=== PATIENT | female | born 2000 | race African-American/Black ===

== ENCOUNTER 2023-02-28 11:33 | Emergency (ER) | payer OTHER ==
--- NOTE | 2023-02-28 12:54 | EDPHYS ---
Physician Documentation [facility] Name: Vivi Storm Age: 22 yrs Sex: Female : 2000 Arrival Date: 02/28/2023 Time: 11:33 Bed IW6 Private MD: ED Physician Rick Man HPI: 02/28 14:23 This 22 yrs old Black Female presents to ER via Ambulatory with complaints of Blisters snw from razor blade cuts. 14:23 Onset: The symptoms/episode began/occurred 3 day(s) ago, and became persistent. The snw patient has not experienced similar symptoms in the past. [employer]: 12:11 LMP 02/05/2023 bp Historical: - Allergies: 12:11 Phenergan; bp - Home Meds: 12:11 None [Active]; bp - PMHx: 12:11 None; bp - Immunization history:: Adult Immunizations up to date. - Social history:: Smoking status: Patient denies any tobacco usage or history of. ROS: 14:18 Constitutional: Negative for fever, chills, and weight loss, Eyes: Negative for injury, snw pain, redness, and discharge, ENT: Negative for injury, pain, and discharge, Neck: Negative for injury, pain, and swelling, Cardiovascular: Negative for chest pain, palpitations, and edema, Respiratory: Negative for shortness of breath, cough, wheezing, and pleuritic chest pain, Abdomen/GI: Negative for abdominal pain, nausea, vomiting, diarrhea, and constipation, Back: Negative for injury and pain, : Negative for injury, bleeding, discharge, and swelling, MS/Extremity: Negative for injury and deformity, Neuro: Negative for headache, weakness, numbness, tingling, and seizure, Psych: Negative for depression, anxiety, suicide ideation, homicidal ideation, and hallucinations. 14:18 Skin: Positive for rash. Exam: 13:05 Constitutional: This is a well developed, well nourished patient who is awake, alert, snw and in no acute distress. Head/Face: Normocephalic, atraumatic. Eyes: Pupils equal round and reactive to light, extra-ocular motions intact. Lids and lashes normal. Conjunctiva and sclera are non-icteric and not injected. Cornea within normal limits. Periorbital areas with no swelling, redness, or edema. ENT: Nares patent. No nasal discharge, no septal abnormalities noted. Tympanic membranes are normal and external auditory canals are clear. Oropharynx with no redness, swelling, or masses, exudates, or evidence of obstruction, uvula midline. Mucous membranes moist. Neck: Trachea midline, no thyromegaly or masses palpated, and no cervical lymphadenopathy. Supple, full range of motion without nuchal rigidity, or vertebral point tenderness. No Meningismus. Chest/axilla: Normal chest wall appearance and motion. Nontender with no deformity. No lesions are appreciated. Cardiovascular: Regular rate and rhythm with a normal S1 and S2. No gallops, murmurs, or rubs. Normal PMI, no JVD. No pulse deficits. Respiratory: Lungs have equal breath sounds bilaterally, clear to auscultation and percussion. No rales, rhonchi or wheezes noted. No increased work of breathing, no retractions or nasal flaring. Abdomen/GI: Soft, non-tender, with normal bowel sounds. No distension or tympany. No guarding or rebound. No evidence of tenderness throughout. Back: No spinal tenderness. No costovertebral tenderness. Full range of motion. MS/ Extremity: Pulses equal, no cyanosis. Neurovascular intact. Full, normal range of motion. Neuro: Awake and alert, GCS 15, oriented to person, place, time, and situation. Cranial nerves II-XII grossly intact. Motor strength 5/5 in all extremities. Sensory grossly intact. Cerebellar exam normal. Normal gait. Psych: Awake, alert, with orientation to person, place and time. Behavior, mood, and affect are within normal limits. 13:05 Skin: Appearance: normal except for affected area, rash can be described as pustular, herpetic tamia - right 4th and 5th finger. Vital Signs: 12:10 BP 131 / 68; Pulse 72; Resp 16; Temp 97.6; Pulse Ox 99% ; Weight 75.75 kg; Height 5 ft. bp 1 in. ; 12:10 Body Mass Index 31.55 (75.75 kg, 154.94 cm) bp MDM: 12:54 Patient medically screened. snw 13:05 Differential diagnosis: viral Infection, bacterial infection. Data reviewed: vital snw signs, nurses notes. Counseling: I had a detailed discussion with the patient and/or guardian regarding: the historical points, exam findings, and any diagnostic results supporting the discharge/admit diagnosis, the need for outpatient follow up, for definitive care, to return to the emergency department if symptoms worsen or persist or if there are any questions or concerns that arise at home. Special discussion: Based on the history and exam findings, there is no indication for further emergent testing or inpatient evaluation. I discussed with the patient/guardian the need to see the primary care provider for further evaluation of the symptoms. Administered Medications: No medications were administered Disposition: 16:37 Co-signature as Attending Physician, Rick Man MD. rn Disposition Summary: 02/28/23 12:54 Discharge Ordered Location: Home snw Condition: Stable snw Diagnosis - Rash and other nonspecific skin eruption snw Followup: snw - With: Emergency Department - When: As needed - Reason: Worsening of condition Followup: snw - With: Private Physician - When: 2 - 3 days - Reason: Recheck today's complaints, Continuance of care, Re-evaluation by your physician Discharge Instructions: - Discharge Summary Sheet snw - Herpetic Tamia snw Forms: - Work release form snw - Medication Reconciliation Form snw - Thank You Letter snw - Antibiotic Education snw - Prescription Opioid Use snw Signatures: Yasmin Sweeney, HYDROELECTRIC COMPONENT MACHINIST-C HYDROELECTRIC COMPONENT MACHINIST-Csnw Rick Man MD MD rn Peltier, Brian RN RN bp
--- NOTE | 2023-02-28 12:54 | ER ---
Nurse's Notes [facility] Name: Vivi Storm Age: 22 yrs Sex: Female : 2000 Arrival Date: 02/28/2023 Time: 11:33 Bed IW6 Private MD: Diagnosis: Rash and other nonspecific skin eruption Presentation: 02/28 12:10 Chief complaint: Patient states: I GOT THESE BLISTERS FROM A RAZOR ON MY HAND. AND I'M bp HAVING ABDOMINAL PAIN. Coronavirus screen: At this time, the client does not indicate any symptoms associated with coronavirus-19. Ebola Screen: No symptoms or risks identified at this time. Initial Sepsis Screen: Does the patient meet any 2 criteria? No. Patient's initial sepsis screen is negative. Does the patient have a suspected source of infection? No. Patient's initial sepsis screen is negative. Risk Assessment: Do you want to hurt yourself or someone else? Patient reports no desire to harm self or others. Onset of symptoms is unknown. 12:10 Method Of Arrival: Ambulatory bp 12:10 Acuity: LEATHA 3 bp Triage Assessment: 12:10 General: Appears in no apparent distress. Behavior is appropriate for age. Pain: Denies bp pain. EENT: No deficits noted. Neuro: No deficits noted. Cardiovascular: No deficits noted. Respiratory: No deficits noted. GI: No signs and/or symptoms were reported involving the gastrointestinal system. : No signs and/or symptoms were reported regarding the genitourinary system. Derm: Rash noted that is vesicular. Musculoskeletal: No deficits noted. [place]: 12:11 LMP 02/05/2023 bp Historical: - Allergies: 12:11 Phenergan; bp - Home Meds: 12:11 None [Active]; bp - PMHx: 12:11 None; bp - Immunization history:: Adult Immunizations up to date. - Social history:: Smoking status: Patient denies any tobacco usage or history of. Screenin:20 [facility] ED Fall Risk Assessment (Adult) History of falling in the last 3 months, bp including since admission No falls in past 3 months (0 pts). Abuse screen: Denies threats or abuse. Denies injuries from another. Nutritional screening: No deficits noted. Tuberculosis screening: No symptoms or risk factors identified. Assessment: 13:20 General: [facility]. bp Vital Signs: 12:10 BP 131 / 68; Pulse 72; Resp 16; Temp 97.6; Pulse Ox 99% ; Weight 75.75 kg; Height 5 ft. bp 1 in. ; 12:10 Body Mass Index 31.55 (75.75 kg, 154.94 cm) bp ED Course: 11:53 Patient arrived in ED. im 11:59 Yasmin Sweeney FNP-C [facility] snw 11:59 Rick Man MD is Attending Physician. snw 12:11 Triage completed. bp 12:11 Arm band placed on. bp 13:19 Jasbir Suárez, RN is Primary Nurse. bp 13:20 Patient has correct armband on for positive identification. bp 13:20 No provider procedures requiring assistance completed. Patient did not have IV access bp during this emergency room visit. Administered Medications: No medications were administered Medication: 13:20 VIS not applicable for this client. bp Outcome: 12:54 Discharge ordered by . snw 13:20 Discharged to home ambulatory. bp 13:20 Condition: stable 13:20 Discharge instructions given to patient, Instructed on discharge instructions, follow up and referral plans. Demonstrated understanding of instructions, follow-up care. 13:21 Patient left the ED. bp Signatures: Yasmin Sweeney FNP-C [employer]ER-Csnw Jasbir Suárez, RN RN bp Oralia Teran im
[2023-02-28 14:02] VITALS: BP 131/68; TEMP 97.6; O2SAT 99
== END 2023-02-28 13:21 | disposition home or self-care (01) ==
LOC: ER 11:33
DX: R21 Rash and other nonspecific skin eruption (principal); Z88.8 Allergy status to other drugs, medicaments and biological substances
CPT/HCPCS: 99282

== ENCOUNTER 2023-05-19 08:07 | Emergency (ER) | payer OTHER ==
--- OUTSIDE RECORDS SUMMARY | 2023-05-19 08:21 | XMS REPORT | Continuity of Care Document ---
:2000 Author Organization [facility] t Address [address] [place] [address] Care Team Providers Name Role Phone No , Pcp [facility] Primary Care Physician Unavailable Jared Hernandez Attending Clinician Unavailable JR GAGE Attending Clinician Unavailable Jr Gage MD Attending Clinician [phone] MIKEY MCKEON Attending Clinician Unavailable Mike HERNANDEZ, Mikey Rick Attending Clinician Rainer Pineda Attending Clinician Unavailable Adama CADENA, Benita Attending Clinician BENITA GÓMEZ Attending Clinician Unavailable Foreign HERNANDEZ, River Handley Attending Clinician RIVER PITT Attending Clinician Unavailable Zohreh Workman Attending Clinician Unavailable RACHNA WALTERS Attending Clinician Unavailable Rachna Hernandes MD Attending Clinician RACHNA HERNANDES Attending Clinician Unavailable Israel Harris Attending Clinician Unavailable ROX MIRANDA Attending Clinician Unavailable CHAITANYA STORM Attending Clinician Unavailable CHIDI PANDA Attending Clinician Unavailable Merry Morales Attending Clinician Unavailable Jazlyn HERNANDEZ, Velma Hoskins Attending Clinician [phone] Julian Velarde Attending Clinician Unavailable Nakul Eaton MD Attending Clinician Aleksandar Coon DO Attending Clinician Magdalena Jaimes MD Attending Clinician MAGDALENA JAIMES Attending Clinician Unavailable Arelis Lopez MD Attending Clinician Brian Brady MD Attending Clinician Sharmaine Ha Attending Clinician Unavailable Mandy Luis Attending Clinician Unavailable Mandy Luis Attending Clinician Unavailable ALEN CHAUDHARI Attending Clinician Unavailable ATUL MAYA Attending Clinician Unavailable Physician, No Primary or Family Admitting Clinician Unavaila ble KNOW, DOES_NOT Admitting Clinician Unavailable Estefani Faria Admitting Clinician Unavailable Mandy Luis Admitting Clinician Unavailable Payers Payer Name Policy Type Policy Number Effective Date Expiration Date S reinierce MEDICAID TCH STAR [id number] 2021 00:00:00 CDC REVIEW [id number] 2020 00:00:00 Problems Condition Condition Condition Status Onset Resolution Last Treating Co mments Source Name Details Category Date Date Treatment Clinician Date 8 WKKS/ 8 WKKS/ Diagnosis Active 2020-092021-06-29 Memoria BLEEDING BLEEDING 0-08 01:35:00 l Active 00:00: [place] 06/28/2021 [facility] NAUSEA NAUSEA Diagnosis Active 2020-092021-06-26 moriricco VOMITING VOMITING 0-06 21:24:00 l Active 00:00: [place] 06/26/2021 [place] ABD PAIN - ABD PAIN Diagnosis Active 2021-09-02 Memoria 7WKS PREG - 7WKS 06-15 09:39:00 l PREG 14:50: [place] Active 00 06/15/2021 [facility] Darwin VAGINAL VAGINAL Diagnosis Active 2019-05-06 Memoria BLEEDING/ BLEEDING/ 8-16 02:50:00 l PREG LESS PREG LESS 00:00: Herm hannah THAN 20 THAN 20 00 WKS WKS Active 05/06/2019 Fabiana Granados DIZZY/LIGH Diagnosis Active 2019-01-04 Aiyana T HEADED DIZZY/LIGH 4 09:57:00 l T HEADED 21:10: [place] Active 00 12/31/2018 [facility] Darwin NST, NST, Diagnosis Active 2016-092017-07-17 Ezio oriricco ULTRASOUND ULTRASOUND 0 21:52:00 l Active 00:00: [place] 07/09/2017 00 [facility] LABOR PAIN LABOR Diagnosis Active 2016-092017-07-06 Memoria PAIN 0-16 13:24:00 l Active 00:00: [place] 07/06/2017 00 [facility] FEVER FEVER Diagnosis Active 2017-01-14 Me moria Active 01-14 06:37:00 l 01/14/2017 00:00: Darius knight [facility] 00 [place] ABD PAIN ABD PAIN Diagnosis Active 2016-12-22 Memoria Active 12-22 19:17:00 l 12/22/2016 00:00: Darius knight 00 [place] SORE SORE Diagnosis Active 2016-12-18 Mem oria THROAT, THROAT, 12-18 23:31:00 l STOMACH STOMACH 00:00: [place] PAIN PAIN 00 Active 12/18/2016 Fabiana Granados POSSIBLE POSSIBLE Diagnosis Active 2015-03-13 Memoria UTI UTI Active 6-16 12:49:00 l 03/06/2015 00:00: Darius knight [address] Patient Patient Problem Resolve 2021-07-01 M emoria currently currently d 21:04:29 l Darius knight (finding) (finding) Resolved Problem 07/01/2021 [facility], Isabell Alexander History of Past Illness Condition Condition Condition Status Onset Resolution Last Treating Co mments Source Name Details Category Date Date Treatment Clinician Date Bacteriuri Problem 2020-092021-06-28 2021-06-28 Memoria a Bacteriuri 0-06 23:14:13 23:14:13 l a 17:00: [place] 06/26/2021 00 06/28/2021 [facility] Other Other Problem 2020-092021-06-28 2021-06-28 M emoria specified specified 0-06 23:14:13 23:14:13 l disorders disorders 17:00: [place] of 00 amniotic amniotic fluid and fluid and membranes, membranes, first first trimester, trimester, not not applicable applicable or or unspecifie unspecifie d d 06/26/2021 06/28/2021 [facility] Mild Mild Problem 2020-092021-06-28 2021-06-28 M emoria hyperemesi hyperemesi 0-06 23:14:13 23:14:13 l s s 17:00: [place] gravidarum gravidarum 00 06/28/2021 [facility] Unspecifie Unspecifi Problem 2020-092021-06-28 2021-06-28 Memoria d ovarian ed ovarian 0-06 23:14:13 23:14:13 l cyst, left cyst, left 17:00: He rmann side side 00 06/26/2021 06/28/2021 [facility] Encounter Encounter Problem 2020-092021-06-28 2021-06-28 Memoria for for 0-06 23:14:13 23:14:13 l supervisio supervisio 17:00: He rmhannah n of n of 00 normal normal , , unspecifie unspecifie d, d, unspecifie unspecifie d d trimester trimester 06/26/2021 06/28/2021 [facility] Other Other Problem 20212021-06-18 2021-06-18 M emoria specified specified 06-16 21:50:11 21:50:11 l 17:00: [place] young related related 00 conditions conditions , , unspecifie unspecifie d d trimester trimester 06/16/2021 06/18/2021 [facility] Urinary Urinary Problem 2021-06-18 2021-06-18 Memoria tract tract 06-16 21:50:11 21:50:11 l infection, infection, 17:00: He rmann site not site not 00 specified specified 06/16/2021 06/18/2021 [facility] Nausea Nausea Problem 2021-06-18 2021-06-18 Memoria with with 06-16 21:50:11 21:50:11 l vomiting, vomiting, 17:00: [place] unspecifie unspecifie 00 d d 06/16/2021 06/18/2021 [facility] Antepartum Antepartu Problem 2019-05-08 2019-05-08 Memoria hemorrhage m 8-16 21:08:11 21:08:11 l , hemorrhage 17:00: Darius knight unspecifie , 00 d, unspecifie unspecifie d, d unspecifie trimester d trimester 05/06/2019 05/08/2019 [facility] Weakness Weakness Problem 2019-01-03 2019-01-03 Memoria 01/01/201901-01 22:42:49 22:42:49 l 01/03/2019 05:00: Darius knight 00 [place] False False Problem 2016-092017-07-09 2017-07-09 M emoria labor, labor, 016 02:04:19 02:04:19 l unspecifie unspecifie 05:00: He rmann d d 00 07/06/2017 07/09/2017 [facility] Acute Acute Problem 2017-01-17 2017-01-17 M emoria upper upper 01-14 03:48:02 03:48:02 l respirator respirator 05:00: He rmann y y 00 infection, infection, unspecifie unspecifie d d 01/14/2017 01/17/2017 [facility] Unspecifie Unspecifi Problem 2016-12-252016-122016-12-25 Memoria d ed 4- 03:27:44 03:27:44 l infection infection 05:00: Herm hannah of urinary of urinary 00 tract in tract in , , unspecifie unspecifie d d trimester trimester 12/22/2016 7 [facility] Encounter Encounter Problem 2016-2016-12-25 2016-12-25 Memoria for for 12-22 03:27:44 03:27:44 l 05:00: Herm hannah test, test, 00 result result positive positive 12/22/2016 12/25/2016 [facility] Acute Acute Problem 2016-2016-12-22 2016-12-22 M emoria pharyngiti pharyngiti 12-19 03:15:35 03:15:35 l s, s, 05:00: [place] unspecifie unspecifie 00 d d 12/19/2016 12/22/2016 [facility] Discharge Discharge Problem 2015-03-10 2015-03-10 Memjazmin Diagnosis: Diagnosis: 03-07 06:36:09 06:36:09 l Urinary Urinary 05:00: [place] tract tract 00 infection, infection, acute acute 03/07/2015 03/10/2015 [facility] Allergies, Adverse Reactions, Alerts Allergy Allergy Status Severity Reaction(s) Onset Inactive Treating Comm ents Source Name Type Date Date Clinician prometha DA Active SV hallucinatio 2021-09 [facility] 2[facility]11 [facility] [place] prometha DA Active U UNKNOWN 2021-09 [facility] zine 1-24 [facility] 00:00: [facility] 00 are [facility] hydrocod DA Active U "ALLERGIC" [facility] one 2-27 [facility] [place] acetamin DA Active U "ALLERGIC" [facility] ophen -27 [facility] [place] ACETAMIN Allergy Active [facility] HYDROCOD Allergy Active [facility] Acetamin Drug Active Other [facility] Allergy 11-17 [facility]( [facility] 00[facility]: s[facility] Medical 00 "ALLERGIC Center " Hydrocod Drug Active Other [facility] one Allergy 2-27 reaction( [facility] 00:00: s): Medical 00 "ALLERGIC Center " PROMETHA Allergy Active High [facility] Z[facility] 2-16 [facility] 00:[facility]: Medical 00 Center Prometha Drug Active Hallucina [facility] Allergy -16 tions [facility] 00:00: Other Medical 00 reaction( Center s): hallucina tions, UNKNOWN SOMETHIN DA Active MO HALLUCINATIN HC A G THEY G 06-06 [facility] GAVE ME 00:00: Hospita IV ??? 00 [facility] No Known DA Active U [facility] Allergie - [facility] 00:[facility]: [facility] 00 [facility] No Known DA Active U [facility] Allergie - [facility] 00:[facility]: [facility]osp[facility] 00 [facility] No Known DA Active U [facility] 1-04 Allergie 00:00: s 00 Prochlor Drug Active 2020- "feels [facility] perazine Intolera 2-27 Rosaura bell Edisylat nce 00:00: feels Medical e 00 bad" per Center patient as of 0 @ 2227 PROCHLOR Allergy Active 2019- [facility] PERAZINE 2-27 EDISYLAT 00:00: E 00 No Known DA Active U 2019-0 [facility] Allergie 9-22 [facility] 00:[facility]: [facility] 00 [facility] No Known DA Active U 2019-0 [facility] Allergie 9-22 [facility] 00:[facility]: H[facility] 00 [facility] No Known DA Active U 2015-0 [facility] Allergie 5-17 [facility] 00:[facility]: [address] No Known DA Active U 2015-0 [facility] Allergie 5-17 [facility] 00:[facility]: [address] NO KNOWN Allergy Active [facility] ALLERGIE S No Known Drug Active [facility] Family History Family Member Diagnosis Comments Start Date Stop Date Source Natural father No Known Problem [facility] Natural mother No Known Problem [facility] Maternal grandmother Cancer [facility] Paternal grandmother Diabetes [facility] Social History Social Habit Start Date Stop Date Quantity Comments Source ASSERTION [facility] Exposure to Not sure [facility] SARS-CoV-2 (event) Medica l Center History of tobacco Occasional tobacco [facility] use smoker Medical Center History SDIN [facility] Alcohol Std Drinks Medica l Center History SDOH [facility] Alcohol Binge Medical [facility] Alcohol intake 2023-02-28 2023-02-28 Current drinker of [facility] 00:[facility]00 00[facility]00:00 alcohol (finding) Medical Center Tobacco use and 2022-05-15 2022-05-15 Smokeless [address] [facility] exposure 00:00:00 00:00:00 non-user Medical Center Alcohol Comment 2022-05-15 2022-05-[address] [facility] 00:00:00 00:00:00 Medical Center History SDOH 2019-03-23 2019-03-[address] [facility] Alcohol Frequency 00:00:00 00:00:00 Medical Center Sex Assigned At 2000 [address] [facility] [address] Nia kes 00:00:00 00:00:00 Medical Center Smoking Status Start Date Stop Date Source Occasional tobacco smoker 2022-05-15 00:00:[address] [facility] Social History [facility] Medications Ordered Filled Start Stop Current Ordering Indication Dosage Frequency Signature Comments Components Source Medication Medication Date Date Medication? Clinician (SIG) Name Name metroNIDAZO 2022- No 500mg Q.5D Take [address] [facility] (FLAGYL) 02-28 tablet [facility] 500 MG 00:00: 23:59 (500 mg Medical tablet 00 :00 total) by Center mouth in the morning and 1 tablet (500 mg total) before bedtime. Do all this for 7 days. Do not drink alcohol. metroNIDAZO 2022- No 500mg Q.5D Take [address] [facility] (FLAGYL) 02-28 tablet [facility] 500 MG 00:00: 23:59 (500 mg Medical tablet 00 :00 total) by Center mouth in the morning and 1 tablet (500 mg total) before bedtime. Do all this for 7 days. Do not drink alcohol. nitrofurant 2022- No 100mg Q.5D Take [address] [facility], 6-10 06-15 capsule [facility] macrocrysta 00:00: 23:59 (100 mg Me dical l-monohydra 00 :00 total) by [facility] te, mouth in (MACROBID) the 100 MG morning capsule and 1 capsule (100 mg total) before bedtime. Do all this for 5 days. nitrofurant 2023-0 2023- No 100mg Q.5D Take [address] [facility], 6-06 26-15 capsule [facility] macrocrysta 00:00: 23:59 (100 mg Me dical l-monohydra 00 :00 total) by [place] ter te, mouth in (MACROBID) the 100 MG morning capsule and 1 capsule (100 mg total) before bedtime. Do all this for 5 days. metroNIDAZO 2023-0 2023- No 500mg Q.5D Take [address] [facility] (FLAGYL) 6- 06-10 tablet [facility] 500 MG 00:00: 00:00 (500 mg Medical tablet 00 :00 total) by Center mouth in the morning and 1 tablet (500 mg total) before bedtime. Do all this for 7 days. Do not drink alcohol. nitrofurant 2023-0 2023- No 100mg Q.5D Take [address] [facility], 6-10 06-10 capsule [facility] macrocrysta 00:00: 00:00 (100 mg Me dical l-monohydra 00 :00 total) by [place] [facility] te, mouth in (MACROBID) the 100 MG morning capsule and 1 capsule (100 mg total) before bedtime. Do all this for 5 days. metroNIDAZO 2023-0 2023- No 500mg Q.5D Take [address] [facility] (FLAGYL) 6-10 06-10 tablet [facility] 500 MG 00:00: 00:00 (500 mg Medical tablet 00 :00 total) by Center mouth in the morning and 1 tablet (500 mg total) before bedtime. Do all this for 7 days. Do not drink alcohol. nitrofurant 2023-0 2023- No 100mg Q.5D Take [address] [facility], 6-10 06-10 capsule [facility] macrocrysta 00:00: 00:00 (100 mg Me dical l-monohydra 00 :00 total) by [place] [facility] te, mouth in (MACROBID) the 100 MG morning capsule and 1 capsule (100 mg total) before bedtime. Do all this for 5 days. nitrofurant 2022-0 2022- No 100mg Q.5D Take [address] [facility], 12-03- capsule [facility] macrocrysta 00:00: 23:59 (100 mg Me dical l-monohydra 00 :00 total) by [place] [facility] te, mouth 2 (MACROBID) (two) 100 MG times capsule daily for 7 days. nitrofurant 0 2022- No 100mg Q.5D Take [address] [facility], 12-03- capsule [facility] macrocrysta 00:00: 23:59 (100 mg Me dical l-monohydra 00 :00 total) by [place] [facility] te, mouth 2 (MACROBID) (two) 100 MG times capsule daily for 7 days. sulfamethox 2021-2021- No 160mg{t Q.5D Take [address] azole-trime 05-15 rimetho tablet Nia kes thoprim 00:00: 23:59 prim} (160 mg of Me dical (BACTRIM 00 :00 trimethopr Cente r DS) 800-160 im total) mg per by mouth 2 tablet (two) times daily for 7 days smx-tmp DS (BACTRIM) 800-160 mg tabs (1tab q12 D10). metroNIDAZO 2021-2021- No 500mg Q.5D Take [address] [facility] (FLAGYL) 05-15 tablet [facility] 500 MG 00:00: 23:59 (500 mg Medical tablet 00 :00 total) by Center mouth 2 (two) times daily for 7 days. sulfamethox 2021-0 2021- No 160mg{t Q.5D Take [address] azole-trime 05-15 rimetho tablet Nia kes thoprim 00:00: 23:59 prim} (160 mg of Me dical (BACTRIM 00 :00 trimethopr Cente r DS) 800-160 im total) mg per by mouth 2 tablet (two) times daily for 7 days smx-tmp DS (BACTRIM) 800-160 mg tabs (1tab q12 D10). metroNIDAZO 2021- No 500mg Q.5D Take [address] [facility] (FLAGYL) 05-15 tablet [facility] 500 MG 00:00: 23:59 (500 mg Medical tablet 00 :00 total) by Center mouth 2 (two) times daily for 7 days. sulfamethox 2021- No 160mg{t Q.5D Take [address] azole-trime 05-15 rimetho tablet Nia kes thoprim 00:00: 23:59 prim} (160 mg of Me dical (BACTRIM 00 :00 trimethopr Cente r DS) 800-160 im total) mg per by mouth 2 tablet (two) times daily for 7 days smx-tmp DS (BACTRIM) 800-160 mg tabs (1tab q12 D10). metroNIDAZO 2021- No 500mg Q.5D Take [address] [facility] (FLAGYL) 05-15 tablet [facility] 500 MG 00:00: 23:59 (500 mg Medical tablet 00 :00 total) by Center mouth 2 (two) times daily for 7 days. predniSONE 2021- No 50mg QD Take [address] (DELTASONE) 8 08-30 tablet (50 L ukes 50 MG 00:00: 23:59 mg total) Medica l tablet 00 :00 by mouth Center daily for 5 days. predniSONE 2021- No 50mg QD Take [address] (DELTASONE) 8-25 08-30 tablet (50 L ukes 50 MG 00:00: 23:59 mg total) Medica l tablet 00 :00 by mouth Center daily for 5 days. predniSONE 2021- No 50mg QD Take [address] (DELTASONE) 8-25 08-30 tablet (50 L ukes 50 MG 00:00: 23:59 mg total) Medica l tablet 00 :00 by mouth Center daily for 5 days. nitrofurant 2021- No 100mg Q.5D Take [address] [facility], 2-09 05- capsule [facility] macrocrysta 00:00: 00:00 (100 mg Me dical l-monohydra 00 :00 total) by [place] [facility] te, mouth 2 (MACROBID) (two) 100 MG times capsule daily. pyridoxine, 2021- No 25mg Take 1 SISSY vitamin B6, 11-09- tablet (25 L ukes (B-6) 25 MG 00:00: 23:59 mg total) Medical tablet 00 :00 by mouth Center every 8 (eight) hours as needed for up to 15 days. metroNIDAZO 2021- No 250mg Q.[id number] Take [address] [facility] (FLAGYL) 11-09- [id number] tablet [facility] 250 MG 00:00: 23:59 3D (250 mg Medical tablet 00 :00 total) by Center mouth 3 (three) times daily for 7 days. cephalexin 2020-09 Yes 500 mg = 1 M emoria 500 mg oral 0-07 cap, PO, l capsule 04:31: BID, X 5 Darius n 00 day, # 10 cap, 0 Refill(s) NS (Bolus) 2020-09 No 1,000 mL, Me moria IV 0-07 1,000 l 03:32: ml/hr, [place] 00 Infuse Over: 1 hr, Route: IV, 1,000, Drug form: INJ, ONCE, Priority: STAT, Dosing Weight 68.4 kg, Start date: 06/26/21 22:32:00 CDT, Stop date: 06/26/21 22:32:00 CDT, 0 Metoclopram 2020-09 Yes 5 mg = 1 Me moria jaimee 5 MG 0-07 tab, PO, l Oral Tablet 02:20: BID, PRN He rmann [Reglan] 00 Nausea & Vomiting, X 7 day, # 8 tab, 0 Refill(s) Reglan 2020-09 No Notes: Memoria 0-07 (Same as: l 01:09: Reglan) [place] 00 LR IV 1,000 2020-09 No 1,000 mL, M emoria mL 0-07 Rate: 999 l 01:08: ml/hr, [place] 00 Infuse over: 1 hr, Route: IV, Dosing Weight 68.4 kg, Total Volume: 1,000, Start date: 06/26/21 20:08:00 CDT, Duration: 30 day, Stop date: 07/26/21 20:07:00 CDT, BSA: 1.75 m2, 0 nitrofurant 2020-09- No 100mg Q.5D Take [address] [facility], 0-04 10-11 capsule [facility] macrocrysta 00:00: 23:59 (100 mg Me dical l-monohydra 00 :00 total) by [place] [facility] te, mouth 2 (MACROBID) (two) 100 MG times capsule daily for 7 days. promethazin 2020-[address] [facility] 0-04 10-11 suppositor [facility] (PHENERGAN) 00:00: 23:59 y (25 mg M edical 25 MG 00 :00 total) Center suppository rectally every 6 (six) hours as needed for Nausea for up to 7 days. nitrofurant 2020-09- No 100mg Q.5D Take [address] [facility], 0-04 10-11 capsule [facility] macrocrysta 00:00: 23:59 (100 mg Me dical l-monohydra 00 :00 total) by [place] [facility] te, mouth 2 (MACROBID) (two) 100 MG times capsule daily for 7 days. promethazin 2020-09- No 25mg Place [address] [facility] 0-04 10-11 suppositor [facility] (PHENERGAN) 00:00: 23:59 y (25 mg M edical 25 MG 00 :00 total) Center suppository rectally every 6 (six) hours as needed for Nausea for up to 7 days. nitrofurant 2020-09- No 100mg Q.5D Take [address] [facility], 0-04 10-11 capsule [facility] macrocrysta 00:00: 23:59 (100 mg Me dical l-monohydra 00 :00 total) by [place] [facility] te, mouth 2 (MACROBID) (two) 100 MG times capsule daily for 7 days. promethazin 2020-09- No 25mg Place [address] [facility] 0-04 10-11 suppositor [facility] (PHENERGAN) 00:00: 23:59 y (25 mg M edical 25 MG 00 :00 total) Center suppository rectally every 6 (six) hours as needed for Nausea for up to 7 days. AZITHROmyci 2020-09 No 500mg QD Take [address] n 0-04 10-09 tablet [facility] (ZITHROMAX) 00:00: 23:59 (500 mg Me dical 500 MG 00 :00 total) by Center tablet mouth daily for 5 days Take by mouth as directed.. AZITHROmyci 2020-09- No 500mg QD Take [address] n 0-04 10-09 tablet [facility] (ZITHROMAX) 00:00: 23:59 (500 mg Me dical 500 MG 00 :00 total) by Center tablet mouth daily for 5 days Take by mouth as directed.. AZITHROmyci 2020-09- No 500mg QD Take [address] n 0-04 10-09 tablet [facility] (ZITHROMAX) 00:00: 23:59 (500 mg Me dical 500 MG 00 :00 total) by Center tablet mouth daily for 5 days Take by mouth as directed.. cephalexin Yes 500 mg = 1 M emoria 500 mg oral 06-16 cap, PO, l capsule 21:48: BID, X 7 Darius n 00 day, # 14 cap, 0 Refill(s) doxylamine Yes 1 tab, PO, M emoria succinate 06-16 Bedtime, # l 10 MG / 21:48: 14 tab, 0 [place] nn Pyridoxine 00 Refill(s) Hydrochlori de 10 MG Enteric Coated Tablet [Diclegis] Ceftriaxone No 1 gm, Memor ia 06-16 Route: l 20:21: IVPB, Drug form: PDR/INJ, ONCE, Dosing Weight 70.8, kg, Priority: STAT, Start date: 06/16/21 15:21:00 CDT, Stop date: 06/16/21 15:21:00 CDT, ABX Indication : Urinary Tract Infection Saline No Notes: Memoria Flush 0.9% 06-16 Same as: l 19:25: BD [place] 00 Posiflush Sterile Sodium No 1,000 mL, Memori a Chloride 06-16 1000 l 0.9% 19:25: ml/hr, [place] (Bolus) IV 00 Infuse Over: 1 hr, Route: IV, 1,000, Drug form: INJ, ONCE, Priority: STAT, Dosing Weight 70.3 kg, Start date: 06/16/21 14:25:00 CDT, Stop date: 06/16/21 14:25:00 CDT, 0 Ondansetron No Notes: Michael amado 06-16 (Same as: l 19:25: Zofran) MEDICATION WASTE Product Size: 4 mg Product Wasted: ___ mg ondansetron 2020- No 4mg Take [address] [facility] (ZOFRAN-ODT 8-18 08-25 tablet (4 Nia kes ) 4 MG 00:00: 23:59 mg total) Medic al disintegrat 00 :00 by mouth Cent er ing tablet every 8 (eight) hours as needed for Nausea for up to 7 days. ondansetron 2020- No 4mg Take [address] [facility] (ZOFRAN-ODT 8-18 08-25 tablet (4 Nia kes ) 4 MG 00:00: 23:59 mg total) Medic al disintegrat 00 :00 by mouth Cent er ing tablet every 8 (eight) hours as needed for Nausea for up to 7 days. ondansetron 2020-2020- No 4mg Take [address] [facility] (ZOFRAN-ODT 8-18 08-25 tablet (4 Nia kes ) 4 MG 00:00: 23:59 mg total) Medic al disintegrat 00 :00 by mouth Cent er ing tablet every 8 (eight) hours as needed for Nausea for up to 7 days. ondansetron 2020-2020- No 4mg Take [address] [facility] [address] (ZOFRAN-ODT 8-18 08-25 tablet (4 Nia kes ) 4 MG 00:00: 23:59 mg total) Medic al disintegrat 00 :00 by mouth Cent er ing tablet every 8 (eight) hours as needed for Nausea for up to 7 days. ondansetron 2020-2020- No 4mg Take [address] [facility] (ZOFRAN-ODT 5-27 08-18 tablet (4 Nia kes ) 4 MG 00:00: 00:00 mg total) Medic al disintegrat 00 :00 by mouth Cent er ing tablet every 4 (four) hours as needed for Nausea for up to 10 doses. ondansetron 1-0 2021- No 4mg Take [address] [facility] (ZOFRAN-ODT 5-27 08-18 tablet (4 Nia kes ) 4 MG 00:00: 00:00 mg total) Medic al disintegrat 00 :00 by mouth Cent er ing tablet every 4 (four) hours as needed for Nausea for up to 10 doses. ondansetron 2021-0 2021- No 4mg Take [address] [facility] [address] (ZOFRAN-ODT 5-27 08-18 tablet (4 Nia kes ) 4 MG 00:00: 00:00 mg total) Medic al disintegrat 00 :00 by mouth Cent er ing tablet every 4 (four) hours as needed for Nausea for up to 10 doses. ondansetron 2020-0 2020- No 4mg Take [address] [facility] [address] (ZOFRAN-ODT 5-27 08-18 tablet (4 Nia kes ) 4 MG 00:00: 00:00 mg total) Medic al disintegrat 00 :00 by mouth Cent er ing tablet every 4 (four) hours as needed for Nausea for up to 10 doses. cephalexin 2020-0 2020- No 500mg Q.[id number] Take [address] (KEFLEX) 02-06- [id number] capsule L ukes 500 MG 00:00: 00:00 3D (500 mg Medical capsule 00 :00 total) by Center mouth 3 (three) times daily for 7 days. cephalexin 2020-0 2020- No 500mg Q.[id number] Take [address] (KEFLEX) 02-06 [id number] capsule L ukes 500 MG 00:00: 00:00 3D (500 mg Medical capsule 00 :00 total) by Center mouth 3 (three) times daily for 7 days. cephalexin 2020-0 202- No 500mg Q.[id number] Take [address] (KEFLEX) 02-06- [id number] capsule L ukes 500 MG 00:00: 00:00 3D (500 mg Medical capsule 00 :00 total) by Center mouth 3 (three) times daily for 7 days. cephalexin 2020-0 1- No 500mg Q.[id number] Take [address] (KEFLEX) 02-06- [id number] capsule L ukes 500 MG 00:00: 00:00 3D (500 mg Medical capsule 00 :00 total) by Center mouth 3 (three) times daily for 7 days. cephalexin 2020-2020- No 500mg Q.[id number] Take [address] (KEFLEX) 5-19 [id number] capsule L ukes 500 MG 00:00: 00:00 3D (500 mg Medical capsule 00 :00 total) by Center mouth 3 (three) times daily for 7 days. cephalexin 2020-0 2020- No 500mg [id number] Take [address] [facility] (KEFLEX) 5 05-19 [id number] capsule L ukes 500 MG 00:00: 00:00 3D (500 mg Medical capsule 00 :00 total) by Center mouth 3 (three) times daily for 7 days. cephalexin 2020-2020- No 500mg [id number] Take [address] [facility] (KEFLEX) 5-19 [id number] capsule L ukes 500 MG 00:00: 00:00 3D (500 mg Medical capsule 00 :00 total) by Center mouth 3 (three) times daily for 7 days. cephalexin 2020- No 500mg Q.[id number] Take [address] [facility] (KEFLEX) 5-19 [id number] capsule L ukes 500 MG 00:00: 00:00 3D (500 mg Medical capsule 00 :00 total) by Center mouth 3 (three) times daily for 7 days. predniSONE 2020-2020- No 50mg QD Take [address] [facility] (DELTASONE) 12-28-14 tablet (50 L ukes 50 MG 00:00: 23:59 mg total) Medica l tablet 00 :00 by mouth Center daily for 5 days. predniSONE 2020-2020- No 50mg QD Take [address] [facility] (DELTASONE) 12-28-14 tablet (50 L ukes 50 MG 00:00: 23:59 mg total) Medica l tablet 00 :00 by mouth Center daily for 5 days. predniSONE 2020-2020- No 50mg QD Take [address] [facility] (DELTASONE) 12-28-14 tablet (50 L ukes 50 MG 00:00: 23:59 mg total) Medica l tablet 00 :00 by mouth Center daily for 5 days. predniSONE 50mg QD Take [address] [facility] (DELTASONE) 12-28 04-14 tablet (50 L ukes 50 MG 00:00: 23:59 mg total) Medica l tablet 00 :00 by mouth Center daily for 5 days. metroNIDAZO 2019-09 500mg Q.[id number] Take [address] [facility] (FLAGYL) 11-17- [id number] [facility] by [facility] 500 [facility] 20:59: 00:00 3D mouth 3 Medical tablet 59 :00 (three) Center times daily. metroNIDAZO 2019-09 500mg Q.[id number] Take [address] [facility] (FLAGYL) -16 09- [id number] mg by [facility] 500 MG 20:59: 00:00 3D mouth 3 Medical tablet 59 :00 (three) Center times daily. butalbital- 2019-09{tbl} Take [address] acetaminoph 11-17 tablet by Nia dumont en-caffeine 00:00: 23:59 mouth Medi sabine (FIORICET, 00 :00 every 6 Center ESGIC) (six) 50-325-40 hours as mg per needed for tablet Headaches for up to 7 days. butalbital- 2019-09 1{tbl} Take [address] acetaminoph 11-17 tablet by Nia dumont en-caffeine 00:00: 23:59 mouth Medi sabine (FIORICET, 00 :00 every 6 Center ESGIC) (six) 50-325-40 hours as mg per needed for tablet Headaches for up to 7 days. ondansetron 2019-[address] [facility] (ZOFRAN-ODT 11-09 Take 30 Luke s ) 4 MG 00:00: 00:00 minutes Medical disintegrat 00 :00 before Center ing tablet taking your medication s. This may be taken every 6 hours, as needed.. ibuprofen 2019-09 1 po q6h, [facility] (ADVIL,MOTR 11-09 prn pain, Nia kegregorio [place]) 600 MG 00:00: 00:00 fever, or M edical tablet 00 :00 Headache.. Center ondansetron 2019-09 No [address] [facility] (ZOFRAN-ODT 11-09 Take 30 Luke s ) 4 MG 00:00: 00:00 minutes Medical disintegrat 00 :00 before Center ing tablet taking your medication s. This may be taken every 6 hours, as needed.. ibuprofen 2019-09 No 1 po q6h, [facility] (ADVIL,MOTR 11-09 prn pain, Nia kes [place]) 600 MG 00:00: 00:00 fever, or M edical tablet 00 :00 Headache.. [place] ondansetron 2019-09 No [address] [facility] (ZOFRAN-ODT 11-09 Take 30 Luke s ) 4 MG 00:00: 00:00 minutes Medical disintegrat 00 :00 before Center ing tablet taking your medication s. This may be taken every 6 hours, as needed.. ibuprofen 2019-09 No 1 po q6h, [facility] (ADVIL,MOTR 11-09 prn pain, Nia kes [place]) 600 MG 00:00: 00:00 fever, or M edical tablet 00 :00 Headache.. [place] metroNIDAZO 2019-09- No 500mg Q.5D Take [address] [facility] (FLAGYL) 10-29 tablet [facility] 500 MG 00:00: 23:59 (500 mg Medical tablet 00 :00 total) by Center mouth 2 (two) times daily for 10 days. metroNIDAZO 2019-09- No 500mg Q.5D Take [address] [facility] (FLAGYL) 10-29 tablet [facility] 500 MG 00:00: 23:59 (500 mg Medical tablet 00 :00 total) by Center mouth 2 (two) times daily for 10 days. nitrofurant 2019-09- No 100mg Q.5D Take [address] [facility] [address] [facility] oin, 10-29 capsule [facility] macrocrysta 00:00: 23:59 (100 mg Me dical l-monohydra 00 :00 total) by [facility], mouth 2 (MACROBID) (two) 100 MG times capsule daily for 7 days. ondansetron 2019-09- No 4mg Take [address] [facility] (ZOFRAN) 4 10-29-15 tablet (4 [place] es MG tablet 00:00: 23:59 mg total) Me dical 00 :00 by mouth 3 Center (three) times daily as needed for Nausea for up to 7 days ODT please. nitrofurant 2019-09- No 100mg Q.5D Take [address] [facility] [address] [facility] oin, 10-29 capsule [employer] macrocrysta 00:00: 23:59 (100 mg Me dical l-monohydra 00 :00 total) by [facility], mouth 2 (MACROBID) (two) 100 MG times capsule daily for 7 days. ondansetron 2019-09- No 4mg Take [address] [facility] (ZOFRAN) 4 10-2915 tablet (4 [place] MG tablet 00:00: 23:59 mg total) Me dical 00 :00 by mouth 3 Center (three) times daily as needed for Nausea for up to 7 days ODT please. PNV 2019- No 1{tbl} QD Take [address] [facility] 119-iron 05-26 tablet by [facility] fum-folic 00:00: 00:00 mouth Medica l acid 29 mg 00 :00 daily. Center iron- 1 mg Tab 2016-09 No 1 tab, Memoria Multivitami 0-21 Route: PO, l ns oral 14:00: Drug Form: Herm hannah tablet 00 TAB, Dosing Weight 61.818, kg, Daily, Start date: 07/11/17 9:00:00 CDT, Duration: 30 day, Stop date: 08/09/17 9:00:00 [employer] Docusate 2016-09 Yes 100 mg = 1 Mem oria Sodium 100 0-21 cap, PO, l MG Oral 13:28: Daily, PRN Herm hannah Capsule 00 Constipati on, # 20 cap, 0 Refill(s) ibuprofen 2016-09 Yes 600 mg = 1 Me moria 600 mg oral 0-21 tab, PO, l tablet 13:28: Q6H, PRN [place] 00 Pain, take with food, X 7 day, # 28 tab, 1 Refill(s) Celestone 2016-09 Yes Notes: Memori a Soluspan 0-20 (betametha l 23:15: sone [place] 00 acetate-so dium phosphate 6 mg/ml INJ) (Same As: [place] Soluspan) Ibuprofen 2016-09 No Notes: Memori a 0-20 (Same as: l 17:00: Motrin) [place] "Do Not Crush" Take with food. M-M-R II 2016-09 No Notes: Memoria 0-20 (Same as: l 16:00: M-M-R II) [place] 00 (measles-m umps-rubel la virus vaccine 0.5 ml INJ VL) WASTE: F/P - Red; E -Red GIVE PRIOR TO DISCHARGE Acetaminoph 2016-09 No Notes: Michael amado en 325 MG / 0-20 (Same as: l Hydrocodone 15:10: [place] Kaykay nn Bitartrate 00 325/5) Do 5 MG Oral not exceed Tablet 4gm/day of acetaminop hen. Acetaminoph 2016-09 No Notes: Do M emoria en 325 MG / 0-20 not exceed l Hydrocodone 15:10: 4gm/day of [place] Bitartrate 00 acetaminop 10 MG Oral hen. (Same Tablet as: [place] 325/10) Ondansetron 2016-09 No Notes: Michael amado 0-20 (Same as: l 15:10: Zofran) [place] MEDICATION WASTE Product Size: 4 mg Product Wasted: _0_ mg Docusate 2016-09 No Notes: Memoria 0-20 (Same as: l 15:10: Colace) [place] 00 (Do Not Crush) Bisacodyl 2016-09 No Notes: Memori a 0-20 (Same As: l 15:10: Dulcolax, [place] 00 Bisco-Lax) Lactated 2016-09 No 1,000 mL, Michael amado Ringers 0-20 Rate: 100 l 1,000 mL 15:10: ml/hr, [place] 00 Infuse over: 10 hr, Route: IV, Dosing Weight 61.818 kg, Total Volume: 1,000, Start date: 07/10/17 10:10:00 CDT, Duration: 30 day, Stop date: 08/09/17 10:09:00 [employer] Oxytocin 2016-09 No 30 unit, Memor ia 0-20 500 mL, l 15:10: Rate: 42 [place] 00 ml/hr, Infuse over: 11.9 hr, Dosing Weight 61.818, kg, Route: IV, Total Volume: 500 mL, Start date: 07/10/17 10:10:00 CDT, Duration: 2 day, Stop date: 07/12/17 10:09:00 CDT, Replace Every: 11.9 hr lanolin 2016-09 No 1 appl, Memoria topical 0-20 Route: l 15:10: TOP, PRN, [place] 00 Drug form: OINT, PRN Other -See Comment, Start date: 07/10/17 10:10:00 CDT, Duration: 30 day, Stop date: 08/09/17 9:09:00 [employer] Methylergon 2016-09 No Notes: Michael amado ovine 0-20 (Same l 15:10: as:Metherg [place] 00 ine) Benzocaine 2016-09 No Notes: Memor ia 200 MG/ML 0-20 (Same As: l Topical 15:10: Dermoplast Herm hannah [place] 00 ) WASTE: [Dermoplast Aerosol - ] Return to Pharmacy FOR EXTERNAL USE ONLY zolpidem 2016-09 No Notes: Memoria 0-20 (Same As: l 15:10: Ambien) Terbutaline 2016-09 Yes Notes: Michael amado 0-20 DO NOT l 11:08: USE IN [place] [employer] (Same As: [place]) Methylergon 2016-09 No Notes: Michael amado ovine 0-19 (Same l 23:00: as:Metherg [place] 00 ine) Famotidine 2016-09 No Notes: Memor ia 0-19 (Same as: l 23:00: Pepcid) Can be dilute in 5-10cc NS IVP: Slow IV push over at least 2 minutes. Citric Acid 2016-09 No Notes: Michael amado / sodium 0-19 (Same As: l citrate 23:00: BicitraDarius n 00 Cytra-2) Sodium citrate-ci tric acid (500-334 mg/5 mL): 1 mL contains sodium 1 mEq/mL and bicarbonat e 1 mEq/mL Carboprost 2016-09 No Notes: Memor ia 0-19 (Same As: l 23:00: Hemabate) Misoprostol 2016-09 No Notes: Michael amado 0-19 (Same l 23:00: as:Cytotec ) Take with food betamethaso 2016-09 No 12 mg, Michael amado ne 0-19 Route: IM, l 23:00: [id number], Dosing Weight 61.818, kg, Start date: 07/09/17 18:00:00 CDT, Duration: 1 day, Stop date: 07/09/17 18:00:00 CDT Oxytocin 2016-09 No 30 unit, Memor ia 0-19 500 mL, l 22:05: Rate: Titrate, Dosing Weight 61.818, kg, Route: IV, Total Volume: 500 mL, Start date: 07/09/17 17:05:00 CDT, Duration: 2 day, Stop date: 07/11/17 17:04:00 CDT, Replace Every: 24 hr Butorphanol 2016-09 No Notes: Michael amado 0-19 (Same As: l 22:05: Stadol) MEDICATION WASTE Product Size: 2 mg Product Wasted: ___ mg Terbutaline 2016-09 No Notes: Michael amado 0-19 DO NOT l 22:05: USE IN [employer] (Same As: Brethine) Acetaminoph 2016-09 No Notes: Michael amado en 325 MG / 0-19 (Same as: l Hydrocodone 22:05: [place] Kaykay nn Bitartrate 00 325/5) Do 5 MG Oral not exceed Tablet 4gm/day of acetaminop hen. Lidocaine 2016-09 No Notes: Memori a Hydrochlori 0-19 (Same as: l de 10 MG/ML 22:05: Xylocaine) Injectable 00 Solution Ibuprofen 2016-09 No Notes: Memori a 0-19 (Same as: l 22:05: Motrin) "Do Not Crush" Take with food. Ondansetron 2016-09 No Notes: Michael amado 0-19 (Same as: l 22:05: Zofran) MEDICATION WASTE Product Size: 4 mg Product Wasted: ___ mg Calcium 2016-09 No 1,000 mL, Memor ia Chloride 0-19 1,000 l 0.0014 22:05: ml/hr, [place] MEQ/ML / 00 Infuse Potassium Over: 1 Chloride hr, Route: 0.004 IV, 1,000, MEQ/ML / Drug form: Sodium INJ, ONCE, Chloride Dosing 0.103 Weight MEQ/ML / 61.818 kg, Sodium Start Lactate date: 0.028 07/09/17 MEQ/ML 17:05:00 Injectable CDT, Stop Solution date: 07/09/17 17:05:00 CDT, Bolus for regional anesthesia per unit protocol Lactated 2016-09 No 1,000 mL, Michael amado Ringers 0-19 Rate: 125 l 1,000 mL 22:05: ml/hr, [place] 00 Infuse over: 8 hr, Route: IV, Dosing Weight 61.818 kg, Total Volume: 1,000, Start date: 07/09/17 17:05:00 CDT, Duration: 30 day, Stop date: 08/08/17 17:04:00 [employer] cephalexin Yes 500 mg = 1 M emoria 500 mg oral 4-04 tab, PO, l tablet 03:24: TID, X 7 [place] day, # 21 tab, 0 Refill(s) cefdinir Yes 300 mg = 1 Mem oria 300 MG Oral 6-17 cap, PO, l Capsule 05:04: Q12H, X 10 Herm hannah day, # 20 cap, 0 Refill(s) Immunizations Ordered Immunization Filled Immunization Date Status Commen ts Source Name Name diphtheria/pertussis 2017-07-11 Completed Michael rial , acel/tetanus adult 23:22:00 [facility] Vital Signs Vital Name Observation Time Observation Value Comments Source HEIGHT 2023-02-28 16:17:00 154.9 cm WEIGHT 2023-02-28 16:17:00 74.844 kg HEIGHT 2023-02-28 16:17:00 154.9 cm WEIGHT 2023-02-28 16:17:00 74.844 kg HEIGHT 2023-02-28 16:17:00 154.9 cm WEIGHT 2023-02-28 16:17:00 74.844 kg HEIGHT 2022-12-03 17:34:00 154.9 cm WEIGHT 2022-12-03 17:34:00 76.658 kg HEIGHT 2022-12-03 17:34:00 154.9 cm WEIGHT 2022-12-03 17:34:00 76.658 kg HEIGHT 2022-12-03 17:34:00 154.9 cm WEIGHT 2022-12-03 17:34:00 76.658 kg HEIGHT 2022-05-15 22:10:00 154.9 cm WEIGHT 2022-05-15 22:10:00 74.4 kg HEIGHT 2022-05-15 22:10:00 154.9 cm WEIGHT 2022-05-15 22:10:00 74.4 kg HEIGHT 2022-05-12 15:00:00 154.9 cm WEIGHT 2022-05-12 15:00:00 72.576 kg HEIGHT 2022-05-12 15:00:00 154.9 cm WEIGHT 2022-05-12 15:00:00 72.576 kg WEIGHT 2021-06-24 20:49:00 69 kg WEIGHT 2021-06-24 20:49:00 69 kg HEIGHT 2021-05-08 01:00:00 157.5 cm WEIGHT 2021-05-08 01:00:00 73.086 kg HEIGHT 2021-05-08 01:00:00 157.5 cm WEIGHT 2021-05-08 01:00:00 73.086 kg WEIGHT 2021-02-14 12:58:00 74.39 kg WEIGHT 2021-02-14 12:58:00 74.39 kg HEIGHT 2020-12-28 06:28:00 157.5 cm WEIGHT 2020-12-28 06:28:00 73.483 kg HEIGHT 2020-12-28 06:28:00 157.5 cm WEIGHT 2020-12-28 06:28:00 73.483 kg HEIGHT 2020-11-23 20:07:00 157.5 cm WEIGHT 2020-11-23 20:07:00 74.844 kg HEIGHT 2020-11-23 20:07:00 157.5 cm WEIGHT 2020-11-23 20:07:00 74.844 kg WEIGHT 2020-10-24 14:00:00 73.029 kg WEIGHT 2020-10-24 14:00:00 73.029 kg HEIGHT 2020-09-08 20:31:00 157.5 cm WEIGHT 2020-09-08 20:31:00 73.936 kg WEIGHT 2020-09-08 20:24:00 73.936 kg HEIGHT 2020-09-08 20:31:00 157.5 cm WEIGHT 2020-09-08 20:31:00 73.936 kg WEIGHT 2020-09-08 20:24:00 73.936 kg HEIGHT 2020-08-28 14:39:00 157.5 cm WEIGHT 2020-08-28 14:39:00 71.215 kg HEIGHT 2020-08-28 14:39:00 157.5 cm WEIGHT 2020-08-28 14:39:00 71.215 kg HEIGHT 2020-06-09 00:00:00 157.5 cm WEIGHT 2020-06-09 00:00:00 68.947 kg HEIGHT 2020-06-09 00:00:00 157.5 cm WEIGHT 2020-06-09 00:00:00 68.947 kg WEIGHT 2020-05-26 00:00:00 70.761 kg WEIGHT 2020-05-26 00:00:00 70.761 kg WEIGHT 2020-02-04 00:00:00 70.761 kg WEIGHT 2020-02-04 00:00:00 70.761 kg Systolic blood 2023-02-28 16:17:00 100 mm[Hg] [facility] Diastolic blood 2023-02-28 16:17:00 67 mm[Hg] [facility] Heart rate 2023-02-28 16:17:00 86 /min [facility] Body temperature 2023-02-28 16:17:00 36.72 Radha [facility] Respiratory rate 2023-02-28 16:17:00 18 /min [facility] Body height 2023-02-28 16:17:00 154.9 cm [facility] Body weight 2023-02-28 16:17:00 74.844 kg [facility] BMI 2023-02-28 16:17:00 31.18 kg/m2 [facility] Oxygen saturation in 2023-02-28 16:17:00 100 /min [facility] Arterial blood by Medical Ce nter Pulse oximetry Systolic blood 2022-05-15 22:10:00 101 mm[Hg] [facility] Diastolic blood 2022-05-15 22:10:00 67 mm[Hg] [facility] Heart rate 2022-05-15 22:10:00 86 /min [facility] Body temperature 2022-05-15 22:10:00 36.72 Radha [facility] Respiratory rate 2022-05-15 22:10:00 20 /min [facility] Body height 2022-05-15 22:10:00 154.9 cm [facility] Body weight 2022-05-15 22:10:00 74.4 kg [facility] BMI 2022-05-15 22:10:00 30.99 kg/m2 [facility] Oxygen saturation in 2022-05-15 22:10:00 100 /min [facility] Arterial blood by Medical Ce nter Pulse oximetry Systolic (mm Hg) 2021-06-29 04:38:00 Michael rial [place] Diastolic (mm Hg) 2021-06-29 04:38:00 Mem orial [place] Heart Rate 2021-06-29 04:38:00 [facility] [place] Respitory Rate 2021-06-29 04:38:00 Memori al [place] Temperature Oral (F) 2021-06-29 04:38:00 98.2 F [facility] [place] Systolic (mm Hg) 2021-06-27 04:42:00 Michael rial [place] Diastolic (mm Hg) 2021-06-27 04:42:00 Mem orial [place] Respitory Rate 2021-06-27 04:42:00 Memori al [place] Temperature Oral (F) 2021-06-27 04:42:00 98.9 F [facility] [place] Heart Rate 2021-06-27 04:42:00 [facility] [place] Systolic (mm Hg) 2021-06-27 02:26:00 Michael rial [place] Diastolic (mm Hg) 2021-06-27 02:26:00 Mem orial [place] Respitory Rate 2021-06-27 02:26:00 Memori al [place] Heart Rate 2021-06-27 02:26:00 [facility] [place] Heart Rate 2021-06-27 01:00:00 [facility] [place] Respitory Rate 2021-06-27 01:00:00 Memori al [place] Systolic (mm Hg) 2021-06-27 01:00:00 Michaelcarlos fischerl [place] Diastolic (mm Hg) 2021-06-27 01:00:00 Mem orial [place] Height 2021-06-26 23:41:00 157.48 cm [facility] [place] BMI Calculated 2021-06-26 23:41:00 Memori al [place] Weight 2021-06-26 23:41:00 [facility] [place] Temperature Oral (F) 2021-06-26 23:41:00 99.6 F [facility] [place] Systolic blood 2021-06-24 23:31:00 100 mm[Hg] [facility] Diastolic blood 2021-06-24 23:31:00 61 mm[Hg] [facility] Heart rate 2021-06-24 23:31:00 72 /min [facility] Respiratory rate 2021-06-24 23:31:00 18 /min [facility] Oxygen saturation in 2021-06-24 23:31:00 99 /min [facility] Arterial blood by Medical Ce nter Pulse oximetry Body temperature 2021-06-24 20:49:00 36.78 Radha [facility] Body weight 2021-06-24 20:49:00 69 kg [facility] BMI 2021-06-24 20:49:00 27.82 kg/m2 [facility] Temperature Oral (F) 2021-06-16 22:06:00 98.3 F [facility] [place] Heart Rate 2021-06-16 22:06:00 [facility] [place] Respitory Rate 2021-06-16 22:06:00 Memori al [place] Systolic (mm Hg) 2021-06-16 22:06:00 Michaelcarlos fischerl [place] Diastolic (mm Hg) 2021-06-16 22:06:00 Mem orial [place] Height 2021-06-16 19:24:00 157.48 cm [facility] [place] BMI Calculated 2021-06-16 19:24:00 Memori al [place] Weight 2021-06-16 19:24:00 [facility] [place] Systolic (mm Hg) 2021-06-16 19:24:00 Michael alvarado [place] Diastolic (mm Hg) 2021-06-16 19:24:00 Mem orial [place] Heart Rate 2021-06-16 19:24:00 [facility] [place] Respitory Rate 2021-06-16 19:24:00 Ezioori al [place] Temperature Oral (F) 2021-06-16 19:24:00 [facility] 2021-05-08 03:37:00 102 mm[Hg] [facility] Diastolic blood 2021-05-08 03:37:00 60 mm[Hg] [facility] Heart rate 2021-05-08 03:37:00 60 /min [facility] Body temperature 2021-05-08 03:37:00 36.78 Radha [facility] Respiratory rate 2021-05-08 03:37:00 18 /min [facility] Oxygen saturation in 2021-05-08 03:37:00 98 /min [facility] Arterial blood by Medical Ce nter Pulse oximetry Body height 2021-05-08 01:00:00 157.5 cm [facility] Body weight 2021-05-08 01:00:00 73.086 kg [facility] BMI 2021-05-08 01:00:00 29.47 kg/m2 [facility] 02 Sat by Pulse 2020-09-26 12:56:51 98 /min Oximetry Body Mass Index 2020-09-26 12:56:51 24.7 Height 2020-09-26 12:56:51 157.48\\S\\62 Pulse Rate 2020-09-26 12:56:51 81 /min Respiratory Rate 2020-09-26 12:56:51 18 /min Temperature 2020-09-26 12:56:51 37\\S\\98.6 Weight 2020-09-26 12:56:51 86594.97\\S\\2160 02 Sat by Pulse 2020-09-24 23:34:21 98 /min Oximetry Body Mass Index 2020-09-24 23:34:21 24.7 Height 2020-09-24 23:34:21 157.48\\S\\62 Pulse Rate 2020-09-24 23:34:21 81 /min Respiratory Rate 2020-09-24 23:34:21 18 /min Temperature 2020-09-24 23:34:21 37\\S\\98.6 Weight 2020-09-24 23:34:21 13557.97\\S\\2160 02 Sat by Pulse 2020-09-24 23:20:35 98 /min Oximetry Body Mass Index 2020-09-24 23:20:35 24.7 Height 2020-09-24 23:20:35 157.48\\S\\62 Pulse Rate 2020-09-24 23:20:35 81 /min Respiratory Rate 2020-09-24 23:20:35 18 /min Temperature 2020-09-24 23:20:35 37\\S\\98.6 Weight 2020-09-24 23:20:35 00160.97\\S\\2160 02 Sat by Pulse 2020-09-24 21:13:51 98 /min Oximetry Body Mass Index 2020-09-24 21:13:51 24.7 Height 2020-09-24 21:13:51 157.48\\S\\62 Pulse Rate 2020-09-24 21:13:51 81 /min Respiratory Rate 2020-09-24 21:13:51 18 /min Temperature 2020-09-24 21:13:51 37\\S\\98.6 Weight 2020-09-24 21:13:51 55520.97\\S\\2160 WEIGHT 2020-09-24 21:11:00 61.45310 kg HEIGHT 2020-09-24 21:11:00 157.48 cm Systolic (mm Hg) 2019-05-06 07:24:00 Michael rial [place] Diastolic (mm Hg) 2019-05-06 07:24:00 Mem orial [place] Heart Rate 2019-05-06 07:24:00 [facility] [place] Respitory Rate 2019-05-06 07:24:00 Memori al [place] Temperature Oral (F) 2019-05-06 07:24:00 98.2 F [facility] [place] Weight 2019-05-06 07:24:00 [facility] [place] Weight 2019-01-01 02:21:00 [facility] [place] Height 2019-01-01 02:21:00 160.02 cm [facility] [place] BMI Calculated 2019-01-01 02:21:00 Memori al [place] Temperature Oral (F) 2019-01-01 02:21:00 98.5 F [facility] [place] Heart Rate 2019-01-01 02:21:00 [facility] [place] Respitory Rate 2019-01-01 02:21:00 Memori al [place] Systolic (mm Hg) 2019-01-01 02:21:00 Michael rial [place] Diastolic (mm Hg) 2019-01-01 02:21:00 Mem orial [place] Respitory Rate 2017-07-12 13:11:00 Memori al [place] Systolic (mm Hg) 2017-07-12 13:11:00 Michael rial [place] Diastolic (mm Hg) 2017-07-12 13:11:00 Mem orial [place] Temperature Oral (F) 2017-07-12 13:11:00 98.0 F [facility] [place] Heart Rate 2017-07-12 13:11:00 [facility] [place] Respitory Rate 2017-07-12 05:00:00 Memori al [place] Heart Rate 2017-07-12 05:00:00 [facility] [place] Systolic (mm Hg) 2017-07-12 05:00:00 Michael rial [place] Diastolic (mm Hg) 2017-07-12 05:00:00 Mem orial [place] Temperature Oral (F) 2017-07-12 05:00:00 98.6 F [facility] [place] Heart Rate 2017-07-11 21:00:00 [facility] [place] Temperature Oral (F) 2017-07-11 21:00:00 97.9 F [facility] [place] Respitory Rate 2017-07-11 21:00:00 Memori al [place] Systolic (mm Hg) 2017-07-11 21:00:00 Michael rial [place] Diastolic (mm Hg) 2017-07-11 21:00:00 Mem orial [place] Weight 2017-07-09 20:04:00 [facility] [place] BMI Calculated 2017-07-09 20:04:00 Memori al [place] Height 2017-07-09 20:04:00 154.94 cm [facility] [place] Heart Rate 2017-07-06 18:15:00 [facility] [place] Systolic (mm Hg) 2017-07-06 18:15:00 Michael rial [place] Diastolic (mm Hg) 2017-07-06 18:15:00 Mem orial [place] Height 2017-07-06 17:44:00 154.94 cm [facility] [place] BMI Calculated 2017-07-06 17:44:00 Memori al [place] Weight 2017-07-06 17:44:00 [facility] [place] Respitory Rate 2017-07-06 17:44:00 Memori al [place] Heart Rate 2017-07-06 17:44:00 [facility] [place] Temperature Oral (F) 2017-07-06 17:44:00 98.0 F [facility] [place] Systolic (mm Hg) 2017-07-06 17:44:00 Michael rial [place] Diastolic (mm Hg) 2017-07-06 17:44:00 Mem orial [place] Temperature Oral (F) 2017-07-06 17:24:00 97.5 F [facility] [place] Systolic (mm Hg) 2017-07-06 17:24:00 Michael rial [place] Diastolic (mm Hg) 2017-07-06 17:24:00 Mem orial [place] Respitory Rate 2017-07-06 17:24:00 Memori al [place] Heart Rate 2017-07-06 17:24:00 [facility] [place] Respitory Rate 2017-01-14 12:12:00 Memori al [place] Heart Rate 2017-01-14 12:12:00 [facility] [place] Temperature Oral (F) 2017-01-14 12:12:00 98.2 F [facility] [place] Systolic (mm Hg) 2017-01-14 12:12:00 Michael rial [place] Diastolic (mm Hg) 2017-01-14 12:12:00 Mem orial [place] Weight 2017-01-14 11:00:00 [facility] [place] Respitory Rate 2017-01-14 11:00:00 Memori al [place] Heart Rate 2017-01-14 11:00:00 [facility] [place] Systolic (mm Hg) 2017-01-14 11:00:00 Michael rial [place] Diastolic (mm Hg) 2017-01-14 11:00:00 [facility] [place] Height 2017-01-14 11:00:00 154.94 cm [facility] BMI Calculated 2017-01-14 11:00:00 [facility] [place] Temperature Oral (F) 2017-01-14 11:00:00 98.5 F [facility] [place] Systolic (mm Hg) 2016-12-23 03:32:00 [facility] Diastolic (mm Hg) 2016-12-23 03:32:00 [facility] Respitory Rate 2016-12-23 03:32:00 [facility] Temperature Oral (F) 2016-12-23 03:32:00 98.7 F [facility] Heart Rate 2016-12-23 03:32:00 [facility] [place] [facility] BMI Calculated 2016-12-22 23:15:00 [facility] [place] Weight 2016-12-22 23:15:00 [facility] Height 2016-12-22 23:15:00 152.4 cm [facility] Temperature Oral (F) 2016-12-22 23:15:00 99.0 F [facility] Heart Rate 2016-12-22 23:15:00 [facility] Respitory Rate 2016-12-22 23:15:00 [facility] Systolic (mm Hg) 2016-12-22 23:15:00 [facility] [place] Diastolic (mm Hg) 2016-12-22 23:15:00 [facility] Temperature Oral (F) 2016-12-19 05:27:00 98.3 F [facility] Systolic (mm Hg) 2016-12-19 05:27:00 [facility] Diastolic (mm Hg) 2016-12-19 05:27:00 [facility] Respitory Rate 2016-12-19 05:27:00 [facility] Heart Rate 2016-12-19 05:27:00 [facility] BMI Calculated 2016-12-19 04:00:00 [facility] Height 2016-12-19 04:00:00 154[facility]94 [facility] [place] 2016-12-19 04:00:00 [facility] [place] Heart Rate 2016-12-19 04:00:00 [facility] [place] Respitory Rate 2016-12-19 04:00:00 [facility] [place] Temperature Oral (F) 2016-12-19 04:00:00 98.5 F [facility] [place] Systolic (mm Hg) 2016-12-19 04:00:00 Michael rial [place] Diastolic (mm Hg) 2016-12-19 04:00:00 Mem orial [place] Weight 2015-03-07 03:46:00 [facility] [place] Heart Rate 2015-03-07 03:46:00 [facility] [place] Respitory Rate 2015-03-07 03:46:00 Eziosathya padilla [place] Temperature Oral (F) 2015-03-07 03:46:00 100.3 F Fabiana [place] Systolic (mm Hg) 2015-03-07 03:46:00 Michael alvarado [place] Diastolic (mm Hg) 2015-03-07 03:46:00 Mem orirandy Granados Procedures Procedure Date / Time Performing Clinician Source Performed SCREEN, URINE 2023-02-28 16:25:00 ObilJr ramon [facility] URINALYSIS W/ REFLEX URINE 2023-02-28 16:25:00 ObilJr ramon [facility] EKG-SCANNED 2023-02-28 00:00:[address] [facility] SCREEN, URINE 2022-12-03 17:48:00 OtMikey carias [facility] URINALYSIS W/ REFLEX URINE 2022-12-03 17:48:00 OtMikey carias [facility] W/ MICROSCOPIC 2022-07-07 11:35:00 [facility] BASIC METABOLIC PANEL 2022-07-07 11:35:00 Hernandes, [facility] LIPASE 2022-07-07 11:35:00 [facility] HEPATIC FUNCTION PANEL 2022-07-07 11:35:00 [facility] SCREEN, URINE 2022-07-07 11:35:00 Hernandes, [facility] CBC W/PLT COUNT & AUTO 2022-07-07 11:35:00 [facility] CBC W/PLT COUNT & AUTO 2022-07-07 11:35:00 [facility] PERMANENT LAB REPORT - 2022-07-07 00:00:00 ProviderImmanuel [facility] BASIC METABOLIC PANEL 2022-06-30 23:20:00 Adama, [facility] SCREEN, URINE 2022-06-30 23:20:00 Adama, [facility] URINALYSIS W/ MICROSCOPIC 2022-06-30 23:20:00 Adama, Will [facility] CBC W/PLT COUNT & AUTO 2022-06-30 23:20:00 Adama, [facility] CBC W/PLT COUNT & AUTO 2022-06-30 23:20:00 Adama, [facility] PERMANENT LAB REPORT - 2022-06-30 00:00:00 Provider, Immanuel [facility] WET PREP 2022-05-15 23:22:00 Adama, [facility] SCREEN, URINE 2022-05-15 22:24:00 Adama, [facility] URINALYSIS W/ REFLEX URINE 2022-05-15 22:24:00 Adama, Benita Atkins [facility] RAPID STREP A SCREEN 2022-05-12 15:24:00 [place] [facility] SARS-COV2/RT-PCR ([facility] & 2022-05-12 15:24:00 [place] [facility] URINALYSIS W/ REFLEX URINE 2021-11-09 01:16:00 HernandesRachna curtis [facility] SCREEN, URINE 2021-11-09 01:16:00 Hernandes, [facility] WET PREP 2021-11-09 00:29:00 Hernandes, [facility] STD PANEL - CT/GC RNA 2021-11-09 00:29:00 Hernandes, [facility] CBC W/PLT COUNT & AUTO 2021-11-08 23:59:00 Hernandes, [facility] COMPREHENSIVE METABOLIC 2021-11-08 23:59:00 Hernandes, [facility] CBC W/PLT COUNT & AUTO 2021-11-08 23:59:00 Hernandes, [facility] CBC W/PLT COUNT & AUTO 2021-06-24 21:18:00 Adama, [facility] COMPREHENSIVE METABOLIC 2021-06-24 21:18:00 Adama, [facility] LIPASE 2021-06-24 21:18:00 Adama, [facility] CBC W/PLT COUNT & AUTO 2021-06-24 21:18:00 Adama, [facility] URINALYSIS W/ MICROSCOPIC 2021-06-24 21:14:00 Adama, [facility] SCREEN, URINE 2021-06-24 21:14:00 Adama, [facility] SARS-COV2/RT-PCR ([facility] & 2021-05-08 03:30:00 Velma Hobson [facility] REF LABS) [facility] SCREEN, URINE 2021-02-14 13:22:00 Mikey Mckeon [facility] URINALYSIS W/ REFLEX URINE 2021-02-06 20:18:00 Nakul Eaton ra [facility] SARS-COV2/INFLUENZA/RSV 2021-02-06 19:42:00 Nakul Eaton [facility] RT-PCR [facility] ED ECG INTERPRETATION 2021-02-06 19:34:52 Nakul Eaton [facility] HCG, QUANTITATIVE, 2020-10-24 14:26:00 Magdalena Jaimes [facility] URINALYSIS W/ REFLEX URINE 2020-10-24 14:05:00 Magdalena Jaimes [facility] SCREEN, URINE 2020-10-24 14:05:00 Magdalena Jaimes [facility] CBC W/PLT COUNT & AUTO 2020-09-16 22:06:00 Velma Hobson [facility] DIFFERENTIAL [facility] COMPREHENSIVE METABOLIC 2020-09-16 22:06:[address] [facility] CBC W/PLT COUNT & AUTO 2020-09-16 22:06:00 Vel[facility] DIFFERENTIAL [facility] WET PREP 2020-09-16 22:01:[address] [facility] STD PANEL - CT/GC RNA 2020-09-16 22:01:[address] [facility] SCREEN, URINE 2020-09-16 22:01:[address] [facility] URINALYSIS W/ REFLEX URINE 2020-09-16 22:00:00 Velma Hobson [facility] SCREEN, URINE 2020-09-08 21:22:00 Jessica Arelis [facility] URINALYSIS W/ MICROSCOPIC 2020-09-08 21:22:00 [facility] BASIC METABOLIC PANEL (7) 2020-09-08 21:12:00 Jessica [facility] CBC W/PLT COUNT & AUTO 2020-09-08 21:12:00 [facility] W/PLT COUNT & AUTO 2020-09-08 21:12:00 Jessica [facility] URINE CULTURE 2020-08-28 15:20:00 Caitlyn [facility] SCREEN, URINE 2020-08-28 15:20:00 Caitlyn [facility] URINALYSIS W/ REFLEX URINE 2020-08-28 15:20:00 Caitlyn [facility] TRANSFUSION SERVICE REPORT 2020-06-10 18:02:15 Provider, [facility] US FIRST 2020-06-09 12:56:00 [place] [facility] US DOPPLER 2020-06-09 12:56:00 [place] [facility] US ENDOVAGINAL EV 2020-06-09 12:56:00 [place] [facility] CBC W/PLT COUNT & AUTO 2020-06-09 12:10:00 [place] [facility] COMPREHENSIVE METABOLIC 2020-06-09 12:10:00 [place] [facility] SCREEN, URINE 2020-06-09 12:10:[address] [place] [facility] HCG, QUANTITATIVE, 2020-06-09 12:10:00 Foreign [facility] URINALYSIS W/ MICROSCOPIC 2020-06-09 12:10:00 Foreign [facility] [place] TYPE AND SCREEN, AUTOMATED 2020-06-09 12:10:00 Foreign [facility] [place] CBC W/PLT COUNT & AUTO 2020-06-09 12:10:00 Foreign [facility] Plan of Care Planned Activity Planned Date Details Comments Source Future Scheduled 2025-06-11 DTAP/TDAP/TD VACCINES ([address] [facility] 00:00:00 - Td) [code = Medical Center DTAP/TDAP/TD VACCINES (5 - Td)] Future Scheduled 2025-06-11 DTAP/TDAP/TD VACCINES ([address] [facility] 00:00:00 - Td or Tdap) [code = Medica l Center DTAP/TDAP/TD VACCINES (5 - Td or Tdap)] Future Scheduled 2025-06-11 DTAP/TDAP/TD VACCINES ([address] [facility] 00:00:00 - Td or Tdap) [code = Medica l Center DTAP/TDAP/TD VACCINES (5 - Td or Tdap)] Future Scheduled 2025-06-11 DTAP/TDAP/TD VACCINES ([address] [facility] 00:00:00 - Td or Tdap) [code = Medica l Center DTAP/TDAP/TD VACCINES (5 - Td or Tdap)] Future Scheduled 2025-06-11 DTAP/TDAP/TD VACCINES ([address] [facility] 00:00:00 - Td or Tdap) [code = Medica l Center DTAP/TDAP/TD VACCINES (5 - Td or Tdap)] Future Scheduled 2025-06-11 DTAP/TDAP/TD VACCINES ([address] [facility] 00:00:00 - Td or Tdap) [code = Medica l Center DTAP/TDAP/TD VACCINES (7 - Td or Tdap)] Future Scheduled 2025-06-11 DTAP/TDAP/TD VACCINES ([address] [facility] 00:00:00 - Td or Tdap) [code = Medica l Center DTAP/TDAP/TD VACCINES (7 - Td or Tdap)] Future Scheduled 2023-05-22 Influenza Vaccine (#1) [facility]00 [code = Influenza Vaccine Me dical Center (#1)] Future Scheduled 2023-05-22 Influenza Vaccine (#1) [facility] 00:00:00 [code = Influenza Vaccine Me dical Center (#1)] Future Scheduled 2022-11-09 Screening for Chlamydia [facility] 00:00:00 trachomatis (procedure) [facility] [place] [code = [id number]] Future Scheduled 2022-11-09 Screening for Chlamydia [facility] 00:00:00 trachomatis (procedure) [facility] [code = [id number]] Future Scheduled 2022-11-09 Screening for Chlamydia [facility] 00:00:00 trachomatis (procedure) [facility] [code = 770561105] Future Scheduled 2022-09-[address] [facility] 00:00:00 (12+) [code = DEPRESSION Med ical Center SCREENING (12+)] Future Scheduled 2022-09-[address] [facility] 00:00:00 (12+) [code = DEPRESSION Med ical Center SCREENING (12+)] Future Scheduled 2022-05-22 INFLUENZA VACCINE (#1) [facility] 00:00:00 [code = INFLUENZA VACCINE Me dical Center (#1)] Future Scheduled 2022 Screening for malignant [facility] 00:00:00 neoplasm of cervix Medical C enter (procedure) [code = 851641442] Future Scheduled 2022 Screening for malignant [facility] 00:00:00 neoplasm of cervix Medical C enter (procedure) [code = 449320625] Future Scheduled 2022 Screening for malignant [facility] 00:00:00 neoplasm of cervix Medical C enter (procedure) [code = 983763098] Future Scheduled 2021-09-[address] [facility] 00:00:00 (12+) [code = DEPRESSION Med ical Center SCREENING (12+)] Future Scheduled 2021-09-16 Screening for Chlamydia [facility] 00:00:00 trachomatis (procedure) [facility] [place] [code = 284910147] Future Scheduled 2021-09-16 Screening for Chlamydia [facility] 00:00:00 trachomatis (procedure) [facility] [code = 932304840] Future Scheduled 2021-09-16 Screening for Chlamydia [facility] 00:00:00 trachomatis (procedure) [facility] [code = 158298134] Future Scheduled 2021-05-22 INFLUENZA VACCINE (#1) [facility] 00:00:00 [code = INFLUENZA VACCINE Me dical Center (#1)] Future Scheduled 2021-05-22 INFLUENZA VACCINE (#1) [facility] 00:00:00 [code = INFLUENZA VACCINE Me dical Center (#1)] Future Scheduled 2021-05-22 INFLUENZA VACCINE (#1) [facility] 00:00:00 [code = INFLUENZA VACCINE Me dical Center (#1)] Future Scheduled 2021-05-22 INFLUENZA VACCINE (#1) [facility] 00:00:00 [code = INFLUENZA VACCINE Me dical Center (#1)] Future Scheduled 2021 Lipid panel (procedure) [facility] 00:00:00 [code = 81994982] Medical Ce nter Future Scheduled 2021 Lipid panel (procedure) [facility] 00:00:00 [code = 44032466] Medical Ce nter Future Scheduled 2021 Lipid panel (procedure) [facility] 00:00:00 [code = 52646774] Medical Ce nter Future Scheduled 2020-09-[address] [facility] 00:00:00 (12+) [code = DEPRESSION Med ical Center SCREENING (12+)] Future Scheduled 2020-09-[address] [facility] 00:00:00 (12+) [code = DEPRESSION Med ical Center SCREENING (12+)] Future Scheduled 2020-09-[address] [facility] 00:00:00 (12+) [code = DEPRESSION Med ical Center SCREENING (12+)] Future Scheduled 2020-09-[address] [facility] 00:00:00 (12+) [code = DEPRESSION Med ical Center SCREENING (12+)] Future Scheduled 2019 HEPATITIS C [facility]:00[facility]00 [code = HEPATITIS C Medical Center SCREENING] Future Scheduled 2019 HEPATITIS C [facility] 00:00:00 [code = HEPATITIS C Medical Center SCREENING] Future Scheduled 2019 HEPATITIS C [facility]CRE[facility]ING [facility] 00:00:00 [code = HEPATITIS C Medical Center SCREENING] Future Scheduled 2019 HEPATITIS C [facility] 00:00:00 [code = HEPATITIS C Medical Center SCREENING] Future Scheduled 2019 HEPATITIS C [facility] 00:00:00 [code = HEPATITIS C Medical Center SCREENING] Future Scheduled 2019 HEPATITIS C [facility] 00:00:00 [code = HEPATITIS C Medical Center SCREENING] Future Scheduled 2019 HEPATITIS C [facility] 00:00:00 [code = HEPATITIS C Medical Center SCREENING] Future Scheduled [address] [facility] 00:[facility]:00 virus screening Medical Cent er (procedure) [code = 733138989] Future Scheduled [address] [facility] 00:00:00 virus screening Medical Cent er (procedure) [code = 907267049] Future Scheduled 2013 COVID-19 VACCINE (1) [facility] 00:00:00 [code = COVID-19 VACCINE Med ical Center (1)] Future Scheduled 2013 COVID-19 VACCINE (1) [facility] 00:00:00 [code = COVID-19 VACCINE Med ical Center (1)] Future Scheduled 2013 COVID-19 VACCINE (1) [facility] 00:00:00 [code = COVID-19 VACCINE Med ical Center (1)] Future Scheduled 2013 COVID-19 VACCINE (1) [facility] 00:00:00 [code = COVID-19 VACCINE Med ical Center (1)] Future Scheduled [address] [facility] 00:00:00 Counseling and Screening Med ical Center (12+) [code = Tobacco Cessation Counseling and Screening (12+)] Future Scheduled [address] [facility] 00:00:00 Counseling and Screening Med ical Center (12+) [code = Tobacco Cessation Counseling and Screening (12+)] Future Scheduled [address] [facility] 00:00:00 Counseling and Screening Med ical Center (12+) [code = Tobacco Cessation Counseling and Screening (12+)] Future Scheduled 2007 PNEUMOCOCCAL VACCINE 0-[address] [facility] 00:00:00 YRS (1 - PCV) [code = Medica l Center PNEUMOCOCCAL VACCINE 0-64 YRS (1 - PCV)] Future Scheduled 2007 Pneumococcal Vaccine: [facility] 00:[facility]:00 0-64 Years (1 - PCV) Medical Center [code = Pneumococcal Vaccine: 0-64 Years (1 - PCV)] Future Scheduled 2007 Pneumococcal Vaccine: [facility] 00:00:00 0-64 Years (1 - PCV) Medical Center [code = Pneumococcal Vaccine: 0-64 Years (1 - PCV)] Future Scheduled 2001 COVID-19 VACCINE (#1) [facility] 00:00:00 [code = COVID-19 VACCINE Med ical Center (#1)] Future Scheduled 2001 COVID-19 VACCINE (#1) [facility] 00:00:00 [code = COVID-19 VACCINE Med ical Center (#1)] Future Scheduled 2001 COVID-19 VACCINE (#1) [facility] 00:00:00 [code = COVID-19 VACCINE Med ical Center (#1)] Encounters Start End Encounter Admission Attending Care Care Encounter Source Date/Time Date/Time Type Type Clinicians Facility Department ID 2020-09-24 Inpatient [facility] [id number] [facility] 20:36:00 04 2023-05-13 2023-05-13 Emergency EM Mary, [facility] [id number] [facility] 14:30:00 19:49:[address] [facility] 2023-02-28 2023-02-28 Emergency ER OBILOM, [facility] Emergency [id number] [facility] 16:11:00 17:09:00 JR 2023-02-28 2023-02-28 Emergency ER Obilom, [facility] [id number] 16:11:00 17:09:00 [facility] 2023-02-28 2023-02-28 Emergency Obilom, [facility] [id number] 16:11:00 17:09:00 [facility] 2023-02-28 2023-02-28 Travel [facility] [id number] [facility] 00:[facility]00 00:00:00 [facility] 2023-02-28 2023-02-28 Travel [facility] [id number] [facility] 00:[facility]00 00:00:00 [facility] 2022-12-03 2022-12-03 Emergency ER OTHEE, [facility] Emergency [id number] [facility] 17:33:00 19:14:00 [facility] 2022-12-03 2022-12-03 Emergency ER Othee, [facility] [id number] 17:33:00 19:14:00 [facility] 2022-12-03 2022-12-03 Emergency Othee, [facility] [id number] 17:33:00 19:14:00 [facility] 2022-12-03 2022-12-03 Travel [facility] [id number] [facility] 00:00:00 00:00:00 [facility] 2022-12-03 2022-12-03 Travel [facility] [id number] [facility] 00:00:00 00:00:00 [facility] 2022-08-31 2022-08-31 Emergency EM Mary, [facility] [id number] [facility] 15:47:00 18:50:[address] [facility] 2022-08-14 2022-08-14 Emergency EM Peleg, HCANW BERTH[facility] [id number] [facility] 11:33:00 14:10:[address] 2022-07-07 2022-07-07 Emergency ER [facility] [id number] 10:36:00 12:50:00 4 [facility] 2022-07-07 2022-07-07 Emergency ER SLE Emergency [id number] [facility] 10:36:00 12:50:00 4 2022-07-07 2022-07-07 Emergency [facility] [id number] 10:36:00 12:50:00 4 [facility] 2022-06-30 2022-07-01 Emergency ER Adama, [facility] [id number] 23:00:00 00:30:00 Will [facility] 2022-06-30 2022-07-01 Emergency ER ADAMA, [facility] Emergency [id number] [facility] 23:00:00 00:30:00 WILL 2022-06-30 2022-07-01 Emergency Adama, [facility] [id number] 23:00:00 00:30:00 [facility] 2022-05-15 2022-05-15 Emergency ER Adama, [facility] [id number] 22:15:00 23:48:00 Will [facility] 2022-05-15 2022-05-15 Emergency ER ADAMA, [facility] Emergency [id number] SLE 22:15:00 23:48:00 WILL 2022-05-15 2022-05-15 Travel [facility] [id number] [facility] 00:00:00 00:00:00 [facility] 2022-05-12 2022-05-12 Emergency ER Pitt, River [facility] [id number] 15:04:00 16:40:00 [facility] 2022-05-12 2022-05-12 Emergency ER [place] SLE Emergency [id number] [facility] 15:04:00 16:40:00 2022-05-12 2022-05-12 Travel [facility] [id number] [facility] 00:00:00 00:00:00 [facility] 2021-11-17 2021-11-17 Emergency EM Ji, [facility] [id number] [facility] 09:12:00 12:30:00 Zohreh 44 [facility] 2021-11-11 2021-11-12 Emergency E ROMEO, [facility] [id number] [facility] 21:21:00 04:03:00 RACHNA 2021-11-08 2021-11-09 Emergency ER Rachna Hernandes [facility] [id number] 23:27:00 03:03:00 [facility] 2021-11-08 2021-11-09 Emergency ER HERNANDESRACHNA Curtis [facility] Emergency [id number] SLE 23:27:00 03:03:00 2021-11-08 2021-11-08 Travel [facility] [id number] [facility] 00:00:00 00:00:00 [facility] 2021-08-08 2021-08-08 Emergency EM Steven, DAHLIA BERTHA [id number] [facility] 16:44:00 22:10:00 Israel [facility] 2021-06-29 2021-06-29 Emergency [facility] [id number] Memoria 04:14:43 06:14:00 r Darwin [address] [place] [address] 2021-06-29 2021-06-29 Inpatient EM Mary, [facility] BERTHA [id number] [facility] 01:36:00 03:47:00 Jared 11 [facility] 2021-06-28 2021-06-29 Emergency E RUTH, [facility] [id number] [facility] 23:14:00 01:14:00 ROX 2021-06-26 2021-06-27 Emergency [facility] [id number] Memoria 23:25:22 04:45:00 [place] 11 [facility] 2021-06-26 2021-06-26 Emergency E CHAITANYA [facility] 7511 [facility] 18:25:00 23:45:00 2021-06-24 2021-06-24 Emergency ER Adama, [facility] [id number] 20:54:00 23:34:00 [facility] 2021-06-24 2021-06-24 Emergency ER ADAMA, [facility] Emergency [id number] [facility] 20:54:00 23:34:00 WILL 2021-06-16 2021-06-16 Emergency [facility] [id number] Memoria 19:11:57 22:08:00 [place] 10 l [facility] 2021-06-16 2021-06-16 Emergency E FARZAD, [facility] [id number] [facility] 14:11:00 17:08:00 CHIDI 2021-06-06 2021-06-07 Inpatient EM Morales, [facility] BERTHA [id number] [facility] 23:25:00 00:57:00 Merry 05 [facility] 2021-05-08 2021-05-08 Emergency ER Markluna, [facility] [id number] 01:12:00 03:39:00 [facility] 2021-05-08 2021-05-08 Emergency ER SLE Emergency [id number] [facility] 00:01:00 00:01:00 2021-05-08 2021-05-08 Travel [facility] [id number] [facility] 00:00:00 00:00:00 [facility] 2021-03-22 2021-03-22 Emergency EM Lulú-G [facility] BERTHA [id number] [facility] 06:55:00 08:12:00 omemanjula, Milo [facility] 2021-02-14 2021-02-14 Emergency ER Othee, [facility] [id number] 12:52:00 13:47:00 [facility] 2021-02-14 2021-02-14 Emergency ER SLE Emergency [id number] [facility] 12:51:00 12:51:00 2021-02-14 2021-02-14 Travel [facility] [id number] [facility] 00:00:00 00:00:00 [facility] 2021-02-06 2021-02-06 Emergency ER Eaton, [facility] [id number] 19:19:00 21:22:00 Nakul Araujo [facility] 2021-02-06 2021-02-06 Emergency ER [facility] Emergency [id number] [facility] 19:15:00 19:15:00 2021-02-06 2021-02-06 Travel [facility] [id number] [facility] 00:00:00 00:00:00 [facility] 2021-01-03 2021-01-03 Inpatient [facility] [id number] [facility] 18:21:49 18:21:49 55 [facility] 2020-12-28 2020-12-28 Emergency [facility] [id number] 06:26:00 06:51:00 [facility] 2020-12-28 2020-12-28 Emergency ER SLE Emergency [id number] [facility] 06:20:00 06:20:00 2020-12-28 2020-12-28 Travel [facility] [id number] [facility] 00:00:00 00:00:00 [facility] 2020-11-23 2020-11-23 Emergency [facility] [id number] 20:06:00 20:26:00 [facility] 2020-11-23 2020-11-23 Emergency ER SLE Emergency [id number] [facility] 19:51:00 19:51:00 2020-11-23 2020-11-23 Travel [facility] [id number] [facility] 00:00:00 00:00:00 [facility] 2020-10-24 2020-10-24 Emergency ER Theodore, Arif [facility] [id number] 13:54:00 14:32:00 [facility] 2020-10-24 2020-10-24 Emergency ER THEODORE, ARIF SLE Emergency [id number] [facility] 13:54:00 13:54:00 2020-10-24 2020-10-24 Travel [facility] [id number] [facility] 00:00:00 00:00:00 [facility] 2020-09-24 2020-09-24 Emergency [facility] [id number] [facility] 20:36:00 20:36:00 04 2020-09-16 2020-09-16 Emergency ER Jazlyn, [facility] [id number] 21:22:00 23:06:00 Velma [facility] 2020-09-16 2020-09-16 Emergency ER [facility] Emergency [id number] [facility] 20:46:00 20:46:00 2020-09-16 2020-09-16 Travel [facility] [id number] [facility] 00:00:00 00:00:00 [facility] 2020-09-08 2020-09-08 Emergency ER Jessica, [facility] [id number] 20:26:00 22:40:00 Arelis [facility] 2020-09-08 2020-09-08 Emergency ER SLE Emergency [id number] [facility] 20:21:00 20:21:00 2020-09-08 2020-09-08 Travel [facility] [id number] [facility] 00:00:00 00:00:00 [facility] 2020-08-28 2020-08-28 Emergency ER Caitlyn Brian [facility] [id number] [facility] 14:35:00 15:52:00 [facility] 2020-08-28 2020-08-28 Emergency ER SLE Emergency [id number] [facility] 14:35:00 14:35:00 2020-08-28 2020-08-28 Travel [facility] [id number] [facility] 00:[facility] 00:00:00 [facility] 2020-06-14 2020-06-16 Inpatient [facility] [id number] [facility] 17:19[facility] 08:26:23 42 [facility] 2020-06-12 2020-06-14 Inpatient [facility]A [id number] [facility] 14:35:[facility] 06:21:09 28 [facility] 2020-06-12 2020-06-12 Emergency EM H[place], [facility] BERHTA [id number] [facility] 14:35:[facility] 17:53:00 [facility] [place] 2020-06-09 2020-06-09 Emergency ER [place] [facility] [id number] [id number] [address] 11:18:44 14:23:00 [facility] 2020-06-09 2020-06-09 Emergency ER [place] [facility] 20 [id number] [facility] 11:18:00 11:18:00 2020-06-09 2020-06-09 Travel [facility] [id number] [facility] 00[facility]00 [facility] 2020-06-07 2020-06-07 Emergency 1 Mandy Luis [facility] [id number] 16:23:00 21:20:00 Mandy Luis [facility] 2020-05-26 2020-05-26 Emergency ER [place], [facility] Emergency [id number] SLE 22:49:00 22:49:00 [place] 2020-02-04 2020-02-04 Emergency ER SLE Emergency [id number] [facility]H 19:33:00 19:33:00 2019-12-06 2019-12-06 Emergency SLEH [facility] [id number] SLE 23:31:00 23:31:00 [id number] 2019-05-06 2019-05-06 [facility] [id number] [facility] 06:55:48 12:07:[address] 2019-05-06 2019-05-06 Emergency E MHBL MHBL 7509 MHBL 01:55:00 01:55:00 2019-01-01 2019-01-01 [facility] [id number] [facility] 02:10:00 05:43:[address] 2017-07-09 2017-07-12 [facility]patient [facility] [id number] [facility] 20:00:00 21:35:[address] 2017-07-06 2017-07-06 [facility] [id number] Memoria 17:21:00 19:24:[address] 2017-01-14 2017-01-14 [facility] [id number] Memoria 10:49:00 12:14:[address] 2016-12-22 2016-12-23 [facility] [id number] [facility] 23:11:00 03:33:00 r [place] 04 l [facility] 2016-12-19 2016-12-19 Emergency [facility] [id number] Memoria 03:52:00 05:28:00 r [place] 03 l [facility] 2015-03-07 2015-03-07 EC [facility] [id number] Memoria 03:44:00 05:29:00 Emergency r [place] 02 l [facility] Results Test Description Test Time Test Comments Results Result Comments Source HCG SERUM 2023-05-13 17:48:00 Test Item Value Reference Range Interpretation Comme nts HCG SERUM (test code = 4781 INTER PRETATION:VALUES BETWEEN 15-20 HCG) milliInternatio nal units/mL NEED TO BERETESTED WITHIN 48 HOURS . All units for these ranges are in milliInternatio nalunits/mL0-1 WK AFTER CONCEPTION 0-50 1-[address] CONCEPTION 40-3002-3 WKS AFTER CONCEPTION 100- 1,0003-4 WKS AFTER CONCEPTION 500-6,0001-2 MO NTHS AFTER CONCEPTION 5,000-200,0002- 3 MONTHS AFTER CONCEPTION 10,000-100,0002 ND TRIMESTER 3,000-50,0003RD TRIMESTER 1,000 -50,000 SPECIMENS WITH AN HCG LEVEL FROM 0-6 milliI nternationalunits/mL SHOULD BE CONSIDERED NEGA TIVE COMPREHENSIVE METABOLIC [id number] 16:10:00 Test Item Value Reference Range Interpretation Comments SODIUM (test code = 137 mEq/L 135-145 N NA) POTASSIUM (test code 3.1 mEq/L 3.5-5.0 L = K) CHLORIDE (test code 103 mEq/L 100-115 N = CL) CARBON DIOXIDE (test 24 mEq/L 22-31 N code = CO2) ANION GAP (test code 12.80 10-20 N = GAP) GLUCOSE (test code = 91 mg/dL 65-110 N GLU) BLOOD UREA NITROGEN 7 mg/dL 7-18 N (test code = BUN) CREATININE (test 0.7 mg/dL 0.5-1.0 N code = CREAT) TOTAL PROTEIN (test 6.7 gm/dL 6.3-8.2 N code = PROT) ALBUMIN (test code = 3.2 gm/dL 3.4-4.8 L ALB) CALCIUM (test code = 8.7 mg/dL 8.4-10.2 N CA) BILIRUBIN TOTAL 0.2 mg/dL 0.2-1.0 N (test code = BILT) SGOT/AST (test code 13 units/L 15-37 L = AST) SGPT/ALT (test code 22 units/L 12-78 N = ALT) ALKALINE PHOSPHATASE 61 units/L 46-116 N TOTAL (test code = ALKP) GLOMERULAR 125 ml/min >60 N The Glomerular FILTRATION RATE Filtration R ate is a (test code = GFR) calculated parameterbased on serum Creatinine, pat ient age and sex. GFR va luesless than 60 mL/min/ 1.73 square meters a re indicative ofCh ronic Kidney Disease. Values less than 15 mL/min/1.73squa re meters indicate Kidney failure. The calculation for GFR is based on the CK D-EPI (2020) calculat ion. This formulais race indifferent and is the recommended for vishnu for GFRby the Nat nal Kidney Foundati on for Adults.The GFR will not calculate if th e sex is unknown or if thepatient's ag e is <18 years. CBC W/AUTO [id number] 15:46:00 Test Item Value Reference Range Interpretation Comments WHITE BLOOD CELL (test code = WBC) 4.6 K/mm3 6.5-12.3 L RED BLOOD CELL (test code = RBC) 4.49 M/mm3 3.51-4.69 N HEMOGLOBIN (test code = HGB) 11.5 g/dL 10.1-13.8 N HEMATOCRIT (test code = HCT) 34.4 % 32.5-41.8 N MEAN CELL VOLUME (test code = MCV) 76.6 fL 84.6-96.6 L MEAN CELL HGB (test code = MCH) 25.6 pg 27.3-33.9 L MEAN CELL HGB CONCETRATION (test 33.4 gm/dL 32.0-34.2 N code = MCHC) RED CELL DISTRIBUTION WIDTH (test 14.2 % 12.2-16.3 N code = RDW) PLATELET COUNT (test code = PLT) 243 K/mm3 134-363 N MEAN PLATELET VOLUME (test code = 11.3 fL 9.2-12.7 N MPV) NEUTROPHIL % (test code = NT%) 54.8 % 57.9-77.3 L LYMPHOCYTE % (test code = LY%) 33.8 % 14.5-29.7 H MONOCYTE % (test code = MO%) 9.7 % 3.6-10.2 N EOSINOPHIL % (test code = EO%) 0.9 % 0.0-3.0 N BASOPHIL % (test code = BA%) 0.6 % 0.1-0.9 N NEUTROPHIL # (test code = NT#) 2.5 K/mm3 LYMPHOCYTE # (test code = LY#) 1.6 K/mm3 MONOCYTE # (test code = MO#) 0.5 K/mm3 EOSINOPHIL # (test code = EO#) 0.04 K/mm3 BASOPHIL # (test code = BA#) 0.0 K/mm3 RBC MORPHOLOGY REQUIRED (test code NORMAL NORMAL = RBCM) PLATELET MORPHOLOGY REQUIRED (test NORMAL NORMAL code = PLTMR) DRUGS OF ABUSE [id number] 15:44:00 Test Item Value Reference Range Interpretation Comments UR COCAINE (test code = NEGATIVE NEGATIVE DETE CTION CUT OFF: COCAU) 150 ng/mL UR CANNABINOIDS (test POSITIVE NEGATIVE A RESULT S CALLED TO code = CANU) ALTAF MILLARD AD BACK & CONFIRME D? YESBY [id number] 05/13/23 1544 R ESULTS SENT FOR CONFIR MATION OF SCREEN RESUL TSSEE OTHER SPECIMEN FOR CONFIRMATION RE SULTS These results a re to be used only fo r medical (ie,treatment) purposes. Uncon firmed screening resul ts must notbe used for non-medical pur poses (eg, employment testing)DETECTI ON CUT OFF: 50 ng/mL UR AMPHETAMINE (test NEGATIVE NEGATIVE DETECTI ON CUT OFF: code = AMPHU) 500 ng/mL UR BARBITURATE QUAL NEGATIVE NEGATIVE DETECTIO N CUT OFF: (test code = BARBQLU) 200 ng /mL UR BENZODIAZEPINE (test NEGATIVE NEGATIVE DETE CTION CUT OFF: code = BENZU) 150 ng/mL UR OPIATES QUAL (test NEGATIVE NEGATIVE DETECT ION CUT OFF: code = OPIAQLU) 100 ng/mL UR PHENCYCLIDINE (PCP) NEGATIVE NEGATIVE DETEC TION CUT OFF: 25 (test code = PHENCU) ng/mL UR HCG [id number] 15:37:00 Test Item Value Reference Range Interpretation Comments UR HCG QUAL (test code = HCGQLU) POSITIVE Indication for culture: Suprapubic PainSpecimen Description: CLEAN CATCHUA RFLX MICR CULT IF [id number] 15:37:00 Test Item Value Reference Range Interpretation Comments UA COLOR (test code = COLU) YELLOW YELLOW UA APPEARANCE (test code = CLOUDY CLEAR A APPU) UA GLUCOSE DIPSTICK (test code NEGATIVE NEG = DGLUU) UA BILIRUBIN DIPSTICK (test NEGATIVE NEG code = BILU) UA KETONE DIPSTICK (test code TRACE NEG A = KETU) UA SPECIFIC GRAVITY (test code 1.027 1.001-1.035 N = SGU) UA BLOOD DIPSTICK (test code = NEG NEG RIDGE) UA PH DIPSTICK (test code = 7.0 5-9 CODI) UA PROTEIN DIPSTICK (test code NEGATIVE NEG = PROU) UA UROBILINIOGEN DIPSTICK NEGATIVE mg/dL NEG (test code = URO) UA NITRITE DIPSTICK (test code NEG NEG = YUSUF) UA LEUKOCYTE ESTERASE DIPSTICK 3+ NEG A (test code = LEUU) UA WBC (test code = WBCU) 11-15 #/hpf NONE SEEN A UA RBC (test code = RBCU) 0-2 #/hpf NONE SEEN UA EPITHELIAL CELLS (test code MODERATE #/HPF RARE-FEW A = EPIU) UA MUCUS (test code = MUCU) 2+ NONE SEEN Indication for culture: Suprapubic PainSpecimen Description: CLEAN CATCH- DUP AB/PEL/SC/[id number] 00:00:00 [facility] [place] [facility]IT[facility] ZORAN Lemus : 2000 Sex: F Patient Name: MARTIN STORMCASSIE Lemus Unit No: [id number] Report Has Been Amended EXAMS: CPT CODE: [id number] DUP AB/PEL/SC/LTD 68433 Addendum - 05/13/2023 SIGNED 05/13/2023 ADDENDUM: [id number] US/DUPAPSLTD No heart rate is identified. No pole or yolk sac is identified. at 1918 Reported and signed by: Brandan Storm MD Trans cribed: 05/13/2023 (1917) GCD.CPS Report PROCEDURE INFORMATION: Exam: US First Trimester (Transabdominal), (Transvaginal), and US Duplex Artery or Vein (Ovaries) Limited Exam date and time: 05/13/2023 5:54 PM Age: 23 years old Clinical indication: complicated by abdominal or pelvic pain; Lower; Third trimester (=28 weeks 0 days); Gestational age or lmp: 04/10/23; ; Additional info: pelvic pain positive test LABS AND CLINICAL REPORTS: Last menstrualperiod start date: 04/10/2023 Estimated due date (Established): 01/15/2024 TECHNIQUE: Imaging protocol: Real-time transabdominal and transvaginal obstetrical ultrasound of the maternal pelvis and a firsttrimester , less than 14 weeks 0 days, with image documentation. Transvaginal imaging was used for better evaluation of the endometrium, adnexa, and/or cervix. Real-time duplex ultrasound scanof the arterial or venous flow of the ovaries with B-mode, color Doppler flow and spectral waveform analysis. Complete obstetrical exam, limited duplex. Duplex exam was performed to evaluate for torsion and other vascular conditions. COMPARISON: US PREG 1ST TRIMTR 06/29/2021 1:50 AM FINDINGS: Gestation: Intrauterine gestation. Yolk sac is unremarkable. Embryonic/ heart rate: FHR Extra-embryonic membranes/Placenta: Unremarkable. No subchorionic bleed. Amniotic fluid: Amniotic fluid and extra-amniotic fluid s normal for gestational age. BIOMETRY: Gestational age (AUA): 5 w 2 d [facility] NAME: ZORAN STORM Radiology Department PHYS: Jared Wise DO [address] : 2000 AGE: 23 SEX: F [place], [place] [address] LOC: [facility] PHONE #: [phone] EXAM DATE: 05/13/2023 STATUS: REG ER FAX #: [phone] RAD NO: Page 1 Signed Report (CONTINUED)Patient Name: ZORAN STORM Unit No: [id number] Report Has Been Amended EXAMS: CPT CODE: [id number] DUP AB/PEL/SC/LTD 34572 (Continued) Estimated due date (AUA): 01/11/2024 Mean sac diameter: 0.57 cm. EGA (MSD) is 5 w 2 d MATERNAL: Uterus: Uterus measures 8.51 cm x 5.08 cm x 4.51 cm. Cervix: Unremarkable. Right ovary/adnexa: Right ovary measures 4.11 cm x 3.82 cm x 2.59 cm. Right ovarian volume is 21.3 CM3. Left ovary/adnexa: Left ovary measures 3.87 cm x 2.18 cm x 2.37 cm. Left ovarian volume is 10.5 CM3. Intraperitoneal space: No intraperitoneal free fluid. IMPRESSION: Early intrauterine gestational sac is seen corresponding to 5 weeks 2 days gestation. pole is not yet identified. Recommend attention on follow-up imaging. at 1917 Reported and signed by: Brandan Storm MD CC: [facility]; Jared Hernandez DO Technologist: Marine Schwartz RDMS Probe: Trnscrbd D/ (1916) GCD.CPS Orig Print D/T: S: (1916) [facility] NAME: ZORAN STORM Radiology Department PHYS: Jared Wise DO [address] : 2000 AGE: 23 SEX: F [place], [place] [address] LOC: [facility] PHONE #: [phone] EXAM DATE: 05/13/2023 STATUS: REG ER FAX #: [phone] RAD NO: Page 2 Signed Report Patient Name: ZORAN STORM Unit No: [id number] Report Has Been Amended EXAMS: CPT CODE: [id number] DUP AB/PEL/SC/LTD 77698 (Continued) [facility] NAME: ZORAN STORM Radiology Department PHYS: Jared Wise DO [address] : 2000 AGE: 23 SEX: F [place], [place] [address] LOC: F.ERS PHONE #: [phone] EXAM DATE: 05/13/2023 STATUS: REG ER FAX #: [phone] RAD NO: Page 3 Signed Report- US PREG UT [id number] 00:00:00 [facility] [place] [facility] : 2000 Sex: F Patient Name: ZORAN STORM Unit No: [id number] Report Has Been Amended EXAMS: CPT CODE: [id number] US PREG UT TRANSVAGINAL 55863 Addendum - 05/13/2023 SIGNED 05/13/2023 ADDENDUM: [id number] US/USPRUTTRVG No heart rate is identified. No pole or yolk sac is identified. at 1918 Reported and signed by: Brandan Storm MD Transcribed: 05/13/2023 (1917) D.CPS Report PROCEDURE INFORMATION: Exam: US First Trimester (Transabdominal), (Transvaginal), and US Duplex Artery or Vein (Ovaries) Limited Exam date and time: 05/13/2023 5:54 PM Age: 23 years old Clinical indication: complicated by abdominal or pelvic pain; Lower; Third trimester (=28 weeks 0 days); Gestational age or lmp: 04/10/23;; Additional info: pelvic pain positive test LABS AND CLINICAL REPORTS: Last menstrual period start date: 04/10/2023 Estimated due date (Established): 01/15/2024 TECHNIQUE: Imagingprotocol: Real-time transabdominal and transvaginal obstetrical ultrasound of the maternal pelvis and a first trimester , less than 14 weeks 0 days, with image documentation. Transvaginal imaging was used for better evaluation of the endometrium, adnexa, and/or cervix. Real-time duplex ultrasound scan of the arterial or venous flow of the ovaries with B-mode, color Doppler flow and spectral waveform analysis. Complete obstetrical exam, limited duplex. Duplex exam was performed to evaluate for torsion and other vascular conditions. COMPARISON: US PREG 1ST TRIMTR 06/29/2021 1:50 AM FINDINGS: Gestation: Intrauterine gestation. Yolk sac is unremarkable. Embryonic/ heart rate: FHR Extra-embryonic membranes/Placenta: Unremarkable. No subchorionic bleed. Amniotic fluid: Amniotic fluid and extra-amniotic fluid s normal for gestational age. BIOMETRY: Gestational age (AUA): 5 w 2 d [facility] NAME: ZORAN STORM Radiology Department PHYS: aJred Wise DO [address] : 2000 AGE: 23 SEX: F [place], [place] [address] LOC: DONY PHONE #: [phone] EXAM DATE: 05/13/2023 STATUS: REG ER FAX #: [phone] RAD NO: Page 1 Signed Report (CONTINUED) Patient Name: ZORAN STORM Unit No: [id number] Report Has Been Amended EXAMS: CPT CODE: [id number] US PREG UT TRANSVAGINAL 27684 (Continued) Estimated due date (AUA): 01/11/2024 Mean sac diameter: 0.57 cm. EGA (MSD) is 5 w 2 d MATERNAL: Uterus: Uterus measures 8.51 cm x 5.08 cm x 4.51cm. Cervix: Unremarkable. Right ovary/adnexa: Right ovary measures 4.11 cm x 3.82 cm x 2.59 cm. Right ovarian volume is 21.3 CM3. Left ovary/adnexa: Left ovary measures 3.87 cm x 2.18 cm x 2.37 cm. Left ovarian volume is 10.5 CM3. Intraperitoneal space: No intraperitoneal free fluid. IMPRESSION: Early intrauterine gestational sac is seen corresponding to 5 weeks 2 days gestation. pole is not yet identified. Recommend attention on follow-up imaging. at 1917 Reported and signed by: Brandan Storm MD CC: [facility]; Jared Hernandez DO Technologist: Marine Schwartz RDMS Probe: [id number] Trnscrbd D/ (1916) GCD.CPS Orig Print D/T: S: 05/13/2023 (1916) [facility] NAME: ZORAN STORM Radiology Department PHYS: Jared Wise DO [address] : 2000 AGE: 23 SEX: F [place] [address] LOC: [facility] PHONE #: [phone] EXAM DATE: 05/13/2023 STATUS: REG ERFAX #: [phone] RAD NO: Page 2 Signed Report Patient Name: ZORAN STORM Unit No: [id number] Report Has Been Amended EXAMS: CPT CODE: [id number] US PREG UT TRANSVAGINAL 59813 (Continued) [facility] NAME: ZORAN STORM Radiology Department PHYS: Jared Wise DO [address] : 2000 AGE: 23 SEX: F [place] [address] LOC: [facility] PHONE #: [phone] EXAM DATE: 05/13/2023 STATUS: REG ER FAX #: [phone] RAD NO: Page 3 Signed Report- US PREG EVAL 1ST [id number] 00:00:00 [facility] : 2000 Sex: F Patient Name: ZORAN STORM Unit No: [id number] Report Has Been Amended EXAMS: CPT CODE: [id number] US PREG EVAL 1ST TRIMTR 72750 Addendum - 05/13/2023 SIGNED 05/13/2023 ADDENDUM: [id number] US/NOCJFM5KSP No heart rate is identified. No pole or yolk sac is identified. at 1918 Reported and signed by: Brandan Storm MD Transcribed: 05/13/2023 (1917) D.CPS Report PROCEDURE INFORMATION: Exam: US First Trimester (Transabdominal), (Transvaginal), and US Duplex Artery or Vein (Ovaries) Limited Examdate and time: 05/13/2023 5:54 PM Age: 23 years old Clinical indication: complicated by abdominal or pelvic pain; Lower; Third trimester (=28 weeks 0 days); Gestational age or lmp: 04/10/23; ; Additional info: pelvic pain positive test LABS AND CLINICAL REPORTS: Last menstrual period start date: 04/10/2023 Estimated due date (Established): 01/15/2024 TECHNIQUE: Imaging protocol: Real-time transabdominal and transvaginal obstetrical ultrasound of the maternal pelvis and a first trimester , less than 14 weeks 0 days, with image documentation. Transvaginal imaging was used for better evaluation of the endometrium, adnexa, and/or cervix. Real-time duplex ultrasound scan of the arterial or venous flow of the ovaries with B-mode, color Doppler flow and spectral waveform analysis. Complete obstetrical exam, limited duplex. Duplex exam was performed to evaluate fortorsion and other vascular conditions. COMPARISON: US PREG 1ST TRIMTR 06/29/2021 1:50 AM FINDINGS: Gestation: Intrauterine gestation. Yolk sac is unremarkable. Embryonic/ heart rate: FHR Extra-embryonic membranes/Placenta: Unremarkable. No subchorionic bleed. Amniotic fluid: Amniotic fluid and extra-amniotic fluid s normal for gestational age. BIOMETRY: Gestational age (AUA): 5 w 2 d [facility] NAME: ZORAN STORM Radiology Department PHYS: Julian Banks MD [address] : 2000 AGE: 23 SEX: F [place], [place] [address] LOC: [facility] PHONE #: [phone] EXAM DATE: 05/13/2023 STATUS: REG ER FAX #: [phone] RAD NO: Page 1 Signed Report (CONTINUED) Patient Name: ZORAN STORM Unit No: [id number] Report Has Been Amended EXAMS:CPT CODE: [id number] US PREG EVAL 1ST TRIMTR 73512 (Continued) Estimated due date (AUA): 01/11/2024 Mean sac diameter: 0.57 cm. EGA (MSD) is 5 w 2 d MATERNAL: Uterus: Uterus measures 8.51 cm x 5.08 cm x 4.51 cm. Cervix: Unremarkable. Right ovary/adnexa: Right ovary measures 4.11 cm x 3.82 cm x 2.59 cm. Right ovarian volume is 21.3 CM3. Left ovary/adnexa: Left ovary measures 3.87 cm x 2.18 cm x 2.37 cm.Left ovarian volume is 10.5 CM3. Intraperitoneal space: No intraperitoneal free fluid. IMPRESSION: Early intrauterine gestational sac is seen corresponding to 5 weeks 2 days gestation. pole is not yet identified. Recommend attention on follow-up imaging. at 1917 Reported and signed by: Brandan Storm MD CC: [facility];Julian Chino MD Technologist: Marine Schwartz RDMS Probe: Trnscrbd D/ (1916) GCD.CPS Orig Print D/T: S: 05/13/2023 (1916) [facility] NAME: ZORAN STORM Radiology Department PHYS: Julian Banks MD [address] : 2000 AGE: 23 SEX: F [place] [address] LOC: [place] PHONE #: [phone] EXAM DATE: 05/13/2023 STATUS: REG ER FAX #: [phone] RAD NO: Page 2 Signed Report Patient Name: ZORAN STORM Unit No: [id number] Report Has Been Amended EXAMS: CPT CODE: [id number] US PREG EVAL 1ST TRIMTR 64254 (Continued)[facility] NAME: ZORAN STORM Radiology Department PHYS: Julian Banks MD [address] : 2000 AGE: 23 SEX: F [place] [address] LOC: [facility] PHONE #: [phone] EXAM DATE: 05/13/2023 STATUS: REG ER FAX #: [phone] RAD NO: Page 3 Signed ReportUrinalysis w/Microscopic + Reflex to [id number] 16:36:19 Test Item Value Reference Range Interpretation Comments Color, UA (test code = Yellow 5778-6) Clarity, UA (test code = Clear 5767-9) Specific Hustle, UA 1.020 1.001-1.035 (test code = 5811-5) pH, UA (test code = 7.0 5.0-8.0 5803-2) Protein, UA (test code = Negative Negative 51297-6) Glucose, UA (test code = Negative Negative 365) Ketones, UA (test code = Negative Negative 2514-8) Bilirubin, UA (test code Negative Negative = 90141-3) Blood, UA (test code = Trace Negative A 89015-0) Nitrite, UA (test code = Negative Negative 5802-4) Leukocytes, UA (test Trace Negative A code = 5799-2) Urobilinogen, UA (test 0.2 code = 89527-1) Bacteria, UA (test code Moderate = 64317-0) Mucus (test code = Few 8247-9) RBC, UA (test code = <5 See_Comment [Autom ated message] 799-7) The system uiu generated this result transmitted ref erence range: /HPF. Th e reference range was not used to int erpret this result as normal/abnormal . WBC, UA (test code = 5-10 See_Comment [Autom ated message] 13846-5) The system uiu generated this result transmitted ref erence range: /HPF. Th e reference range was not used to int erpret this result as normal/abnormal . SQUAMOUS EPITHELIAL 5-10 See_Comment Clue radha ls=few (test code = 14575-3) [Autom ated message] The system uiu generated this result transmitted ref erence range: /HPF. Th e reference range was not used to int erpret this result as normal/abnormal . Specimen Source (test code = 2795) Lab Interpretation (test Abnormal code = 06903-7) [facility] + Reflex to Culture 2023-02-28 16:36:19 Test Item Value Reference Range Interpretation Comments Color, UA (test code = Yellow 5778-6) Clarity, UA (test code = Clear 5767-9) Specific Hustle, UA 1.020 1.001-1.035 (test code = 5811-5) pH, UA (test code = 7.0 5.0-8.0 5803-2) Protein, UA (test code = Negative Negative 77297-0) Glucose, UA (test code = Negative Negative 365) Ketones, UA (test code = Negative Negative 2514-8) Bilirubin, UA (test code Negative Negative = 26315-5) Blood, UA (test code = Trace Negative A 10667-0) Nitrite, UA (test code = Negative Negative 5802-4) Leukocytes, UA (test Trace Negative A code = 5799-2) Urobilinogen, UA (test 0.2 code = 67988-1) Bacteria, UA (test code Moderate = 50320-4) Mucus (test code = Few 8247-9) RBC, UA (test code = <5 See_Comment [Autom ated message] 799-7) The system uiu generated this result transmitted ref erence range: /HPF. Th e reference range was not used to int erpret this result as normal/abnormal . WBC, UA (test code = 5-10 See_Comment [Autom ated message] 23529-5) The system uiu generated this result transmitted ref erence range: /HPF. Th e reference range was not used to int erpret this result as normal/abnormal . SQUAMOUS EPITHELIAL 5-10 See_Comment Clue radha ls=few (test code = 97729-5) [Autom ated message] The system uiu generated this result transmitted ref erence range: /HPF. Th e reference range was not used to int erpret this result as normal/abnormal . Specimen Source (test code = 2795) Lab Interpretation (test Abnormal code = 15303-2) [facility]/ REFLEX URINE [id number] 16:36:19 Test Item Value Reference Range Interpretation Comments COLOR (BEAKER) (test code = Yellow 470) CLARITY (BEAKER) (test code = Clear 469) SPECIFIC GRAVITY UA (BEAKER) 1.020 1.001-1.035 (test code = 468) PH UA (BEAKER) (test code = 7.0 5.0-8.0 467) PROTEIN UA (BEAKER) (test Negative Negative code = 464) GLUCOSE UA (BEAKER) (test Negative Negative code = 365) KETONES UA (BEAKER) (test Negative Negative code = 371) BILIRUBIN UA (BEAKER) (test Negative Negative code = 462) BLOOD UA (BEAKER) (test code Trace Negative A = 461) NITRITE UA (BEAKER) (test Negative Negative code = 465) LEUKOCYTE ESTERASE UA Trace Negative A (BEAKER) (test code = 466) UROBILINOGEN UA (BEAKER) 0.2 (test code = 463) BACTERIA (BEAKER) (test code Moderate = 517) MUCUS (BEAKER) (test code = Few 1574) RBC UA-MANUAL (BEAKER) (test <5 /HPF code = 1659) WBC UA-MANUAL (BEAKER) (test 5-10 /HPF code = 1661) SQUAMOUS EPITHELIAL MANUAL 5-10 /HPF C lue cells=few (BEAKER) (test code = 1663) SOURCE(BEAKER) (test code = 4725) Screen, [id number] 16:34:02 Test Item Value Reference Range Interpretation Comments Preg Test, Ur (test code = 2112-1) Negative Negative Lab Interpretation (test code = Normal 54461-8) [facility] CenterPregnancy Screen, [id number] 16:34:02 Test Item Value Reference Range Interpretation Comments Preg Test, Ur (test code = 2112-1) Negative Negative Lab Interpretation (test code = Normal 99118-3) [facility] CenterPREANCY SCREEN, [id number] 16:34:02 Test Item Value Reference Range Interpretation Comments TEST URINE (BEAKER) (test Negative Negative code = 583) URINALYSIS W/ REFLEX URINE [id number] 18:04:28 Test Item Value Reference Range Interpretation Comments COLOR (BEAKER) (test code = Yellow 470) CLARITY (BEAKER) (test code = Clear 469) SPECIFIC GRAVITY UA (BEAKER) 1.025 1.001-1.035 (test code = 468) PH UA (BEAKER) (test code = 6.5 5.0-8.0 467) PROTEIN UA (BEAKER) (test code Negative Negative = 464) GLUCOSE UA (BEAKER) (test code Negative Negative = 365) KETONES UA (BEAKER) (test code Negative Negative = 371) BILIRUBIN UA (BEAKER) (test Negative Negative code = 462) BLOOD UA (BEAKER) (test code = Negative Negative 461) NITRITE UA (BEAKER) (test code Negative Negative = 465) LEUKOCYTE ESTERASE UA (BEAKER) Small Negative A (test code = 466) UROBILINOGEN UA (BEAKER) (test 0.2 code = 463) BACTERIA (BEAKER) (test code = Occasional 517) RBC UA-MANUAL (BEAKER) (test None Seen /HPF code = 1659) WBC UA-MANUAL (BEAKER) (test 5-10 /HPF code = 1661) SQUAMOUS EPITHELIAL MANUAL 5-10 /HPF (BEAKER) (test code = 1663) SOURCE(BEAKER) (test code = 2795) SCREEN, [id number] 17:56:09 Test Item Value Reference Range Interpretation Comments TEST URINE (AUREA) (test Negative Negative code = 583) COVID 19 Asymptomatic IH [id number] 18:40:00 Test Item Value Reference Range Interpretation Comments COVID 19 NEGATIVE NEGATIVE This test has b een Asymptomatic IH AG authorize d only for the (test code = detection ofpro teins from COVNONPUIAG) SARS-CoV-2, not for any other viruses orpathogens. Ne gative results should be treated as presumptive andconfirmed wi th a molecular assay , if necessary for patientmanageme nt. Negative result s do not rule out COVID- 19 andshould not b e used as the sole basis for treatment orpat ient management deci sions, including infec tion controldecision s. Negative result s should be considered i n thecontext of a patient's recent exposure s, history and thepresence of clinical signs and symptoms consis tent withCOVID-19. T his test has not been FD A cleared or approved; th e test hasbeen authori aleta by FDA under an Emerge ncy Use Authorization(E UA) for use by raulito cook certified under the CLIA thatmeet the re quirements to perform mode rate, high or waivedcomple xity tests. This ward t is authorized for use at thePoint of Car e (POC), i.e., in patien t care settingsoperati ng under a CLIA Certificat e of Waiver, Certifi leonardo ofCompliance, o r Certificate of Accreditation. This test is only authori zeanna for the duration of thedeclaration that circumstances e xist justifying theauthorizatio n of emergency use o f in vitro diagnostic test sfor detection and/o r diagnosis of CO VID-19 under Sbinudo87 4(b)(1) of the Act, 21 U.S .C. 360bbb-3(b)(1), unless theauthorizatio n is terminated or r evoked sooner. BASIC METABOLIC [id number] 17:46:00 Test Item Value Reference Range Interpretation Comments SODIUM (test code = 139 mEq/L 135-145 N NA) POTASSIUM (test code 3.5 mEq/L 3.5-5.0 N = K) CHLORIDE (test code 107 mEq/L 100-115 N = CL) CARBON DIOXIDE (test 24 mEq/L 22-31 N code = CO2) ANION GAP (test code 12.00 10-20 N = GAP) GLUCOSE (test code = 84 mg/dL 65-110 N GLU) BLOOD UREA NITROGEN 6 mg/dL 7-18 L (test code = BUN) GLOMERULAR 131 ml/min >60 N The Glomerular FILTRATION RATE Filtration R ate is a (test code = GFR) calculated parameterbased on serum Creatinine, pat ient age and sex. GFR va luesless than 60 mL/min/ 1.73 square meters a re indicative ofCh ronic Kidney Disease. Values less than 15 mL/min/1.73squa re meters indicate Kidney failure. The calculation for GFR is based on the CK D-EPI (2020) calculat ion. This formulais race indifferent and is the recommended for vishnu for GFRby the Natio nal Kidney Foundati on for Adults.The GFR will not calculate if th e sex is unknown or if thepatient's ag e is <18 years. CREATININE (test 0.6 mg/dL 0.5-1.0 N code = CREAT) CALCIUM (test code = 7.8 mg/dL 8.4-10.2 L CA) LIVER [id number] 17:46:00 Test Item Value Reference Range Interpretation Comments TOTAL PROTEIN (test code = PROT) 5.9 gm/dL 6.3-8.2 L ALBUMIN (test code = ALB) 3.0 gm/dL 3.4-4.8 L BILIRUBIN TOTAL (test code = BILT) 0.2 mg/dL 0.2-1.0 N BILIRUBIN DIRECT (test code = 0.1 mg/dL <0.2 N BILD) SGOT/AST (test code = AST) 27 units/L 15-37 N SGPT/ALT (test code = ALT) 58 units/L 12-78 N ALKALINE PHOSPHATASE TOTAL (test 68 units/L 46-116 N code = ALKP) [id number] 17:46:00 Test Item Value Reference Range Interpretation Comments LIPASE (test code = LIP) 100 units/L 73-393 N UA RFLX MICR CULT IF [id number] 16:49:00 Test Item Value Reference Range Interpretation Comments UA COLOR (test code = COLU) YELLOW YELLOW UA APPEARANCE (test code = CLEAR CLEAR APPU) UA GLUCOSE DIPSTICK (test code NEGATIVE NEG = DGLUU) UA BILIRUBIN DIPSTICK (test NEGATIVE NEG code = BILU) UA KETONE DIPSTICK (test code NEGATIVE NEG = KETU) UA SPECIFIC GRAVITY (test code 1.013 1.001-1.035 N = SGU) UA BLOOD DIPSTICK (test code = NEG NEG RIDGE) UA PH DIPSTICK (test code = 6.0 5-9 CODI) UA PROTEIN DIPSTICK (test code NEGATIVE NEG = PROU) UA UROBILINIOGEN DIPSTICK NEGATIVE mg/dL NEG (test code = URO) UA NITRITE DIPSTICK (test code NEG NEG = YUSUF) UA LEUKOCYTE ESTERASE DIPSTICK TRACE NEG A (test code = LEUU) UA WBC (test code = WBCU) 3-5 #/hpf NONE SEEN A UA RBC (test code = RBCU) 0-2 #/hpf NONE SEEN UA EPITHELIAL CELLS (test code RARE #/HPF RARE-FEW = EPIU) UA BACTERIA (test code = BACU) RARE /HPF RARE-FEW Indication for culture: Dysuria/FrequencySpecimen Description: CLEAN CATCHUR HCG [id number] 16:49:00 Test Item Value Reference Range Interpretation Comments UR HCG QUAL (test NEGATIVE 1. Very di lute urine code = HCGQLU) specimens, as indicated by a lowspecific g ravity, may not contain rep resentative levels ofhCG. 2 . False negative result s may occur when the levels of hCGare below the sensi tivity level of the test. If is still suspec alvarez, a first morningurine sp ecimen should be colle cted 48 hours later and tested. Indication for culture: Dysuria/FrequencySpecimen Description: CLEAN CATCHCBC W/AUTO [id number] 16:46:00 Test Item Value Reference Range Interpretation Comments WHITE BLOOD CELL (test code = WBC) 5.2 K/mm3 6.5-12.3 L RED BLOOD CELL (test code = RBC) 4.80 M/mm3 3.51-4.69 H HEMOGLOBIN (test code = HGB) 12.2 g/dL 10.1-13.8 N HEMATOCRIT (test code = HCT) 36.8 % 32.5-41.8 N MEAN CELL VOLUME (test code = MCV) 76.7 fL 84.6-96.6 L MEAN CELL HGB (test code = MCH) 25.4 pg 27.3-33.9 L MEAN CELL HGB CONCETRATION (test 33.2 gm/dL 32.0-34.2 N code = MCHC) RED CELL DISTRIBUTION WIDTH (test 13.5 % 12.2-16.3 N code = RDW) PLATELET COUNT (test code = PLT) 245 K/mm3 134-363 N MEAN PLATELET VOLUME (test code = 10.8 fL 9.2-12.7 N MPV) NEUTROPHIL % (test code = NT%) 58.6 % 57.9-77.3 N LYMPHOCYTE % (test code = LY%) 31.7 % 14.5-29.7 H MONOCYTE % (test code = MO%) 7.4 % 3.6-10.2 N EOSINOPHIL % (test code = EO%) 1.3 % 0.0-3.0 N BASOPHIL % (test code = BA%) 0.8 % 0.1-0.9 N NEUTROPHIL # (test code = NT#) 3.1 K/mm3 LYMPHOCYTE # (test code = LY#) 1.7 K/mm3 MONOCYTE # (test code = MO#) 0.4 K/mm3 EOSINOPHIL # (test code = EO#) 0.07 K/mm3 BASOPHIL # (test code = BA#) 0.0 K/mm3 RBC MORPHOLOGY REQUIRED (test code NORMAL NORMAL = RBCM) PLATELET MORPHOLOGY REQUIRED (test NORMAL NORMAL code = PLTMR) URINALYSIS W/ [id number] 11:59:07 Test Item Value Reference Range Interpretation Comments COLOR (BEAKER) (test code = 470) Yellow CLARITY (BEAKER) (test code = 469) Clear SPECIFIC GRAVITY UA (BEAKER) (test 1.020 1.001-1.035 code = 468) PH UA (BEAKER) (test code = 467) 8.5 5.0-8.0 H PROTEIN UA (BEAKER) (test code = Negative Negative 464) GLUCOSE UA (BEAKER) (test code = Negative Negative 365) KETONES UA (BEAKER) (test code = Negative Negative 371) BILIRUBIN UA (BEAKER) (test code = Negative Negative 462) BLOOD UA (BEAKER) (test code = Negative Negative 461) NITRITE UA (BEAKER) (test code = Negative Negative 465) LEUKOCYTE ESTERASE UA (BEAKER) Trace Negative A (test code = 466) UROBILINOGEN UA (BEAKER) (test 0.2 code = 463) BACTERIA (BEAKER) (test code = Few 517) MUCUS (BEAKER) (test code = 1574) Moderate RBC UA-MANUAL (BEAKER) (test code <5 /HPF = 1659) WBC UA-MANUAL (BEAKER) (test code <5 /HPF = 1661) SQUAMOUS EPITHELIAL MANUAL 10-20 /HPF (BEAKER) (test code = 1663) SOURCE(BEAKER) (test code = 2795) SCREEN, [id number] 11:57:56 Test Item Value Reference Range Interpretation Comments TEST URINE (BEAKER) (test Negative Negative code = 583) CBC W/PLT COUNT & AUTO [id number] 11:57:29 Test Item Value Reference Range Interpretation Comments WHITE BLOOD CELL COUNT (BEAKER) 4.9 K/ L 4.0-10.0 (test code = 775) RED BLOOD CELL COUNT (BEAKER) 4.81 M/ L 4.00-5.00 (test code = 761) HEMOGLOBIN (BEAKER) (test code = 11.9 GM/DL 12.0-15.0 L 410) HEMATOCRIT (BEAKER) (test code = 36.8 % 36.0-45.0 411) MEAN CORPUSCULAR VOLUME (BEAKER) 76 fL 82-99 L (test code = 753) MEAN CORPUSCULAR HEMOGLOBIN 24.7 pg 27.0-33.0 L (BEAKER) (test code = 751) MEAN CORPUSCULAR HEMOGLOBIN CONC 32.3 GM/DL 32.0-36.0 (BEAKER) (test code = 752) RED CELL DISTRIBUTION WIDTH 15.3 % 10.3-14.2 H (BEAKER) (test code = 412) PLATELET COUNT (BEAKER) (test 215 K/CU MM 150-430 code = 756) MEAN PLATELET VOLUME (BEAKER) 8.8 fL 6.5-10.5 (test code = 754) NEUTROPHILS RELATIVE PERCENT 38 % (BEAKER) (test code = 429) LYMPHOCYTES RELATIVE PERCENT 53 % (BEAKER) (test code = 430) MONOCYTES RELATIVE PERCENT 7 % (BEAKER) (test code = 431) EOSINOPHILS RELATIVE PERCENT 1 % (BEAKER) (test code = 432) BASOPHILS RELATIVE PERCENT 1 % (BEAKER) (test code = 437) NEUTROPHILS ABSOLUTE COUNT 1.88 K/ L 1.80-8.00 (BEAKER) (test code = 670) LYMPHOCYTES ABSOLUTE COUNT 2.61 K/ L 1.48-4.50 (BEAKER) (test code = 414) MONOCYTES ABSOLUTE COUNT (BEAKER) 0.35 K/ L 0.00-1.30 (test code = 415) EOSINOPHILS ABSOLUTE COUNT 0.07 K/ L 0.00-0.50 (BEAKER) (test code = 416) BASOPHILS ABSOLUTE COUNT (BEAKER) 0.05 K/ L 0.00-0.20 (test code = 417) BASIC METABOLIC [id number] 11:56:40 Test Item Value Reference Range Interpretation Comments SODIUM (BEAKER) 139 meq/L 135-148 (test code = 381) POTASSIUM 3.9 meq/L 3.6-5.5 (BEAKER) (test code = 379) CHLORIDE (BEAKER) 106 meq/L 98-106 (test code = 382) CO2 (BEAKER) 26 meq/L 24-32 (test code = 355) BLOOD UREA 12 mg/dL 10-26 NITROGEN (BEAKER) (test code = 354) CREATININE 0.74 mg/dL 0.50-1.20 (BEAKER) (test code = 358) GLUCOSE RANDOM 78 mg/dL 70-110 (BEAKER) (test code = 652) CALCIUM (BEAKER) 9.0 mg/dL 8.5-10.5 (test code = 697) EGFR (BEAKER) 118 Interpretatio n of eGFR (test code = mL/min/1.73 values Stage De scription 1092) sq m Result G1 Majo l or high >=90 G2 Mildly decreased 60-89 G3a Mildl y to moderately 45-5 9 G3b Moderately to s everely 30-44 G4 Severl y decreased 15-29 G5 Kidney failure <15Reported eGF R is based on the CKD-EPI 2021 equation that d oes not use a race coefficientEsti mated GFR is not as accur ate as Creatinine Neto darling in predicting glom erular filtration rate . Estimated GFR is not appl icable for dialysis patien ts - CT ABD PELVIS [id number] 13:44:00 [facility] 2000 Sex: FPatient Name: ZORAN STORM Unit No: [id number] EXAMS: CPT: [id number] CT ABD PELVIS W/CONT 01463 History: Lower abd tenderness CT SCAN OF THE ABDOMEN AND PELVIS WITH CONTRAST FINDINGS: CT scan of the abdomen and pelvis was performed with intravenous contrast. One or more of the following dose reduction techniques were used: Automated exposure control, adjustment of the mA and/or KV according to patient size, and/or utilization of iterative reconstruction technique. The liver is unremarkable. The portal vein is patent. No abnormality of the spleen, pancreas or adrenal glands is identified. No solid renal mass, hydronephrosis or renal stone is present. The gallbladder is unremarkable. No adenopathy, ascites or mass is seen. The abdominal aorta is normal in size in caliber. There is no evidence of intestinal obstruction or acute appendicitis. No free intraperitoneal air is identified. The urinary bladder is unremarkable. The uterus is unremarkable. No acute fracture is identified. Images through thelung bases are unremarkable. IMPRESSION: 1. No acute abnormality is identified. at 1344 Reported and signed by: Madi Yung MD Name: ZORAN STORM [facility] Phys: HOLFE - Felix,Matheus [employer] DIRECTOR [address] : 2000 Age: 22 Sex: [place] [address] Loc: N.ERS Exam Date: 08/14/2022 Status: REG ER PH: FAX: PAGE 1 Signed Report (CONTINUED) Patient Name: ZORAN STORM Unit No: [id number] EXAMS: CPT: [id number] CT ABD PELVIS W/CONT 15783 (Continued) CC: Matheus Felix Technologist: Mary Mallory CTDI: 5.2 DLP: 241.47 Trscr Dt/Tm: 08/14/2022 (1344) by:[email or web address] Orig Pr int D/T: S: 08/14/2022 (1347) BATCH NO: N/A Name: ZORAN STORM [facility] Phys: YARON - Isidro,Matheus HEMPHILL [address] : 2000 Age: 22 Sex: [place] [address] Loc: N.ERS Exam Date: 08/14/2022 Status: REG ER PH: FAX: PAGE 2 Signed ReportCBC W/AUTO [id number] 12:43:00 Test Item Value Reference Range Interpretation Comments WHITE BLOOD CELL (test 2.0 x10 3/uL 3.2-11.5 LL Criti sabine Value code = WBC) reported toFfernandez t Name:MARC lemus Name:MADI NEAL READ BACK AND VERIFIEDby [id number], on 08/14/22, @ 121 3. RED BLOOD CELL (test 4.91 x10(6)/m 3.70-5.10 N code = RBC) HEMOGLOBIN (test code 12.4 g/dL 12.0-15.0 N = HGB) HEMATOCRIT (test code 38.1 % 35.7-44.8 N = HCT) MEAN CELL VOLUME (test 78 fL 80-100 L code = MCV) MEAN CELL HGB (test 25.3 pg 26.2-33.8 L code = MCH) MEAN CELL HGB 32.5 g/dL 30.0-34.0 N CONCENTRATION (test code = MCHC) RED CELL DISTRIBUTION 13.8 % 11.3-14.5 N WIDTH (test code = RDW) PLATELET COUNT (test 227 x10 3/uL 130-408 N code = PLT) MEAN PLATELET VOLUME 10.0 fL 8.6-12.6 N (test code = MPV) NEUTROPHIL % (test 29.1 % 40.0-70.0 L code = NT%) IMMATURE GRANULOCYTE % 0.0 % 0.0-2.0 N (test code = IG%) LYMPHOCYTE % (test 51.8 % 20-40 H code = LY%) MONOCYTE % (test code 18.1 % 1-10 H = MO%) EOSINOPHIL % (test 1.0 % 0.0-5.0 N code = EO%) BASOPHIL % (test code 0.0 % 0.0-1.0 N = BA%) NUCLEATED RBC % (test 0.0 % 0.0-0.9 N code = NRBC%) NEUTROPHIL # (test 0.6 x10 3/uL 1.6-7.2 L code = NT#) LYMPHOCYTE # (test 1.03 x10 3/uL 1.1-2.7 L code = LY#) MONOCYTE # (test code 0.4 x10 3/uL 0.3-0.8 N = MO#) EOSINOPHIL # (test 0.0 x10 3/uL 0.0-0.5 N code = EO#) BASOPHIL # (test code 0.0 x10 3/uL 0.0-0.1 N = BA#) PLATELET ESTIMATE ADEQUATE ADEQUATE (test code = PLTEST) WBC [id number] 12:43:00 Test Item Value Reference Range Interpretation Comments TOTAL CELLS COUNTED (test code = 100 #CELLS TCC) RBC MORPHOLOGY COMMENT (test Normal NORMAL code = MOC) PLATELET MORPHOLOGY (test code = Normal NORMAL PLTMORPH) SEGMENTED NEUTROPHILS (test code 24 % 43-65 L = SEG) BAND NEUTROPHIL (test code = 1 % 0-1 N BAND) LYMPHOCYTE (test code = LYMPH) 57 % 20.5-45.5 H ATYPICAL LYMPH (test code = 1 % 0-1 N ALYMPH) MONOCYTE (test code = MON) 15 % 5.5-11.7 H EOSINOPHIL (test code = EOS) 1 % 0.9-2.9 N BASOPHIL (test code = BASO) 1 % 0.2-1.0 N BAND ABSOLUTE (test code = 0.02 10 3/uL 0.00-0.70 N BAND#) NEUTROPHIL ABSOLUTE (test code = 0.48 10 3/uL 1.6-7.2 L SEG#) LYMPH ABSOLUTE (test code = 1.1 10 3/uL 1.1-4.8 N LYMPH#) ATYPICAL LYMPH ABSOLUTE (test 0.02 10 3/uL 0.00-0.00 H code = ALYMPH#) MONOCYTE ABSOLUTE (test code = 0.30 10 3/uL 0.3-0.8 N MON#) BASOPHIL ABSOLUTE (test code = 0.02 10 3/uL 0.00-0.1 N BASO#) EOSINOPHIL ABSOLUTE (test code = 0.02 10 3/uL 0.00-0.50 N EOS#) METAMYELOCYTE ABSOLUTE (test 0.00 10 3/uL 0.00-0.00 N code = META#) MYELOCYTE ABSOLUTE (test code = 0.00 10 3/uL 0.00-0.00 N MYELO#) PROMYELOCYTE ABSOLUTE (test code 0.00 10 3/uL 0.00-0.00 N = PROM#) BLASTS ABSOLUTE (test code = 0.00 10 3/uL 0.00-0.00 N BLAST#) OTHER CELLS ABSOLUTE (test code 0.00 10 3/uL 0.00-0.00 N = OCT#) BASIC METABOLIC [id number] 12:29:00 Test Item Value Reference Range Interpretation Comments SODIUM (test code 137 mmol/L 135-145 N = NA) POTASSIUM (test 3.7 mmol/L 3.6-5.0 N code = K) CHLORIDE (test 103 mmol/L 101-111 N code = CL) CARBON DIOXIDE 25 mmol/L 21-31 N (test code = CO2) GLUCOSE (test code 82 mg/dl 70-100 N = GLU) BLOOD UREA 8 mg/dl 6-20 N NITROGEN (test code = BUN) GLOMERULAR >=60 max >60 The Glomerular FILTRATION RATE estimate Filtration R ate is a (test code = GFR) calculated parameterbased on serum Creatinin e, patient age and sex. GFR valuesless than 60 mL/min/1.73 square meters are ciro cative ofChronic Kidne y Disease. Values less than 15 mL/min/1.73squa re meters indicate Kidney failure. The calculation for GFR is based on the CK D-EPI (2020) calculat ion. This formulais race indifferent and is the recommended formula for GFR by the National Kid[employer] for Adults.The GFR will not calculate i f the sex is unknown or if thepatient's ag e is <18 years. CREATININE (test 0.75 mg/dL 0.44-1.03 N code = CREAT) CALCIUM (test code 9.0 mg/dL 8.5-10.5 N = CA) LIVER FUNCTION [id number] 12:29:00 Test Item Value Reference Range Interpretation Comments TOTAL PROTEIN (test code = PROT) 6.7 g/dL 6.7-8.2 N ALBUMIN (test code = ALB) 3.5 g/dL 3.2-5.5 N BILIRUBIN TOTAL (test code = BILT) 0.60 mg/dL 0.2-1.3 N BILIRUBIN DIRECT (test code = 0.1 mg/dL 0.00-0.20 N BILD) SGOT/AST (test code = AST) 22 U/L 10-42 N SGPT/ALT (test code = ALT) 24 U/L 10-60 N ALKALINE PHOSPHATASE (test code = 61 U/L 42-121 N ALKP) [id number] 12:29:00 Test Item Value Reference Range Interpretation Comments LIPASE (test code = LIP) 27 IU/L 22-51 N UA RFLX MICR CULT IF [id number] 12:22:00 Test Item Value Reference Range Interpretation Comments UA COLOR (test code YELLOW YELLOW = COLU) UA APPEARANCE (test Cloudy CLEAR code = APPU) UA GLUCOSE DIPSTICK NEGATIVE NEGATIVE (test code = DGLUU) UA BILIRUBIN NEGATIVE NEGATIVE DIPSTICK (test code = BILU) UA KETONE DIPSTICK Trace NEGATIVE A (test code = KETU) UA SPECIFIC GRAVITY 1.028 1.001-1.030 (test code = SGU) UA BLOOD DIPSTICK NEGATIVE NEGATIVE (test code = RIGDE) UA PH DIPSTICK (test 5.0 5.0-9.0 code = CODI) UA PROTEIN DIPSTICK 1+ NEGATIVE A (test code = PROU) UA UROBILINOGEN 4.0 See_Comment A [Automated message] DIPSTICK (test code The syst em which = URO) generated this result transmitted ref erence range: <=1.0. T he reference range was not used to interpr et this result as normal/abnormal . UA NITRITE DIPSTICK NEGATIVE NEGATIVE (test code = YUSUF) UA ASCORBIC ACID POSITIVE A High levels of ascorbic DIPSTICK (test code acid may cause false = AAU) negativeresults for blood, glucose & nitrite. UA LEUKOCYTE 2+ NEGATIVE A ESTERASE DIPSTICK (test code = LEUU) UA WBC (test code = 11-20 /HPF 0-5 A WBCUR) UA RBC (test code = 0-5 /HPF 0-5 RBCU) UA EPITHELIAL CELLS MANY /LPF NONE-FEW (test code = EPIU) UA BACTERIA (test 1+ /HPF NONE SEEN A code = BACU) UA MUCUS (test code 4+ /LPF NONE SEEN = MUCU) Indication for culture: Suprapubic PainSpecimen Description: CLEAN CATCHHCG SERUM [id number] 12:18:00 Test Item Value Reference Range Interpretation Comments HCG SERUM QUAL NEGATIVE NEGATIVE This is a dee litative (test code = HCGQL) screenin g test.The quantitative Bh cg may be helpful.Weakly positive results should be repeated in 48 hours. Screen, [id number] 17:34:56 Test Item Value Reference Range Interpretation Comments Preg Test, Ur (test code = 2112-1) Negative Negative Lab Interpretation (test code = Normal 63492-1) [facility], [id number] 17:34:56 Test Item Value Reference Range Interpretation Comments TEST URINE (BEAKER) (test Negative Negative code = 583) Urinalysis w/[id number] 17:34:34 Test Item Value Reference Range Interpretation Comments Color, UA (test code Yellow = 5778-6) Clarity, UA (test Slightly Cloudy code = 5767-9) Specific Hustle, UA 1.025 1.001-1.035 (test code = 5811-5) pH, UA (test code = 7.0 5.0-8.0 5803-2) Protein, UA (test Negative Negative code = 44107-7) Glucose, UA (test Negative Negative code = 365) Ketones, UA (test Trace Negative A code = 2514-8) Bilirubin, UA (test Negative Negative code = 94618-0) Blood, UA (test code Negative Negative = 37706-7) Nitrite, UA (test Negative Negative code = 5802-4) Leukocytes, UA (test Trace Negative A code = 5799-2) Urobilinogen, UA 1.0 (test code = 58067-5) Bacteria, UA (test Few code = 78683-6) Mucus (test code = Few 8247-9) RBC, UA (test code = None Seen See_Comment [Autom ated 799-7) message] The system which generated this result transmit alvarez reference range : /HPF. The reference range was not used to interpret this result as normal/abnormal . WBC, UA (test code = 5-10 See_Comment [Autom ated 62606-5) message] The system which generated this result transmit alvarez reference range : /HPF. The reference range was not used to interpret this result as normal/abnormal . SQUAMOUS EPITHELIAL 5-10 See_Comment [Automa alvarez (test code = 38172-7) messag e] The system which generated this result transmit alvarez reference range : /HPF. The reference range was not used to interpret this result as normal/abnormal . Specimen Source (test code = 2795) Lab Interpretation Abnormal (test code = 16503-0) [facility]inal[facility] w/[id number] 17:34:34 Test Item Value Reference Range Interpretation Comments Color, UA (test code Yellow = 5778-6) Clarity, UA (test Slightly Cloudy code = 5767-9) Specific Hustle, UA 1.025 1.001-1.035 (test code = 5811-5) pH, UA (test code = 7.0 5.0-8.0 5803-2) Protein, UA (test Negative Negative code = 89677-3) Glucose, UA (test Negative Negative code = 365) Ketones, UA (test Trace Negative A code = 2514-8) Bilirubin, UA (test Negative Negative code = 70544-8) Blood, UA (test code Negative Negative = 45188-1) Nitrite, UA (test Negative Negative code = 5802-4) Leukocytes, UA (test Trace Negative A code = 5799-2) Urobilinogen, UA 1.0 (test code = 25589-8) Bacteria, UA (test Few code = 44262-6) Mucus (test code = Few 8247-9) RBC, UA (test code = None Seen See_Comment [Autom ated 799-7) message] The system which generated this result transmit alvarez reference range : /HPF. The reference range was not used to interpret this result as normal/abnormal . WBC, UA (test code = 5-10 See_Comment [Autom ated 29283-8) message] The system which generated this result transmit alvarez reference range : /HPF. The reference range was not used to interpret this result as normal/abnormal . SQUAMOUS EPITHELIAL 5-10 See_Comment [Automa alvarez (test code = 02737-2) messag e] The system which generated this result transmit alvarez reference range : /HPF. The reference range was not used to interpret this result as normal/abnormal . Specimen Source (test code = 2795) Lab Interpretation Abnormal (test code = 06114-3) [facility][id number] 17:34:34 Test Item Value Reference Range Interpretation Comments Color, UA (test code Yellow = 5778-6) Clarity, UA (test Slightly Cloudy code = 5767-9) Specific Hustle, UA 1.025 1.001-1.035 (test code = 5811-5) pH, UA (test code = 7.0 5.0-8.0 5803-2) Protein, UA (test Negative Negative code = 30252-1) Glucose, UA (test Negative Negative code = 365) Ketones, UA (test Trace Negative A code = 2514-8) Bilirubin, UA (test Negative Negative code = 36469-7) Blood, UA (test code Negative Negative = 93470-8) Nitrite, UA (test Negative Negative code = 5802-4) Leukocytes, UA (test Trace Negative A code = 5799-2) Urobilinogen, UA 1.0 (test code = 52394-2) Bacteria, UA (test Few code = 20108-1) Mucus (test code = Few 8247-9) RBC, UA (test code = None Seen See_Comment [Autom ated 799-7) message] The system which generated this result transmit alvarez reference range : /HPF. The reference range was not used to interpret this result as normal/abnormal . WBC, UA (test code = 5-10 See_Comment [Autom ated 22261-0) message] The system which generated this result transmit alvarez reference range : /HPF. The reference range was not used to interpret this result as normal/abnormal . SQUAMOUS EPITHELIAL 5-10 See_Comment [Automa alvarez (test code = 56894-9) messag e] The system which generated this result transmit alvarez reference range : /HPF. The reference range was not used to interpret this result as normal/abnormal . Specimen Source (test code = 2795) Lab Interpretation Abnormal (test code = 15435-8) [place] [facility]IN[facility] W/ [id number] 17:34:34 Test Item Value Reference Range Interpretation Comments COLOR (BEAKER) (test code = Yellow 470) CLARITY (BEAKER) (test code = Slightly Cloudy 469) SPECIFIC GRAVITY UA (BEAKER) 1.025 1.001-1.035 (test code = 468) PH UA (BEAKER) (test code = 7.0 5.0-8.0 467) PROTEIN UA (BEAKER) (test Negative Negative code = 464) GLUCOSE UA (BEAKER) (test Negative Negative code = 365) KETONES UA (BEAKER) (test Trace Negative A code = 371) BILIRUBIN UA (BEAKER) (test Negative Negative code = 462) BLOOD UA (BEAKER) (test code Negative Negative = 461) NITRITE UA (BEAKER) (test Negative Negative code = 465) LEUKOCYTE ESTERASE UA Trace Negative A (BEAKER) (test code = 466) UROBILINOGEN UA (BEAKER) 1.0 (test code = 463) BACTERIA (BEAKER) (test code Few = 517) MUCUS (BEAKER) (test code = Few 1574) RBC UA-MANUAL (BEAKER) (test None Seen /HPF code = 1659) WBC UA-MANUAL (BEAKER) (test 5-10 /HPF code = 1661) SQUAMOUS EPITHELIAL MANUAL 5-10 /HPF (BEAKER) (test code = 1663) SOURCE(BEAKER) (test code = 2795) CBC W/PLT COUNT & AUTO [id number] 17:33:46 Test Item Value Reference Range Interpretation Comments WHITE BLOOD CELL COUNT (BEAKER) 4.4 K/ L 4.0-10.0 (test code = 775) RED BLOOD CELL COUNT (BEAKER) 4.72 M/ L 4.00-5.00 (test code = 761) HEMOGLOBIN (BEAKER) (test code = 12.0 GM/DL 12.0-15.0 410) HEMATOCRIT (BEAKER) (test code = 36.0 % 36.0-45.0 411) MEAN CORPUSCULAR VOLUME (BEAKER) 76 fL 82-99 L (test code = 753) MEAN CORPUSCULAR HEMOGLOBIN 25.3 pg 27.0-33.0 L (BEAKER) (test code = 751) MEAN CORPUSCULAR HEMOGLOBIN CONC 33.2 GM/DL 32.0-36.0 (BEAKER) (test code = 752) RED CELL DISTRIBUTION WIDTH 14.6 % 10.3-14.2 H (BEAKER) (test code = 412) PLATELET COUNT (BEAKER) (test 216 K/CU MM 150-430 code = 756) MEAN PLATELET VOLUME (BEAKER) 8.6 fL 6.5-10.5 (test code = 754) NEUTROPHILS RELATIVE PERCENT 54 % (BEAKER) (test code = 429) LYMPHOCYTES RELATIVE PERCENT 37 % (BEAKER) (test code = 430) MONOCYTES RELATIVE PERCENT 6 % (BEAKER) (test code = 431) EOSINOPHILS RELATIVE PERCENT 2 % (BEAKER) (test code = 432) BASOPHILS RELATIVE PERCENT 1 % (BEAKER) (test code = 437) NEUTROPHILS ABSOLUTE COUNT 2.37 K/ L 1.80-8.00 (BEAKER) (test code = 670) LYMPHOCYTES ABSOLUTE COUNT 1.64 K/ L 1.48-4.50 (BEAKER) (test code = 414) MONOCYTES ABSOLUTE COUNT (BEAKER) 0.27 K/ L 0.00-1.30 (test code = 415) EOSINOPHILS ABSOLUTE COUNT 0.07 K/ L 0.00-0.50 (BEAKER) (test code = 416) BASOPHILS ABSOLUTE COUNT (BEAKER) 0.04 K/ L 0.00-0.20 (test code = 417) [id number] 17:32:17 Test Item Value Reference Range Interpretation Comments LIPASE (BEAKER) (test code = 749) 60 U/L 40-240 HEPATIC FUNCTION [id number] 17:32:06 Test Item Value Reference Range Interpretation Comments TOTAL PROTEIN (BEAKER) (test code = 7.3 gm/dL 6.0-8.5 770) ALBUMIN (BEAKER) (test code = 1145) 4.1 g/dL 3.5-5.0 BILIRUBIN TOTAL (BEAKER) (test code 0.4 mg/dL 0.1-1.2 = 377) BILIRUBIN DIRECT (BEAKER) (test 0.0 mg/dL 0.0-0.4 code = 706) ALKALINE PHOSPHATASE (BEAKER) (test 51 U/L 30-115 code = 346) AST (SGOT) (BEAKER) (test code = 21 U/L 5-40 353) ALT (SGPT) (BEAKER) (test code = 15 U/L 5-50 347) BASIC METABOLIC [id number] 17:31:49 Test Item Value Reference Range Interpretation Comments SODIUM (BEAKER) 138 meq/L 135-148 (test code = 381) POTASSIUM 3.7 meq/L 3.6-5.5 (BEAKER) (test code = 379) CHLORIDE (BEAKER) 105 meq/L 98-106 (test code = 382) CO2 (BEAKER) 27 meq/L 24-32 (test code = 355) BLOOD UREA 10 mg/dL 10-26 NITROGEN (BEAKER) (test code = 354) CREATININE 0.71 mg/dL 0.50-1.20 (BEAKER) (test code = 358) GLUCOSE RANDOM 83 mg/dL 70-110 (BEAKER) (test code = 652) CALCIUM (BEAKER) 9.0 mg/dL 8.5-10.5 (test code = 697) EGFR (BEAKER) 124 Interpretatio n of eGFR (test code = mL/min/1.73 values Stage De scription 1092) sq m Result G1 Majo l or high >=90 G2 Mildly decreased 60-89 G3a Mildl y to moderately 45-5 9 G3b Moderately to s everely 30-44 G4 Sever ly decreased 15-29 G5 Kidney failure <15Repo rted eGFR is based on the CKD-EPI 2020 equation t hat does not use a race coefficientEsti mated GFR is not as accur ate as Creatinine Neto darling in predicting glom erular filtration rate . Estimated GFR is not appl icable for dialysis patien ts WET [id number] 23:34:24 Test Item Value Reference Range Interpretation Comments WBC WET PREP Few white blood cells (BEAKER) (test code seen = 528) CLUE CELLS (BEAKER) Few clue cells seen (test code = 526) YEAST WET PREP No budding yeast seen (BEAKER) (test code = 530) TRICH WET PREP No Trichomonas seen (BEAKER) (test code = 531) BACT WET PREP Moderate bacteria seen (BEAKER) (test code = 532) Urinalysis w/Microscopic + Reflex to [id number] 22:38:31 Test Item Value Reference Range Interpretation Comments Color, UA (test code = Dark Yellow 5778-6) Clarity, UA (test code Slightly Hazy = 5767-9) Specific Hustle, UA 1.020 1.001-1.035 (test code = 5811-5) pH, UA (test code = 6.5 5.0-8.0 5803-2) Protein, UA (test code Trace Negative A = 12940-6) Glucose, UA (test code Negative Negative = 365) Ketones, UA (test code Trace Negative A = 2514-8) Bilirubin, UA (test Positive Negative A code = 72457-8) Blood, UA (test code = Negative Negative 77348-0) Nitrite, UA (test code Negative Negative = 5802-4) Leukocytes, UA (test Small Negative A code = 5799-2) Urobilinogen, UA (test 1.0 mg/dL 0.2-1.0 code = 66242-3) Bacteria, UA (test Moderate code = 11007-8) RBC, UA (test code = <5 See_Comment [Autom ated 799-7) message] The system which generated this result transmit alvarez reference range : /HPF. The reference range was not used to interpret this result as normal/abnormal . WBC, UA (test code = 5-10 See_Comment [Autom ated 97864-0) message] The system which generated this result transmit alvarez reference range : /HPF. The reference range was not used to interpret this result as normal/abnormal . SQUAMOUS EPITHELIAL 5-10 See_Comment Clue radha ls seen. (test code = 49428-6) [Autom ated message] The system which generated this result transmit alvarez reference range : /HPF. The reference range was not used to interpret this result as normal/abnormal . Specimen Source (test code = 2795) Lab Interpretation Abnormal (test code = 29942-6) [facility] URINE [id number] 22:38:31 Test Item Value Reference Range Interpretation Comments COLOR (BEAKER) (test Dark Yellow code = 470) CLARITY (BEAKER) (test Slightly Hazy code = 469) SPECIFIC GRAVITY UA 1.020 1.001-1.035 (BEAKER) (test code = 468) PH UA (BEAKER) (test 6.5 5.0-8.0 code = 467) PROTEIN UA (BEAKER) Trace Negative A (test code = 464) GLUCOSE UA (BEAKER) Negative Negative (test code = 365) KETONES UA (BEAKER) Trace Negative A (test code = 371) BILIRUBIN UA (BEAKER) Positive Negative A (test code = 462) BLOOD UA (BEAKER) (test Negative Negative code = 461) NITRITE UA (BEAKER) Negative Negative (test code = 465) LEUKOCYTE ESTERASE UA Small Negative A (BEAKER) (test code = 466) UROBILINOGEN UA 1.0 mg/dL 0.2-1.0 (BEAKER) (test code = 463) BACTERIA (BEAKER) (test Moderate code = 517) RBC UA-MANUAL (BEAKER) <5 /HPF (test code = 1659) WBC UA-MANUAL (BEAKER) 5-10 /HPF (test code = 1661) SQUAMOUS EPITHELIAL 5-10 /HPF Clue radha ls seen. MANUAL (BEAKER) (test code = 1663) SOURCE(BEAKER) (test code = 2795) SCREEN, [id number] 22:35:47 Test Item Value Reference Range Interpretation Comments TEST URINE (BEAKER) (test Negative Negative code = 583) SARS-CoV2/RT-PCR (Symptomatic ONLY)2022-05-12 18:01:09 Test Item Value Reference Interpretation Comments Range SARS-COV2/RT-PCR Negative Negative The SARS-Co V-2 (test code = target nucleic 68024-5) acids are not detected in thi s specimen. Negat giorgio results do not preclude SARS-C oV-2 infection and should not be u sed as the sole bas is for patient management decisions. Nega tive results must be combined with clinical observations, patient history , and epidemiolog ical information. A false negative result may occu r if a specimen is improperly collected, transported or handled. This S ARS CoV-2 test is a rapid, real-jj e RT-PCR test intended for th e qualitative detection of nucleic acid fr om SARS-CoV-2 in a nasopharyngeal swab specimen [facility] alvarez from individual s suspected of COVID-19 by the ir healthcare provider. KIMBERLEE (test code = This test has been KIMBERLEE) authorized by FDA under an EUA for use by authorized laboratories. This test is only authorized for the duration of the declaration that circumstances exist justifying the authorization of emergency use of in vitro diagnostic tests for detection and/or diagnosis of COVID-19 under Section 564(b)(1) of the Federal Food, Drug and Cosmetic Act, 21 U.S.C. 360bbb-3(b)(1), unless the authorization is terminated or revoked sooner. Fact Sheet for Healthcare Providers: https://www.Ev[employer].net/Documents/Xp ert%20Xpress%20SAR S%20CoV-2/Fact%20S heets/302-3802%20S ARS-COV-2%20HEALTH CARE%20PROVIDERS%2 0FACT%20SHEET.pdf Fact Sheet for Healthcare Patients: https://www.Ev[employer].net/Documents/Xp ert%20Xpress%20SAR S%20CoV-2/Fact%20S heets/302-3801%20S ARS-COV-2%20PATIEN T%20FACT%20SHEET.p df Lab Interpretation Normal (test code = 86597-1) [facility])2022-05-12 18:01:09 Test Item Value Reference Range Interpretation Comments SARS-COV2/RT-PCR Negative Negative The SARS-Co V-2 target (test code = nucleic acids a re not 1641039) detected in thi s specimen. Negative result s do not preclude SARS-C oV-2 infection and s hould not be used as the damion e basis for patient managem ent decisions. Nega tive results must be combine d with clinical observ ations, patient history , and epidemiological information. A false negativ e result may occur if a spec imen is improperly sp ected, transported or handled. This SARS CoV-2 test is a rapid, real-time RT-PC R test intended for th e qualitative detection of nu cleic acid from SARS-CoV-2 in a nasopharyngeal swab specimen collected from individuals suspected of CO VID-19 by their healthcar e provider. This test has been authorized by FDA under an EUA for use by authorized laboratories. This test is only authorized for the duration of the declaration that circumstances exist justifying the authorization of emergency use of in vitro diagnostic tests for detection and/or diagnosis of COVID-19 under Section 564(b)(1) of the Federal Food, Drug and Cosmetic Act, 21 U.S.C. 360bbb-3(b)(1), unless the authorization is terminated or revoked sooner. Fact Sheet for Healthcare Providers: https://www.[employer] m/Documents/Xpert%20Xpress%20SARS%20CoV-2/Fact%20Sheets/302-3802%63JSJL-CUW-5%20 HEALTHCARE%20PROVIDERS%20FACT%20SHEET.pdf Fact Sheet for Healthcare Patients: https://www.Reframed.tv/Documents/Xpert%20Xp ress%20SARS%20CoV-2/Fact%20Sheets/3023801%54MNWU-XKC-2%20PATIENT%20FACT%20SHEET .pdfRapid Strep A [id number] 15:42:58 Test Item Value Reference Range Interpretation Comments Strep A Ag (test code = Negative Negative \\SOF IA QUIDEL 77204-0) HOL-3\\ Lab Interpretation (test Normal code = 76064-1) [facility] CenterRAPID STREP A [id number] 15:42:58 Test Item Value Reference Range Interpretation Comments STREP A ANTIGEN (BEAKER) Negative Negative \\SO RADHA QUIDEL HOL-3\\ (test code = 556) HCG [id number] 11:06:00 Test Item Value Reference Range Interpretation Comments HCG SERUM (test 379415 INTERPRETATI ON:VALUES BETWEEN code = HCG) 15-20 milliInte rnational units/mL NEED T O BERETESTED WITHIN 48 HOURS . All units for these ranges ar e in milliInternatio nalunits/mL0-1 WK AFTER CONCEP TION 0-50 1-2 WKS AFTER HORTENCIA PTION 40-3002-3 WKS AFTER HORTENCIA PTION 100-1,0003-4 WK S AFTER CONCEPTION 500- 6,0001-2 MONTHS AFTER CONCEPTIO N 5,000-200,0002- 3 MONTHS AFTER CONCEPTION 10,0 00-100,0002ND TRIMESTER 3,000 -50,0003RD TRIMESTER 1,000 -50,000 SPECIMENS WITH AN HCG LEVEL FROM 0-6 milliInternatio nalunits/mL SHOULD BE CONSI DERED NEGATIVE UA RFLX MICR CULT IF [id number] 10:47:00 Test Item Value Reference Range Interpretation Comments UA COLOR (test code = YELLOW YELLOW COLU) UA APPEARANCE (test code Slightly-Cloudy CLEAR = APPU) UA GLUCOSE DIPSTICK (test NEGATIVE NEG code = DGLUU) UA BILIRUBIN DIPSTICK NEGATIVE NEG (test code = BILU) UA KETONE DIPSTICK (test 2+ NEG A code = KETU) UA SPECIFIC GRAVITY (test 1.025 1.001-1.035 N code = SGU) UA BLOOD DIPSTICK (test 3+ NEG A code = RIDGE) UA PH DIPSTICK (test code 6.0 5-9 = CODI) UA PROTEIN DIPSTICK (test 2+ NEG A code = PROU) UA UROBILINIOGEN DIPSTICK 2.0 mg/dL NEG (test code = URO) UA NITRITE DIPSTICK (test NEG NEG code = YUSUF) UA LEUKOCYTE ESTERASE 2+ NEG A DIPSTICK (test code = LEUU) UA WBC (test code = WBCU) 31-40 #/hpf NONE SEEN A UA RBC (test code = RBCU) TOO NUMEROUS TO CNT NONE SEEN A #/hpf UA EPITHELIAL CELLS (test MODERATE #/HPF RARE-FEW A code = EPIU) UA MUCUS (test code = 4+ NONE SEEN MUCU) Indication for culture: Suprapubic PainSpecimen Description: CLEAN CATCHCBC W/AUTO [id number] 10:45:00 Test Item Value Reference Range Interpretation Comments WHITE BLOOD CELL (test code = WBC) 4.2 K/mm3 6.5-12.3 L RED BLOOD CELL (test code = RBC) 5.56 M/mm3 3.51-4.69 H HEMOGLOBIN (test code = HGB) 13.9 g/dL 10.1-13.8 H HEMATOCRIT (test code = HCT) 41.3 % 32.5-41.8 N MEAN CELL VOLUME (test code = MCV) 74.3 fL 84.6-96.6 L MEAN CELL HGB (test code = MCH) 25.0 pg 27.3-33.9 L MEAN CELL HGB CONCETRATION (test 33.7 gm/dL 32.0-34.2 N code = MCHC) RED CELL DISTRIBUTION WIDTH (test 13.2 % 12.2-16.3 N code = RDW) PLATELET COUNT (test code = PLT) 302 K/mm3 134-363 N MEAN PLATELET VOLUME (test code = 11.6 fL 9.2-12.7 N MPV) NEUTROPHIL % (test code = NT%) 50.2 % 57.9-77.3 L LYMPHOCYTE % (test code = LY%) 35.0 % 14.5-29.7 H MONOCYTE % (test code = MO%) 12.5 % 3.6-10.2 H EOSINOPHIL % (test code = EO%) 0.9 % 0.0-3.0 N BASOPHIL % (test code = BA%) 0.9 % 0.1-0.9 N NEUTROPHIL # (test code = NT#) 2.1 K/mm3 LYMPHOCYTE # (test code = LY#) 1.5 K/mm3 MONOCYTE # (test code = MO#) 0.5 K/mm3 EOSINOPHIL # (test code = EO#) 0.04 K/mm3 BASOPHIL # (test code = BA#) 0.0 K/mm3 RBC MORPHOLOGY REQUIRED (test code NORMAL NORMAL = RBCM) PLATELET MORPHOLOGY REQUIRED (test NORMAL NORMAL code = PLTMR) BASIC METABOLIC [id number] 10:39:00 Test Item Value Reference Range Interpretation Comments SODIUM (test code = NA) 132 mEq/L 135-145 L POTASSIUM (test code = 2.6 mEq/L 3.5-5.0 LL RESUL TS CALLED TO K) HERIBERTO PEDROZA BACK & CONFIRMED? YB Y F.LAB.KG 1038. CHLORIDE (test code = 96 mEq/L 100-115 L CL) CARBON DIOXIDE (test 23 mEq/L 22-31 N code = CO2) ANION GAP (test code = 16.20 10-20 N GAP) GLUCOSE (test code = 87 mg/dL 65-110 N GLU) BLOOD UREA NITROGEN 9 mg/dL 7-18 N (test code = BUN) GLOMERULAR FILTRATION 119 ml/min >60 N RATE (test code = GFR) CREATININE (test code = 0.7 mg/dL 0.5-1.0 N CREAT) CALCIUM (test code = 9.4 mg/dL 8.4-10.2 N CA) - US TRANSVAGINAL [id number] 00:00:00 [facility] 2000 Sex: F Patient Name: ZORAN STORM Unit No: [id number] EXAMS: CPT CODE: [id number] US TRANSVAGINAL W/PELVIS 75229 PROCEDURE INFORMATION: Exam: US Pelvis Complete (Transabdominal), Pelvis (Transvaginal), and US Duplex Artery or Vein (Ovaries) Limited Exam date and time: 11/17/2021 9:19 AM Age: 21 years old Clinical indication: Screening exam; 1st trim biateral pelvic pain; 1st trimester bilateral pelvic pain; Patient HX: H/o heavy vaginal bleeding with clots; Additional info: 1st trim pelvic pain TECHNIQUE:Imaging protocol: Real-time transabdominal and transvaginal pelvic ultrasound (complete) with image documentation. Transvaginal imaging was used for better evaluation of the endometrium, adnexa, and/orcervix. Real-time duplex ultrasound scan of the arterial or venous flow of the ovaries with B-mode, color Doppler flow and spectral waveform analysis. Complete Pelvis, Limited Duplex. COMPARISON: US TRANSVAGINAL W/PELVIS 08/08/2021 7:39 PM FINDINGS: Uterus: The uterus is retroverted, measuring 9.9 x 4.5 x 6.3 cm. The endometrium is uniform, measuring up to 7 mm in thickness. The fundal endometrium iscomplex and heterogenous, measuring up to 30 mm in thickness. Gestation: No intrauterine is seen. Right ovary/adnexa: Normal duplex of the ovary. Normal Doppler waveforms and color flow. There is a possible 1.3 cm hyperechoic focus adjacent to the right ovary. Left ovary/adnexa: Normal duplex of the ovary. Normal Doppler waveforms and color flow. Intraperitoneal space: No intraperitoneal fluid. Urinary bladder: Visualized bladder is unremarkable. IMPRESSION: 1. Focal heterogeneity and complexity in the fundal endometrium, favored to represent spontaneous in progress. 2. Indeterminate 1.3 cm hyperechoic focus adjacent to the right ovary, may represent a mildly complicated cyst versus adjacent bowel. Ectopic considered less likely. Recommend follow-up with beta HCG levels and possible repeat pelvic sonogram in 7-10 days. at 1128 Reported and signed by: Brandan Storm MD CC: Zohreh Workman MD Technologist: Jose Miguel Dos Santos RDMS Probe: [id number] Trnscrbd D/ (1128) GCD.CPS Orig Print D/T: S: 11/17/2021 (1120) [facility] NAME: ZORAN STORM Junaid Radiology Department PHYS: CA. - Zohreh Workman [address] : 2000 AGE: 21 SEX: F [place], [place] [address] LOC: DONY PHONE #: [phone] EXAM DATE: 11/17/2021 STATUS: REG ER FAX #: [phone] RAD NO: Page 1 Signed Report Patient Name: ZORAN STORM Unit No: [id number] EXAMS: CPT CODE: [id number] US TRANSVAGINAL W/PELVIS 36914 <Continued> [facility] NAME: RITESHZORAN Radiology Department PHYS: PETCA. - Zohreh Workman [address] : 2000 AGE: 21 SEX: F [place], [place] [address] LOC: DONY PHONE #: [phone] EXAM DATE: 11/17/2021 STATUS: ARELI ER FAX #: [phone] RAD NO: Page 2 Signed Report- DUP AB/PEL/SC/[id number] 00:00:00[facility] : 2000 Sex: F Patient Name: ZORAN STORM Unit No: [id number] EXAMS: CPT CODE: [id number] DUP AB/PEL/SC/LTD [id number] INFORMATION: Exam: US Pelvis Complete (Transabdominal), Pelvis (Transvaginal), and US Duplex Artery or Vein (Ovaries) Limited Exam date and time: 11/17/2021 9:19 AM Age: 21 years old Clinical i ndication: Screening exam; 1st trim biateral pelvic pain; 1st trimester bilateral pelvic pain; Patient HX: H/o heavy vaginal bleeding with clots; Additional info: 1st trim pelvic pain TECHNIQUE: Imaging protocol: Real-time transabdominal and transvaginal pelvic ultrasound (complete) with image documen tation. Transvaginal imaging was used for better evaluation of the endometrium, adnexa, and/or cervix. Real-time duplex ultrasound scan of the arterial or venous flow of the ovaries with B-mode, color Doppler flow and spectral waveform analysis. Complete Pelvis, Limited Duplex. COMPARISON: US TRANSVAGINAL W/PELVIS 08/08/2021 7:39 PM FINDINGS: Uterus: The uterus is retroverted, measuring 9.9 x 4.5 x 6.3 cm. The endometrium is uniform, measuring up to 7 mm in thickness. The fundal endometrium is complex and heterogenous, measuring up to 30 mm in thickness. Gestation: No intrauterine is seen. Right ovary/adnexa: Normal duplex of the ovary. Normal Doppler waveforms and color flow. There is a possible 1.3 cm hyperechoic focus adjacent to the right ovary. Left ovary/adnexa: Normal duplex of the ovary. Normal Doppler waveforms and color flow. Intraperitoneal space: No intraperitoneal fluid. Urinary bladder: Visualized bladder is unremarkable. IMPRESSION: 1. Focal heterogeneity and complexityin the fundal endometrium, favored to represent spontaneous in progress. 2. Indeterminate 1.3 cm hyperechoic focus adjacent to the right ovary, may represent a mildly complicated cyst versus adjacent bowel. Ectopic considered less likely. Recommend follow-up with beta HCG levels and possible repeat pelvic sonogram in 7-10 days. at 1128 Reported and signed by: Brandan Storm MD CC: Zohreh Workman MD Technologist: Jose Miguel Dos Santos RDMS Probe: Trnscrbd D/ (1128) GCD.CPS Orig Print D/T: S: 11/17/2021 (1128) [facility] NAME: ZORAN STORM Junaid Radiology Department PHYS: PETCA.- Zohreh Workman [address] : 2000 AGE: 21 SEX: F [place] [address] LOC: DONY PHONE #: [phone] EXAM DATE: 11/17/2021 STATUS: REG ER FAX #: [phone] RADNO: Page 1 Signed Report Patient Name: ZORAN STORM Unit No: [id number] EXAMS: CPT CODE: [id number] DUP AB/PEL/SC/LTD 14877 <Continued> [facility] NAME: ELISA STORMHENNY Lemus Radiology Department PHYS: PETCA. - Zohreh Workman [address] : 2000 AGE: 21 SEX: F [place] [address] LOC: DONY PHONE #: [phone] EXAM DATE: 11/17/2021 STATUS: ARELI ER FAX #: [phone] RAD NO: Page 2 Signed Report- US PELVIS [id number] 00:00:00 [facility] : 2000 Sex: F Patient Name: ZORAN STORM Unit No: [id number] EXAMS: CPT CODE: [id number] US PELVIS COMPLETE 33042 PROCEDURE INFORMATION: Exam: US Pelvis Complete (Transabdominal), Pelvis (Transvaginal), and US Duplex Artery or Vein (Ovaries) Limited Exam date and time: 11/17/2021 9:19 AM Age: 21 years old Clinical indication: Screening exam; 1st trim biateral pelvic pain; 1st trimester bilateral pelvic pain; Patient HX: H/o heavy vaginal bleeding with clots; Additional info: 1st trim pelvic pain TECHNIQUE: Imaging protocol: Real-time transabdominal and transvaginal pelvic ultrasound (complete) with image documen tation. Transvaginal imaging was used for better evaluation of the endometrium, adnexa, and/or cervix. Real-time duplex ultrasound scan of the arterial or venous flow of the ovaries with B-mode, color Doppler flow and spectral waveform analysis. Complete Pelvis, Limited Duplex. COMPARISON: US TRANSVAGINAL W/PELVIS 08/08/2021 7:39 PM FINDINGS: Uterus: The uterus is retroverted, measuring 9.9 x 4.5 x 6.3 cm. The endometrium is uniform, measuring up to 7 mm in thickness. The fundal endometrium is complex and heterogenous, measuring up to 30 mm in thickness. Gestation: No intrauterine is seen. Right ovary/adnexa: Normal duplex of the ovary. Normal Doppler waveforms and color flow. There is a possible 1.3 cm hyperechoic focus adjacent to the right ovary. Left ovary/adnexa: Normal duplex of the ovary. Normal Doppler waveforms and color flow. Intraperitoneal space: No intraperitoneal fluid. Urinary bladder: Visualized bladder is unremarkable. IMPRESSION: 1. Focal heterogeneity and complexity in the fundal endometrium, favored to represent spontaneous in progress. 2. Indeterminate 1.3 cm hyperechoic focus adjacent to the right ovary, may represent a mildly complicated cyst versus adjacent bowel. Ectopic considered less likely. Recommend follow-up with beta HCG levels and possible repeat pelvic sonogram in 7-10 days. at 1128 Reported and signed by: Brandan Storm MD CC: Zohreh Workman MD Technologist: Jose Miguel Dos Santos RDMS Probe: Trnscrbd D/ (1128) GCD.CPS Orig Print D/T: S: 11/17/2021 (1125) [facility] NAME: ZORAN STORM Junaid Radiology Department PHYS: PETCA.- Zohreh Workman [address] : 2000 AGE: 21 SEX: F [place] [address] LOC: MarcyERS PHONE #: [phone] EXAM DATE: 11/17/2021 STATUS: REG ER FAX #: [phone] RADNO: Page 1 Signed Report Patient Name: ZORAN STORM Unit No: [id number] EXAMS: CPT CODE: [id number] US PELVIS COMPLETE 62380 <Continued> [facility] NAME: RITESHMARTINCASSIE Lemus Radiology Department PHYS: PETCA. - Zohreh Workman [address] : 2000 AGE: 21 SEX: F [place] [address] LOC: MarcyERS PHONE #: [phone] EXAM DATE: 11/17/2021 STATUS: REG ER FAX #: [phone] RAD NO: Page 2 Signed ReportURINALYSIS W/ REFLEX URINE CULTURE 2021-11-09 01:27:13 Test Item Value Reference Range Interpretation Comments COLOR (BEAKER) (test code = Yellow 470) CLARITY (BEAKER) (test code = Slightly Hazy 469) SPECIFIC GRAVITY UA (BEAKER) 1.032 1.001-1.035 (test code = 468) PH UA (BEAKER) (test code = 6.0 5.0-8.0 467) PROTEIN UA (BEAKER) (test code 30 mg/dL Negative A = 464) GLUCOSE UA (BEAKER) (test code Negative Negative = 365) KETONES UA (BEAKER) (test code >=160 mg/dL Negative A = 371) BILIRUBIN UA (BEAKER) (test Negative Negative code = 462) BLOOD UA (BEAKER) (test code = Negative Negative 461) NITRITE UA (BEAKER) (test code Negative Negative = 465) LEUKOCYTE ESTERASE UA (BEAKER) Trace Negative A (test code = 466) UROBILINOGEN UA (BEAKER) (test 0.2 mg/dL 0.2-1.0 code = 463) BACTERIA (BEAKER) (test code = Moderate 517) MUCUS (BEAKER) (test code = Few 1574) RBC UA-MANUAL (BEAKER) (test 5-10 /HPF code = 1659) WBC UA-MANUAL (BEAKER) (test 5-10 /HPF code = 1661) SQUAMOUS EPITHELIAL MANUAL 5-10 /HPF (BEAKER) (test code = 1663) SOURCE(BEAKER) (test code = 2795) SCREEN, [id number] 01:24:28 Test Item Value Reference Range Interpretation Comments TEST URINE (BEAKER) (test Positive code = 583) WET [id number] 00:35:50 Test Item Value Reference Range Interpretation Comments WBC WET PREP Many white blood cells (BEAKER) (test code seen = 528) CLUE CELLS (BEAKER) Moderate clue cells seen (test code = 526) YEAST WET PREP No budding yeast seen (BEAKER) (test code = 530) TRICH WET PREP No Trichomonas seen (BEAKER) (test code = 531) BACT WET PREP Many bacteria seen (BEAKER) (test code = 532) COMPREHENSIVE METABOLIC [id number] 00:23:33 Test Item Value Reference Range Interpretation Comments TOTAL PROTEIN 7.9 gm/dL 6.0-8.5 (BEAKER) (test code = 770) ALBUMIN (BEAKER) 4.2 g/dL 3.5-5.0 (test code = 1145) ALKALINE PHOSPHATASE 76 U/L 30-115 (BEAKER) (test code = 346) BILIRUBIN TOTAL 0.3 mg/dL 0.1-1.2 (BEAKER) (test code = 377) SODIUM (BEAKER) (test 136 meq/L 135-148 code = 381) POTASSIUM (BEAKER) 3.5 meq/L 3.6-5.5 L (test code = 379) CHLORIDE (BEAKER) 102 meq/L 98-106 (test code = 382) CO2 (BEAKER) (test 18 meq/L 24-32 L code = 355) BLOOD UREA NITROGEN 6 mg/dL 10-26 L (BEAKER) (test code = 354) CREATININE (BEAKER) 0.64 mg/dL 0.50-1.20 (test code = 358) GLUCOSE RANDOM 75 mg/dL 70-110 (BEAKER) (test code = 652) CALCIUM (BEAKER) 9.8 mg/dL 8.5-10.5 (test code = 697) AST (SGOT) (BEAKER) 22 U/L 5-40 (test code = 353) ALT (SGPT) (BEAKER) 19 U/L 5-50 (test code = 347) EGFR (BEAKER) (test 143 ESTIMATE D GFR IS code = 1092) mL/min/1.73 sq NOT ACCURA TE m CREATININE CLEARANCE IN PREDICTING GLOMERULAR FILTRATION RATE . ESTIMATED GFR I S NOT APPLICABLE FOR DIALYSIS PATIEN TS. CBC W/PLT COUNT & AUTO [id number] 00:14:23 Test Item Value Reference Range Interpretation Comments WHITE BLOOD CELL COUNT (BEAKER) 6.6 K/ L 4.0-10.0 (test code = 775) RED BLOOD CELL COUNT (BEAKER) 5.42 M/ L 4.00-5.00 H (test code = 761) HEMOGLOBIN (BEAKER) (test code = 13.6 GM/DL 12.0-15.0 410) HEMATOCRIT (BEAKER) (test code = 40.6 % 36.0-45.0 411) MEAN CORPUSCULAR VOLUME (BEAKER) 74.8 fL 82.0-99.0 L (test code = 753) MEAN CORPUSCULAR HEMOGLOBIN 25.0 pg 27.0-33.0 L (BEAKER) (test code = 751) MEAN CORPUSCULAR HEMOGLOBIN CONC 33.4 GM/DL 32.0-36.0 (BEAKER) (test code = 752) RED CELL DISTRIBUTION WIDTH 14.1 % 10.3-14.2 (BEAKER) (test code = 412) PLATELET COUNT (BEAKER) (test 290 K/CU MM 150-430 code = 756) MEAN PLATELET VOLUME (BEAKER) 8.4 fL 6.5-10.5 (test code = 754) NEUTROPHILS RELATIVE PERCENT 76 % (BEAKER) (test code = 429) LYMPHOCYTES RELATIVE PERCENT 19 % (BEAKER) (test code = 430) MONOCYTES RELATIVE PERCENT 5 % (BEAKER) (test code = 431) EOSINOPHILS RELATIVE PERCENT 1 % (BEAKER) (test code = 432) BASOPHILS RELATIVE PERCENT 0 % (BEAKER) (test code = 437) NEUTROPHILS ABSOLUTE COUNT 4.96 K/ L 1.80-8.00 (BEAKER) (test code = 670) LYMPHOCYTES ABSOLUTE COUNT 1.21 K/ L 1.48-4.50 L (BEAKER) (test code = 414) MONOCYTES ABSOLUTE COUNT (BEAKER) 0.30 K/ L 0.00-1.30 (test code = 415) EOSINOPHILS ABSOLUTE COUNT 0.06 K/ L 0.00-0.50 (BEAKER) (test code = 416) BASOPHILS ABSOLUTE COUNT (BEAKER) 0.03 K/ L 0.00-0.20 (test code = 417) COMPREHENSIVE METABOLIC [id number] 20:24:00 Test Item Value Reference Range Interpretation Comments SODIUM (test code = NA) 141 mEq/L 135-145 N POTASSIUM (test code = K) 3.6 mEq/L 3.5-5.0 N CHLORIDE (test code = CL) 105 mEq/L 100-115 N CARBON DIOXIDE (test code = CO2) 28 mEq/L 22-31 N ANION GAP (test code = GAP) 11.20 10-20 N GLUCOSE (test code = GLU) 79 mg/dL 65-110 N BLOOD UREA NITROGEN (test code = 8 mg/dL 7-18 N BUN) GLOMERULAR FILTRATION RATE (test 102 ml/min >60 N code = GFR) CREATININE (test code = CREAT) 0.8 mg/dL 0.5-1.0 N TOTAL PROTEIN (test code = PROT) 7.4 gm/dL 6.3-8.2 N ALBUMIN (test code = ALB) 3.6 gm/dL 3.4-4.8 N CALCIUM (test code = CA) 9.3 mg/dL 8.4-10.2 N BILIRUBIN TOTAL (test code = BILT) 0.2 mg/dL 0.2-1.0 N SGOT/AST (test code = AST) 22 units/L 15-37 N SGPT/ALT (test code = ALT) 38 units/L 12-78 N ALKALINE PHOSPHATASE TOTAL (test 80 units/L 46-116 N code = ALKP) [id number] 20:24:00 Test Item Value Reference Range Interpretation Comments LIPASE (test code = LIP) 129 units/L 73-393 N CBC W/AUTO [id number] 19:53:00 Test Item Value Reference Range Interpretation Comments WHITE BLOOD CELL (test code = WBC) 4.9 K/mm3 6.5-12.3 L RED BLOOD CELL (test code = RBC) 4.86 M/mm3 3.51-4.69 H HEMOGLOBIN (test code = HGB) 12.5 g/dL 10.1-13.8 N HEMATOCRIT (test code = HCT) 39.0 % 32.5-41.8 N MEAN CELL VOLUME (test code = MCV) 80.2 fL 84.6-96.6 L MEAN CELL HGB (test code = MCH) 25.7 pg 27.3-33.9 L MEAN CELL HGB CONCETRATION (test 32.1 gm/dL 32.0-34.2 N code = MCHC) RED CELL DISTRIBUTION WIDTH (test 14.0 % 12.2-16.3 N code = RDW) PLATELET COUNT (test code = PLT) 275 K/mm3 134-363 N MEAN PLATELET VOLUME (test code = 11.1 fL 9.2-12.7 N MPV) NEUTROPHIL % (test code = NT%) 44.4 % 57.9-77.3 L LYMPHOCYTE % (test code = LY%) 43.0 % 14.5-29.7 H MONOCYTE % (test code = MO%) 9.6 % 3.6-10.2 N EOSINOPHIL % (test code = EO%) 2.0 % 0.0-3.0 N BASOPHIL % (test code = BA%) 0.8 % 0.1-0.9 N NEUTROPHIL # (test code = NT#) 2.2 K/mm3 LYMPHOCYTE # (test code = LY#) 2.1 K/mm3 MONOCYTE # (test code = MO#) 0.5 K/mm3 EOSINOPHIL # (test code = EO#) 0.10 K/mm3 BASOPHIL # (test code = BA#) 0.0 K/mm3 RBC MORPHOLOGY REQUIRED (test code NORMAL NORMAL = RBCM) PLATELET MORPHOLOGY REQUIRED (test NORMAL NORMAL code = PLTMR) UA RFLX MICR CULT IF [id number] 19:47:00 Test Item Value Reference Range Interpretation Comments UA COLOR (test code = RED YELLOW A COLU) UA APPEARANCE (test code Slightly-Cloudy CLEAR = APPU) UA GLUCOSE DIPSTICK (test NEGATIVE NEG code = DGLUU) UA BILIRUBIN DIPSTICK NEGATIVE NEG (test code = BILU) UA KETONE DIPSTICK (test NEGATIVE NEG code = KETU) UA SPECIFIC GRAVITY (test 1.019 1.001-1.035 N code = SGU) UA BLOOD DIPSTICK (test 3+ NEG A code = RIDGE) UA PH DIPSTICK (test code 7.0 5-9 = CODI) UA PROTEIN DIPSTICK (test 2+ NEG A code = PROU) UA UROBILINIOGEN DIPSTICK NEGATIVE mg/dL NEG (test code = URO) UA NITRITE DIPSTICK (test NEG NEG code = YUSUF) UA LEUKOCYTE ESTERASE 1+ NEG A DIPSTICK (test code = LEUU) UA WBC (test code = WBCU) 11-15 #/hpf NONE SEEN A UA EPITHELIAL CELLS (test MODERATE #/HPF RARE-FEW A code = EPIU) UA RBC (test code = RBCU) TOO NUMEROUS TO CNT NONE SEEN A #/hpf UA BACTERIA (test code = RARE /HPF RARE-FEW BACU) UA MUCUS (test code = RARE NONE SEEN MUCU) Indication for culture: Suprapubic PainSpecimen Description: CLEAN CATCHUR HCG [id number] 19:47:00 Test Item Value Reference Range Interpretation Comments UR HCG QUAL (test NEGATIVE 1. Very di lute urine code = HCGQLU) specimens, as indicated by a lowspecific g ravity, may not contain rep resentative levels ofhCG. 2 . False negative result s may occur when the levels of hCGare below the sensi tivity level of the test. If is still suspec alvarez, a first morningurine sp ecimen should be colle cted 48 hours later and tested. Indication for culture: Suprapubic PainSpecimen Description: CLEAN CATCH- US TRANSVAGINAL [id number] 00:00:00 [facility] : 2000 Sex: F Patient Name: ZORAN STORM Unit No: [id number] EXAMS: CPT CODE: [id number] US TRANSVAGINAL W/PELVIS 33667 PROCEDURE INFORMATION: Exam: US Pelvis Complete (Transabdominal), Pelvis (Transvaginal), and US Duplex Artery or Vein (Ovaries) Limited Exam date and time: 08/08/2021 7:39 PM Age: 21 years old Clinical indication: Abdominal or pelvic symptoms: Vaginal bleeding; Menstruation abnormalities; Excessive menstruation; With irregular cycle TECHNIQUE: Imaging protocol: Real-time transabdominal and transvaginal pelvic ultrasound (complete) with image documentation. Transvaginal imaging was used for better evaluation of the endometrium, adnexa, and/or cervix. Real-time duplex ultrasound scan of the art erial or venous flow of the ovaries with B-mode, color Doppler flow and spectral waveform analysis. Complete Pelvis, Limited Duplex. COMPARISON: US DUP AB/PEL/SC LTD 06/29/2021 1:50 AM FINDINGS: Uterus:Uterus measuring 8.5 x 4.7 x 4.5 cm. Endometrium measures 1.1 cm in thickness and is dynamic. Right ovary/adnexa: Right ovary measures 3.1 x 1.3 x 1.8 cm. Normal blood flow seen in the right ovary. Left ovary/adnexa: Left ovary measures 6.7 x 4.3 x 5.9 cm. Normal blood flow seen in the left ovary. A simple cyst is seen in the left ovary measuring 6.0 x 3.9 x 5.1 cm. Intraperitoneal space: There is mild fluid in the pelvis. Urinary bladder: Visualized bladder is unremarkable. IMPRESSION: 1. Echogenic endometrial thickening measuring 1.1 cm, likely representing retained clots or retained placental products. 2. Simple ovarian cyst measuring 6.0 cm in size. at 214 Reported and signed by: Brandan Storm MD CC: Technologist: SAGE Alexander RVT Probe: [id number] Trnscrbd D/ (2141) GCD.CPS Orig Print D/T: S: 08/08/2021 (2141) [facility] NAME: RITESHZORAN Radiology Department PHYS: Israel Jameson [address] : 2000 AGE: 21 SEX: F [place] [address] LOC: FL[place]ERS PHONE #: [phone] EXAM DATE: 08/08/2021 STATUS: REG ER FAX #: [phone] RADNO: Page 1 Signed Report Patient Name: ZOARN STORM Junaid Unit No: [id number] EXAMS: CPT CODE: [id number] US TRANSVAGINAL W/PELVIS 20729 <Continued> [facility] NAME: MARTIN STORMCASSIE Lemus Radiology Department PHYS: Israel Jameson [address] : 2000 AGE: 21 SEX: F [place] [address] LOC: DONY PHONE #: [phone] EXAM DATE: 08/08/2021TATUS: ARELI WALLACE FAX #: [phone] RAD NO: Page 2 Signed Report- DUP AB/PEL/SC/[id number] 00:00:00 [facility] : 2000 Sex: F Patient Name: ZORAN STORM Unit No: [id number] EXAMS: CPT CODE: [id number] DUP AB/PEL/SC/LTD [id number] INFORMATION: Exam: US Pelvis Complete (Transabdominal), Pelvis (Transvaginal), and US Duplex Artery or Vein (Ovaries) Limited Exam date and time: 08/08/2021 7:39 PM Age: 21 years old Clinical indication: Abdominal or pelvic symptoms: Vaginal bleeding; Menstruation abnormalities; Excessive menstruation; With irregular cycle TECHNIQUE: Imaging protocol: Real-time transabdominal and transvaginal pelvic ultrasound (complete) with image documentation. Transvaginal imaging was used for better evaluation of the endometrium, adnexa, and/or cervix. Real-time duplex ultrasound scan of the arterial or venous flow of the ovaries with B-mode, color Doppler flow and spectral waveform analysis. Complete Pelvis, Limited Duplex. COMPARISON: US DUP AB/PEL/SC LTD 06/29/2021 1:50 AM FINDINGS: Uterus: Uterusmeasuring 8.5 x 4.7 x 4.5 cm. Endometrium measures 1.1 cm in thickness and is dynamic. Right ovary/ad nexa: Right ovary measures 3.1 x 1.3 x 1.8 cm. Normal blood flow seen in the right ovary. Left ovary/adnexa: Left ovary measures 6.7 x 4.3 x 5.9 cm. Normal blood flow seen in the left ovary. A simple cyst is seen in the left ovary measuring 6.0 x 3.9 x 5.1 cm. Intraperitoneal space: There is mild fluid in the pelvis. Urinary bladder: Visualized bladder is unremarkable. IMPRESSION: 1. Echogenic endometrial thickening measuring 1.1 cm, likely representing retained clots or retained placental products.2. Simple ovarian cyst measuring 6.0 cm in size. at 2141 Reported and signed by: Brandan Storm MD CC: Technologist: Tanna Rodriguez RDMS, RVT Probe: Trnscrbd D/ (2141) GCD.CPS Orig Print D/T: S: 08/08/2021 (2141) [facility] NAME: ZORAN STORM Radiology Department PHYS: Jayshree Israel Moore [address] : 2000 AGE: 21 SEX: F [place] [address] LOC: MarcyERS PHONE #: [phone] EXAM DATE: 08/08/2021 STATUS: REG ER FAX #: [phone] RAD NO: Page 1 Signed Report Patient Name: ZORNA STORM Unit No: [id number] EXAMS: CPT CODE: [id number] DUP AB/PEL/SC/LTD 36494 <Continued> [facility] NAME: ZORAN STORM Radiology Department PHYS: MATTCheco Israel Moore [address] : 2000 AGE: 21 SEX: F [place] [address] LOC: MarcyERS PHONE #: [phone] EXAM DATE: 08/08/2021 STATUS: REG ER FAX #: [phone] RAD NO: Page 2 Signed Report- US PELVIS [id number] 00:00:00 [facility] : 2000 Sex: F Patient Name: ZORAN STORM Unit No: [id number] EXAMS: CPT CODE: [id number] US PELVIS COMPLETE 50940 PROCEDURE INFORMATION: Exam: US Pelvis Complete (Transabdominal), Pelvis (Transvaginal), and US Duplex Artery or Vein (Ovaries) Limited Exam date and time: 08/08/2021 7:39 PM Age: 21 years old Clinical indication: Abdominal or pelvic symptoms: Vaginal bleeding; Menstruation abnormalities; Excessive menstruation; With irregular cycle TECHNIQUE: Imaging protocol: Real-time transabdominal and transvaginal pelvic ultrasound (complete) with image documentation. Transvaginal imaging was used for better evaluation of the endometrium, adnexa, and/or cervix. Real-time duplex ultrasound scan of the arterialor venous flow of the ovaries with B-mode, color Doppler flow and spectral waveform analysis. Complete Pelvis, Limited Duplex. COMPARISON: US DUP AB/PEL/SC LTD 06/29/2021 1:50 AM FINDINGS: Uterus: Uterus measuring 8.5 x 4.7 x 4.5 cm. Endometrium measures 1.1 cm in thickness and is dynamic. Right ovary/a dnexa: Right ovary measures 3.1 x 1.3 x 1.8 cm. Normal blood flow seen in the right ovary. Left ovary/adnexa: Left ovary measures 6.7 x 4.3 x 5.9 cm. Normal blood flow seen in the left ovary. A simple cyst is seen in the left ovary measuring 6.0 x 3.9 x 5.1 cm. Intraperitoneal space: There is mild fluid in the pelvis. Urinary bladder: Visualized bladder is unremarkable. IMPRESSION: 1. Echogenic endometrial thickening measuring 1.1 cm, likely representing retained clots or retained placental products. 2. Simple ovarian cyst measuring 6.0 cm in size. Electronically Signed by Brandan Storm MD on08/08/2021 at 2141 Reported and signed by: Brandan Storm MD CC: Julian Velarde MD Tech nologist: Tanna Rodriguez RDMS, RVT Probe: Trnscrbd D/ (2141) GCD.CPS Orig Print D/T: S: 08/08/2021 (2141) [facility] NAME: ZORAN STORM Radiology Department PHYS: Julian Boyd [address] : 2000 AGE: 21 SEX: F [place] [address] LOC: MarcyERS PHONE #: [phone] EXAM DATE: 08/08/2021 STATUS: REG ER FAX #: [phone] RAD NO: Page 1 Signed Report Patient Name: ZORAN STORM Unit No: [id number] EXAMS: CPT CODE:[id number] US PELVIS COMPLETE 33532 <Continued> [facility] NAME: ZORAN STORM Radiology Department PHYS: Julian Boyd [address] : 2000 AGE: 21 SEX: F [place] [address] LOC: MarcyERS PHONE #: [phone] EXAM DATE: 08/08/2021 STATUS: REG ER FAX #: [phone] RAD NO: Page 2 Signed ReportHCG [id number] 02:40:00 Test Item Value Reference Range Interpretation Comments HCG SERUM (test 68574 INTERPRETATI ON:VALUES BETWEEN code = HCG) 15-20 milliInte rnational units/mL NEED T O BERETESTED WITHIN 48 HOURS . All units for these ranges ar e in milliInternatio nalunits/mL0-1 WK AFTER CONCEP TION 0-50 1-2 WKS AFTER HORTENCIA PTION 40-3002-3 WKS AFTER HORTENCIA PTION 100-1,0003-4 WK S AFTER CONCEPTION 500 -6,0001-2 MONTHS AFTER CO NCEPTION 5,000-200,0002- 3 MONTHS AFTER CONCEPTION 10,0 00-100,0002ND TRIMESTER 3,000 -50,0003RD TRIMESTER 1,000 -50,000 SPECIMENS WITH AN HCG LEVEL FROM 0-6 milliInternatio nalunits/mL SHOULD BE CONSI DERED NEGATIVE BASIC METABOLIC [id number] 02:18:00 Test Item Value Reference Range Interpretation Comments SODIUM (test code = NA) 141 mEq/L 135-145 N POTASSIUM (test code = K) 4.9 mEq/L 3.5-5.0 N CHLORIDE (test code = CL) 106 mEq/L 100-115 N CARBON DIOXIDE (test code = CO2) 21 mEq/L 22-31 L ANION GAP (test code = GAP) 18.90 10-20 N GLUCOSE (test code = GLU) 89 mg/dL 65-110 N BLOOD UREA NITROGEN (test code = 10 mg/dL 7-18 N BUN) GLOMERULAR FILTRATION RATE (test 102 ml/min >60 N code = GFR) CREATININE (test code = CREAT) 0.8 mg/dL 0.5-1.0 N CALCIUM (test code = CA) 10.0 mg/dL 8.4-10.2 N CBC W/AUTO [id number] 02:08:00 Test Item Value Reference Range Interpretation Comments WHITE BLOOD CELL (test code = WBC) 7.9 K/mm3 6.5-12.3 N RED BLOOD CELL (test code = RBC) 5.44 M/mm3 3.51-4.69 H HEMOGLOBIN (test code = HGB) 14.2 g/dL 10.1-13.8 H HEMATOCRIT (test code = HCT) 42.0 % 32.5-41.8 H MEAN CELL VOLUME (test code = MCV) 77.2 fL 84.6-96.6 L MEAN CELL HGB (test code = MCH) 26.1 pg 27.3-33.9 L MEAN CELL HGB CONCETRATION (test 33.8 gm/dL 32.0-34.2 N code = MCHC) RED CELL DISTRIBUTION WIDTH (test 14.2 % 12.2-16.3 N code = RDW) PLATELET COUNT (test code = PLT) 295 K/mm3 134-363 N MEAN PLATELET VOLUME (test code = 10.4 fL 9.2-12.7 N MPV) NEUTROPHIL % (test code = NT%) 63.7 % 57.9-77.3 N LYMPHOCYTE % (test code = LY%) 24.0 % 14.5-29.7 N MONOCYTE % (test code = MO%) 10.1 % 3.6-10.2 N EOSINOPHIL % (test code = EO%) 1.3 % 0.0-3.0 N BASOPHIL % (test code = BA%) 0.6 % 0.1-0.9 N NEUTROPHIL # (test code = NT#) 5.0 K/mm3 LYMPHOCYTE # (test code = LY#) 1.9 K/mm3 MONOCYTE # (test code = MO#) 0.8 K/mm3 EOSINOPHIL # (test code = EO#) 0.10 K/mm3 BASOPHIL # (test code = BA#) 0.1 K/mm3 RBC MORPHOLOGY REQUIRED (test code NORMAL NORMAL = RBCM) PLATELET MORPHOLOGY REQUIRED (test NORMAL NORMAL code = PLTMR) UA RFLX MICR CULT IF [id number] 02:08:00 Test Item Value Reference Range Interpretation Comments UA COLOR (test code = YELLOW YELLOW COLU) UA APPEARANCE (test code Slightly-Cloudy CLEAR = APPU) UA GLUCOSE DIPSTICK (test NEGATIVE NEG code = DGLUU) UA BILIRUBIN DIPSTICK NEGATIVE NEG (test code = BILU) UA KETONE DIPSTICK (test 2+ NEG A code = KETU) UA SPECIFIC GRAVITY (test 1.013 1.001-1.035 N code = SGU) UA BLOOD DIPSTICK (test 3+ NEG A code = RIDGE) UA PH DIPSTICK (test code 6.0 5-9 = CODI) UA PROTEIN DIPSTICK (test 1+ NEG A code = PROU) UA UROBILINIOGEN DIPSTICK NEGATIVE mg/dL NEG (test code = URO) UA NITRITE DIPSTICK (test NEG NEG code = YUSUF) UA LEUKOCYTE ESTERASE 2+ NEG A DIPSTICK (test code = LEUU) UA WBC (test code = WBCU) 21-30 #/hpf NONE SEEN A UA RBC (test code = RBCU) TOO NUMEROUS TO CNT NONE SEEN A #/hpf UA EPITHELIAL CELLS (test FEW #/HPF RARE-FEW code = EPIU) UA MUCUS (test code = 4+ NONE SEEN MUCU) Indication for culture: Flank PainSpecimen Description: CLEAN CATCH- US PREG UT [id number] 00:00:00 [facility] : 2000 Sex: F Patient Name: ZORAN STORM Unit No: [id number] EXAMS: CPT CODE: [id number] US PREG UT [id number] PROCEDURE INFORMATION: Exam: US First Trimester, Transabdominal and US , Transvaginal Exam date and time: 06/29/2021 1:50 AM Age: 21 years old Clinical indication: Abdominal or pelvic symptoms: Bleeding; Lmp or gestational age (in weeks): 04/26/2021; Antepartum complications; Additional info: Bleeding, cramping TECHNIQUE: Imaging protocol: Real-time transabdominal obstetrical ultrasound of the maternal pelvis and a first trimester , less than 14 weeks 0 days, with image documentation. Transvaginal imaging was used for better evaluation of the fetus, adnexa, and/or cervix. COMPARISON: OT US PREG 1ST TRIMTR 06/06/2021 11:42 PM FINDINGS: Transabdominal images of the pelvis show the retroverted uterus measures 8.1 cm in size. Uterus not well assessed necessitating transvaginal exam. The transvaginal exam shows no intrauterine gestational sac currently. Endometrium is estimated at 2 cm in thickness. The right ovary measures 2.8 x 1.6 x 2.2 cm. The left ovary measures 3.5 x 2.0 x 1.9 cm. Complex 18 mm hemorrhagic left ovarian cyst. There is normal bilateral ovarian blood flow on doppler evaluation. There is no adnexal mass. There is no free fluid in the cul-de-sac. IMPRESSION: 1. Retroverted uterus. No intrauterine gestational sac currently demonstrated. Differential considerations include very early intrauterine gestation and completed miscarriage. Ectopic is not excluded on a single ultrasound exam, correlate with serial quantitative beta HCG. 2. Likely hemorrhagic 18 mm left corpus luteum cyst. No free pelvic fluid. at 0433 Reported and signed by: Benito Grant MD CC: Jared Hernandez DO Technologist: Aura Watters [facility] Probe: [id number] Trnscrbd D/ (043) GCD.CPS Orig Print D/T: S: 06/29/2021 (0433) [facility] NAME: ZORAN STORM Radiology Department PHYS: Jared Wise DO [address] : 2000 AGE: 21 SEX: F [place] [address] LOC: .ERS PHONE #: [phone] EXAM DATE: 06/29/2021 STATUS: [facility] ER FAX #: [phone] RAD NO: Page 1 Signed Report Patient Name: ZORAN STORM Unit No: [id number] EXAMS: CPT CODE: [id number] PREG UT TRANSVAGINAL 59993 <Continued> [facility] NAME: ZORAN STORM Radiology Department PHYS: Jared Wise DO [address] : 2000 AGE: 21 SEX: F [place], [place] [address] LOC: F.ERS PHONE #: [phone] EXAM DATE: 06/29/2021 STATUS: [facility] ER FAX #: [phone] RAD NO: Page 2 Signed Report- DUP AB/PEL/SC/[id number] 00:00:00 [facility] : 2000 Sex: F Patient Name: ZORAN STORM Unit No: [id number] EXAMS: CPT CODE: [id number] DUP AB/PEL/SC/LTD [id number] PROCEDURE INFORMATION: Exam: US First Trimester, Transabdominal and US , Transvaginal Exam date and time: 06/29/2021 1:50 AM Age: 21 years old Clinical indication: Abdominal or pelvic symptoms: Bleeding; Lmp or gestational age (in weeks): 04/26/2021; Antepartum complications; Additional info: Bleeding, cramping TECHNIQUE: Imaging protocol: Real-time transabdominal obstetrical ultrasound of the maternal pelvis and a first trimester , less than 14 weeks 0 days, with image documentation. Transvaginal imaging was used for better evaluation of the fetus, adnexa, and/or cervix. COMPARISON: OT US PREG 1ST TRIMTR 06/06/2021 11:42 PM FINDINGS: Transabdominal images of the pelvis show the retroverted uterus measures 8.1 cm in size. Uterus not well assessed necessitating transvaginal exam. The transvaginal exam shows no intrauterine gestational sac currently. Endometrium is estimated at 2 cm in thickness. The right ovary measures 2.8 x 1.6 x 2.2 cm. The left ovary measures 3.5 x 2.0 x 1.9 cm. Complex 18 mm hemorrhagic left ovarian cyst. There is normal bilateral ovarian blood flow on doppler evaluation. There is no adnexal mass. There is no free fluid in the cul-de-sac. IMPRESSION: 1. Retroverted uterus. No intrauterine gestational sac currently demonstrated. Differential considerations include very early intrauterine gestation and completed miscarriage. Ectopic is not excluded on a single ultrasound exam, correlate with serial quantitative beta HCG. 2. Likely hemorrhagic 18 mm left corpus luteum cyst. No free pelvic fluid. at 0433 Reported and signed by: Benito Grant MD CC: Jared Hernandez DOTechnologist: Aura Watters RDMS Probe: Trnscrbd D/ (0433) GCD.CPS Orig Print D/T: S: 06/29/2021 (0433) [facility] NAME: ZORAN STORM Radiology Department PHYS: Jared Wise DO [address] : 2000 AGE: 21 SEX: F [place], [place] [address] LOC: F.ERS PHONE #: [phone] EXAM DATE: 06/29/2021 STATUS: DEP ER FAX #: [phone] RAD NO: Page 1 Signed Report Patient Name: ZORAN STORM Unit No: [id number] EXAMS: CPT CODE: [id number] DUP AB/PEL/SC/LTD 13679 <Continued> [facility] NAME: ZORAN STORM Radiology Department PHYS: KIMBERLEELAY Richardson MaryWiltonJared [address] : 2000 AGE: 21 SEX: F [place] [address] LOC: Aixa.ERS PHONE #: [phone] EXAM DATE: 06/29/2021 STATUS: DEP ER FAX #: [phone] RAD NO: Page 2 Signed Report- US PREG EVAL 1ST [id number] 00:00:00 [facility] [place] [facility] : 2000 Sex: F Patient Name: ZORAN STORM Unit No: [id number] EXAMS: CPT CODE: [id number] US PREG EVAL 1ST [id number] PROCEDURE INFORMATION: Exam: US First Trimester, Transabdominal and US , Transvaginal Exam date and time: 06/29/2021 1:50 AM Age: 21 years old Clinical indication: Abdominal orpelvic symptoms: Bleeding; Lmp or gestational age (in weeks): 04/26/2021; Antepartum complications; Additional info: Bleeding, cramping TECHNIQUE: Imaging protocol: Real-time transabdominal obstetricalultrasound of the maternal pelvis and a first trimester , less than 14 weeks 0 days, with image documentation. Transvaginal imaging was used for better evaluation of the fetus, adnexa, and/or cervix. COMPARISON: OT US PREG 1ST TRIMTR 06/06/2021 11:42 PM FINDINGS: Transabdominal images of the pelvis show the retroverted uterus measures 8.1 cm in size. Uterus not well assessed necessitating transvaginal exam. The transvaginal exam shows no intrauterine gestational sac currently. Endometrium isestimated at 2 cm in thickness. The right ovary measures 2.8 x 1.6 x 2.2 cm. The left ovary measures3.5 x 2.0 x 1.9 cm. Complex 18 mm hemorrhagic left ovarian cyst. There is normal bilateral ovarian blood flow on doppler evaluation. There is no adnexal mass. There is no free fluid in the cul-de-sac. IMPRESSION: 1. Retroverted uterus. No intrauterine gestational sac currently demonstrated. Differential considerations include very early intrauterine gestation and completed miscarriage. Ectopic is not excluded on a single ultrasound exam, correlate with serial quantitative beta HCG. 2. Likely hemorrhagic 18 mm left corpus luteum cyst. No free pelvic fluid. at 0433 Reported and signed by: Benito Grant MD CC: Jared Hernandez DO Technologist: Aura Watters RDMS Probe: Trnscrbd D/ (0433) GCD.CPS Orig PrintD/T: S: 06/29/2021 (0433) [facility] NAME: ZORAN STORM Radiology Department PHYS: Jared Wise DO [address] : 2000 AGE: 21 SEX: F [place], [place] [address] LOC: MarcyERS PHONE #: [phone] EXAM DATE: 06/29/2021 STATUS: DEP ER FAX #: [phone] RAD NO: Page 1 Signed Report Patient Name: ZORAN STORM Unit No: [id number] EXAMS: CPT CODE:[id number] US PREG EVAL 1ST TRIMTR 43757 <Continued> [facility] NAME: ZORAN STORM Radiology Department PHYS: Jared Wise DO [address] : 2000 AGE: 21 SEX: F [place], [place] [address] LOC: MarcyERS PHONE #: [phone] EXAM DATE: 06/29/2021 STATUS: DEP ER FAX #: [phone] RAD NO: Page 2 Signed ReportURINE AND STOOL 2021-06-27 04:01:00 Test Item Value Reference Range Interpretation Comments UA Color (test code = Light Yellow UA Color) *NA*(06/26/21 11:01 PM) [facility] [id number] 04:01:00 Test Item Value Reference Range Interpretation Comments UA Turbidity (test code Slight *ABN*(06/26/21 = UA Turbidity) 11:01 PM) [facility] [id number] 04:01:00 Test Item Value Reference Range Interpretation Comments UA Spec Grav (test code = UA Spec 1.028 1 Grav) [facility] [id number] 04:01:00 Test Item Value Reference Range Interpretation Comments UA pH (test code = UA pH) 5.0 1 5.0-8.0 [facility] [id number] 04:01:00 Test Item Value Reference Range Interpretation Comments UA Protein (test code = UA Protein) 100 mg/dL [facility] [id number] 04:01:00 Test Item Value Reference Range Interpretation Comments UA Glucose (test code = UA Negative mg/dL Glucose) [facility] AND [id number] 04:01:00 Test Item Value Reference Range Interpretation Comments UA Ketones (test code = UA Ketones) 80 mg/dL [facility] AND [id number] 04:01:00 Test Item Value Reference Range Interpretation Comments UA Bili (test code = Negative *NA*(06/26/21 UA Bili) 11:01 PM) [facility] AND [id number] 04:01:00 Test Item Value Reference Range Interpretation Comments UA Blood (test code = Negative (06/26/21 11:01 UA Blood) PM) [facility] AND [id number] 04:01:00 Test Item Value Reference Range Interpretation Comments UA Nitrite (test code Negative (06/26/21 11:01 = UA Nitrite) PM) [facility] AND [id number] 04:01:00 Test Item Value Reference Range Interpretation Comments UA Leuk Est (test code Trace *ABN*(06/26/21 = UA Leuk Est) 11:01 PM) [facility] AND [id number] 04:01:00 Test Item Value Reference Range Interpretation Comments UA Sq Epi (test code = UA Sq Epi) Many /LPF [facility] AND [id number] 04:01:00 Test Item Value Reference Range Interpretation Comments UA WBC (test code = 8 See_Comment [Automa alvarez message] The UA WBC) system which ge nerated this result transmit alvarez reference range : <=5. The reference range was not used to interpr et this result as majo l/abnormal. [facility] AND [id number] 04:01:00 Test Item Value Reference Range Interpretation Comments UA RBC (test code = no gt See_Comment [Automa alvarez message] The UA RBC) system which ge nerated this result transmit alvarez reference range : <=2. The reference range was not used to interpr et this result as majo l/abnormal. [facility] AND [id number] 04:01:00 Test Item Value Reference Range Interpretation Comments UA Bacteria (test code = UA Occasional /HPF Bacteria) [facility] AND [id number] 04:01:00 Test Item Value Reference Range Interpretation Comments UA Mucus (test code = UA Mucus) Few /LPF [facility] [id number] 04:01:00 Test Item Value Reference Range Interpretation Comments UA Urobilinogen (test code = UA <=1.0 mg/dL 0.1-1.0 Urobilinogen) [facility] [place] [facility] [id number] 00:59:00 Test Item Value Reference Range Interpretation Comments ABO/Rh (test code = ABO/Rh) B [facility] [id number] 00:59:00 Test Item Value Reference Range Interpretation Comments Antibody Scrn (test Negative (06/26/21 7:59 code = Antibody Scrn) PM) [facility]2021-10-07 00:59:00 Test Item Value Reference Range Interpretation Comments Glucose Lvl (test code = Glucose Lvl) 69 70-99 [facility] [employer] [id number] 00:59:00 Test Item Value Reference Range Interpretation Comments BUN (test code = BUN) 5 7-22 [facility] [employer] [id number] 00:59:00 Test Item Value Reference Range Interpretation Comments Creatinine Lvl (test code = Creatinine 0.60 0.50-1.40 Lvl) [facility] [id number] 00:59:00 Test Item Value Reference Range Interpretation Comments Sodium Lvl (test code = Sodium Lvl) 135 135-145 [facility] [id number] 00:59:00 Test Item Value Reference Range Interpretation Comments Potassium Lvl (test code = Potassium 3.8 3.5-5.1 Lvl) [facility] [id number] 00:59:00 Test Item Value Reference Range Interpretation Comments Chloride Lvl (test code = Chloride Lvl) 107 95-109 [facility] [id number] 00:59:00 Test Item Value Reference Range Interpretation Comments CO2 (test code = CO2) 17 24-32 [facility] [employer] [id number] 00:59:00 Test Item Value Reference Range Interpretation Comments Calcium Lvl (test code = Calcium Lvl) 9.2 8.5-10.5 [facility] [employer] [id number] 00:59:00 Test Item Value Reference Range Interpretation Comments AGAP (test code = AGAP) 14.8 10.0-20.0 [facility]ville[facility] [id number] 00:59:00 Test Item Value Reference Range Interpretation Comments eGFR (test code = eGFR) 132 [facility] GreenvilleMawwenoZEIAHIWLBVQWE7093-50-45 00:59:00 Test Item Value Reference Range Interpretation Comments hCG Tot (test code = hCG Tot) [address] [facility]CsrxxetOHBQYXNUKU8792-64-15 00:59:00 Test Item Value Reference Range Interpretation Comments WBC (test code = WBC) 6.3 3.7-10.4 [facility] HospitalDhlgislSIVSWQQMNJ4725-68-07 00:59:00 Test Item Value Reference Range Interpretation Comments RBC (test code = RBC) 5.13 4.20-5.40 [facility] SouthWnygbsnARQQKDZRFU7618-86-24 00:59:00 Test Item Value Reference Range Interpretation Comments Hgb (test code = Hgb) 13.2 12.0-16.0 [facility] SouthKdjwhrpKLPRCUIGQL8518-63-95 00:59:00 Test Item Value Reference Range Interpretation Comments Hct (test code = Hct) 40.1 36.0-48.0 [facility] HospitalUrzygvcQXIASTMLQB9291-89-03 00:59:00 Test Item Value Reference Range Interpretation Comments MCV (test code = MCV) 78.2 80.0-98.0 [facility] HospitalQwgpztmBFSADTWIKU7673-65-88 00:59:00 Test Item Value Reference Range Interpretation Comments MCH (test code = MCH) 25.8 pg 27.0-31.0 [facility] HospitalEmljopxIFBNZXKZJD6700-54-17 00:59:00 Test Item Value Reference Range Interpretation Comments MCHC (test code = MCHC) 33.0 32.0-36.0 [facility] [id number] 00:59:00 Test Item Value Reference Range Interpretation Comments RDW (test code = RDW) 14.8 11.5-14.5 [facility] HospitalXdvehjyWEWDRYRWWN6901-47-70 00:59:00 Test Item Value Reference Range Interpretation Comments Platelet (test code = Platelet) 280 133-450 [facility] HospitalFpeezlxTBNZDNIEZJ2476-24-37 00:59:00 Test Item Value Reference Range Interpretation Comments MPV (test code = MPV) 8.5 7.4-10.4 [facility] SouthTujasvtYAJKJIZCCD6701-14-62 00:59:00 Test Item Value Reference Range Interpretation Comments Segs (test code = Segs) 74.2 45.0-75.0 [facility] SouthFyyqfeqUMEDFBIMET9493-45-22 00:59:00 Test Item Value Reference Range Interpretation Comments Lymphocytes (test code = Lymphocytes) 18.0 20.0-40.0 [facility] SouthIoylzykHXNIPVRETQ6992-02-85 00:59:00 Test Item Value Reference Range Interpretation Comments Monocytes (test code = Monocytes) 7.3 2.0-12.0 [facility] SouthZdccizsZQFYAKFXQU2538-33-51 00:59:00 Test Item Value Reference Range Interpretation Comments Eosinophils (test code = 0.3 See_Comment [A utomated message] The Eosinophils) system which ge nerated this result tra nsmitted reference range : <=4.0. The reference r jorge was not used to int erpret this result as normal/abnormal . [facility] SouthVbwauwmFMRIOASRMP6534-25-49 00:59:00 Test Item Value Reference Range Interpretation Comments Basophils (test code = 0.2 See_Comment [Aut omated message] The Basophils) system which ge nerated this result tra nsmitted reference range : <=1.0. The reference r jorge was not used to int erpret this result as normal/abnormal . [facility] SouthBkeiuzeSKNZBUGFHK4520-07-46 00:59:00 Test Item Value Reference Range Interpretation Comments Neutrophils # (test code = Neutrophils 4.7 1.5-8.1 #) [facility] SouthYsvyldeMAQNKHHOHF7951-95-13 00:59:00 Test Item Value Reference Range Interpretation Comments Lymphocytes # (test code = Lymphocytes 1.1 1.0-5.5 #) [place] [id number] 00:59:00 Test Item Value Reference Range Interpretation Comments Monocytes # (test code 0.5 See_Comment [Aut omated message] The = Monocytes #) system which generated this result tra nsmitted reference range : <=0.8. The reference r jorge was not used to int erpret this result as normal/abnormal . [place] [id number] 00:59:00 Test Item Value Reference Range Interpretation Comments Eosinophils # (test code 0.0 See_Comment [A utomated message] The = Eosinophils #) system whic h generated this result tra nsmitted reference range : <=0.5. The reference r jorge was not used to int erpret this result as normal/abnormal . [facility] [id number] 00:59:00 Test Item Value Reference Range Interpretation Comments Basophils # (test code 0.0 See_Comment [Aut omated message] The = Basophils #) system which generated this result tra nsmitted reference range : <=0.2. The reference r jorge was not used to int erpret this result as normal/abnormal . [facility] SouthQzkvzhiAMOXXFDCNQ3906-15-02 00:59:00 Test Item Value Reference Range Interpretation Comments Microcyte (test code = 1+ *ABN*(06/26/21 Microcyte) 7:59 PM) [facility] with platelet count + automated [id number] 23:01:24 Test Item Value Reference Range Interpretation Comments WBC (test code = 6690-2) 6.2 See_Comment [A utomated message] The system viblast generated this result transmitted ref erence range: 3.5 - 10 .5 K/L. The refe rence range was not u sed to interpret this result as normal/abnor mal. RBC (test code = 789-8) 5.08 See_Comment [Au tomated message] The system viblast generated this result transmitted ref erence range: 3.93 - 5 .22 M/L. The refe rence range was not u sed to interpret this result as normal/abnor mal. MCHC (test code = 786-4) 32.7 See_Comment [A utomated message] The system viblast generated this result transmitted ref erence range: 32.2 - 3 5.5 GM/DL. The refe rence range was not u sed to interpret this result as normal/abnor mal. Hematocrit (test code = 39.8 % 34.1-44.9 4544-3) MCV (test code = 787-2) 78.3 fL 79.4-94.8 L MCH (test code = 785-6) 25.6 pg 25.6-32.2 RDW (test code = 788-0) 13.9 % 11.7-14.4 Platelets (test code = 279 See_Comment [Aut omated message] 777-3) The system uiu generated this result transmitted ref erence range: 150 - 45 0 K/CU MM. The referen ce range was not u sed to interpret this result as normal/abnor mal. MPV (test code = 10.5 fL 9.4-12.3 57952-6) % Neutros (test code = 67 % 429) % Lymphs (test code = 24 % 430) % Monos (test code = 8 % 431) % Eos (test code = 432) 1 % % Baso (test code = 437) 1 % # Neutros (test code = 4.19 See_Comment [Aut omated message] 670) The system uiu generated this result transmitted ref erence range: 1.56 - 6 .13 K/L. The refe rence range was not u sed to interpret this result as normal/abnor mal. # Lymphs (test code = 1.50 See_Comment [Auto mated message] 414) The system uiu generated this result transmitted ref erence range: 1.18 - 3 .74 K/L. The refe rence range was not u sed to interpret this result as normal/abnor mal. # Monos (test code = 0.47 See_Comment H [Autom ated message] 415) The system uiu generated this result transmitted ref erence range: 0.24 - 0 .36 K/L. The refe rence range was not u sed to interpret this result as normal/abnor mal. # Eos (test code = 416) 0.03 See_Comment L [Au tomated message] The system uiu generated this result transmitted ref erence range: 0.04 - 0 .36 K/L. The refe rence range was not u sed to interpret this result as normal/abnor mal. # Baso (test code = 417) 0.03 See_Comment [A utomated message] The system uiu generated this result transmitted ref erence range: 0.01 - 0 .08 K/L. The refe rence range was not u sed to interpret this result as normal/abnor mal. Immature 0 % 0-1 Granulocytes-Relative (test code = 2801) Lab Interpretation (test Abnormal code = 61379-8) [facility] with platelet count + automated [id number] 23:01:24 Test Item Value Reference Range Interpretation Comments WBC (test code = 6690-2) 6.2 See_Comment [A utomated message] The system uiu generated this result transmitted ref erence range: 3.5 - 10 .5 K/L. The refe rence range was not u sed to interpret this result as normal/abnor mal. RBC (test code = 789-8) 5.08 See_Comment [Au tomated message] The system uiu generated this result transmitted ref erence range: 3.93 - 5 .22 M/L. The refe rence range was not u sed to interpret this result as normal/abnor mal. MCHC (test code = 786-4) 32.7 See_Comment [A utomated message] The system uiu generated this result transmitted ref erence range: 32.2 - 3 5.5 GM/DL. The refe rence range was not u sed to interpret this result as normal/abnor mal. Hematocrit (test code = 39.8 % 34.1-44.9 4544-3) MCV (test code = 787-2) 78.3 fL 79.4-94.8 L MCH (test code = 785-6) 25.6 pg 25.6-32.2 RDW (test code = 788-0) 13.9 % 11.7-14.4 Platelets (test code = 279 See_Comment [Aut omated message] 777-3) The system uiu generated this result transmitted ref erence range: 150 - 45 0 K/CU MM. The referen ce range was not u sed to interpret this result as normal/abnor mal. MPV (test code = 10.5 fL 9.4-12.3 47184-1) % Neutros (test code = 67 % 429) % Lymphs (test code = 24 % 430) % Monos (test code = 8 % 431) % Eos (test code = 432) 1 % % Baso (test code = 437) 1 % # Neutros (test code = 4.19 See_Comment [Aut omated message] 670) The system uiu generated this result transmitted ref erence range: 1.56 - 6 .13 K/L. The refe rence range was not u sed to interpret this result as normal/abnor mal. # Lymphs (test code = 1.50 See_Comment [Auto mated message] 414) The system uiu generated this result transmitted ref erence range: 1.18 - 3 .74 K/L. The refe rence range was not u sed to interpret this result as normal/abnor mal. # Monos (test code = 0.47 See_Comment H [Autom ated message] 415) The system uiu generated this result transmitted ref erence range: 0.24 - 0 .36 K/L. The refe rence range was not u sed to interpret this result as normal/abnor mal. # Eos (test code = 416) 0.03 See_Comment L [Au tomated message] The system uiu generated this result transmitted ref erence range: 0.04 - 0 .36 K/L. The refe rence range was not u sed to interpret this result as normal/abnor mal. # Baso (test code = 417) 0.03 See_Comment [A utomated message] The system uiu generated this result transmitted ref erence range: 0.01 - 0 .08 K/L. The refe rence range was not u sed to interpret this result as normal/abnor mal. Immature 0 % 0-1 Granulocytes-Relative (test code = 2801) Lab Interpretation (test Abnormal code = 52981-5) [facility] + automated [id number] 23:01:24 Test Item Value Reference Range Interpretation Comments WBC (test code = 6690-2) 6.2 See_Comment [A utomated message] The system uiu generated this result transmitted ref erence range: 3.5 - 10 .5 K/L. The refe rence range was not u sed to interpret this result as normal/abnor mal. RBC (test code = 789-8) 5.08 See_Comment [Au tomated message] The system uiu generated this result transmitted ref erence range: 3.93 - 5 .22 M/L. The refe rence range was not u sed to interpret this result as normal/abnor mal. MCHC (test code = 786-4) 32.7 See_Comment [A utomated message] The system uiu generated this result transmitted ref erence range: 32.2 - 3 5.5 GM/DL. The refe rence range was not u sed to interpret this result as normal/abnor mal. Hematocrit (test code = 39.8 % 34.1-44.9 4544-3) MCV (test code = 787-2) 78.3 fL 79.4-94.8 L MCH (test code = 785-6) 25.6 pg 25.6-32.2 RDW (test code = 788-0) 13.9 % 11.7-14.4 Platelets (test code = 279 See_Comment [Aut omated message] 777-3) The system uiu generated this result transmitted ref erence range: 150 - 45 0 K/CU MM. The referen ce range was not u sed to interpret this result as normal/abnor mal. MPV (test code = 10.5 fL 9.4-12.3 43910-7) % Neutros (test code = 67 % 429) % Lymphs (test code = 24 % 430) % Monos (test code = 8 % 431) % Eos (test code = 432) 1 % % Baso (test code = 437) 1 % # Neutros (test code = 4.19 See_Comment [Aut omated message] 670) The system uiu generated this result transmitted ref erence range: 1.56 - 6 .13 K/L. The refe rence range was not u sed to interpret this result as normal/abnor mal. # Lymphs (test code = 1.50 See_Comment [Auto mated message] 414) The system uiu generated this result transmitted ref erence range: 1.18 - 3 .74 K/L. The refe rence range was not u sed to interpret this result as normal/abnor mal. # Monos (test code = 0.47 See_Comment H [Autom ated message] 415) The system uiu generated this result transmitted ref erence range: 0.24 - 0 .36 K/L. The refe rence range was not u sed to interpret this result as normal/abnor mal. # Eos (test code = 416) 0.03 See_Comment L [Au tomated message] The system uiu generated this result transmitted ref erence range: 0.04 - 0 .36 K/L. The refe rence range was not u sed to interpret this result as normal/abnor mal. # Baso (test code = 417) 0.03 See_Comment [A utomated message] The system uiu generated this result transmitted ref erence range: 0.01 - 0 .08 K/L. The refe rence range was not u sed to interpret this result as normal/abnor mal. Immature 0 % 0-1 Granulocytes-Relative (test code = 2801) Lab Interpretation (test Abnormal code = 29646-2) [facility] W/PLT COUNT & AUTO [id number] 23:01:24 Test Item Value Reference Range Interpretation Comments WHITE BLOOD CELL COUNT (BEAKER) 6.2 K/ L 3.5-10.5 (test code = 775) RED BLOOD CELL COUNT (BEAKER) 5.08 M/ L 3.93-5.22 (test code = 761) HEMOGLOBIN (BEAKER) (test code = 13.0 GM/DL 11.2-15.7 410) HEMATOCRIT (BEAKER) (test code = 39.8 % 34.1-44.9 411) MEAN CORPUSCULAR VOLUME (BEAKER) 78.3 fL 79.4-94.8 L (test code = 753) MEAN CORPUSCULAR HEMOGLOBIN 25.6 pg 25.6-32.2 (BEAKER) (test code = 751) MEAN CORPUSCULAR HEMOGLOBIN CONC 32.7 GM/DL 32.2-35.5 (BEAKER) (test code = 752) RED CELL DISTRIBUTION WIDTH 13.9 % 11.7-14.4 (BEAKER) (test code = 412) PLATELET COUNT (BEAKER) (test 279 K/CU MM 150-450 code = 756) MEAN PLATELET VOLUME (BEAKER) 10.5 fL 9.4-12.3 (test code = 754) NEUTROPHILS RELATIVE PERCENT 67 % (BEAKER) (test code = 429) LYMPHOCYTES RELATIVE PERCENT 24 % (BEAKER) (test code = 430) MONOCYTES RELATIVE PERCENT 8 % (BEAKER) (test code = 431) EOSINOPHILS RELATIVE PERCENT 1 % (BEAKER) (test code = 432) BASOPHILS RELATIVE PERCENT 1 % (BEAKER) (test code = 437) NEUTROPHILS ABSOLUTE COUNT 4.19 K/ L 1.56-6.13 (BEAKER) (test code = 670) LYMPHOCYTES ABSOLUTE COUNT 1.50 K/ L 1.18-3.74 (BEAKER) (test code = 414) MONOCYTES ABSOLUTE COUNT (BEAKER) 0.47 K/ L 0.24-0.36 H (test code = 415) EOSINOPHILS ABSOLUTE COUNT 0.03 K/ L 0.04-0.36 L (BEAKER) (test code = 416) BASOPHILS ABSOLUTE COUNT (BEAKER) 0.03 K/ L 0.01-0.08 (test code = 417) IMMATURE GRANULOCYTES-RELATIVE 0 % 0-1 PERCENT (BEAKER) (test code = 2801) Comprehensive metabolic [id number] 21:47:55 Test Item Value Reference Range Interpretation Comments Protein, Total (test 7.8 See_Comment [Autom ated code = 2885-2) message] The system which generated this result transmitted reference range : 6.0 - 8.5 gm/dL . The reference r jorge was not used to interpret this result as normal/abnormal . Albumin (test code = 4.3 g/dL 3.5-5.0 66160-7) Alkaline Phosphatase 69 U/L 30-115 (test code = 6768-6) Total Bilirubin (test 0.4 mg/dL 0.1-1.2 code = 1975-2) Sodium (test code = 135 meq/L 667-962 2489-2) Potassium (test code = 3.7 meq/L 3.6-5.5 2823-3) Chloride (test code = 102 meq/L 98-106 2075-0) CO2 (test code = 20 meq/L 24-32 L 8-9) BUN (test code = 6 mg/dL 10-26 L 3094-0) Creatinine (test code = 0.54 mg/dL 0.50-1.20 2160-0) Glucose (test code = 85 mg/dL 70-110 2345-7) Calcium (test code = 9.7 mg/dL 8.5-10.5 96215-6) AST (test code = 19 U/L 5-40 1920-8) ALT (test code = 15 U/L 1741-6) EGFR (test code = 174 mL/min/1.73 sq m ESTIMA ALVAREZ GFR IS 56132-2) NOT ACCURATE CREATININE CLEARANCE IN PREDICTING GLOMERULAR FILTRATION RATE . ESTIMATED GFR I S NOT APPLICABLE FOR DIALYSIS PATIEN TS. Lab Interpretation Abnormal (test code = 75319-2) [facility] 21:47:55 Test Item Value Reference Range Interpretation Comments Lipase (test code = 3040-3) 36 U/L 40-240 L Lab Interpretation (test code = Abnormal 60666-1) [facility] CenterComprehensive metabolic [id number] 21:47:55 Test Item Value Reference Range Interpretation Comments Protein, Total (test 7.8 See_Comment [Autom ated code = 2885-2) message] The system which generated this result transmitted reference range : 6.0 - 8.5 gm/dL . The reference r jorge was not used to interpret this result as normal/abnormal . Albumin (test code = 4.3 g/dL 3.5-5.0 54764-6) Alkaline Phosphatase 69 U/L 30-115 (test code = 6768-6) Total Bilirubin (test 0.4 mg/dL 0.1-1.2 code = 1974-2) Sodium (test code = 135 meq/L 462-674 9826-2) Potassium (test code = 3.7 meq/L 3.6-5.5 2823-3) Chloride (test code = 102 meq/L 98-106 5-0) CO2 (test code = 20 meq/L 24-32 L 2027-9) BUN (test code = 6 mg/dL 10-26 L 3094-0) Creatinine (test code = 0.54 mg/dL 0.50-1.20 2160-0) Glucose (test code = 85 mg/dL 70-110 2345-7) Calcium (test code = 9.7 mg/dL 8.5-10.5 50463-1) AST (test code = 19 U/L 1919-8) ALT (test code = 15 U/L 1741-6) EGFR (test code = 174 mL/min/1.73 [place] [address]-3) NOT ACCURATE CREATININE CLEARANCE IN PREDICTING GLOMERULAR FILTRATION RATE . ESTIMATED GFR I S NOT APPLICABLE FOR DIALYSIS PATIEN TS. Lab Interpretation Abnormal (test code = 27599-0) [facility] 21:47:55 Test Item Value Reference Range Interpretation Comments Lipase (test code = 3040-3) 36 U/L 40-240 L Lab Interpretation (test code = Abnormal 00922-9) [facility] CenterCom[facility] metabolic [id number] 21:47:55 Test Item Value Reference Range Interpretation Comments Protein, Total (test 7.8 See_Comment [Autom ated code = 2885-2) message] The system which generated this result transmitted reference range : 6.0 - 8.5 gm/dL . The reference r jorge was not used to interpret this result as normal/abnormal . Albumin (test code = 4.3 g/dL 3.5-5.0 76455-4) Alkaline Phosphatase 69 U/L 30-115 (test code = 6768-6) Total Bilirubin (test 0.4 mg/dL 0.1-1.2 code = 1975-2) Sodium (test code = 135 meq/L 022-360 6543-2) Potassium (test code = 3.7 meq/L 3.6-5.5 2823-3) Chloride (test code = 102 meq/L 98-106 2075-0) CO2 (test code = 20 meq/L 24-32 L 2028-9) BUN (test code = 6 mg/dL 10-26 L 3094-0) Creatinine (test code = 0.54 mg/dL 0.50-1.20 2160-0) Glucose (test code = 85 mg/dL 70-110 2345-7) Calcium (test code = 9.7 mg/dL 8.5-10.5 43557-1) AST (test code = 19 U/L 5-40 1920-8) ALT (test code = 15 U/L 5-50 1742-6) EGFR (test code = 174 mL/min/1.73 [place] [address]-5) NOT ACCURATE CREATININE CLEARANCE IN PREDICTING GLOMERULAR FILTRATION RATE . ESTIMATED GFR I S NOT APPLICABLE FOR DIALYSIS PATIEN TS. Lab Interpretation Abnormal (test code = 64859-5) [facility] 21:47:55 Test Item Value Reference Range Interpretation Comments Lipase (test code = 3040-3) 36 U/L 40-240 L Lab Interpretation (test code = Abnormal 60442-0) [facility] CenterCOMPREHENSIVE METABOLIC [id number] 21:47:55 Test Item Value Reference Range Interpretation Comments TOTAL PROTEIN 7.8 gm/dL 6.0-8.5 (BEAKER) (test code = 770) ALBUMIN (BEAKER) 4.3 g/dL 3.5-5.0 (test code = 1145) ALKALINE PHOSPHATASE 69 U/L 30-115 (BEAKER) (test code = 346) BILIRUBIN TOTAL 0.4 mg/dL 0.1-1.2 (BEAKER) (test code = 377) SODIUM (BEAKER) (test 135 meq/L 135-148 code = 381) POTASSIUM (BEAKER) 3.7 meq/L 3.6-5.5 (test code = 379) CHLORIDE (BEAKER) 102 meq/L 98-106 (test code = 382) CO2 (BEAKER) (test 20 meq/L 24-32 L code = 355) BLOOD UREA NITROGEN 6 mg/dL 10-26 L (BEAKER) (test code = 354) CREATININE (BEAKER) 0.54 mg/dL 0.50-1.20 (test code = 358) GLUCOSE RANDOM 85 mg/dL 70-110 (BEAKER) (test code = 652) CALCIUM (BEAKER) 9.7 mg/dL 8.5-10.5 (test code = 697) AST (SGOT) (BEAKER) 19 U/L 5-40 (test code = 353) ALT (SGPT) (BEAKER) 15 U/L 5-50 (test code = 347) EGFR (BEAKER) (test 174 ESTIMATE D GFR IS code = 1092) mL/min/1.73 sq NOT ACCURA TE m CREATININE CLEARANCE IN PREDICTING GLOMERULAR FILTRATION RATE . ESTIMATED GFR I S NOT APPLICABLE FOR DIALYSIS PATIEN TS. [id number] 21:47:55 Test Item Value Reference Range Interpretation Comments LIPASE (BEAKER) (test code = 749) 36 U/L 40-240 L Urinalysis w/Ibliphfoevm4328-83-91 21:24:47 Test Item Value Reference Range Interpretation Comments Color, UA (test code = Yellow 5778-6) Clarity, UA (test code Slightly Hazy = 5767-9) Specific Hustle, UA 1.034 1.001-1.035 (test code = 5811-5) pH, UA (test code = 6.0 5.0-8.0 5803-2) Protein, UA (test code 30 mg/dL Negative A = 04088-3) Glucose, UA (test code Negative Negative = 365) Ketones, UA (test code >=160 mg/dL Negative A = 2514-8) Bilirubin, UA (test Negative Negative code = 62009-9) Blood, UA (test code = Negative Negative 19489-0) Nitrite, UA (test code Negative Negative = 5802-4) Leukocytes, UA (test Trace Negative A code = 5799-2) Urobilinogen, UA (test 0.2 mg/dL 0.2-1.0 code = 99545-4) Bacteria, UA (test Many code = 84411-3) Mucus (test code = Moderate 8247-9) RBC, UA (test code = <5 See_Comment [Autom ated 799-7) message] The system which generated this result transmit alvarez reference range : /HPF. The reference range was not used to interpret this result as normal/abnormal . WBC, UA (test code = 5-10 See_Comment [Autom ated 41509-7) message] The system which generated this result transmit alvarez reference range : /HPF. The reference range was not used to interpret this result as normal/abnormal . SQUAMOUS EPITHELIAL 10-20 See_Comment Clue radha ls seen. (test code = 36840-0) [Autom ated message] The system which generated this result transmit alvarez reference range : /HPF. The reference range was not used to interpret this result as normal/abnormal . Specimen Source (test code = 2795) Lab Interpretation Abnormal (test code = 60809-4) [facility] CenterUrinalysis w/Zpegzrcxfeb0297-74-63 21:24:47 Test Item Value Reference Range Interpretation Comments Color, UA (test code = Yellow 5778-6) Clarity, UA (test code Slightly Hazy = 5767-9) Specific Hustle, UA 1.034 1.001-1.035 (test code = 5811-5) pH, UA (test code = 6.0 5.0-8.0 5803-2) Protein, UA (test code 30 mg/dL Negative A = 72036-4) Glucose, UA (test code Negative Negative = 365) Ketones, UA (test code >=160 mg/dL Negative A = 2514-8) Bilirubin, UA (test Negative Negative code = 78550-7) Blood, UA (test code = Negative Negative 38392-7) Nitrite, UA (test code Negative Negative = 5802-4) Leukocytes, UA (test Trace Negative A code = 5799-2) Urobilinogen, UA (test 0.2 mg/dL 0.2-1.0 code = 64358-2) Bacteria, UA (test Many code = 19811-5) Mucus (test code = Moderate 8247-9) RBC, UA (test code = <5 See_Comment [Autom ated 799-7) message] The system which generated this result transmit alvarez reference range : /HPF. The reference range was not used to interpret this result as normal/abnormal . WBC, UA (test code = 5-10 See_Comment [Autom ated 58711-8) message] The system which generated this result transmit alvarez reference range : /HPF. The reference range was not used to interpret this result as normal/abnormal . SQUAMOUS EPITHELIAL 10-20 See_Comment Clue radha ls seen. (test code = 11021-5) [Autom ated message] The system which generated this result transmit alvarez reference range : /HPF. The reference range was not used to interpret this result as normal/abnormal . Specimen Source (test code = 2795) Lab Interpretation Abnormal (test code = 30859-9) [facility] CenterUrinalysis w/Cyutcrqripp7809-49-95 21:24:47 Test Item Value Reference Range Interpretation Comments Color, UA (test code = Yellow 5778-6) Clarity, UA (test code Slightly Hazy = 5767-9) Specific Hustle, UA 1.034 1.001-1.035 (test code = 5811-5) pH, UA (test code = 6.0 5.0-8.0 5803-2) Protein, UA (test code 30 mg/dL Negative A = 40115-9) Glucose, UA (test code Negative Negative = 365) Ketones, UA (test code >=160 mg/dL Negative A = 2514-8) Bilirubin, UA (test Negative Negative code = 06280-2) Blood, UA (test code = Negative Negative 22277-7) Nitrite, UA (test code Negative Negative = 5802-4) Leukocytes, UA (test Trace Negative A code = 5799-2) Urobilinogen, UA (test 0.2 mg/dL 0.2-1.0 code = 49285-5) Bacteria, UA (test Many code = 14517-0) Mucus (test code = Moderate 8247-9) RBC, UA (test code = <5 See_Comment [Autom ated 799-7) message] The system which generated this result transmit alvarez reference range : /HPF. The reference range was not used to interpret this result as normal/abnormal . WBC, UA (test code = 5-10 See_Comment [Autom ated 83751-5) message] The system which generated this result transmit alvarez reference range : /HPF. The reference range was not used to interpret this result as normal/abnormal . SQUAMOUS EPITHELIAL 10-20 See_Comment Clue radha ls seen. (test code = 14298-0) [Autom ated message] The system which generated this result transmit alvarez reference range : /HPF. The reference range was not used to interpret this result as normal/abnormal . Specimen Source (test code = 2795) Lab Interpretation Abnormal (test code = 25913-1) [facility] CenterURINALYSIS W/ [id number] 21:24:47 Test Item Value Reference Range Interpretation Comments COLOR (BEAKER) (test Yellow code = 470) CLARITY (BEAKER) (test Slightly Hazy code = 469) SPECIFIC GRAVITY UA 1.034 1.001-1.035 (BEAKER) (test code = 468) PH UA (BEAKER) (test 6.0 5.0-8.0 code = 467) PROTEIN UA (BEAKER) 30 mg/dL Negative A (test code = 464) GLUCOSE UA (BEAKER) Negative Negative (test code = 365) KETONES UA (BEAKER) >=160 mg/dL Negative A (test code = 371) BILIRUBIN UA (BEAKER) Negative Negative (test code = 462) BLOOD UA (BEAKER) (test Negative Negative code = 461) NITRITE UA (BEAKER) Negative Negative (test code = 465) LEUKOCYTE ESTERASE UA Trace Negative A (BEAKER) (test code = 466) UROBILINOGEN UA 0.2 mg/dL 0.2-1.0 (BEAKER) (test code = 463) BACTERIA (BEAKER) (test Many code = 517) MUCUS (BEAKER) (test Moderate code = 1574) RBC UA-MANUAL (BEAKER) <5 /HPF (test code = 1659) WBC UA-MANUAL (BEAKER) 5-10 /HPF (test code = 1661) SQUAMOUS EPITHELIAL 10-20 /HPF Clue radha ls seen. MANUAL (BEAKER) (test code = 1663) SOURCE(BEAKER) (test code = 2795) screen, [id number] 21:21:19 Test Item Value Reference Range Interpretation Comments Preg Test, Ur (test code = 2111-1) Positive [facility] CenterPregnancy screen, [id number] 21:21:19 Test Item Value Reference Range Interpretation Comments Preg Test, Ur (test code = 2111-1) Positive [facility] CenterPregnancy screen, [id number] 21:21:19 Test Item Value Reference Range Interpretation Comments Preg Test, Ur (test code = 2111-1) Positive [facility] CenterPREGNANCY SCREEN, [id number] 21:21:19 Test Item Value Reference Range Interpretation Comments TEST URINE (BEAKER) (test Positive code = 583) BLOOD BANK [id number] 20:19:00 Test Item Value Reference Range Interpretation Comments ABO/Rh (test code = ABO/Rh) B POS [facility] [employer] [id number] 20:19:00 Test Item Value Reference Range Interpretation Comments Glucose Lvl (test code = Glucose Lvl) 72 70-99 [facility] [employer] [id number] 20:19:00 Test Item Value Reference Range Interpretation Comments BUN (test code = BUN) 7 7-22 [facility] [employer] [id number] 20:19:00 Test Item Value Reference Range Interpretation Comments Creatinine Lvl (test code = Creatinine 0.73 0.50-1.40 Lvl) [place] [id number] 20:19:00 Test Item Value Reference Range Interpretation Comments Sodium Lvl (test code = Sodium Lvl) 135 135-145 [place] 709171-09-26 20:19:00 Test Item Value Reference Range Interpretation Comments Potassium Lvl (test code = Potassium 3.6 3.5-5.1 Lvl) [place] 709171-09-26 20:19:00 Test Item Value Reference Range Interpretation Comments Chloride Lvl (test code = Chloride Lvl) 105 95-109 [place] 709171-09-26 20:19:00 Test Item Value Reference Range Interpretation Comments CO2 (test code = CO2) 25 24-32 [place] 709171-09-26 20:19:00 Test Item Value Reference Range Interpretation Comments Calcium Lvl (test code = Calcium Lvl) 9.0 8.5-10.5 [place] 709171-09-26 20:19:00 Test Item Value Reference Range Interpretation Comments AGAP (test code = AGAP) 8.6 10.0-20.0 [place] 709171-09-26 20:19:00 Test Item Value Reference Range Interpretation Comments eGFR (test code = eGFR) 118 [facility] CenterNeduyubPHFSYRGFTMYCL2079-43-71 20:19:00 Test Item Value Reference Range Interpretation Comments hCG Tot (test code = hCG Tot) [address] [id number] 20:19:00 Test Item Value Reference Range Interpretation Comments WBC (test code = WBC) 4.8 3.7-10.4 [place] [id number] 20:19:00 Test Item Value Reference Range Interpretation Comments RBC (test code = RBC) 4.83 4.20-5.40 [place] 892641-09-26 20:19:00 Test Item Value Reference Range Interpretation Comments Hgb (test code = Hgb) 12.4 12.0-16.0 [place] 40295-09-26 20:19:00 Test Item Value Reference Range Interpretation Comments Hct (test code = Hct) 37.5 36.0-48.0 [place] 892641-09-26 20:19:00 Test Item Value Reference Range Interpretation Comments MCV (test code = MCV) 77.6 80.0-98.0 [facility] [id number] 20:19:00 Test Item Value Reference Range Interpretation Comments MCH (test code = MCH) 25.7 pg 27.0-31.0 [facility] [id number] 20:19:00 Test Item Value Reference Range Interpretation Comments MCHC (test code = MCHC) 33.1 32.0-36.0 [facility] South[id number] 20:19:00 Test Item Value Reference Range Interpretation Comments RDW (test code = RDW) 15.4 11.5-14.5 [place] 892641-09-26 20:19:00 Test Item Value Reference Range Interpretation Comments Platelet (test code = Platelet) 245 133-450 [facility] [id number] 20:19:00 Test Item Value Reference Range Interpretation Comments MPV (test code = MPV) 8.6 7.4-10.4 [facility] SouthCbytfvhBBVSFIKPKQ0835-31-97 20:19:00 Test Item Value Reference Range Interpretation Comments Segs (test code = Segs) 64.1 45.0-75.0 [facility] Sou[id number] 20:19:00 Test Item Value Reference Range Interpretation Comments Lymphocytes (test code = Lymphocytes) 26.7 20.0-40.0 [facility] Sou[id number] 20:19:00 Test Item Value Reference Range Interpretation Comments Monocytes (test code = Monocytes) 8.2 2.0-12.0 [facility] [id number] 20:19:00 Test Item Value Reference Range Interpretation Comments Eosinophils (test code = 0.5 See_Comment [A utomated message] The Eosinophils) system which ge nerated this result tra nsmitted reference range : <=4.0. The reference r jorge was not used to int erpret this result as normal/abnormal . [facility] [id number] 20:19:00 Test Item Value Reference Range Interpretation Comments Basophils (test code = 0.5 See_Comment [Aut omated message] The Basophils) system which ge nerated this result tra nsmitted reference range : <=1.0. The reference r jorge was not used to int erpret this result as normal/abnormal . [facility] [id number] 20:19:00 Test Item Value Reference Range Interpretation Comments Neutrophils # (test code = Neutrophils 3.1 1.5-8.1 #) [facility] [id number] 20:19:00 Test Item Value Reference Range Interpretation Comments Lymphocytes # (test code = Lymphocytes 1.3 1.0-5.5 #) [facility] [id number] 20:19:00 Test Item Value Reference Range Interpretation Comments Monocytes # (test code 0.4 See_Comment [Aut omated message] The = Monocytes #) system which generated this result tra nsmitted reference range : <=0.8. The reference r jorge was not used to int erpret this result as normal/abnormal . [facility] [id number] 20:19:00 Test Item Value Reference Range Interpretation Comments Microcyte (test code = 1+ *ABN*(06/16/21 Microcyte) 3:19 PM) [facility] AND [id number] 20:09:00 Test Item Value Reference Range Interpretation Comments UA Color (test code = Nat *ABN*(06/16/21 UA Color) 3:09 PM) [facility] AND [id number] 20:09:00 Test Item Value Reference Range Interpretation Comments UA Turbidity (test code Marked *ABN*(06/16/21 = UA Turbidity) 3:09 PM) [facility] AND [id number] 20:09:00 Test Item Value Reference Range Interpretation Comments UA Spec Grav (test code = UA Spec 1.025 1 Grav) [facility] AND [id number] 20:09:00 Test Item Value Reference Range Interpretation Comments UA pH (test code = UA pH) 6.0 1 5.0-8.0 [facility] AND [id number] 20:09:00 Test Item Value Reference Range Interpretation Comments UA Protein (test code = UA Protein) 30 mg/dL [facility] AND [id number] 20:09:00 Test Item Value Reference Range Interpretation Comments UA Glucose (test code = UA Negative mg/dL Glucose) [facility] AND [id number] 20:09:00 Test Item Value Reference Range Interpretation Comments UA Ketones (test code = UA Ketones) 20 mg/dL [facility] AND [id number] 20:09:00 Test Item Value Reference Range Interpretation Comments UA Bili (test code = Negative *NA*(06/16/21 UA Bili) 3:09 PM) [facility] AND [id number] 20:09:00 Test Item Value Reference Range Interpretation Comments UA Blood (test code = Negative (06/16/21 3:09 UA Blood) PM) [facility] AND [id number] 20:09:00 Test Item Value Reference Range Interpretation Comments UA Urobilinogen (test code = UA 2.0 0.1-1.0 Urobilinogen) [facility] AND [id number] 20:09:00 Test Item Value Reference Range Interpretation Comments UA Nitrite (test code Negative (06/16/21 3:09 = UA Nitrite) PM) [facility] AND [id number] 20:09:00 Test Item Value Reference Range Interpretation Comments UA Leuk Est (test code Large *ABN*(06/16/21 = UA Leuk Est) 3:09 PM) [facility] AND [id number] 20:09:00 Test Item Value Reference Range Interpretation Comments UA Sq Epi (test code = UA Sq Epi) Many /LPF [facility] AND [id number] 20:09:00 Test Item Value Reference Range Interpretation Comments UA WBC (test code = 33 See_Comment [Automa alvarez message] The UA WBC) system which ge nerated this result transmit alvarez reference range : <=5. The reference range was not used to interpr et this result as majo l/abnormal. [facility] AND [id number] 20:09:00 Test Item Value Reference Range Interpretation Comments UA RBC (test code = 3 See_Comment [Automa alvarez message] The UA RBC) system which ge nerated this result transmit alvarez reference range : <=2. The reference range was not used to interpr et this result as majo l/abnormal. [facility] [id number] 20:09:00 Test Item Value Reference Range Interpretation Comments UA Bacteria (test code = UA Few /HPF Bacteria) [facility] AND [id number] 20:09:00 Test Item Value Reference Range Interpretation Comments UA Mucus (test code = UA Mucus) Many /LPF [facility]villeCulture: [id number] 20:00:00 Test Item Value Reference Range Interpretation Comments Culture: Urine (test 10,000 - 50,000 CFU/mL code = Culture: Urine) Skin [facility] RFLX MICR CULT IF [id number] 00:25:00 Test Item Value Reference Range Interpretation Comments UA COLOR (test code = COLU) NAT YELLOW A UA APPEARANCE (test code = CLOUDY CLEAR A APPU) UA GLUCOSE DIPSTICK (test code NEGATIVE NEG = DGLUU) UA BILIRUBIN DIPSTICK (test NEGATIVE NEG code = BILU) UA KETONE DIPSTICK (test code 2+ NEG A = KETU) UA SPECIFIC GRAVITY (test code 1.024 1.001-1.035 N = SGU) UA BLOOD DIPSTICK (test code = NEG NEG RIDGE) UA PH DIPSTICK (test code = 6.0 5-9 CODI) UA PROTEIN DIPSTICK (test code NEGATIVE NEG = PROU) UA UROBILINIOGEN DIPSTICK NEGATIVE mg/dL NEG (test code = URO) UA NITRITE DIPSTICK (test code NEG NEG = YUSUF) UA LEUKOCYTE ESTERASE DIPSTICK 3+ NEG A (test code = LEUU) UA WBC (test code = WBCU) 21-30 #/hpf NONE SEEN A UA RBC (test code = RBCU) 3-5 #/hpf NONE SEEN A UA EPITHELIAL CELLS (test code MODERATE #/HPF RARE-FEW A = EPIU) UA MUCUS (test code = MUCU) 4+ NONE SEEN Indication for culture: Suprapubic PainSpecimen Description: CLEAN CATCH- DUP AB/PEL/SC/[id number] 00:00:00 [facility] Junaid : 2000 Sex: F Patient Name: ZORAN STORM Unit No: [id number] EXAMS: CPT CODE: [id number] DUP AB/PEL/SC/LTD [id number] INFORMATION: Exam: US Duplex Artery or Vein of the Abdominal and/or Reproductive Organs, Limited Ovaries Exam date and time: 06/06/2021 11:42 PM Age: 21 years old Clinical indication: complicated by abdominal or pelvic pain; Lower; First trimester (<14 weeks 0 days); Gestational age or lmp: 5.6; ; Additional info: Pelvic pain, early TECHNIQUE: Imaging protocol:Real-time duplex ultrasound scan of the arterial or venous flow with bauer scale, color Doppler flow and spectral waveform analysis with image documentation. Limited duplex exam focused on the ovaries. Duplex images required to evaluate for torsion and other vascular conditions. COMPARISON: [facility] AB/PEL/SC [facility] 06/14/2020 6:22 PM FINDINGS: Right ovary Doppler: Normal duplex of the ovary. Normal Dopplerwaveforms and color flow. Left ovary Doppler: Normal duplex of the ovary. Normal Doppler waveforms and color flow. IMPRESSION: Normal duplex of the ovaries. No evidence of ovarian torsion. PROCEDURE INFORMATION: Exam: US First Trimester, Transabdominal and US , Transvaginal Exam date and time: 06/06/2021 11:42 PM Age: 21 years old Clinical indication: complicated by abdominal or pelvic pain; Lower; First trimester (<14 weeks 0 days); Gestational age or lmp: 5.6; ; Additional info: Pelvic pain, early TECHNIQUE: Imaging protocol: Real-time transabdominal obstetrical ultrasound of the maternal pelvis and a first trimester , less than 14 weeks 0 days, with image documentation. Transvaginal imaging was used for betterevaluation of the fetus, adnexa, and/or cervix. COMPARISON: [facility] AB/PEL/SC [facility] 06/14/2020 6:22 PM FINDINGS: Gestation: Small no gestational sac within the fundal endometrial cavity measuring 3.6 mm or5 weeks 1 day. Tiny yolk sac measuring 1 mm. No definite pole. MATERNAL: [facility] NAME: ZORAN STORM Radiology Department PHYS: Merry Payne MD [address] : 2000 AGE: 21 SEX: F [place], [place] [address] LOC: DONY PHONE #: [phone] EXAM DATE: 06/07/2021 STATUS: REG ER FAX #: [phone] RAD NO: Page 1 Signed Report (CONTINUED)Patient Name: ZORAN STORM Unit No: [id number] EXAMS: CPT CODE: [id number] DUP AB/PEL/SC/LTD 37351 <Continued> Uterus: Normal size uterus measuring 7.1 x 4.6 x 5.3 cm. Mildly heterogeneous myometrium without lesion. Thickened heterogeneous endometrium measuring up to 1.7 cm. Small crescentic endometrial fluid collection consistent with hemorrhage. Cervix: Unremarkable. Right adnexa: Normalsize right ovary measuring 2.3 x 1.2 x 1.6 cm containing subcentimeter follicles suspicious focal lesion. Normal low resistance arterial and venous blood flow is demonstrated. Left adnexa: Normal size left ovary measuring 3.6 x 2.2 x 2.6 cm containing a mildly thick-walled cyst measuring 2.4 x 1.6 x 1.7 cm suspicious for a corpus luteum cyst. Blood flow is demonstrated. Intraperitoneal space: Small free pelvic fluid. IMPRESSION: 1. Mildly thickened heterogeneous endometrial stripe with a small gestational sac in the fundal endometrial cavity corresponding to 5 weeks 1 day containing only a yolk sac. No pole is identified. Clinical correlation is required along with serial beta hCG levels andshort interval follow-up pelvic ultrasound in order to confirm intrauterine and exclude blighted ovum. 2. Small endometrial fluid collection consistent with hemorrhage. 3. Small free pelvic fluid. 4. Mildly thick-walled left ovarian cyst measuring 2.4 cm consistent with a corpus luteum cyst. at 0044 Reported and signed by: Jonel Rodriguez MD CC: Merry Morales MD Technologist: Pratibha Hameed RDMS Probe: Trnscrbd D/ (0044) GCD.CPS Orig Print D/T: S: 06/07/2021 (0044) [facility] NAME: ZORAN STORM Radiology Department PHYS: Merry Payne MD [address] : 2000 AGE:21 SEX: F [place], [place] [address] LOC: F.ERS PHONE #: [phone] EXAM DATE: 06/07/2021 STATUS: REG ER FAX #: [phone] RAD NO: Page 2 Signed Report Patient Name: ZORAN STORM Unit No: [id number] EXAMS: CPT CODE: [id number] DUP AB/PEL/SC/LTD 64783 <Continued> [facility] NAME: ZORAN STORM Radiology Department PHYS: Merry Payne MD [address] : 2000 AGE: 21 SEX: F [place], [place] [address] LOC: F.ERS PHONE #: [phone] EXAM DATE: 06/07/2021 STATUS: REG ER FAX #: [phone] RAD NO: Page 3 Signed Report- US PREG UT [id number] 00:00:00 [facility] [place] [facility] : 2000 Sex: F Patient Name: ZORAN STORM Unit No: [id number] EXAMS: CPT CODE: [id number] US PREG UT TRANSVAGINAL 45420 PROCEDURE INFORMATION: Exam: US Duplex Artery or Vein of the Abdominal and/or Reproductive Organs, Limited Ovaries Exam date and time: 06/06/2021 11:42 PM Age: 21 years old Clinical indication: complicated by abdominal or pelvic pain; Lower; First trimester (<14 weeks 0 days); Gestational age or lmp: 5.6; ; Additional info: Pelvic pain, early TECHNIQUE: Imaging protocol: Real-time duplex ultrasound scan of the arterial or venous flow with bauer scale, color Doppler flow and spectral waveform analysis with image documentation. Limited duplex exam focused on the ovaries. Duplex images required to evaluate for torsion and other vascular conditions. COMPARISON: US DUPAB/PEL/SC LTD 06/14/2020 6:22 PM FINDINGS: Right ovary Doppler: Normal duplex of the ovary. Normal Doppler waveforms and color flow. Left ovary Doppler: Normal duplex of the ovary. Normal Doppler waveforms and color flow. IMPRESSION: Normal duplex of the ovaries. No evidence of ovarian torsion. PROCEDURE INFORMATION: Exam: US First Trimester, Transabdominal and US , Transvaginal Exam date and time: 06/06/2021 11:42 PM Age: 21 years old Clinical indication: complicated by abdominal or pelvic pain; Lower; First trimester (<14 weeks 0 days); Gestational age or lmp: 5.6; ; Additional info: Pelvic pain, early TECHNIQUE: Imaging protocol: Real-time transabdominal obstetrical ultrasound of the maternal pelvis and a first trimester , less than 14 weeks 0 days, with image documentation. Transvaginal imaging was used for better evaluation of the fetus, adnexa, and/or cervix. COMPARISON: US DUP AB/PEL/SC LTD 06/14/2020 6:22PM FINDINGS: Gestation: Small no gestational sac within the fundal endometrial cavity measuring 3.6 mm or 5 weeks 1 day. Tiny yolk sac measuring 1 mm. No definite pole. MATERNAL: [facility] NAME: ZORAN STORM Radiology Department PHYS: Merry Payne MD [address] : 2000 AGE: 21 SEX: F [place], [place] [address] LOC: DONY PHONE #: [phone] EXAM DATE: 06/07/2021 STATUS: REG ER FAX #: [phone] RAD NO: Page 1 Signed Report (CONTINUED) Patient Name: ZORAN STORM Unit No: [id number] EXAMS: CPT CODE: [id number] US PREG UT TRANSVAGINAL 03233 <Continued> Uterus: Normal size uterus measuring 7.1 x 4.6 x 5.3 cm. Mildly heterogeneous myometrium without lesion. Thickened heterogeneous endometrium measuring up to 1.7 cm. Small crescentic endometrial fluid collection consistent with hemorrhage. Cervix: Unremarkable. Right adnexa: Normal size right ovary measuring 2.3 x 1.2 x 1.6 cm containing subcentimeter follicles suspicious focal lesion. Normal low resistance arterial and venous blood flow is demonstrated. Left adnexa: Normal size left ovary measuring 3.6 x 2.2 x 2.6 cm containing a mildly thick-walled cyst measuring 2.4 x 1.6 x 1.7 cm suspicious for a corpus luteum cyst. Blood flow is demonstrated. Intraperitoneal space: Small free pelvic fluid. IMPRESSION: 1. Mildly thickened heterogeneous endometrial stripe with asmall gestational sac in the fundal endometrial cavity corresponding to 5 weeks 1 day containing only a yolk sac. No pole is identified. Clinical correlation is required along with serial beta hCG levels and short interval follow-up pelvic ultrasound in order to confirm intrauterine and exclude blighted ovum. 2. Small endometrial fluid collection consistent with hemorrhage. 3. Small free pelvic fluid. 4. Mildly thick-walled left ovarian cyst measuring 2.4 cm consistent with a corpus luteum cyst. at 0044 Reported and signed by: Jonel Rodriguez MD CC: Merry Morales MD Technologist: Pratibha Hameed RDMS Probe: [id number] Trnscrbd D/ (43) GCD.CPS Orig Print D/T: S: 06/07/2021 (43) [facility] NAME: ZORAN STORM Radiology Department PHYS: Merry Payne MD [address] : 2000 AGE: 21 SEX: F [place], [place] [address] LOC: MarcyERS PHONE #: [phone] EXAM DATE: 06/07/2021 STATUS: REG ER FAX #: [phone] RAD NO: Page 2 Signed Report PatientName: ZORAN STORM Unit No: [id number] EXAMS: CPT CODE: [id number] US PREG UT TRANSVAGINAL 71455<Continued> [facility] NAME: ZORAN STORM Radiology Department PHYS: Merry Payne MD [address] : 2000 AGE: 21 SEX: F [place], [place] [address] ACCT NO: [id number] LOC: DONY PHONE #: [phone] EXAM DATE: 06/07/2021 STATUS: REG ER FAX #: [phone] NO: Page 3 Signed Report- US PREG EVAL 1ST TRIMTR 2021-06-07 00:00:00 [facility] [place] [facility] : 2000 Sex: F Patient Name: ZORAN STORM Unit No: [id number] EXAMS: CPT CODE: [id number] US PREG EVAL 1ST TRIMTR 50536 PROCEDURE INFORMATION: Exam: US Duplex Artery or Vein of the Abdominal and/or Reproductive Organs, Limited Ovaries Exam date and time: 06/06/2021 11:42 PM Age: 21 years old Clinical indication: complicated by abdominal or pelvic pain; Lower; First trimester (<14 weeks 0 days); Gestational age or lmp: 5.6; ; Additional info: Pelvic pain, early TECHNIQUE: Imaging protocol: Real-time duplex ultrasound scan of the arterial or venous flow with bauer scale, color Doppler flow and spectral waveform analysis with image documentation. Limited duplex exam focused on the ovaries. Duplex images required to evaluate for torsion and other vascular conditions. COMPARISON: US DUPAB/PEL/SC LTD 06/14/2020 6:22 PM FINDINGS: Right ovary Doppler: Normal duplex of the ovary. Normal Doppler waveforms and color flow. Left ovary Doppler: Normal duplex of the ovary. Normal Doppler waveforms and color flow. IMPRESSION: Normal duplex of the ovaries. No evidence of ovarian torsion. PROCEDURE INFORMATION: Exam: US First Trimester, Transabdominal and US , Transvaginal Exam date and time: 06/06/2021 11:42 PM Age: 21 years old Clinical indication: complicated by abdominal or pelvic pain; Lower; First trimester (<14 weeks 0 days); Gestational age or lmp: 5.6; ; Additional info: Pelvic pain, early TECHNIQUE: Imaging protocol: Real-time transabdominal obstetrical ultrasound of the maternal pelvis and a first trimesterpregnancy, less than 14 weeks 0 days, with image documentation. Transvaginal imaging was used for better evaluation of the fetus, adnexa, and/or cervix. COMPARISON: DUP AB/PEL/SC LTD 06/14/2020 6:22 PM FINDINGS: Gestation: Small no gestational sac within the fundal endometrial cavity measuring 3.6 mm or 5 weeks 1 day. Tiny yolk sac measuring 1 mm. No definite pole. MATERNAL: [facility] NAME: ZORAN STORM Radiology Department PHYS: Merry Payne MD [address] : 2000 AGE: 21 SEX: F [place], [place] [address] LOC: DONY PHONE #: [phone] EXAM DATE: 06/07/2021 STATUS: ARELI ER FAX #: [phone] RAD NO: Page 1 Signed Report (CONTINUED) Patient Name: RITESHZORAN Unit No: [id number] EXAMS: CPT CODE: [id number] US PREG EVAL 1STTRIMTR 01327 <Continued> Uterus: Normal size uterus measuring 7.1 x 4.6 x 5.3 cm. Mildly heterogeneous myometrium without lesion. Thickened heterogeneous endometrium measuring up to 1.7 cm. Small crescentic endometrial fluid collection consistent with hemorrhage. Cervix: Unremarkable. Right adnexa: Normal size right ovary measuring 2.3 x 1.2 x 1.6 cm containing subcentimeter follicles suspicious focal lesion. Normal low resistance arterial and venous blood flow is demonstrated. Left adnexa: Normal size left ovary measuring 3.6 x 2.2 x 2.6 cm containing a mildly thick-walled cyst measuring 2.4x 1.6 x 1.7 cm suspicious for a corpus luteum cyst. Blood flow is demonstrated. Intraperitoneal space: Small free pelvic fluid. IMPRESSION: 1. Mildly thickened heterogeneous endometrial stripe with a small gestational sac in the fundal endometrial cavity corresponding to 5 weeks 1 day containing only a yolk sac. No pole is identified. Clinical correlation is required along with serial beta hCG levels and short interval follow-up pelvic ultrasound in order to confirm intrauterine and exclude blighted ovum. 2. Small endometrial fluid collection consistent with hemorrhage. 3. Small free pelvic fluid. 4. Mildly thick-walled left ovarian cyst measuring 2.4 cm consistent with a corpus luteum cyst. at 0044 Reported and signed by: Jonel Rodriguez MD CC: Merry Morales MD Technologist: Pratibha Hameed RDMS Probe: Trnscrbd D/ (0044) GCD.CPS Orig Print D/T: S: 06/07/2021 (0044) [facility] NAME: ZORAN STORM Radiology Department PHYS: Merry Payne MD [address] : 2000 AGE: 21 SEX: F [place], [place] [address] LOC: DONY PHONE #: [phone] EXAM DATE: 06/07/2021 STATUS: REG ER FAX #: [phone] RAD NO: Page 2 Signed Report Patient Name: ELISA STORMHENNY Junaid Unit No: [id number] EXAMS: CPT CODE: [id number] US PREG EVAL 1ST TRIMTR 39963 <Continued> [facility] NAME: ZORAN STORM Radiology Department PHYS: Merry Payne MD [address] : 2000 AGE: 21 SEX: F [place], [place] [address] LOC: F.ERS PHONE #: [phone] EXAM DATE: 06/07/2021 STATUS: REG ER FAX #: [phone] RAD NO: Page 3 Signed ReportSARS-COV2/RT-PCR ([facility])2021-05-08 05:18:00 Test Item Value Reference Range Interpretation Comments SARS-COV2/RT-PCR Positive Negative AA The SARS-Co V-2 target (test code = nucleic acids a re detected [id number]) in this specime n. The presence SARS-C oV-2 nucleic acids cannot ru le out co-infections o r disease caused by other viral or bacterial patho gens. As with any molecular t est, mutations withi n the target regions of the Xpert Xpress SARS-CoV-2 test could affect primer and/or p robe binding resulting in fa ilure to detect the pres ence of virus or the virus be ing detected less predictabl y. False negative result s may occur if virus is pre sent at levels below th e analytical limit of detect ion. This SARS CoV-2 test is a rapid, real-time RT-PC R test intended for th e qualitative detection of nu cleic acid from SARS-CoV-2 in a nasopharyngeal swab specimen collected from individuals suspected of CO VID-19 by their healthcar e provider. Results from th e Xpert Xpress SARS-CoV -2 test should be corre lated with the clinical hi story, epidemiological data, and other data avai lable to the clinician evalu ating the patient. Viral nucleic acid may persist in vivo, independent of virus viability. Dete ction of analyte target( s) does not imply that the corresponding virus(es) are i nfectious or are the causati ve agents for clinical sympto ms. This test has been authorized by FDA under an EUA for use by authorized laboratories. This test is only authorized for the duration of the declaration that circumstances exist justifying the authorization of emergency use of in vitro diagnostic tests for detection and/or diagnosis of COVID-19 under Section 564(b)(1) of the Federal Food, Drug and Cosmetic Act, 21 U.S.C. 360bbb-3(b)(1), unless the authorization is terminated or revoked sooner. Fact Sheet for Healthcare Providers: https://www.[employer] m/Documents/Xpert%20Xpress%20SARS%20CoV-2/Fact%20Sheets/3023802%67XDKV-LJK-5%20 HEALTHCARE%20PROVIDERS%20FACT%20SHEET.pdf Fact Sheet for Healthcare Patients: https://www.[employer].tv/Documents/Xpert%20Xp ress%20SARS%20CoV-2/Fact%20Sheets/3023801%18DXWV-OCZ-5%20PATIENT%20FACT%20SHEET .pdfUA RFLX MICR CULT IF [id number] 07:37:00 Test Item Value Reference Range Interpretation Comments UA COLOR (test code = COLU) YELLOW YELLOW UA APPEARANCE (test code = Slightly-Cloudy CLEAR APPU) UA GLUCOSE DIPSTICK (test NEGATIVE NEG code = DGLUU) UA BILIRUBIN DIPSTICK (test NEGATIVE NEG code = BILU) UA KETONE DIPSTICK (test code NEGATIVE NEG = KETU) UA SPECIFIC GRAVITY (test 1.026 1.001-1.035 N code = SGU) UA BLOOD DIPSTICK (test code NEG NEG = RIDGE) UA PH DIPSTICK (test code = 5.0 5-9 CODI) UA PROTEIN DIPSTICK (test NEGATIVE NEG code = PROU) UA UROBILINIOGEN DIPSTICK 2.0 mg/dL NEG (test code = URO) UA NITRITE DIPSTICK (test NEG NEG code = YUSUF) UA LEUKOCYTE ESTERASE 1+ NEG A DIPSTICK (test code = LEUU) UA WBC (test code = WBCU) 3-5 #/hpf NONE SEEN A UA RBC (test code = RBCU) 0-2 #/hpf NONE SEEN UA EPITHELIAL CELLS (test FEW #/HPF RARE-FEW code = EPIU) UA BACTERIA (test code = RARE /HPF RARE-FEW BACU) UA MUCUS (test code = MUCU) RARE NONE SEEN Indication for culture: Suprapubic PainSpecimen Description: CLEAN CATCHUR HCG [id number] 07:37:00 Test Item Value Reference Range Interpretation Comments UR HCG QUAL (test NEGATIVE 1. Very di lute urine code = HCGQLU) specimens, as indicated by a lowspecific g ravity, may not contain rep resentative levels ofhCG. 2 . False negative result s may occur when the levels of hCGare below the sensi tivity level of the test. If is still suspec alvarez, a first morningurine sp ecimen should be colle cted 48 hours later and tested. Indication for culture: Suprapubic PainSpecimen Description: CLEAN CATCHUA RFLX MICR CULT IF [id number] 07:36:00 Test Item Value Reference Range Interpretation Comments UA COLOR (test code = COLU) YELLOW YELLOW UA APPEARANCE (test code = Slightly-Cloudy CLEAR APPU) UA GLUCOSE DIPSTICK (test NEGATIVE NEG code = DGLUU) UA BILIRUBIN DIPSTICK (test NEGATIVE NEG code = BILU) UA KETONE DIPSTICK (test code NEGATIVE NEG = KETU) UA SPECIFIC GRAVITY (test 1.026 1.001-1.035 N code = SGU) UA BLOOD DIPSTICK (test code NEG NEG = RIDGE) UA PH DIPSTICK (test code = 5.0 5-9 CODI) UA PROTEIN DIPSTICK (test NEGATIVE NEG code = PROU) UA UROBILINIOGEN DIPSTICK 2.0 mg/dL NEG (test code = URO) UA NITRITE DIPSTICK (test NEG NEG code = YUSUF) UA LEUKOCYTE ESTERASE 1+ NEG A DIPSTICK (test code = LEUU) UA WBC (test code = WBCU) 3-5 #/hpf NONE SEEN A UA RBC (test code = RBCU) 0-2 #/hpf NONE SEEN UA EPITHELIAL CELLS (test FEW #/HPF RARE-FEW code = EPIU) UA BACTERIA (test code = RARE /HPF RARE-FEW BACU) UA MUCUS (test code = MUCU) RARE NONE SEEN Indication for culture: Suprapubic PainSpecimen Description: CLEAN CATCHUR HCG [id number] 07:36:00 Test Item Value Reference Range Interpretation Comments UR HCG QUAL (test code = HCGQLU) Indication for culture: Suprapubic PainSpecimen Description: CLEAN CATCH screen, [id number] 13:31:00 Test Item Value Reference Range Interpretation Comments Preg Test, Ur (test code = 2112-1) [facility] [id number] 13:31:00 Test Item Value Reference Range Interpretation Comments TEST URINE (BEAKER) (test Negative code = 583) SARS-CoV2/Influenza/RSV RT-PCR (Symptomatic ONLY)2021-02-06 21:16:00 Test Item Value Reference Range Interpretation Comments SARS-COV2/RT-PCR (test Negative Negative code = 28395-1) Influenza A RT-PCR Negative Negative (test code = 73886-5) Influenza B RT-PCR Negative Negative (test code = 38760-9) RSV by RT-PCR (test Negative Negative Performa nce of the code = 22783-5) Xpert Xpress SARS-CoV-2/Flu/ RSV test has only been established in nasopharyngeal swab specimens. Use of the Xpert Xpress SARS-CoV-2/Flu/ RSV test with other spec imen types has not b een assessed and performance characteristics are unknown. As wit h any molecular test, mutations withi n the targeted geneti c regions identif ied by the Xpert Xpres s SARS-CoV-2/Flu/ RSV test could affect pr nina and/or probe bi nding resulting in fa ilure to detect the pres ence of virus or the vi joan being detected less predictably.Neg ative results do not preclude SARS-CoV-2, Inf luenza A/B, or RSV inf ection and should not be used as the sole bas is for treatment or ot her patient managem ent decisions. Resu lts from the Xpert Xpres s SARS-CoV-2/Flu/ RSV test should be corre lated with the clinic al history, epidemiological data, and other data available to e clinician evalu ating the patient. In valid test results ma y occur from improper s pecimen collection; ana lure to follow the davis mmended sample collecti on, handling, and s torage procedures; angelika hnical error. False ne gative results may occ ur if virus is presen t at levels below th e analytical limi t of detection (LOD: 131 copies/mL). Vir al nucleic acid ma y persist in vivo , independent of virus viability. Dete ction of analyte target( s) does not imply that the corresponding v irus(es) are infectious or are the causative a gents for clinical sy mptoms. Recent patient exposure to FluMist or other live attenuated influenza vacci richar may cause inaccurat e positive result s.This test has been authorized by [employer] under an EUA for use by authorized laboratories. T his test is only authori zed for the duration of the declaration usman t circumstances e xist justifying the authorization o f emergency use o f in vitro diagnosti c tests for detection a nd/or diagnosis of CO VID-19 under Section 5 64(b)(1) of the Federal Food, Drug and Cosmet ic Act, 21 U.S.C. 360bbb-3(b)(1), unless the authorizati on is terminated or r evoked sooner. Fact Sh eet for Healthcare Prov iders: https://www.[employer] /Documents/Xper t%20Xpre ss%26XHXF-JgK-5 -Flu-RSV /3024508%20Rev .%20B%20 HCP%20Fact%20Sh eet.pdf Fact Sheet for Healthcare Margo ents: https://www.[employer] /Documents/Xper t%20Xpre ss%58CHRX-EgD-9 -Flu-RSV /3024503%20Rev .%20B%20 Patient%20Fact% 20Sheet. pdf Lab Interpretation Normal (test code = 21701-4) [facility]Symptomatic ONLY[facility] 2021-02-06 21:16:00 Test Item Value Reference Range Interpretation Comments SARS-COV2/RT-PCR (test Negative Negative code = 66899-8) Influenza A RT-PCR Negative Negative (test code = 15080-1) Influenza B RT-PCR Negative Negative (test code = 38004-0) RSV by RT-PCR (test Negative Negative Performa nce of the code = 02154-1) Xpert Xpress SARS-CoV-2/Flu/ RSV test has only been established in nasopharyngeal swab specimens. Use of the Xpert Xpress SARS-CoV-2/Flu/ RSV test with other spec imen types has not b een assessed and performance characteristics are unknown. As wit h any molecular test, mutations withi n the targeted geneti c regions identif ied by the Xpert Xpres s SARS-CoV-2/Flu/ RSV test could affect pr nina and/or probe bi nding resulting in fa ilure to detect the pres ence of virus or the vi joan being detected less predictably.Neg ative results do not preclude SARS-CoV-2, Inf luenza A/B, or RSV inf ection and should not be used as the sole bas is for treatment or ot her patient managem ent decisions. Resu lts from the Xpert Xpres s SARS-CoV-2/Flu/ RSV test should be corre lated with the clinic al history, epidemiological data, and other data available to th e clinician evalu ating the patient. In valid test results ma y occur from improper s pecimen collection; ana lure to follow the davis mmended sample collecti on, handling, and s torage procedures; angelika hnical error. False ne gative results may occ ur if virus is presen t at levels below th e analytical limi t of detection (LOD: 131 copies/mL). Vir al nucleic acid ma y persist in vivo , independent of virus viability. Dete ction of analyte target( s) does not imply that the corresponding v irus(es) are infectious or are the causative a gents for clinical sy mptoms. Recent patient exposure to FluMist or other live attenuated influenza vacci richar may cause inaccurat e positive result s.This test has been authorized by [employer] under an EUA for use by authorized laboratories. T his test is only authori zed for the duration of the declaration usman t circumstances e xist justifying the authorization o f emergency use o f in vitro diagnosti c tests for detection a nd/or diagnosis of CO VID-19 under Section 5 64(b)(1) of the Federal Food, Drug and Cosmet ic Act, 21 U.S.C. 360bbb-3(b)(1), unless the authorizati on is terminated or r evoked sooner. Fact Sh eet for Healthcare Prov iders: https://www.[employer] heid.com /Documents/Xper t%20Xpre ss%31VWDR-MvI-5 -Flu-RSV /302-4508%20Rev .%20B%20 HCP%20Fact%20Sh eet.pdf Fact Sheet for Healthcare Margo ents: https://www.[employer].Stat /Documents/Xper t%20Xpre ss%59PQIY-OmI-1 -Flu-RSV /302-4507%20Rev .%20B%20 Patient%20Fact% 20Sheet. pdf Lab Interpretation Normal (test code = 58943-2) [facility] (Symptomatic ONLY) 2021-02-06 21:16:00 Test Item Value Reference Range Interpretation Comments SARS-COV2/RT-PCR (test Negative Negative code = 76341-2) Influenza A RT-PCR Negative Negative (test code = 01356-5) Influenza B RT-PCR Negative Negative (test code = 85866-7) RSV by RT-PCR (test Negative Negative Performa nce of the code = 02027-5) Xpert Xpress SARS-CoV-2/Flu/ RSV test has only been established in nasopharyngeal swab specimens. Use of the Xpert Xpress SARS-CoV-2/Flu/ RSV test with other spec imen types has not b een assessed and performance characteristics are unknown. As wit h any molecular test, mutations withi n the targeted geneti c regions identif ied by the Xpert Xpres s SARS-CoV-2/Flu/ RSV test could affect pr nina and/or probe bi nding resulting in fa ilure to detect the pres ence of virus or the vi joan being detected less predictably.Neg ative results do not preclude SARS-CoV-2, Inf luenza A/B, or RSV inf ection and should not be used as the sole bas is for treatment or ot her patient managem ent decisions. Resu lts from the Xpert Xpres s SARS-CoV-2/Flu/ RSV test should be corre lated with the clinic al history, epidemiological data, and other data available to e clinician evalu ating the patient. In valid test results ma y occur from improper s pecimen collection; ana lure to follow the davis mmended sample collecti on, handling, and s torage procedures; angelika hnical error. False ne gative results may occ ur if virus is presen t at levels below th e analytical limi t of detection (LOD: 131 copies/mL). Vir al nucleic acid ma y persist in vivo , independent of virus viability. Dete ction of analyte target( s) does not imply that the corresponding v irus(es) are infectious or are the causative a gents for clinical sy mptoms. Recent patient exposure to FluMist or other live attenuated influenza vacci richar may cause inaccurat e positive result s.This test has been authorized by [employer] under an EUA for use by authorized laboratories. T his test is only authori zed for the duration of the declaration usman t circumstances e xist justifying the authorization o f emergency use o f in vitro diagnosti c tests for detection a nd/or diagnosis of CO VID-19 under Section 5 64(b)(1) of the Federal Food, Drug and Cosmet ic Act, 21 U.S.C. 360bbb-3(b)(1), unless the authorizati on is terminated or r evoked sooner. Fact Sh eet for Healthcare Prov iders: https://www.[employer] /Documents/Xper t%20Xpre ss%76PCVO-PjL-7 -Flu-RSV /3024508%20Rev .%20B%20 HCP%20Fact%20Sh eet.pdf Fact Sheet for Healthcare Margo ents: https://www.[employer] /Documents/Xper t%20Xpre ss%23YAJP-IwZ-4 -Flu-RSV /3024507%20Rev .%20B%20 Patient%20Fact% 20Sheet. pdf Lab Interpretation Normal (test code = 36319-6) [facility]Symptomatic ONLY) 2021-02-06 21:16:00 Test Item Value Reference Range Interpretation Comments SARS-COV2/RT-PCR (test Negative Negative code = 59511-6) Influenza A RT-PCR Negative Negative (test code = 87329-0) Influenza B RT-PCR Negative Negative (test code = 61142-1) RSV by RT-PCR (test Negative Negative Performa nce of the code = 39368-6) Xpert Xpress SARS-CoV-2/Flu/ RSV test has only been established in nasopharyngeal swab specimens. Use of the Xpert Xpress SARS-CoV-2/Flu/ RSV test with other spec imen types has not b een assessed and performance characteristics are unknown. As wit h any molecular test, mutations withi n the targeted geneti c regions identif ied by the Xpert Xpres s SARS-CoV-2/Flu/ RSV test could affect pr nina and/or probe bi nding resulting in fa ilure to detect the pres ence of virus or the vi joan being detected less predictably.Neg ative results do not preclude SARS-CoV-2, Inf luenza A/B, or RSV inf ection and should not be used as the sole bas is for treatment or ot her patient managem ent decisions. Resu lts from the Xpert Xpres s SARS-CoV-2/Flu/ RSV test should be corre lated with the clinic al history, epidemiological data, and other data available to th e clinician evalu ating the patient. In valid test results ma y occur from improper s pecimen collection; ana lure to follow the davis mmended sample collecti on, handling, and s torage procedures; angelika hnical error. False ne gative results may occ ur if virus is presen t at levels below th e analytical limi t of detection (LOD: 131 copies/mL). Vir al nucleic acid ma y persist in vivo , independent of virus viability. Dete ction of analyte target( s) does not imply that the corresponding v irus(es) are infectious or are the causative a gents for clinical sy mptoms. Recent patient exposure to FluMist or other live attenuated influenza vacci richar may cause inaccurat e positive result s.This test has been authorized by [employer] under an EUA for use by authorized laboratories. T his test is only authori zed for the duration of the declaration usman t circumstances e xist justifying the authorization o f emergency use o f in vitro diagnosti c tests for detection a nd/or diagnosis of CO VID-19 under Section 5 64(b)(1) of the Federal Food, Drug and Cosmet ic Act, 21 U.S.C. 360bbb-3(b)(1), unless the authorizati on is terminated or r evoked sooner. Fact Sh eet for Healthcare Prov iders: https://www.[employer].com /Documents/Xper t%20Xpre ss%66HRLT-SpA-1 -Flu-RSV /3024508%20Rev .%20B%20 HCP%20Fact%20Sh eet.pdf Fact Sheet for Healthcare Margo ents: https://www.[employer]Stat /Documents/Xper t%20Xpre ss%01TZGE-MkL-9 -Flu-RSV /302-4507%20Rev .%20B%20 Patient%20Fact% 20Sheet. pdf Lab Interpretation Normal (test code = 70420-7) [facility] [id number] 21:16:00 Test Item Value Reference Range Interpretation Comments SARS-COV2/RT-PCR Negative Negative (test code = 4605206) INFLUENZA A RT-PCR Negative Negative (test code = 5924398) INFLUENZA B RT-PCR Negative Negative (test code = 4642894) RSV RT-PCR (test Negative Negative Performance of the Xpert code = 0297800) Xpress SARS- CoV-2/Flu/RSV test has only b een established in nasopharyngeal swab specimens. Use of the Xpert Xpress SARS-CoV-2/Flu/ RSV test with other spec imen types has not been as sessed and performance characteristics are unknown. As wit h any molecular test, mutations within the targ eted genetic regions identified by Xpert Xpress SARS-CoV -2/Flu/RSV test could affe ct primer and/or probe bi nding resulting in fa ilure to detect the pres ence of virus or the vi joan being detected less predictably.Neg ative results do not preclude SARS-CoV-2, Inf luenza A/B, or RSV inf ection and should not be u sed as the sole basis for treatment or other patien t management deci sions. Results from Xpert Xpress SARS-CoV -2/Flu/RSV test should be correlated with the clinic al history, epidem iological data, and other data available to clinician evalu ating the patient. Invali d test results may occ ur from improper specim en collection; ana lure to follow the davis mmended sample collecti on, handling, and s torage procedures; angelika hnical error. False ne gative results may occ ur if virus is presen t at levels below th e analytical limi t of detection (LOD: 131 copies/mL). Vir al nucleic acid may persis t in vivo, independent of virus viability. Dete ction of analyte target( s) does not imply that the corresponding v irus(es) are infectious or are the causative agent s for clinical sympto ms. Recent patient exposur e to FluMist or othe r live attenuated infl uenza vaccines may ca use inaccurate posi tive results.This te st has been authorized by FDA under an EUA fo r use by authorized labo ratories. This test is on ly authorized for the duration of the declaration usman t circumstances e xist justifying the authorization o f emergency use o f in vitro diagnostic test s for detection and/o r diagnosis of CO VID-19 under Section 5 64(b)(1) of the Federal Food, Drug and Cosmetic Ac t, 21 U.S.C. 360bbb-3 (b)(1), unless the auth orization is terminated o r revoked sooner.Fact She et for Healthcare Prov iders: https://www.[employer].Stat/D ocuments/Xpert% 20Xpress%2 4BNSN-ArQ-0-Flu -RSV/302-4 508%20Rev.%20B% 20HCP%20Fa ct%20Sheet.pdfF act Sheet for Healthcare Patients: https://www.[employer].Stat/D ocuments/Xpert% 20Xpress%2 5WYXP-MkN-1-Flu -RSV/302-4 507%20Rev.%20B% 20Patient% 20Fact%20Sheet. pdf Urinalysis w/Microscopic + Reflex to [id number] 20:28:00 Test Item Value Reference Range Interpretation Comments Color, UA (test code = Light Yellow 5778-6) Clarity, UA (test code Slightly Hazy = 5767-9) Specific Hustle, UA 1.020 1.001-1.035 (test code = 5811-5) pH, UA (test code = 7.0 5.0-8.0 5803-2) Protein, UA (test code Negative Negative = 77971-9) Glucose, UA (test code Negative Negative = 365) Ketones, UA (test code Negative Negative = 2514-8) Bilirubin, UA (test Negative Negative code = 46980-7) Blood, UA (test code = Negative Negative 40735-7) Nitrite, UA (test code Negative Negative = 5802-4) Leukocytes, UA (test Large Negative A code = 5799-2) Urobilinogen, UA (test 0.2 mg/dL 0.2-1.0 code = 30994-4) Bacteria, UA (test Few code = 25377-4) RBC, UA (test code = None Seen See_Comment [Autom ated 799-7) message] The system which generated this result transmit alvarez reference range : /HPF. The reference range was not used to interpret this result as normal/abnormal . WBC, UA (test code = <5 See_Comment [Autom ated 71315-4) message] The system which generated this result transmit alvarez reference range : /HPF. The reference range was not used to interpret this result as normal/abnormal . SQUAMOUS EPITHELIAL 5-10 See_Comment Clue radha ls seen. (test code = 95686-9) [Autom ated message] The system which generated this result transmit alvarez reference range : /HPF. The reference range was not used to interpret this result as normal/abnormal . Specimen Source (test code = 2795) Lab Interpretation Abnormal (test code = 35363-8) [facility] Reflex to Culture 2021-02-06 20:28:00 Test Item Value Reference Range Interpretation Comments Color, UA (test code = Light Yellow 5778-6) Clarity, UA (test code Slightly Hazy = 5767-9) Specific Hustle, UA 1.020 1.001-1.035 (test code = 5811-5) pH, UA (test code = 7.0 5.0-8.0 5803-2) Protein, UA (test code Negative Negative = 34265-6) Glucose, UA (test code Negative Negative = 365) Ketones, UA (test code Negative Negative = 2514-8) Bilirubin, UA (test Negative Negative code = 97866-5) Blood, UA (test code = Negative Negative 80003-6) Nitrite, UA (test code Negative Negative = 5802-4) Leukocytes, UA (test Large Negative A code = 5799-2) Urobilinogen, UA (test 0.2 mg/dL 0.2-1.0 code = 74906-0) Bacteria, UA (test Few code = 29134-9) RBC, UA (test code = None Seen See_Comment [Autom ated 799-7) message] The system which generated this result transmit alvarez reference range : /HPF. The reference range was not used to interpret this result as normal/abnormal . WBC, UA (test code = <5 See_Comment [Autom ated 72214-9) message] The system which generated this result transmit alvarez reference range : /HPF. The reference range was not used to interpret this result as normal/abnormal . SQUAMOUS EPITHELIAL 5-10 See_Comment Clue radha ls seen. (test code = 10466-3) [Autom ated message] The system which generated this result transmit alvarez reference range : /HPF. The reference range was not used to interpret this result as normal/abnormal . Specimen Source (test code = 2795) Lab Interpretation Abnormal (test code = 38121-4) [facility] Reflex to Culture 2021-02-06 20:28:00 Test Item Value Reference Range Interpretation Comments Color, UA (test code = Light Yellow 5778-6) Clarity, UA (test code Slightly Hazy = 5767-9) Specific Hustle, UA 1.020 1.001-1.035 (test code = 5811-5) pH, UA (test code = 7.0 5.0-8.0 5803-2) Protein, UA (test code Negative Negative = 15598-8) Glucose, UA (test code Negative Negative = 365) Ketones, UA (test code Negative Negative = 2514-8) Bilirubin, UA (test Negative Negative code = 47680-1) Blood, UA (test code = Negative Negative 73691-1) Nitrite, UA (test code Negative Negative = 5802-4) Leukocytes, UA (test Large Negative A code = 5799-2) Urobilinogen, UA (test 0.2 mg/dL 0.2-1.0 code = 61247-4) Bacteria, UA (test Few code = 56875-7) RBC, UA (test code = None Seen See_Comment [Autom ated 799-7) message] The system which generated this result transmit alvarez reference range : /HPF. The reference range was not used to interpret this result as normal/abnormal . WBC, UA (test code = <5 See_Comment [Autom ated 33816-3) message] The system which generated this result transmit alvarez reference range : /HPF. The reference range was not used to interpret this result as normal/abnormal . SQUAMOUS EPITHELIAL 5-10 See_Comment Clue radha ls seen. (test code = 87436-9) [Autom ated message] The system which generated this result transmit alvarez reference range : /HPF. The reference range was not used to interpret this result as normal/abnormal . Specimen Source (test code = 2795) Lab Interpretation Abnormal (test code = 42371-7) [facility]opic + Reflex to Culture 2021-02-06 20:28:00 Test Item Value Reference Range Interpretation Comments Color, UA (test code = Light Yellow 5778-6) Clarity, UA (test code Slightly Hazy = 5767-9) Specific Hustle, UA 1.020 1.001-1.035 (test code = 5811-5) pH, UA (test code = 7.0 5.0-8.0 5803-2) Protein, UA (test code Negative Negative = 83060-2) Glucose, UA (test code Negative Negative = 365) Ketones, UA (test code Negative Negative = 2514-8) Bilirubin, UA (test Negative Negative code = 65457-9) Blood, UA (test code = Negative Negative 37701-3) Nitrite, UA (test code Negative Negative = 5802-4) Leukocytes, UA (test Large Negative A code = 5799-2) Urobilinogen, UA (test 0.2 mg/dL 0.2-1.0 code = 80263-7) Bacteria, UA (test Few code = 99690-8) RBC, UA (test code = None Seen See_Comment [Autom ated 799-7) message] The system which generated this result transmit alvarez reference range : /HPF. The reference range was not used to interpret this result as normal/abnormal . WBC, UA (test code = <5 See_Comment [Autom ated 72592-3) message] The system which generated this result transmit alvarez reference range : /HPF. The reference range was not used to interpret this result as normal/abnormal . SQUAMOUS EPITHELIAL 5-10 See_Comment Clue radha ls seen. (test code = 13341-4) [Autom ated message] The system which generated this result transmit alvarez reference range : /HPF. The reference range was not used to interpret this result as normal/abnormal . Specimen Source (test code = 2795) Lab Interpretation Abnormal (test code = 73182-0) [facility]FLEX URINE [id number] 20:28:00 Test Item Value Reference Range Interpretation Comments COLOR (BEAKER) (test Light Yellow code = 470) CLARITY (BEAKER) (test Slightly Hazy code = 469) SPECIFIC GRAVITY UA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 HEMOGLOBIN 25.1 pg 27.0-33.0 L (BEAKER) (test code = 751) MEAN CORPUSCULAR HEMOGLOBIN CONC 32.8 GM/DL 32.0-36.0 (BEAKER) (test code = 752) RED CELL DISTRIBUTION WIDTH 13.1 % 10.3-14.2 (BEAKER) (test code = 412) PLATELET COUNT (BEAKER) (test 247 K/CU MM 150-430 code = 756) MEAN PLATELET VOLUME (BEAKER) 9.1 fL 6.5-10.5 (test code = 754) NEUTROPHILS RELATIVE PERCENT 50 % (BEAKER) (test code = 429) LYMPHOCYTES RELATIVE PERCENT 38 % (BEAKER) (test code = 430) MONOCYTES RELATIVE PERCENT 10 % (BEAKER) (test code = 431) EOSINOPHILS RELATIVE PERCENT 2 % (BEAKER) (test code = 432) BASOPHILS RELATIVE PERCENT 1 % (BEAKER) (test code = 437) NEUTROPHILS ABSOLUTE COUNT 3.05 K/ L 1.80-8.00 (BEAKER) (test code = 670) LYMPHOCYTES ABSOLUTE COUNT 2.32 K/ L 1.48-4.50 (BEAKER) (test code = 414) MONOCYTES ABSOLUTE COUNT (BEAKER) 0.61 K/ L 0.00-1.30 (test code = 415) EOSINOPHILS ABSOLUTE COUNT 0.11 K/ L 0.00-0.50 (BEAKER) (test code = 416) BASOPHILS ABSOLUTE COUNT (BEAKER) 0.04 K/ L 0.00-0.20 (test code = 417) Basic Metabolic [id number] 21:33:00 Test Item Value Reference Range Interpretation Comments Sodium (test code = 138 meq/L 670-027 1531-2) Potassium (test code 4.0 meq/L 3.6-5.5 = 2823-3) Chloride (test code = 105 meq/L 98-106 2075-0) CO2 (test code = 28 meq/L -2028-05) BUN (test code = 10 mg/dL 07-16 3094-0) Creatinine (test code 0.78 mg/dL 0.50-1.20 = 2160-0) Glucose (test code = 96 mg/dL 70-110 2345-7) Calcium (test code = 9.2 mg/dL 8.5-10.5 37529-8) EGFR (test code = 115 mL/min/1.73 [place] [address]-6) ACCURATE CREATININE NETO DARLING IN PREDICTING GLOMERULAR FILT RATION RATE. ESTIMATED GFR IS NOT APPLICAB LE FOR DIALYSIS PATIEN TS. [facility] [id number] 21:33:00 Test Item Value Reference Range Interpretation Comments Sodium (test code = 138 meq/L 739-276 6377-2) Potassium (test code 4.0 meq/L 3.6-5.5 = 2823-3) Chloride (test code = 105 meq/L 98-106 5-0) CO2 (test code = 28 meq/L 2028-05) BUN (test code = 10 mg/dL 07-16 3094-0) Creatinine (test code 0.78 mg/dL 0.50-1.20 = 2160-0) Glucose (test code = 96 mg/dL 70-110 2345-7) Calcium (test code = 9.2 mg/dL 8.5-10.5 55126-4) EGFR (test code = 115 mL/min/1.73 sq [place] [address]4741-0) ACCURATE CREATININE NETO DARLING IN PREDICTING GLOMERULAR FILT RATION RATE. ESTIMATED GFR IS NOT APPLICAB LE FOR DIALYSIS PATIEN TS. [facility] CenterBAS[facility] METABOLIC [id number] 21:33:00 Test Item Value Reference Range Interpretation Comments SODIUM (BEAKER) 138 meq/L 135-148 (test code = 381) POTASSIUM (BEAKER) 4.0 meq/L 3.6-5.5 (test code = 379) CHLORIDE (BEAKER) 105 meq/L 98-106 (test code = 382) CO2 (BEAKER) (test 28 meq/L 24-32 code = 355) BLOOD UREA NITROGEN 10 mg/dL 10-26 (BEAKER) (test code = 354) CREATININE (BEAKER) 0.78 mg/dL 0.50-1.20 (test code = 358) GLUCOSE RANDOM 96 mg/dL 70-110 (BEAKER) (test code = 652) CALCIUM (BEAKER) 9.2 mg/dL 8.5-10.5 (test code = 697) EGFR (BEAKER) (test 115 mL/min/1.73 ESTIM ATED GFR IS code = 1092) sq m NOT ACCURATE CREATININE CLEARANCE IN PREDICTING GLOMERULAR FILTRATION RATE . ESTIMATED GFR I S NOT APPLICABLE FOR DIALYSIS PATIEN TS. Urine [id number] 10:49:00 Test Item Value Reference Range Interpretation Comments Result (test code = 90-99,000 col/mL A If t his patient 6463-4) Beta-hemolytic is , streptococcus group please r efer to B, by serological ACOG guide lines grouping for appropriate screening and management of colonized women. KIMBERLEE (test code = >100,000 col/mL KIMBERLEE) skin jaylan Lab Interpretation Abnormal (test code = 74837-2) [facility] CenterUrine [id number] 10:49:00 Test Item Value Reference Range Interpretation Comments Result (test code = 90-99,000 col/mL A If t his patient 6463-4) Beta-hemolytic is , streptococcus group please r efer to B, by serological ACOG guide lines grouping for appropriate screening and management of colonized women. KIMBERLEE (test code = >100,000 col/mL KIMBERLEE) skin jaylan Lab Interpretation Abnormal (test code = 43105-7) [facility] Center[facility] W/ REFLEX URINE [id number] 15:33:00 Test Item Value Reference Range Interpretation Comments COLOR (BEAKER) (test Dark Yellow code = 470) CLARITY (BEAKER) (test Slightly Hazy code = 469) SPECIFIC GRAVITY UA 1.025 1.001-1.035 (BEAKER) (test code = 468) PH UA (BEAKER) (test 7.0 5.0-8.0 code = 467) PROTEIN UA (BEAKER) Negative Negative (test code = 464) GLUCOSE UA (BEAKER) Negative Negative (test code = 365) KETONES UA (BEAKER) Negative Negative (test code = 371) BILIRUBIN UA (BEAKER) Negative Negative (test code = 462) BLOOD UA (BEAKER) (test Negative Negative code = 461) NITRITE UA (BEAKER) Negative Negative (test code = 465) LEUKOCYTE ESTERASE UA Trace Negative A (BEAKER) (test code = 466) UROBILINOGEN UA 0.2 mg/dL 0.2-1.0 (BEAKER) (test code = 463) BACTERIA (BEAKER) (test Many code = 517) MUCUS (BEAKER) (test Moderate code = 1574) RBC UA-MANUAL (BEAKER) <5 /HPF (test code = 1659) WBC UA-MANUAL (BEAKER) 10-20 /HPF (test code = 1661) SQUAMOUS EPITHELIAL 10-20 /HPF Clue radha ls seen. MANUAL (BEAKER) (test code = 1663) SOURCE(BEAKER) (test code = 2795) SCREEN, [id number] 15:30:00 Test Item Value Reference Range Interpretation Comments TEST URINE (BEAKER) (test Negative code = 583) UA RFLX MICR CULT IF [id number] 19:29:00 Test Item Value Reference Range Interpretation Comments UA COLOR (test code = YELLOW YELLOW COLU) UA APPEARANCE (test code Slightly-Cloudy CLEAR = APPU) UA GLUCOSE DIPSTICK (test NEGATIVE NEG code = DGLUU) UA BILIRUBIN DIPSTICK NEGATIVE NEG (test code = BILU) UA KETONE DIPSTICK (test NEGATIVE NEG code = KETU) UA SPECIFIC GRAVITY (test 1.015 1.001-1.035 N code = SGU) UA BLOOD DIPSTICK (test 3+ NEG A code = RIDGE) UA PH DIPSTICK (test code 6.0 5-9 = CODI) UA PROTEIN DIPSTICK (test 1+ NEG A code = PROU) UA UROBILINIOGEN DIPSTICK NEGATIVE mg/dL NEG (test code = URO) UA NITRITE DIPSTICK (test NEG NEG code = YUSUF) UA LEUKOCYTE ESTERASE 3+ NEG A DIPSTICK (test code = LEUU) UA WBC (test code = WBCU) 16-20 #/hpf NONE SEEN A UA RBC (test code = RBCU) TOO NUMEROUS TO CNT NONE SEEN A #/hpf UA EPITHELIAL CELLS (test RARE #/HPF RARE-FEW code = EPIU) UA BACTERIA (test code = FEW /HPF RARE-FEW BACU) UA MUCUS (test code = 1+ NONE SEEN MUCU) Indication for culture: Dysuria/Frequency- US TRANSVAGINAL [id number] 19:14:00 Patient Name: ZORAN STORM Unit No: [id number] EXAMS: CPT CODE: [id number] US TRANSVAGINAL W/PELVIS 12488 TRANSABDOMINAL AND TRANSVAGINAL OBSTETRICAL PELVIC ULTRASOUND, BILATERAL DUPLEX OVARIAN DOPPLER INDICATION: 7 weeks pelvic pain status post miscarriage. Rule out ovarian torsion. TECHNIQUE: Transabdominal and transvaginal obstetrical pelvic ultrasound was performed with bauer scale and Doppler images. Bilateral duplex ovarian Doppler. COMPARISONS: None. FINDINGS: TRANSABDOMINAL: Theuterus measures 7.7 x 3.8 x 5.5 cm. Endometrial stripe is 0.6 cm thick. The right ovary measures 3 x2.5 x 1.6 cm. There is normal color Doppler blood flow to the right ovary. There is normal low resistance arterial and venous spectral Doppler waveform with peak velocity of 20 cm/s. The left ovary is not visualized due to intervening bowel. Transvaginal pelvic ultrasound was performed in order to better visualize the pelvic structures. TRANSVAGINAL PELVIC ULTRASOUND: There is a small volume of simple free fluid in the pelvic cul-de-sac. The uterus measures 8.3 x 5.2 x 6.3 cm. The endometrial stripeis 1.2 cm thick. There is complex endometrial canal fluid. There is no intrauterine or extrauterine gestational sac identified. The right ovary demonstrates normal follicular changes and measures 3.1 x1.6 x 1.6 cm. There is normal color Doppler blood flow to the right ovary. There is a normal low resistance arterial and venous spectral Doppler waveform with peak velocity of 14 cm/s. The left ovary measures 1.8 x 2.4 x 1.2 cm with normal follicular changes. There is normal color Doppler blood flow to the left ovary. There is a normal low resistance arterial and venous spectral Doppler waveform withpeak systolic velocity of 7 cm/s. BILATERAL DUPLEX OVARIAN DOPPLER: There is normal color Doppler blood flow to the left ovary. There is a normal low resistance arterial and venous spectral Doppler waveform with peak systolic velocity of 7 cm/s. [facility] NAME: ZORAN STORM [facility] ology Department PHYS: Julian Boyd [address] : 2000 AGE: 20 SEX: F [place], [place] [address] LOC: DONY PHONE #: [phone] EXAM DATE: 06/14/2020 STATUS: REG ER FAX #: [phone] RAD NO: Page 1 Signed Report (CONTINUED) Patient Name: ZORAN STORM Unit No: [id number] EXAMS: CPT CODE: [id number] US TRANSVAGINAL W/PELVIS [id number] <Continued> Thereis normal color Doppler blood flow to the right ovary. There is a normal low resistance arterial andvenous spectral Doppler waveform with peak velocity of 14 cm/s. IMPRESSION: 1. There is no intrauterine or extrauterine gestational sac identified. The findings could be secondary to spontaneous expulsion of products, hidden ectopic or very early . Close clinical correlation is recommended. Consider short-term follow-up ultrasound and beta hCG. 2. The endometrial stripe is 1.2 cm thick and there is complex fluid in the endometrial canal. Retained products of conception cannot be excluded. 3. There is normal bilateral ovarian blood flow and no evidence of ovarian torsion. 4.There is a small volume of simple free fluid in the pelvic cul-de-sac. at 1914 Reported and signed by: Jose Alexander DO CC: Julian Velarde MD; Estefani HERNANDEZ [employer] Technologist: Amara Herrmann RDMS, T Probe: [id number] Trnscrbd D/ (1913) [id number] Orig Print D/T: S: 06/14/2020 (1917) [facility] NAME: ZORAN STORM Radiology Department PHYS: [facility] LulúJulian Douglass [address] : 2000AGE: 20 SEX: F [place], [place] [address] LOC: Aixa.ERS PHONE #: [phone] EXAM DATE: 06/14/2020 STATUS: REG ER FAX #: [phone] RAD NO: Page 2 Signed Report Patient Name: ZORAN STORM Unit No: [id number] EXAMS: CPT CODE: [id number] TRANSVAGINAL W/PELVIS 52600 <Continued> [facility] NAME: ZORAN STORM Radiology Department PHYS: SHANTANU Julian Velarde [address] : 2000 AGE: 20 SEX: F [place], [place] [address] LOC: Aixa.ERS PHONE #: [phone] EXAM DATE: 06/14/2020 STATUS: REG ER FAX #: [phone] RAD NO: Page 3 Signed Report- DUP AB/PEL/SC/[id number] 19:14:00 Patient Name: ZORAN STORM Unit No: [id number] EXAMS: CPT CODE: [id number] DUP AB/PEL/SC/LTD 19460 TRANSABDOMINAL AND TRANSVAGINAL OBSTETRICAL PELVIC ULTRASOUND, BILATERAL DUPLEX OVARIAN DOPPLER INDICATION: 7 weeks pelvic pain status post miscarriage. Rule out ovarian torsion. TECHNIQUE:Transabdominal and transvaginal obstetrical pelvic ultrasound was performed with bauer scale and Doppler images. Bilateral duplex ovarian Doppler. COMPARISONS: None. FINDINGS: TRANSABDOMINAL: The uterusmeasures 7.7 x 3.8 x 5.5 cm. Endometrial stripe is 0.6 cm thick. The right ovary measures 3 x 2.5 x 1.6 cm. There is normal color Doppler blood flow to the right ovary. There is normal low resistance arterial and venous spectral Doppler waveform with peak velocity of 20 cm/s. The left ovary is not visualized due to intervening bowel. Transvaginal pelvic ultrasound was performed in order to better visualize the pelvic structures. TRANSVAGINAL PELVIC ULTRASOUND: There is a small volume of simple free fluid in the pelvic cul-de-sac. The uterus measures 8.3 x 5.2 x 6.3 cm. The endometrial stripe is 1.2cm thick. There is complex endometrial canal fluid. There is no intrauterine or extrauterine gestational sac identified. The right ovary demonstrates normal follicular changes and measures 3.1 x 1.6 x 1.6 cm. There is normal color Doppler blood flow to the right ovary. There is a normal low resistancearterial and venous spectral Doppler waveform with peak velocity of 14 cm/s. The left ovary measures 1.8 x 2.4 x 1.2 cm with normal follicular changes. There is normal color Doppler blood flow to the left ovary. There is a normal low resistance arterial and venous spectral Doppler waveform with peak systolic velocity of 7 cm/s. BILATERAL DUPLEX OVARIAN DOPPLER: There is normal color Doppler blood flow to the left ovary. There is a normal low resistance arterial and venous spectral Doppler waveform with peak systolic velocity of 7 cm/s. [facility] NAME: ZORAN STORM Radiology Department PHYS: SHANTANU Julian Corado [address] : 2000 AGE: 20 SEX: F [place], [place] [address] LOC: DONY PHONE #: [phone] EXAM DATE: 06/14/2020 STATUS: REG ER FAX #: [phone] RAD NO: Page 1 Signed Report (CONTINUED) Patient Name: ZORAN STORM Unit No: [id number] EXAMS: CPT CODE: [id number] DUP AB/PEL/SC/LTD 64838 <Continued> There is normal color Doppler blood flow to the right ovary. There is a normal low resistance arterial and venous spectral Doppler waveform with peak velocity of 14 cm/s. IMPRESSION: 1. There is no intrauterine or extrauterine gestational sac identified. The findings could be secondary to spontaneous expulsion of fetalproducts, hidden ectopic or very early . Close clinical correlation is recommended. Consider short-term follow-up ultrasound and beta hCG. 2. The endometrial stripe is 1.2 cm thick and there is complex fluid in the endometrial canal. Retained products of conception cannot be excluded. 3. There is normal bilateral ovarian blood flow and no evidence of ovarian torsion. 4. There is a small volume of simple free fluid in the pelvic cul-de-sac. at 1914 Reported and signed by: Jose Alexander DO CC: Julian Velarde MD;Estefani Faria Technologist: Amara Herrmann RDMS, RVT Probe: Trnscrbd D/ (1913) [email or web address] Orig Print D/T: S: 06/14/2020 (1917) [facility] NAME: ZORAN STORM Radio logy Department PHYS: Julian Boyd [address] : 2000 AGE: 20 SEX: F [place] [address] LOC: .ERS PHONE #: [phone] EXAM DATE: 06/14/2020 STATUS:REG ER FAX #: [phone] RAD NO: Page 2 Signed Report Patient Name: ZORAN STORM Unit No: [id number] EXAMS: CPT CODE: [id number] DUP AB/PEL/SC/LTD 52975 <Continued> [facility] NAME: ZORAN STORM Radiology Department PHYS: Julian Boyd [address] : 2000 AGE: 20 SEX: F [place] [address] LOC: .ERS PHONE #: [phone] EXAM DATE: 06/14/2020 STATUS: REG ER FAX #: [phone] RAD NO: Page 3 Signed Report- US PELVIS [id number] 19:14:00 Patient Name: ZORAN STORM Unit No: [id number] EXAMS: CPT CODE: [id number] US PELVIS COMPLETE 70742 TRANSABDOMINAL AND TRANSVAGINAL OBSTETRICAL PELVIC ULTRASOUND, BILATERAL DUPLEX OVARIAN DOPPLER INDICATION: 7 weeks pelvic pain status post miscarriage. Rule out ovarian torsion. TECHNIQUE: Transabdominal and transvaginal obstetrical pelvic ultrasound was performed with bauer scale and Doppler images. Bilateral duplex ovarian Doppler. COMPARISONS: None. FINDINGS: TRANSABDOMINAL: The uterus measures 7.7 x 3.8 x 5.5 cm. Endometrial stripe is 0.6 cm thick. The right ovary measures 3 x 2.5 x1.6 cm. There is normal color Doppler blood flow to the right ovary. There is normal low resistance arterial and venous spectral Doppler waveform with peak velocity of 20 cm/s. The left ovary is not visualized due to intervening bowel. Transvaginal pelvic ultrasound was performed in order to better visualize the pelvic structures. TRANSVAGINAL PELVIC ULTRASOUND: There is a small volume of simple freefluid in the pelvic cul-de-sac. The uterus measures 8.3 x 5.2 x 6.3 cm. The endometrial stripe is 1.2 cm thick. There is complex endometrial canal fluid. There is no intrauterine or extrauterine gestational sac identified. The right ovary demonstrates normal follicular changes and measures 3.1 x 1.6 x1.6 cm. There is normal color Doppler blood flow to the right ovary. There is a normal low resistance arterial and venous spectral Doppler waveform with peak velocity of 14 cm/s. The left ovary measures 1.8 x 2.4 x 1.2 cm with normal follicular changes. There is normal color Doppler blood flow to the left ovary. There is a normal low resistance arterial and venous spectral Doppler waveform with peak systolic velocity of 7 cm/s. BILATERAL DUPLEX OVARIAN DOPPLER: There is normal color Doppler blood flow to the left ovary. There is a normal low resistance arterial and venous spectral Doppler waveform with peak systolic velocity of 7 cm/s. [facility] NAME: MARTIN STORMCASSIE Lemus RadiologyDepartment PHYS: Julian Boyd [address] : 2000 AGE: 20 SEX: F [place], [place] [address] LOC: DONY PHONE #: [phone] EXAM DATE: 06/14/2020 STATUS: REG ER FAX #: [phone] RAD NO: Page 1 Signed Report (CONTINUED) Patient Name: ZORAN STORM Unit No: [id number] EXAMS: CPT CODE: [id number] US PELVIS COMPLETE 47172 <Continued> There is normal color Doppler blood flow to the right ovary. There is a normal low resistance arterial and venous spectral Doppler waveform with peak velocity of 14 cm/s. IMPRESSION: 1. There is no intrauterine or extrauterine gestational sac identified. The findings could be secondary to spontaneous expulsion of fetalproducts, hidden ectopic or very early . Close clinical correlation is recommended. Consider short- term follow-up ultrasound and beta hCG. 2. The endometrial stripe is 1.2 cm thick and there is complex fluid in the endometrial canal. Retained products of conception cannot be excluded. 3. There is normal bilateral ovarian blood flow and no evidence of ovarian torsion. 4. There is a small volume of simple free fluid in the pelvic cul-de-sac. at 1914 Reported and signed by: Jose Alexander DO CC: Julian Velarde MD;Estefani HERNANDEZ [employer] Technologist: Amara Herrmann RDMS, T Probe: Trnscrbd D/ (1913) [email or web address] Orig Print D/T: S: 06/14/2020 (1917) [facility] NAME: ZORAN STORM Radiology Department PHYS: Julian Boyd [address] : 2000 AGE: 20 SEX: F [place] [address] LOC: DONY PHONE #: [phone] EXAM DATE: 06/14/2020 STATUS: REG ER FAX #: [phone] RAD NO: Page 2 Signed Report Patient Name: ZORAN STORM Unit No: [id number] EXAMS: CPT CODE: [id number] US PELVIS COMPLETE 67322 <Continued> [facility] NAME: ZORAN STORM Radiology Department PHYS: Julian Boyd [address] : 2000 AGE: 20 SEX: F [place] [address] LOC: DONY PHONE #: [phone] EXAM DATE: 06/14/2020 STATUS: ARELI WALLACE FAX #: [phone] RAD NO: Page 3 Signed ReportHCG [id number] 18:29:00 Test Item Value Reference Range Interpretation Comments HCG SERUM (test 1283 INTERPRETATI ON:VALUES BETWEEN code = HCG) 15-20 milliInte rnational units/mL NEED T O BERETESTED WITHIN 48 HOURS . All units for these ranges ar e in milliInternatio nalunits/mL0-1 WK AFTER CONCEP TION 0-50 1-2 WKS AFTER HORTENCIA PTION 40-3002-3 WKS AFTER HORTENCIA PTION 100-1,0003-4 WK S AFTER CONCEPTION 500 -6,0001-2 MONTHS AFTER CO NCEPTION 5,000-200,0002- 3 MONTHS AFTER CONCEPTION 10,0 00-100,0002ND TRIMESTER 3,000 -50,0003RD TRIMESTER 1,000 -50,000 SPECIMENS WITH AN HCG LEVEL FROM 0-6 milliInternatio nalunits/mL SHOULD BE CONSI DERED NEGATIVE COMPREHENSIVE METABOLIC [id number] 18:05:00 Test Item Value Reference Range Interpretation Comments SODIUM (test code = NA) 137 mEq/L 135-145 N POTASSIUM (test code = K) 3.7 mEq/L 3.5-5.0 N CHLORIDE (test code = CL) 105 mEq/L 100-115 N CARBON DIOXIDE (test code = CO2) 25 mEq/L 22-31 N ANION GAP (test code = GAP) 10.80 10-20 N GLUCOSE (test code = GLU) 114 mg/dL 65-110 H BLOOD UREA NITROGEN (test code = 7 mg/dL 7-18 N BUN) GLOMERULAR FILTRATION RATE (test 121 ml/min >60 N code = GFR) CREATININE (test code = CREAT) 0.7 mg/dL 0.5-1.0 N TOTAL PROTEIN (test code = PROT) 6.7 gm/dL 6.3-8.2 N ALBUMIN (test code = ALB) 3.0 gm/dL 3.4-4.8 L CALCIUM (test code = CA) 8.6 mg/dL 8.4-10.2 N BILIRUBIN TOTAL (test code = BILT) 0.2 mg/dL 0.2-1.0 N SGOT/AST (test code = AST) 10 units/L 15-37 L SGPT/ALT (test code = ALT) 16 units/L 12-78 N ALKALINE PHOSPHATASE TOTAL (test 67 units/L 46-116 N code = ALKP) CBC W/AUTO [id number] 17:50:00 Test Item Value Reference Range Interpretation Comments WHITE BLOOD CELL (test code = WBC) 7.4 K/mm3 6.6-12.1 N RED BLOOD CELL (test code = RBC) 4.64 M/mm3 3.45-5.01 N HEMOGLOBIN (test code = HGB) 11.9 g/dL 10.7-13.9 N HEMATOCRIT (test code = HCT) 36.5 % 32.1-42.1 N MEAN CELL VOLUME (test code = MCV) 79 fL 84.1-94.8 L MEAN CELL HGB (test code = MCH) 25.6 pg 27-35 L MEAN CELL HGB CONCETRATION (test 32.6 gm/dL 32.2-34.1 N code = MCHC) RED CELL DISTRIBUTION WIDTH (test 14.6 % 12.4-16.5 N code = RDW) PLATELET COUNT (test code = PLT) 279 K/mm3 133-385 N MEAN PLATELET VOLUME (test code = 10.6 fl 9.1-12.7 N MPV) NEUTROPHIL % (test code = NT%) 66.9 % 56.5-79.4 N LYMPHOCYTE % (test code = LY%) 23.5 % 14.3-34.3 N MONOCYTE % (test code = MO%) 7.2 % 5.1-10.4 N EOSINOPHIL % (test code = EO%) 1.9 % 0.1-3.0 N BASOPHIL % (test code = BA%) 0.4 % 0.1-1.0 N NEUTROPHIL # (test code = NT#) 4.9 K/mm3 LYMPHOCYTE # (test code = LY#) 1.7 K/mm3 MONOCYTE # (test code = MO#) 0.5 K/mm3 EOSINOPHIL # (test code = EO#) 0.14 K/mm3 BASOPHIL # (test code = BA#) 0.0 K/mm3 RBC MORPHOLOGY REQUIRED (test code NORMAL NORMAL = RBCM) PLATELET MORPHOLOGY REQUIRED (test NORMAL NORMAL code = PLTMR) - US TRANSVAGINAL [id number] 17:02:00 [facility] 2000 Sex: F Patient Name: ZORAN STORM Unit No: [id number] EXAMS: CPT CODE: [id number] US TRANSVAGINAL W/PELVIS 38552 TRANSVAGINAL PELVIC ULTRASOUND 06/12/2020 AT 1610 HOURS. CLINICAL HISTORY: Pelvic pain and bleeding for 3 days. Reported serum beta ACG level of 30-32. REPORTED LMP: 04/25/2020. COMPARISON STUDIES:Reported outside ultrasound [address] [facility] showing a pole with no visible cardiac activity. Comparison images are not available for review at the time of dictation. FINDINGS: Sonographic evaluation of the uterus and adnexa was performed using a transabdominal and transvaginal approach. Images were obtained using grayscale as well as limited color and pulsed Doppler. TRANSABDOMINAL SCAN: The uterus isneutral to mildly retroverted with limited detail assessment on transabdominal scanning. This required transvaginal examination. The bladder is unremarkable. Detailed measurements as described in the transvaginal scan. TRANSVAGINAL SCAN: The uterus measures approximately 8.8 x 4.7 x 5.7 cm with an endometrial stripe thickness of approximately 17 mm. Heterogeneous echogenicity endometrial stripe is identified without visible intra or extra uterine gestational sac. No endometrial fluid. No gross focalmyometrial lesions. The right ovary measures approximately 2.3 x 1.6 x 2.1 cm and the left ovary 3.2x 1.9 x 2.9 cm. An approximately 1.8 cm left ovarian corpus luteum is noted. Normal low resistance blood flow is seen to both ovaries. No adnexal masses. Low-volume anechoic free pelvic fluid. IMPRESSION: 1. Thickened, mildly heterogeneous endometrial stripe without visible intra or extra uterine gestation at this moment. Recommend continued follow-up of the beta hCG levels. 2. No adnexal masses. 3. Normal size ovaries with normal low resistance blood flow and left ovarian corpus luteum. 4. Low-volume free pelvic fluid, reactive or physiologic. SL: ER-H at 1702 Reported and signed by: Nasir Virk MD CC: Sharmaine Ha MD; Estefani HERNANDEZ [employer] Technologist: Sobia Arambula RDMS Probe: [id number] Trnscrbd D/ (1702) [email or web address] Orig Print D/T: S: 06/12/2020 (1705) [facility] NAME: RITESHZORAN Junaid Radiology Department PHYS: Sharmaine Wallace MD [address] : 2000 AGE: 20 SEX: F [place] [address] LOC: Aixa.ERS PHONE #: [phone] EXAM DATE: 06/12/2020STATUS: DEP ER FAX #: [phone] RAD NO: Page 1 Signed Report Patient Name: ZORAN STORM UnitNo: [id number] EXAMS: CPT CODE: [id number] US TRANSVAGINAL W/PELVIS 05327 <Continued> [facility] NAME: ZORAN STORM Radiology Department PHYS: Sharmaine Wallace MD [address] : 2000 AGE: 20 SEX: F [place] [address] LOC: MarcyERS PHONE #: [phone] EXAM DATE: 06/12/2020 STATUS: DEP ER FAX #: [phone] RAD NO: Page 2 Signed Report- US TRANSVAGINAL W/PELVIS 2020-06-12 17:02:00 Patient Name: KARINA STORM Unit No: [id number] EXAMS: CPT CODE: [id number] US TRANSVAGINAL W/PELVIS 10529 TRANSVAGINAL PELVIC ULTRASOUND 06/12/2020 AT 1610 HOURS. CLINICAL HISTORY: Pelvic pain and bleeding for 3 days. Reported serum beta ACG level of 30-32. REPORTED LMP: 04/25/2020. COMPARISON STUDIES: Reported outside ultrasound [address] [facility] showing a pole with no visible cardiac activity. Comparison images are not available for review at the time of dictation. FINDINGS: Sonographic evaluation ofthe uterus and adnexa was performed using a transabdominal and transvaginal approach. Images were obtained using grayscale as well as limited color and pulsed Doppler. TRANSABDOMINAL SCAN: The uterus is neutral to mildly retroverted with limited detail assessment on transabdominal scanning. This required transvaginal examination. The bladder is unremarkable. Detailed measurements as described in the transvaginal scan. TRANSVAGINAL SCAN: The uterus measures approximately 8.8 x 4.7 x 5.7 cm with an endometrial stripe thickness of approximately 17 mm. Heterogeneous echogenicity endometrial stripe is identified without visible intra or extra uterine gestational sac. No endometrial fluid. No gross focal myometrial lesions. The right ovary measures approximately 2.3 x 1.6 x 2.1 cm and the left ovary 3.2 x 1.9 x 2.9 cm. An approximately 1.8 cm left ovarian corpus luteum is noted. Normal low resistance blood flow is seen to both ovaries. No adnexal masses. Low-volume anechoic free pelvic fluid. IMPRESSION: 1. Thickened, mildly heterogeneous endometrial stripe without visible intra or extra uterine ges tation at this moment. Recommend continued follow-up of the beta hCG levels. 2. No adnexal masses. 3. Normal size ovaries with normal low resistance blood flow and left ovarian corpus luteum. 4. Low-volume free pelvic fluid, reactive or physiologic. SL: ER-H at 1702 Reported and signed by: Nasir Virk MD CC: Sharmaine Ha MD; Estefani HERNANDEZ [employer] Technologist: Sobia Arambula RDMS Probe: [id number] Trnscrbd D/ (1702) [email or web address] Orig Print D/T: S: 06/12/2020 (1705) [facility] NAME: KARINA STORM Radiology Department PHYS: Sharmaine Wallace MD [address] : 2000 AGE: 20 SEX: F [place], [place] [address] LOC: F.ERS PHONE #: [phone] EXAM DATE: 06/12/2020 STATUS: REG ER FAX #: [phone] RAD NO: Page 1 Signed Report Patient Name: KARINA STORM Unit No: [id number] EXAMS: CPT CODE: [id number] US TRANSVAGINAL W/PELVIS 10555 (Continued) [facility] NAME: MARTIN STORMIECE Radiology Department PHYS: Sharmaine Wallace MD [address]: 2000 AGE: 20 SEX: F [place] [address] LOC: F.ERS PHONE #: [phone] EXAM DATE: 06/12/2020 STATUS: REG ER FAX #: [phone] RAD NO: Page 2 Signed Report- DUP AB/PEL/SC/[id number] 17:02:00[facility] [place] [facility] : 2000 Sex: F Patient Name: ZORAN STORM Unit No: [id number] EXAMS: CPT CODE: [id number] DUP AB/PEL/SC/LTD [id number] PELVIC ULTRASOUND 06/12/2020 AT 1610 HOURS. CLINICAL HISTORY: Pelvic pain and bleeding for 3 days. Reported serum beta ACG level of 30-32. REPORTED LMP: 04/25/2020. COMPARISON STUDIES: Reported outside ultrasound [facility] showing a pole with no visible cardiac activity. Comparison images are not available for review at the time of dictation. FINDINGS: Sonographic evaluation of the uterus and adnexa was performed using a transabdominal and transvaginal approach. Images were obtained using grayscale as well as limited color and pulsed Doppler. TRANSABDOMINAL SCAN: The uterus is neutral to mildly retroverted with limited detail assessment on transabdominal scanning. This required transvaginal examination. The bladder is unremarkable. Detailed measurements as described in the transvaginal scan. TRANSVAGINAL SCAN: The uterus measures approximately 8.8 x 4.7 x 5.7 cm with an endometrial stripe thickness of approximately 17 mm. Heterogeneous echogenicity endometrial stripe is identified without visible intra or extra uterine gestational sac. No endometrial fluid. No gross focal myometrial lesions. The right ovary measures approximately 2.3 x 1.6 x 2.1 cm and the left ovary 3.2 x 1.9 x 2.9 cm. An approximately 1.8 cm left ovarian corpus luteum is noted. Normal low resistance blood flow is seen to both ovaries. No adnexal masses. Low-volume anechoic free pelvic fluid. IMPRESSION: 1. Thickened, mildly heterogeneous endometrial stripe without visible intra or extra uterine gestation at this moment. Recommend continued follow-up of the beta hCG levels. 2. No adnexal masses. 3. Normalsize ovaries with normal low resistance blood flow and left ovarian corpus luteum. 4. Low-volume free pelvic fluid, reactive or physiologic. SL: ER-H at 1702 Reported and signed by: Nasir Virk MD CC: Sharmaine Ha MD;Estefani Faria Technologist: Sobia Arambula RDMS Probe: Trnscrbd D/ (1702) [email or web address] Orig Print D/T: S: 06/12/2020 (1705) [facility] NAME: ZORAN STORM RadiologyDepartment PHYS: Sharmaine Wallace MD [address] : 2000 AGE: 20 SEX: F [place] [address] LOC: MarcyERS PHONE #: [phone] EXAM DATE: 06/12/2020 STATUS: DEP ERFAX #: [phone] RAD NO: Page 1 Signed Report Patient Name: ZORAN STORM Unit No: [id number]: CPT CODE: [id number] DUP AB/PEL/SC/LTD 50661 <Continued> [facility] NAME: ZORAN STORM Radiology Department PHYS: Sharmaine Wallace MD [address] : [birth year] AGE: 20 SEX: F [place], [place] [address] LOC: MarcyERS PHONE #: [phone] EXAM DATE: 06/12/2020 STATUS: DEP ER FAX #: [phone] RAD NO: Page 2 Signed Report- DUP AB/PEL/SC/[id number] 17:02:00 Patient Name: KARINA STORM Unit No: [id number] EXAMS: CPT CODE: [id number] DUP AB/PEL/SC/LTD [id number] PELVIC ULTRASOUND 06/12/2020 AT 1610 HOURS. CLINICAL HISTORY: Pelvic pain and bleeding for 3 days. Reported serum beta ACG level of 30-32. REPORTED LMP: 04/25/2020. COMPARISON STUDIES: Reported outside ultrasound [facility] showing a pole with no visible cardiac activity. Comparison images are not available for review at the time of dictation. FINDINGS: Sonographic evaluation of the uterus and adnexa was performed using a transabdominal and transvaginal approach. Images were obtained using grayscale as well as limited color and pulsed Doppler. TRANSABDOMINAL SCAN: The uterus is neutral to mildly retroverted with limited detail assessment on transabdominal scanning. This required schwartz svaginal examination. The bladder is unremarkable. Detailed measurements as described in the transvaginal scan. TRANSVAGINAL SCAN: The uterus measures approximately 8.8 x 4.7 x 5.7 cm with an endometrial stripe thickness of approximately 17 mm. Heterogeneous echogenicity endometrial stripe is identified without visible intra or extra uterine gestational sac. No endometrial fluid. No gross focal myometrial lesions. The right ovary measures approximately 2.3 x 1.6 x 2.1 cm and the left ovary 3.2 x 1.9x 2.9 cm. An approximately 1.8 cm left ovarian corpus luteum is noted. Normal low resistance blood flow is seen to both ovaries. No adnexal masses. Low-volume anechoic free pelvic fluid. IMPRESSION: 1.Thickened, mildly heterogeneous endometrial stripe without visible intra or extra uterine gestation at this moment. Recommend continued follow-up of the beta hCG levels. 2. No adnexal masses. 3. Normalsize ovaries with normal low resistance blood flow and left ovarian corpus luteum. 4. Low-volume free pelvic fluid, reactive or physiologic. SL: ER-H at 1702 Reported and signed by: Nasir Virk MD CC: Sharmaine Ha MD;Estefani Faria Technologist: Sobia Arambula RDMS Probe: Trnscrbd D/ (1702) [email or web address] Orig Print D/T: S: 06/12/2020 (1705) [facility] NAME: KARINA STORM Radiology Department PHYS: Sharmaine Wallace MD [address] : 2000 AGE: 20 SEX: F [place], [place] [address] LOC: DONY PHONE #: [phone] EXAM DATE: 06/12/2020 STATUS: REG ER FAX #: [phone] RAD NO: Page 1 Signed Report Patient Name: KARINA STORM Unit No: [id number] EXAMS: CPT CODE: [id number] DUP AB/PEL/SC/LTD 42323 (Continued) [facility] NAME: KARINA STORM Radiology Department PHYS: Sharmaine Wallace MD [address] : 2000 AGE: 20 SEX: F [place], [place] [address] LOC: DONY PHONE #: [phone] EXAM DATE: 06/12/20 20 STATUS: REG ER FAX #: [phone] RAD NO: Page 2 Signed Report- US PELVIS [id number] 17:02:00 [facility] 2000 Sex: F Patient Name: ZORAN STORM Unit No: [id number] EXAMS: CPT CODE: [id number] US PELVIS COMPLETE [id number] PELVIC ULTRASOUND 06/12/2020 AT 1610 HOURS. CLINICAL HISTORY: Pelvic pain and bleeding for 3 days. Reported serum beta ACG level of 30-32. REPORTED LMP: 04/25/2020. COMPARISON STUDIES: Reported outside ultrasound [facility] showing a pole with no visible cardiac activity. Comparison images are not available for review at the time of dictation. FINDINGS: Sonographic evaluation of the uterus and adnexa was performed using a transabdominal and transvaginal approach. Images were obtained using grayscale as well as limited color and pulsed Doppler. TRANSABDOMINAL SCAN: The uterus is neutral to mildly retroverted with limited detail assessment on transabdominal scanning. This required transvaginal examination. The bladder is unremarkable. Detailed measurements as described in the transvaginal scan. TRANSVAGINAL SCAN: The uterus measures approximately 8.8 x 4.7 x 5.7 cm with an endometrial stripe thickness of approximately 17 mm. Heterogeneous echogenicity endometrial stripe is identified without visible intra or extra uterine gestational sac. No endometrial fluid. No gross focal myometrial lesions. The right ovary measures approximately 2.3 x 1.6 x 2.1 cm and the left ovary 3.2 x 1.9 x 2.9 cm. An approximately 1.8 cm left ovarian corpus luteum is noted. Normal low resistance blood flow is seen to both ovaries. No adnexal masses. Low-volume anechoic free pelvic fluid. IMPRESSION: 1. Thickened, mildly heterogeneous endometrial stripe without visible intra or extra uterine gestation at this moment. Recommend continued follow-up of the beta hCG levels. 2. No adnexal masses. 3. Normal size ovaries with normal low resistance blood flow and left ovarian corpus luteum. 4. Low-volume freepelvic fluid, reactive or physiologic. SL: ER-H Electronically Signed by Nasir Virk MDon 06/12/2020 at 1702 Reported and signed by: Nasir Virk MD CC: Sharmaine Ha MD; Estefani Faria; Ryan Ortiz MD Technologist: Sobia rAambula RDMS Probe: Trnscrbd D/ (170) t.SDR.ERR2 Orig Print D/T: S: 06/12/2020 (1705) [facility] NAME: ZORAN STORM Radiology Department PHYS: Ryan Perez MD [address] : 2000 AGE: 20 SEX: F [place] [address] LOC: [facility]a.ERS PHONE #: [phone] EXAM DATE: 06/12/2020 STATUS: [facility] ER FAX #: [phone] RAD NO: Page 1 Signed Report Patient Name: ZORAN STORM No: [id number] EXAMS: CPT CODE: [id number] US PELVIS COMPLETE 81763 <Continued> [facility] NAME: ZORAN STORM Radiology Department PHYS: Ryan Perez MD [address] : 2000 AGE: 20 SEX: F [place] [address] LOC: .ERS PHONE #: [phone] EXAM DATE: 06/12/2020 STATUS: [facility] ER FAX #: [phone] RAD NO: Page 2 Signed Report- US PELVIS [id number] 17:02:00 Patient Name: KARINA STORM Unit No: [id number] EXAMS: CPT CODE: [id number] US PELVIS COMPLETE 71793 TRANSVAGINAL PELVIC ULTRASOUND 06/12/2020 AT 1610 HOURS. CLINICAL HISTORY: Pelvic pain and bleedingfor 3 days. Reported serum beta ACG level of 30-32. REPORTED LMP: 04/25/2020. COMPARISON STUDIES: Reported outside ultrasound [facility] showing a pole with no visible cardiac activity. Comparison images are not available for review at the time of dictation. FINDINGS: Sonographic evaluation of the uterus and adnexa was performed using a transabdominal and transvaginal approach. Images were obtainedusing grayscale as well as limited color and pulsed Doppler. TRANSABDOMINAL SCAN: The uterus is neutral to mildly retroverted with limited detail assessment on transabdominal scanning. This required transvaginal examination. The bladder is unremarkable. Detailed measurements as described in the transvaginal scan. TRANSVAGINAL SCAN: The uterus measures approximately 8.8 x 4.7 x 5.7 cm with an endometrial stripe thickness of approximately 17 mm. Heterogeneous echogenicity endometrial stripe is identified without visible intra or extra uterine gestational sac. No endometrial fluid. No gross focal myometrial lesions. The right ovary measures approximately 2.3 x 1.6 x 2.1 cm and the left ovary 3.2 x 1.9 x 2.9 cm. An approximately 1.8 cm left ovarian corpus luteum is noted. Normal low resistance blood flow is seen to both ovaries. No adnexal masses. Low-volume anechoic free pelvic fluid. IMPRESSION: 1. Thickened, mildly heterogeneous endometrial stripe without visible intra or extra uterine gestationat this moment. Recommend continued follow-up of the beta hCG levels. 2. No adnexal masses. 3. Normal size ovaries with normal low resistance blood flow and left ovarian corpus luteum. 4. Low-volume free pelvic fluid, reactive or physiologic. SL: ER-H at 1702 Reported and signed by: Nasir Virk MD CC: Sharmaine Ha MD; Estefani Faria; Ryan Ortiz MD Technologist: Sobia Arambula RDMS Probe: Trnscrbd D/ (1702) [email or web address].[email or web address] Orig Print D/T: S: 06/12/2020 (1705) [facility] NAME: KARINA STORM Radiology Department PHYS: Ryan Perez MD [address] : 2000 AGE: 20 SEX: F [place] [address] LOC: MarcyERS PHONE #: [phone] EXAM DATE: 06/12/2020 STATUS: REG ER FAX #: [phone] RAD NO: Page 1 Signed Report Patient Name: KARINA STORM UnitNo: [id number] EXAMS: CPT CODE: [id number] US PELVIS COMPLETE 95236 (Continued) [facility] NAME: KARINA STORM Radiology Department PHYS: Ryan Perez MD [address] : 2000 AGE: 20 SEX: F [place] [address] LOC: MarcyERS PHONE #: [phone] EXAM DATE: 06/12/2020 STATUS: REG ER FAX #: [phone] RAD NO: Page 2 Signed ReportHCG [id number] 16:04:00 Test Item Value Reference Range Interpretation Comments HCG SERUM (test 3232 INTERPRETATI ON:VALUES BETWEEN code = HCG) 15-20 milliInte rnational units/mL NEED T O BERETESTED WITHIN 48 HOURS . All units for these ranges ar e in milliInternatio nalunits/mL0-1 WK AFTER CONCEP TION 0-50 1-2 WKS AFTER HORTENCIA PTION 40-3002-3 WKS AFTER HORTENCIA PTION 100-1,0003-4 WK S AFTER CONCEPTION 500- 6,0001-2 MONTHS AFTER CONCEPTIO N 5,000-200,0002- 3 MONTHS AFTER CONCEPTION 10,0 00-100,0002ND TRIMESTER 3,000 -50,0003RD TRIMESTER 1,000 -50,000 SPECIMENS WITH AN HCG LEVEL FROM 0-6 milliInternatio nalunits/mL SHOULD BE CONSI DERED NEGATIVE CHEMISTRY 7 [id number] 15:40:00 Test Item Value Reference Range Interpretation Comments SODIUM (test code = NA) 139 mEq/L 135-145 N POTASSIUM (test code = K) 3.5 mEq/L 3.5-5.0 N CHLORIDE (test code = CL) 105 mEq/L 100-115 N CARBON DIOXIDE (test code = CO2) 24 mEq/L 22-31 N ANION GAP (test code = GAP) 13.20 10-20 N GLUCOSE (test code = GLU) 118 mg/dL 65-110 H BLOOD UREA NITROGEN (test code = 8 mg/dL 7-18 N BUN) GLOMERULAR FILTRATION RATE (test 121 ml/min >60 N code = GFR) CREATININE (test code = CREAT) 0.7 mg/dL 0.5-1.0 N CALCIUM (test code = CA) 8.6 mg/dL 8.4-10.2 N CBC W/AUTO [id number] 15:19:00 Test Item Value Reference Range Interpretation Comments WHITE BLOOD CELL (test code = WBC) 5.2 K/mm3 6.6-12.1 L RED BLOOD CELL (test code = RBC) 4.49 M/mm3 3.45-5.01 N HEMOGLOBIN (test code = HGB) 11.7 g/dL 10.7-13.9 N HEMATOCRIT (test code = HCT) 35.8 % 32.1-42.1 N MEAN CELL VOLUME (test code = MCV) 80 fL 84.1-94.8 L MEAN CELL HGB (test code = MCH) 26.1 pg 27-35 L MEAN CELL HGB CONCETRATION (test 32.7 gm/dL 32.2-34.1 N code = MCHC) RED CELL DISTRIBUTION WIDTH (test 14.6 % 12.4-16.5 N code = RDW) PLATELET COUNT (test code = PLT) 245 K/mm3 133-385 N MEAN PLATELET VOLUME (test code = 10.7 fl 9.1-12.7 N MPV) NEUTROPHIL % (test code = NT%) 57.1 % 56.5-79.4 N LYMPHOCYTE % (test code = LY%) 30.8 % 14.3-34.3 N MONOCYTE % (test code = MO%) 9.0 % 5.1-10.4 N EOSINOPHIL % (test code = EO%) 2.3 % 0.1-3.0 N BASOPHIL % (test code = BA%) 0.6 % 0.1-1.0 N NEUTROPHIL # (test code = NT#) 3.0 K/mm3 LYMPHOCYTE # (test code = LY#) 1.6 K/mm3 MONOCYTE # (test code = MO#) 0.5 K/mm3 EOSINOPHIL # (test code = EO#) 0.12 K/mm3 BASOPHIL # (test code = BA#) 0.0 K/mm3 RBC MORPHOLOGY REQUIRED (test code NORMAL NORMAL = RBCM) PLATELET MORPHOLOGY REQUIRED (test NORMAL NORMAL code = PLTMR) UA RFLX MICR CULT IF [id number] 15:13:00 Test Item Value Reference Range Interpretation Comments UA COLOR (test code = YELLOW YELLOW COLU) UA APPEARANCE (test code Slightly-Cloudy CLEAR = APPU) UA GLUCOSE DIPSTICK (test NEGATIVE NEG code = DGLUU) UA BILIRUBIN DIPSTICK NEGATIVE NEG (test code = BILU) UA KETONE DIPSTICK (test NEGATIVE NEG code = KETU) UA SPECIFIC GRAVITY (test 1.015 1.001-1.035 N code = SGU) UA BLOOD DIPSTICK (test 3+ NEG A code = RIDGE) UA PH DIPSTICK (test code 6.0 5-9 = CODI) UA PROTEIN DIPSTICK (test 1+ NEG A code = PROU) UA UROBILINIOGEN DIPSTICK NEGATIVE mg/dL NEG (test code = URO) UA NITRITE DIPSTICK (test NEG NEG code = YUSUF) UA LEUKOCYTE ESTERASE 1+ NEG A DIPSTICK (test code = LEUU) UA WBC (test code = WBCU) 11-15 #/hpf NONE SEEN A UA RBC (test code = RBCU) TOO NUMEROUS TO CNT NONE SEEN A #/hpf UA EPITHELIAL CELLS (test MODERATE #/HPF RARE-FEW A code = EPIU) UA BACTERIA (test code = FEW /HPF RARE-FEW BACU) UA MUCUS (test code = 2+ NONE SEEN MUCU) Indication for culture: Suprapubic PainUR HCG [id number] 15:13:00 Test Item Value Reference Range Interpretation Comments UR HCG QUAL (test code = HCGQLU) POSITIVE Indication for culture: Suprapubic PainUA RFLX MICR CULT IF [id number] 15:05:00 Test Item Value Reference Range Interpretation Comments UA COLOR (test code = COLU) YELLOW UA APPEARANCE (test code = APPU) CLEAR UA GLUCOSE DIPSTICK (test code = NEGATIVE DGLUU) UA BILIRUBIN DIPSTICK (test code = NEGATIVE BILU) UA KETONE DIPSTICK (test code = KETU) NEGATIVE UA SPECIFIC GRAVITY (test code = SGU) 1.001-1.035 UA BLOOD DIPSTICK (test code = RIDGE) NEGATIVE UA PH DIPSTICK (test code = CODI) 5-9 UA PROTEIN DIPSTICK (test code = PROU) NEGATIVE UA UROBILINIOGEN DIPSTICK (test code = mg/dL NEG URO) UA NITRITE DIPSTICK (test code = YUSFU) NEGATIVE UA LEUKOCYTE ESTERASE DIPSTICK (test NEG code = LEUU) UA WBC (test code = WBCU) #/hpf NONE SEEN UA EPITHELIAL CELLS (test code = EPIU) #/HPF RARE-FEW Indication for culture: Suprapubic PainUR HCG [id number] 15:05:00 Test Item Value Reference Range Interpretation Comments UR HCG QUAL (test code = HCGQLU) POSITIVE Indication for culture: Suprapubic PainU/S, , FIRST [id number] 13:56:00Reason for exam:->VAGINAL BLEEDINGonset last night Reason for exam:- > PROBLEMAddendum BeginsREPORT STATUS:A Addendum: A intrauterine sac is is present. Signed: Faheem Mercer MDReport Verified Date/Time: 06/09/2020 13:56:39 Reading Location: [facility] B1 C013Y CT Body Reading RoomAddendum EndsFINAL REPORT OB ultrasound dated 06/09/2020 Comparison: None LMP January 31, 2020. EGA by LMP is 6 weeks 3 days Comment: Real time transpelvic and endovaginalultrasound were performed. The uterus measures 7.3 x 5 x 5.3 cm. The right ovary measures 2.4 x 1.6 x 1.6 cm.The left ovary measures 3.4 x 2.3 x 2.2 cm. A 2.3 x 1.8 x 2 cm corpus luteal cyst is seen inthe left ovary.Doppler demonstrates normal arterial and venous flow in both ovaries. A living intrauterine is present. The mean sac diameter is: 10 mm correlate to 5 wks 5 days.No pole is identified. Impression: Presence of a gestational sac without pole suggestive of incomplete AB. Signed: Faheem Mercer Verified Date/Time: 06/09/2020 13:08:28 Reading Location: [address] Body Reading Room U/S, DUPLEX, DOPPLER 2020-06-09 13:56:00Reason for exam:->VAGINAL BLEEDINGonset last night Reason for exam:-> PROBLEMAddendum BeginsREPORT STATUS:A Addendum: A intrauterine sac is is present. Signed: Faheem Mercer Verified Date/Time: 06/09/2020 13:56:39 Reading Location: [facility] C0[facility] Body Reading RoomAddendum EndsFINAL REPORT OB ultrasound dated 06/09/2020 Comparison: None LMP January 31, 2020. EGA by LMP is 6 weeks 3 days Comment: Real time transpelvic and endovaginalultrasound were performed. The uterus measures 7.3 x 5 x 5.3 cm. The right ovary measures 2.4 x 1.6 x 1.6 cm.The left ovary measures 3.4 x 2.3 x 2.2 cm. A 2.3 x 1.8 x 2 cm corpus luteal cyst is seen inthe left ovary.Doppler demonstrates normal arterial and venous flow in both ovaries. A living intrauterine is present. The mean sac diameter is: 10 mm correlate to 5 wks 5 days.No pole is identified. Impression: Presence of a gestational sac without pole suggestive of incomplete AB. Signed: Faheem Mercer Verified Date/Time: 06/09/2020 13:08:28 Reading Location: [facility] C013Y CT Body Reading Room U/S, ENDOVAGINAL (EV) 2020-06-09 13:56:00Reason for exam:->VAGINAL BLEEDINGonset last night Reason for exam:-> PROBLEMAddendum BeginsREPORT STATUS:A Addendum: A intrauterine sac is is present. Signed: Faheem Mercer MDReport Verified Date/Time: 06/09/2020 13:56:39 Reading Location: [address] Body Reading RoomAddendum EndsFINAL REPORT OB ultrasound dated 06/09/2020 Comparison: None LMP January 31, 2020. EGA by LMP is 6 weeks 3 days Comment: Real time transpelvic and endovaginalultrasound were performed. The uterus measures 7.3 x 5 x 5.3 cm. The right ovary measures 2.4 x 1.6 x 1.6 cm.The left ovary measures 3.4 x 2.3 x 2.2 cm. A 2.3 x 1.8 x 2 cm corpus luteal cyst is seen inthe left ovary.Doppler demonstrates normal arterial and venous flow in both ovaries. A living intrauterine is present. The mean sac diameter is: 10 mm correlate to 5 wks 5 days.No pole is identified. Impression: Presence of a gestational sac without pole suggestive of incomplete AB. Signed: Faheem Mercer MDReport Verified Date/Time: 06/09/2020 13:08:28 Reading Location: [address] Body Reading Room Type and screen, automated (BSC and CECs only)2020-06-09 13:50:00 Test Item Value Reference Range Interpretation Comments ABO/RH AUTOMATED (BEAKER) (test B POSITIVE code = 2260) Ab Scrn (test code = 890-4) NEGATIVE [facility], [id number] 13:33:00 Test Item Value Reference Range Interpretation Comments GONADOTROPIN, CHORIONIC (HCG) 14370 mIU/mL 0-10 H QUANT (BEAKER) (test code = 649) Non- Females: <10 mIU/mL Females: Gestation Age Reference Range(mIU/mL) 0.2-1 Week 5-50 1-2 Weeks 50-500 2-3 Weeks 100-5,000 3-4 Weeks 500-10,000 4-5 Weeks 1,000-50,000 5-6 Weeks 10,000-100,000 6-8 Weeks 15,000- 200,000 2-3 Months 10,000-100,000 [employer] FAROOQ TEE LCBC W/PLT COUNT & AUTO [id number] 13:11:00 Test Item Value Reference Range Interpretation Comments WHITE BLOOD CELL COUNT (BEAKER) 4.7 K/ L 4.0-10.0 (test code = 775) RED BLOOD CELL COUNT (BEAKER) 4.84 M/ L 4.00-5.00 (test code = 761) HEMOGLOBIN (BEAKER) (test code = 12.5 GM/DL 12.0-15.0 410) HEMATOCRIT (BEAKER) (test code = 37.8 % 36.0-45.0 411) MEAN CORPUSCULAR VOLUME (BEAKER) 78.1 fL 82.0-99.0 L (test code = 753) MEAN CORPUSCULAR HEMOGLOBIN 25.7 pg 27.0-33.0 L (BEAKER) (test code = 751) MEAN CORPUSCULAR HEMOGLOBIN CONC 32.9 GM/DL 32.0-36.0 (BEAKER) (test code = 752) RED CELL DISTRIBUTION WIDTH 13.7 % 10.3-14.2 (BEAKER) (test code = 412) PLATELET COUNT (BEAKER) (test 229 K/CU MM 150-430 code = 756) MEAN PLATELET VOLUME (BEAKER) 8.8 fL 6.5-10.5 (test code = 754) NEUTROPHILS RELATIVE PERCENT 63 % (BEAKER) (test code = 429) LYMPHOCYTES RELATIVE PERCENT 30 % (BEAKER) (test code = 430) MONOCYTES RELATIVE PERCENT 5 % (BEAKER) (test code = 431) EOSINOPHILS RELATIVE PERCENT 2 % (BEAKER) (test code = 432) BASOPHILS RELATIVE PERCENT 0 % (BEAKER) (test code = 437) NEUTROPHILS ABSOLUTE COUNT 2.96 K/ L 1.80-8.00 (BEAKER) (test code = 670) LYMPHOCYTES ABSOLUTE COUNT 1.42 K/ L 1.48-4.50 L (BEAKER) (test code = 414) MONOCYTES ABSOLUTE COUNT (BEAKER) 0.23 K/ L 0.00-1.30 (test code = 415) EOSINOPHILS ABSOLUTE COUNT 0.10 K/ L 0.00-0.50 (BEAKER) (test code = 416) BASOPHILS ABSOLUTE COUNT (BEAKER) 0.01 K/ L 0.00-0.20 (test code = 417) COMPREHENSIVE METABOLIC [id number] 12:50:00 Test Item Value Reference Range Interpretation Comments TOTAL PROTEIN 6.8 gm/dL 6.0-8.5 (BEAKER) (test code = 770) ALBUMIN (BEAKER) 3.6 g/dL 3.5-5.0 (test code = 1145) ALKALINE PHOSPHATASE 62 U/L 30-115 (BEAKER) (test code = 346) BILIRUBIN TOTAL 0.3 mg/dL 0.1-1.2 (BEAKER) (test code = 377) SODIUM (BEAKER) (test 134 meq/L 135-148 L code = 381) POTASSIUM (BEAKER) 3.4 meq/L 3.6-5.5 L (test code = 379) CHLORIDE (BEAKER) 103 meq/L 98-106 (test code = 382) CO2 (BEAKER) (test 22 meq/L 24-32 L code = 355) BLOOD UREA NITROGEN 7 mg/dL 10-26 L (BEAKER) (test code = 354) CREATININE (BEAKER) 0.59 mg/dL 0.50-1.20 (test code = 358) GLUCOSE RANDOM 134 mg/dL 70-110 H (BEAKER) (test code = 652) CALCIUM (BEAKER) 9.4 mg/dL 8.5-10.5 (test code = 697) AST (SGOT) (BEAKER) 19 U/L 5-40 (test code = 353) ALT (SGPT) (BEAKER) 10 U/L 5-50 (test code = 347) EGFR (BEAKER) (test 159 ESTIMATE D GFR IS code = 1092) mL/min/1.73 sq NOT ACCURA TE m CREATININE CLEARANCE IN PREDICTING GLOMERULAR FILTRATION RATE . ESTIMATED GFR I S NOT APPLICABLE FOR DIALYSIS PATIEN TS. URINALYSIS W/ [id number] 12:35:00 Test Item Value Reference Range Interpretation Comments COLOR (BEAKER) (test code = 470) Red CLARITY (BEAKER) (test code = 469) Cloudy SPECIFIC GRAVITY UA (BEAKER) (test 1.032 1.001-1.035 code = 468) PH UA (BEAKER) (test code = 467) 5.5 5.0-8.0 PROTEIN UA (BEAKER) (test code = 100 mg/dL Negative A 464) GLUCOSE UA (BEAKER) (test code = Negative Negative 365) KETONES UA (BEAKER) (test code = 15 mg/dL Negative A 371) BILIRUBIN UA (BEAKER) (test code = Positive Negative A 462) BLOOD UA (BEAKER) (test code = Large Negative A 461) NITRITE UA (BEAKER) (test code = Negative Negative 465) LEUKOCYTE ESTERASE UA (BEAKER) Trace Negative A (test code = 466) UROBILINOGEN UA (BEAKER) (test 1.0 mg/dL 0.2-1.0 code = 463) MUCUS (BEAKER) (test code = 1574) Moderate RBC UA-MANUAL (BEAKER) (test code >100 /HPF = 1659) WBC UA-MANUAL (BEAKER) (test code <5 /HPF = 1661) SQUAMOUS EPITHELIAL MANUAL 20-50 /HPF (BEAKER) (test code = 1663) SOURCE(BEAKER) (test code = 2795) SCREEN, [id number] 12:31:00 Test Item Value Reference Range Interpretation Comments TEST URINE (BEAKER) (test Positive code = 583) US OB Less Thn 14 wks w/TVS if [id number] 20:54:32Patient: ZORAN STORM Date/Time06/07/2020 20:28 CDTReason for ExamAbdominal painReportULTRASOUND OB LESS THAN 14 WEEKSLocation: [id number] HISTORY: pelvic pain beta-hCG 34,179TECHNIQUE: Ultrasound of the pelvis was obtained using transabdominal and transvaginal technique.Realtime grayscale, color and spectral Doppler was obtained.FINDINGS:The uterus measures 9.5 x 6.3 x 5.2 cm retroflexed in position. There is a clemons live IUP with crown-rump length of 0. 6 cm equal to gestational age of 6 weeks 3 days. Average gestational sac size of 1.56 cm is equal to gestational age 6 weeks 3 days. heart rate of 122 BPM was documented. There is a very small 1.5 x 0.5 x 0 .5 cm subchorionic hemorrhage present. Right ovary measures 2 x 1.4 x 1.3 cm. Left ovary measures 2.2 x 1.1 x 1.2 cm. Both ovaries are normal in size for the patient's age without solid masses or cysts. Normal arterial inflow and venous outflow of the ovaries was shown with color and spectral Doppler.No evidence of ovarian torsion.No evidence of free fluid in the cul-de-sac. No separate pelvic mass is demonstrated.IMPRESSION:Clemons live IUP of 6 weeks 3 days. Small subchorionic hemorrhage. Final Dictated by: MD Mckeon Maria VDictated DT/TM: 06/07/2020 8:51 pmSigned by: MD Mckeon Maria VSigned (Electronic Signature): 06/07/2020 8:54 pmUS Abdomen [id number] 20:51:14 Patient: ZORAN STORM Date/Time06/07/2020 20:29 CDTReason for ExamAbdominal pain, right upper quadrantReportABDOMINAL ULTRASOUNDLocation: [id number] HISTORY: abdominal pain right upper quadrantTechnique: Realtime grayscale, color and spectral Doppler imaging was obtained. Venous inflow patterns were documented in the portal vein.COMMENT: The liver overall is normal in size and echogenicity without evidence of masses or intrahepatic biliary dilatation. Normal hepatopetal flow was documented in the main portal vein. The gallbladder is normal without gallstones, sludge, or wall thickening. The common bile duct is normal at 0.24 cm.The right kidney measures 9.6 x 4 x 3.8cm in length. The left kidney measures 9.6 x 3.8 x 4.2 cm. Both kidneys are normal in size and echogenicity without masses, calculi, or hydronephrosis.The spleen is normal in size and appearance at 7.4x 7.8 x 2.7 cm in length. Pancreas is normal in appearance. The visualized portions of the aorta andIVC are normal. There is no evidence of adenopathy or free fluid.IMPRESSION:Normal exam. Final Dictated by: MD Mckeon Maria VDictated DT/TM: 06/07/2020 8:50 pmSigned by: MD Mckeon Maria VSigned (Electronic Signature): 06/07/2020 8:51 pmBeta HCG [id number] 18:37:18 Test Item Value Reference Range Interpretation Comments HCG, Beta Quantitative 12800.9 mIU/mL N 17- 54 (test code = HCG, Beta (Non- )?41 Quantitative) (Post-menopaus al) Comprehensive Metabolic [id number] 18:37:18 Test Item Value Reference Range Interpretation Comments Sodium Level (test code = Sodium 135.0 mmol/L 136.0-145.0 L Level) Potassium Level (test code = 3.90 mmol/L 3.50-5.10 Potassium Level) Chloride Level (test code = 104.0 mmol/L 98.0-107.0 Chloride Level) CO2 (test code = CO2) 22 mmol/L 20-31 Anion Gap (test code = Anion 9.2 mmol/L 5.0-15.0 Gap) BUN (test code = BUN) 8 mg/dL 9-23 L Creatinine Level (test code = 0.69 mg/dL 0.55-1.02 Creatinine Level) BUN/Creat Ratio (test code = 11.6 ratio 10.0-20.0 BUN/Creat Ratio) Glucose Level (test code = 73 mg/dL 74-106 L Glucose Level) Calcium Level (test code = 8.8 mg/dL 8.3-10.6 Calcium Level) Alk Phos (test code = Alk Phos) 73 U/L 46-116 Bilirubin Total (test code = <0.2 mg/dL 0.2-1.1 Bilirubin Total) Albumin Level (test code = 4.2 g/dL 3.2-4.8 Albumin Level) Protein Total (test code = 6.7 g/dL 5.7-8.2 Protein Total) ALT (test code = ALT) 23 U/L 10-49 AST (test code = AST) 18 U/L <=34 Globulin (test code = Globulin) 2.5 g/dL 2.3-3.5 A/G Ratio (test code = A/G 1.7 g/dL 0.8-2.0 Ratio) Hemolysis (test code = 0 g/dL 1-2 Hemolysis) Icterus (test code = Icterus) 0 g/dL 1-2 Lipemia (test code = Lipemia) 0 g/dL 1-2 Comprehensive Metabolic [id number] 18:37:18 Test Item Value Reference Range Interpretation Comments Sodium Level (test 135.0 mmol/L 136.0-145.0 L code = Sodium Level) Potassium Level 3.90 mmol/L 3.50-5.10 (test code = Potassium Level) Chloride Level (test 104.0 mmol/L 98.0-107.0 code = Chloride Level) CO2 (test code = 22 mmol/L 20-31 CO2) Anion Gap (test code 9.2 mmol/L 5.0-15.0 = Anion Gap) BUN (test code = 8 mg/dL 9-23 L BUN) Creatinine Level 0.69 mg/dL 0.55-1.02 (test code = Creatinine Level) BUN/Creat Ratio 11.6 ratio 10.0-20.0 (test code = BUN/Creat Ratio) Glucose Level (test 73 mg/dL 74-106 L code = Glucose Level) Calcium Level (test 8.8 mg/dL 8.3-10.6 code = Calcium Level) Alk Phos (test code 73 U/L 46-116 = Alk Phos) Bilirubin Total <0.2 mg/dL 0.2-1.1 (test code = Bilirubin Total) Albumin Level (test 4.2 g/dL 3.2-4.8 code = Albumin Level) Protein Total (test 6.7 g/dL 5.7-8.2 code = Protein Total) ALT (test code = 23 U/L 10-49 ALT) AST (test code = 18 U/L <=34 AST) Globulin (test code 2.5 g/dL 2.3-3.5 = Globulin) A/G Ratio (test code 1.7 g/dL 0.8-2.0 = A/G Ratio) eGFR AA (test code = >60 >=60 eGFR (e stimated eGFR AA) mL/min/1.73 m2 Glomerular Filtration Rate ) is an estimated va lue, calculated from the patient's serum creatinine usin g the MDRD equation. It is NOT the patient 's actual GFR. The eGFR provides a more clinically usef ul measure of kidn ey disease than se rum creatinine alone.This calculation anderson es sex and race in to account, if the information is provided. If th e race is not provided, and t he patient is -Yulissa n, multiply by 1.2 12. If sex is not provided, and t he patient is fema le, multiply by 0.7 42. Results for pat ients <18 years of ag e have not been validated by th e MDRD study and should be interpreted wit h caution. eGFR R esult Interpretation: eGFR > or = 60 is in the Normal RangeeGF R < 60 may mean kid roberto diseaseeGFR < 1 5 may mean kidney failure Rang es recommended by the National Kid[employer] Foundation, http://nkdep.ni h.gov Hemolysis (test code 0 g/dL 1-2 = Hemolysis) Icterus (test code = 0 g/dL 1-2 Icterus) Lipemia (test code = 0 g/dL 1-2 Lipemia) Comprehensive Metabolic [id number] 18:37:18 Test Item Value Reference Range Interpretation Comments Sodium Level (test 135.0 mmol/L 136.0-145.0 L code = Sodium Level) Potassium Level 3.90 mmol/L 3.50-5.10 (test code = Potassium Level) Chloride Level (test 104.0 mmol/L 98.0-107.0 code = Chloride Level) CO2 (test code = 22 mmol/L 20-31 CO2) Anion Gap (test code 9.2 mmol/L 5.0-15.0 = Anion Gap) BUN (test code = 8 mg/dL 9-23 L BUN) Creatinine Level 0.69 mg/dL 0.55-1.02 (test code = Creatinine Level) BUN/Creat Ratio 11.6 ratio 10.0-20.0 (test code = BUN/Creat Ratio) Glucose Level (test 73 mg/dL 74-106 L code = Glucose Level) Calcium Level (test 8.8 mg/dL 8.3-10.6 code = Calcium Level) Alk Phos (test code 73 U/L 46-116 = Alk Phos) Bilirubin Total <0.2 mg/dL 0.2-1.1 (test code = Bilirubin Total) Albumin Level (test 4.2 g/dL 3.2-4.8 code = Albumin Level) Protein Total (test 6.7 g/dL 5.7-8.2 code = Protein Total) ALT (test code = 23 U/L 10-49 ALT) AST (test code = 18 U/L <=34 AST) Globulin (test code 2.5 g/dL 2.3-3.5 = Globulin) A/G Ratio (test code 1.7 g/dL 0.8-2.0 = A/G Ratio) eGFR AA (test code = >60 >=60 eGFR (e stimated eGFR AA) mL/min/1.73 m2 Glomerular Filtration Rate ) is an estimated va lue, calculated from the patient's serum creatinine usin g the MDRD equation. It is NOT the patient 's actual GFR. The eGFR provides a more clinically usef ul measure of kidn ey disease than se rum creatinine alone.This calculation anderson es sex and race in to account, if the information is provided. If th e race is not provided, and t he patient is -Yulissa n, multiply by 1.2 12. If sex is not provided, and t he patient is fema le, multiply by 0.7 42. Results for pat ients <18 years of ag e have not been validated by th e MDRD study and should be interpreted wit h caution. eGFR R esult Interpretation: eGFR > or = 60 is in the Normal RangeeGF R < 60 may mean kid roberto diseaseeGFR < 1 5 may mean kidney failure Rang es recommended by the National Kidney Foundation, http://nkdep.ni h.gov eGFR Non-AA (test >60.00 >=60.00 eGFR (sahil mated code = eGFR Non-AA) mL/min/1.73 m2 Glomer ular Filtration Rate ) is an estimated va lue, calculated from the patient's serum creatinine usin g the MDRD equation. It is NOT the patient 's actual GFR. The eGFR provides a more clinically usef ul measure of kidn ey disease than se rum creatinine alone.This calculation anderson es sex and race in to account, if the information is provided. If th e race is not provided, and t he patient is -Yulissa n, multiply by 1.2 12. If sex is not provided, and t he patient is fema le, multiply by 0.7 42. Results for pat ients <18 years of ag e have not been validated by th e MDRD study and should be interpreted wit h caution. eGFR R esult Interpretation: eGFR > or = 60 is in the Normal RangeeGF R < 60 may mean kid roberto diseaseeGFR < 1 5 may mean kidney failure Rang es recommended by the National Kidney Foundation, http://nkdep.ni h.gov Hemolysis (test code 0 g/dL 1-2 = Hemolysis) Icterus (test code = 0 g/dL 1-2 Icterus) Lipemia (test code = 0 g/dL 1-2 Lipemia) [id number] 18:28:30 Test Item Value Reference Range Interpretation Comments Previous History (test code Yes Prev History = Previous History) BBID (test code = BBID) [id number] Methodology (test code = Test-Tube(TT) Methodology) Anti-A (test code = Anti-A) 0 Anti-B (test code = Anti-B) 4+ Anti-D (test code = Anti-D) 4+ DCon (test code = DCon) NT A1 (test code = A1) 4+ B cells (test code = B 0 cells) ABORh (test code = ABORh) B POS IG [id number] 17:52:05 Test Item Value Reference Range Interpretation Comments IG (test code = IG) 0.4 % 0.0-5.0 IG Abs (test code = IG Abs) 0 x10 N Complete Blood Count with [id number] 17:52:04 Test Item Value Reference Range Interpretation Comments WBC (test code = WBC) 6.8 x10 4.4-10.5 RBC (test code = RBC) 5.06 x10 3.75-5.20 Hgb (test code = Hgb) 12.6 g/dL 12.2-14.8 MCV (test code = MCV) 80.80 fL 80.00-100.00 Hct (test code = Hct) 40.9 % 36.5-44.4 MCHC (test code = 30.80 g/dL 32.00-37.50 L MCHC) RDW CV (test code = 14.5 % 11.5-14.5 RDW CV) MCH (test code = MCH) 24.9 pg 27.0-32.5 L Platelets (test code = 265.0 x10 140.0-440.0 Platelets) MPV (test code = MPV) 10.6 fL N Slide Review (test Auto Auto Result cr eated by code = Slide Review) GL_SJM_ SLIDE_REV_AUTO nRBC (test code = 0 N nRBC) NRBC Abs (test code = 0.00 x10 N NRBC Abs) Automated [id number] 17:52:04 Test Item Value Reference Range Interpretation Comments Neutro Auto (test code = Neutro 62.3 % 36.0-70.0 Auto) Lymph Auto (test code = Lymph Auto) 28.9 % 12.0-44.0 Jerauld Auto (test code = Jerauld Auto) 7.2 % 0.0-11.0 Eos, Auto (test code = Eos, Auto) 0.9 % 0.0-7.0 Basophil Auto (test code = Basophil 0.3 % 0.0-2.0 Auto) Neutro Absolute (test code = Neutro 4.2 x10 1.6-7.4 Absolute) Lymph Absolute (test code = Lymph 1.96 x10 .50-4.60 Absolute) Jerauld Absolute (test code = Jerauld .49 x10 .00-1.20 Absolute) Eos Absolute (test code = Eos 0.06 x10 0.00-0.74 Absolute) Baso Absolute (test code = Baso 0.02 x10 0.00-0.21 Absolute) Urinalysis with Culture, if [id number] 17:47:46 Test Item Value Reference Range Interpretation Comments UA Color (test code = UA Color) YELLO Yellow UA Appear (test code = UA CLEAR Clear Appear) UA pH (test code = UA pH) 7.0 UA Spec Grav (test code = UA 1.030 1.001-1.035 Spec Grav) UA Glucose (test code = UA NEG Negative Glucose) UA Bili (test code = UA Bili) NEG Negative UA Ketones (test code = UA 15 mg/dL Negative A Ketones) UA Blood (test code = UA Blood) NEG Negative UA Protein (test code = UA NEG Negative Protein) UA Urobilinogen (test code = UA .2 mg/dL >0.2 Urobilinogen) UA Nitrite (test code = UA NEG Negative Nitrite) UA Leuk Est (test code = UA NEG Negative Leuk Est) UA Micro Ind? (test code = UA Not Indicated Not Indicated Micro Ind?) CBC W/PLT COUNT & AUTO [id number] 23:32:00 Test Item Value Reference Range Interpretation Comments WHITE BLOOD CELL COUNT (BEAKER) 6.2 K/ L 4.0-10.0 (test code = 775) RED BLOOD CELL COUNT (BEAKER) 4.78 M/ L 4.00-5.00 (test code = 761) HEMOGLOBIN (BEAKER) (test code = 12.0 GM/DL 12.0-15.0 410) HEMATOCRIT (BEAKER) (test code = 36.4 % 36.0-45.0 411) MEAN CORPUSCULAR VOLUME (BEAKER) 76.2 fL 82.0-99.0 L (test code = 753) MEAN CORPUSCULAR HEMOGLOBIN 25.1 pg 27.0-33.0 L (BEAKER) (test code = 751) MEAN CORPUSCULAR HEMOGLOBIN CONC 32.9 GM/DL 32.0-36.0 (BEAKER) (test code = 752) RED CELL DISTRIBUTION WIDTH 14.2 % 10.3-14.2 (BEAKER) (test code = 412) PLATELET COUNT (BEAKER) (test 268 K/CU MM 150-430 code = 756) MEAN PLATELET VOLUME (BEAKER) 8.2 fL 6.5-10.5 (test code = 754) NEUTROPHILS RELATIVE PERCENT 54 % (BEAKER) (test code = 429) LYMPHOCYTES RELATIVE PERCENT 33 % (BEAKER) (test code = 430) MONOCYTES RELATIVE PERCENT 9 % (BEAKER) (test code = 431) EOSINOPHILS RELATIVE PERCENT 3 % (BEAKER) (test code = 432) BASOPHILS RELATIVE PERCENT 1 % (BEAKER) (test code = 437) NEUTROPHILS ABSOLUTE COUNT 3.34 K/ L 1.80-8.00 (BEAKER) (test code = 670) LYMPHOCYTES ABSOLUTE COUNT 2.04 K/ L 1.48-4.50 (BEAKER) (test code = 414) MONOCYTES ABSOLUTE COUNT (BEAKER) 0.57 K/ L 0.00-1.30 (test code = 415) EOSINOPHILS ABSOLUTE COUNT 0.16 K/ L 0.00-0.50 (BEAKER) (test code = 416) BASOPHILS ABSOLUTE COUNT (BEAKER) 0.04 K/ L 0.00-0.20 (test code = 417) BASIC METABOLIC [id number] 23:32:00 Test Item Value Reference Range Interpretation Comments SODIUM (BEAKER) 135 meq/L 135-148 (test code = 381) POTASSIUM (BEAKER) 3.6 meq/L 3.6-5.5 (test code = 379) CHLORIDE (BEAKER) 104 meq/L 98-106 (test code = 382) CO2 (BEAKER) (test 22 meq/L 24-32 L code = 355) BLOOD UREA NITROGEN 9 mg/dL 10-26 L (BEAKER) (test code = 354) CREATININE (BEAKER) 0.69 mg/dL 0.50-1.20 (test code = 358) GLUCOSE RANDOM 87 mg/dL 70-110 (BEAKER) (test code = 652) CALCIUM (BEAKER) 8.8 mg/dL 8.5-10.5 (test code = 697) EGFR (BEAKER) (test 133 mL/min/1.73 ESTIM ATED GFR IS code = 1092) sq m NOT ACCURATE CREATININE CLEARANCE IN PREDICTING GLOMERULAR FILTRATION RATE . ESTIMATED GFR I S NOT APPLICABLE FOR DIALYSIS PATIEN TS. URINALYSIS W/ [id number] 23:28:00 Test Item Value Reference Range Interpretation Comments COLOR (BEAKER) (test code = 470) Yellow CLARITY (BEAKER) (test code = 469) Cloudy SPECIFIC GRAVITY UA (BEAKER) (test 1.025 1.001-1.035 code = 468) PH UA (BEAKER) (test code = 467) 8.5 5.0-8.0 H PROTEIN UA (BEAKER) (test code = Negative Negative 464) GLUCOSE UA (BEAKER) (test code = Negative Negative 365) KETONES UA (BEAKER) (test code = 15 mg/dL Negative A 371) BILIRUBIN UA (BEAKER) (test code = Negative Negative 462) BLOOD UA (BEAKER) (test code = Negative Negative 461) NITRITE UA (BEAKER) (test code = Negative Negative 465) LEUKOCYTE ESTERASE UA (BEAKER) Trace Negative A (test code = 466) UROBILINOGEN UA (BEAKER) (test 1.0 mg/dL 0.2-1.0 code = 463) BACTERIA (BEAKER) (test code = Moderate 517) RBC UA-MANUAL (BEAKER) (test code <5 /HPF = 1659) WBC UA-MANUAL (BEAKER) (test code <5 /HPF = 1661) SQUAMOUS EPITHELIAL MANUAL 20-50 /HPF (BEAKER) (test code = 1663) SOURCE(BEAKER) (test code = 2795) SCREEN, [id number] 23:27:00 Test Item Value Reference Range Interpretation Comments TEST URINE (BEAKER) (test Positive code = 583) SARS-COV2/RT-PCR (HS & REF LABS)2020-02-06 06:54:00 Test Item Value Reference Range Interpretation Comments SARS-COV2/RT-PCR (test code = Negative Not Detected, Negative [id number]) SARS-COV-2 PERFORMING LAB CPL (test code = 2116395) URINALYSIS W/ REFLEX URINE [id number] 20:14:00 Test Item Value Reference Range Interpretation Comments COLOR (BEAKER) (test code = 470) Amber CLARITY (BEAKER) (test code = 469) Cloudy SPECIFIC GRAVITY UA (BEAKER) (test 1.004 1.001-1.035 code = 468) PH UA (BEAKER) (test code = 467) 6.0 5.0-8.0 PROTEIN UA (BEAKER) (test code = 30 mg/dL Negative A 464) GLUCOSE UA (BEAKER) (test code = Negative Negative 365) KETONES UA (BEAKER) (test code = Negative Negative 371) BILIRUBIN UA (BEAKER) (test code = Negative Negative 462) BLOOD UA (BEAKER) (test code = Large Negative A 461) NITRITE UA (BEAKER) (test code = Negative Negative 465) LEUKOCYTE ESTERASE UA (BEAKER) Trace Negative A (test code = 466) UROBILINOGEN UA (BEAKER) (test 0.2 mg/dL 0.2-1.0 code = 463) RBC UA-MANUAL (BEAKER) (test code 10-20 /HPF = 1659) WBC UA-MANUAL (BEAKER) (test code <5 /HPF = 1661) SQUAMOUS EPITHELIAL MANUAL 10-20 /HPF (BEAKER) (test code = 1663) SOURCE(BEAKER) (test code = 2795) SCREEN, [id number] 20:07:00 Test Item Value Reference Range Interpretation Comments TEST URINE (BEAKER) (test Negative code = 583) RAPID INFLUENZA A&B [id number] 00:35:00 Test Item Value Reference Range Interpretation Comments RAPID INFLUENZA A AG (BEAKER) Negative Negative, Inconclusive (test code = 1622) RAPID INFLUENZA B AG (BEAKER) Negative Negative, Inconclusive (test code = 1623) RAPID STREP A [id number] 00:30:00 Test Item Value Reference Range Interpretation Comments STREP A ANTIGEN (BEAKER) (test code Negative = 556) RAD, CHEST, 2 [id number] 00:14:00Reason for exam:->coughIs the patient ?->UnknownShould this be performed at the bedside?->NoFINAL REPORT TECHNIQUE: RAD, CHEST, 2 VIEWS COMPARISON: None available Additional clinical history: Cough FINDINGS: The cardiomediastinal silhouette is within normal limits. Lungs are clear. No pleural effusion or pneumothorax. Osseous structures are unremarkable. Soft tissues appear unremarkable. IMPRESSION:No acute cardiopulmonary disease. Signed: Cherry Monet MDReport Verified Date/Time: 12/07/2019 00:14:07 PREGNANCY SCREEN, URINE 2019-12-07 00:08:00 Test Item Value Reference Range Interpretation Comments TEST URINE (BEAKER) (test Negative code = 583) ABORh [id number] 07:57:29 Test Item Value Reference Range Interpretation Comments Methodology (test code = Test-Tube(TT) Methodology) Anti-A (test code = Anti-A) 0 Anti-B (test code = Anti-B) 4+ Anti-AB (test code = Anti-AB) NT Anti-D (test code = Anti-D) 4+ ABORh Retype (test code = ABORh B POS Retype) US OB Less Thn 14 wks w/TVS if [id number] 05:10:37Patient: KARINA STORM Date/Time05/08/2019 05:00 CDTReason for ExamVaginal bleedingRepKarina [id number] HOURS SERVICE ON: 05/08/2019 5:07 AMPelvic UltrasoundLocation Code O95Hfuzhpa: Spotting.Technique: Longitudinal and transverse real-time bauer scale, Doppler spectral analysis and Doppler color flow evaluation was performed using a dedicated transducer.SCHWARTZ SABDOMINAL Findings:The uterus measures 10 x 5 x 6 cm and is anteverted. Left ovary is nonvisualized. Right ovary is unremarkable.TRANSVAGINAL Findings:Uterus contains a live IUP measuring 6 weeks, 0 day by crown-rump length with early cardiac activity at 107 bpm. There is no subchorionic hemorrhage. Right ovary measures 33 x 18 x 20 mm. Left ovary measures 34 x 20 x 19 mm. Adequate ovarian flow witharterial inflow and venous outflow noted. There is no free fluid.Impression:Early 6 weeks, 0 day IUPwith early cardiac activity at 107 bpm. Final Dictated by: MD Houston Mohammad TDictated DT/TM: 05/08/2019 5:07 amSigned by: MD [place] Mohammad TSigned (Electronic Signature): 05/08/2019 5:10 amBeta HCG [id number] 03:16:08 Test Item Value Reference Range Interpretation Comments HCG, Beta Quantitative 74566.00 N Weeks of Gestation (test code = HCG, Beta mIU/mL Range s (mIu/mL)3 Quantitative) weeks 5.40-72. 04 weeks 10.2-7085 weeks 217-65801 weeks 152-53128 7 weeks 6450-1466 678 weeks 48987-9429932 weeks [id number] weeks 73821-44056397 weeks 90128-63781585 weeks 41413-5572335 weeks 16230-9914323 weeks 1639-2652 217 weeks 3381-7803 318 weeks 6462-5409 1 Comprehensive Metabolic [id number] 02:51:43 Test Item Value Reference Range Interpretation Comments Sodium Level (test code = Sodium 138.0 mmol/L 135.0-145.0 Level) Potassium Level (test code = 4.1 mmol/L 3.5-5.1 Potassium Level) Chloride Level (test code = 102 mmol/L 98-105 Chloride Level) CO2 (test code = CO2) 22 mmol/L 22-29 Anion Gap (test code = Anion 14 mmol/L 7-16 Gap) BUN (test code = BUN) 8.00 mg/dL 6.00-20.00 Creatinine Level (test code = 0.60 mg/dL 0.50-0.90 Creatinine Level) BUN/Creat Ratio (test code = 13 N BUN/Creat Ratio) Glucose Level (test code = 78 mg/dL 70-115 Glucose Level) Calcium Level (test code = 9.7 mg/dL 8.3-10.5 Calcium Level) Alk Phos (test code = Alk Phos) 78 U/L 35-104 Bilirubin Total (test code = <0.1 mg/dL 0.1-0.9 Bilirubin Total) Albumin Level (test code = 4.2 g/dL 3.5-5.2 Albumin Level) Protein Total (test code = 7.0 g/dL 6.4-8.3 Protein Total) ALT (test code = ALT) 19 U/L 1-33 AST (test code = AST) 15 U/L 1-32 Globulin (test code = Globulin) 2.8 g/dL 2.9-3.1 L A/G Ratio (test code = A/G 1.5 ratio N Ratio) Comprehensive Metabolic [id number] 02:51:43 Test Item Value Reference Range Interpretation Comments Sodium Level (test 138.0 mmol/L 135.0-145.0 code = Sodium Level) Potassium Level 4.1 mmol/L 3.5-5.1 (test code = Potassium Level) Chloride Level (test 102 mmol/L 98-105 code = Chloride Level) CO2 (test code = 22 mmol/L 22-29 CO2) Anion Gap (test code 14 mmol/L 7-16 = Anion Gap) BUN (test code = 8.00 mg/dL 6.00-20.00 BUN) Creatinine Level 0.60 mg/dL 0.50-0.90 (test code = Creatinine Level) BUN/Creat Ratio 13 N (test code = BUN/Creat Ratio) Glucose Level (test 78 mg/dL 70-115 code = Glucose Level) Calcium Level (test 9.7 mg/dL 8.3-10.5 code = Calcium Level) Alk Phos (test code 78 U/L 35-104 = Alk Phos) Bilirubin Total <0.1 mg/dL 0.1-0.9 (test code = Bilirubin Total) Albumin Level (test 4.2 g/dL 3.5-5.2 code = Albumin Level) Protein Total (test 7.0 g/dL 6.4-8.3 code = Protein Total) ALT (test code = 19 U/L 1-33 ALT) AST (test code = 15 U/L 1-32 AST) Globulin (test code 2.8 g/dL 2.9-3.1 L = Globulin) A/G Ratio (test code 1.5 ratio N = A/G Ratio) eGFR AA (test code = >60 N eGFR (e stimated eGFR AA) mL/min/1.73 m2 Glomerular Filtration Rate ) is an estimated va lue, calculated from the patient's serum creatinine usin g the MDRD equation. It is NOT the patient 's actual GFR. The eGFR provides a more clinically usef ul measure of kidn ey disease than se rum creatinine alone.This calculation anderson es sex and race in to account, if the information is provided. If th e race is not provided, and t he patient is -Yulissa n, multiply by 1.2 12. If sex is not provided, and t he patient is fema le, multiply by 0.7 42. Results for pat ients <18 years of ag e have not been validated by th e MDRD study and should be interpreted wit h caution. eGFR R esult Interpretation: eGFR > or = 60 is in the Normal RangeeGF R < 60 may mean kid roberto diseaseeGFR < 1 5 may mean kidney failure Rang es recommended by the National Kidney Foundation, http://nkdep.ni h.gov Comprehensive Metabolic [id number] 02:51:43 Test Item Value Reference Range Interpretation Comments Sodium Level (test 138.0 mmol/L 135.0-145.0 code = Sodium Level) Potassium Level 4.1 mmol/L 3.5-5.1 (test code = Potassium Level) Chloride Level (test 102 mmol/L 98-105 code = Chloride Level) CO2 (test code = 22 mmol/L 22-29 CO2) Anion Gap (test code 14 mmol/L 7-16 = Anion Gap) BUN (test code = 8.00 mg/dL 6.00-20.00 BUN) Creatinine Level 0.60 mg/dL 0.50-0.90 (test code = Creatinine Level) BUN/Creat Ratio 13 N (test code = BUN/Creat Ratio) Glucose Level (test 78 mg/dL 70-115 code = Glucose Level) Calcium Level (test 9.7 mg/dL 8.3-10.5 code = Calcium Level) Alk Phos (test code 78 U/L 35-104 = Alk Phos) Bilirubin Total <0.1 mg/dL 0.1-0.9 (test code = Bilirubin Total) Albumin Level (test 4.2 g/dL 3.5-5.2 code = Albumin Level) Protein Total (test 7.0 g/dL 6.4-8.3 code = Protein Total) ALT (test code = 19 U/L 1-33 ALT) AST (test code = 15 U/L 1-32 AST) Globulin (test code 2.8 g/dL 2.9-3.1 L = Globulin) A/G Ratio (test code 1.5 ratio N = A/G Ratio) eGFR AA (test code = >60 N eGFR (e stimated eGFR AA) mL/min/1.73 m2 Glomerular Filtration Rate ) is an estimated va lue, calculated from the patient's serum creatinine usin g the MDRD equation. It is NOT the patient 's actual GFR. The eGFR provides a more clinically usef ul measure of kidn ey disease than se rum creatinine alone.This calculation anderson es sex and race in to account, if the information is provided. If th e race is not provided, and t he patient is -Yulissa n, multiply by 1.2 12. If sex is not provided, and t he patient is fema le, multiply by 0.7 42. Results for pat ients <18 years of ag e have not been validated by th e MDRD study and should be interpreted wit h caution. eGFR R esult Interpretation: eGFR > or = 60 is in the Normal RangeeGF R < 60 may mean kid roberto diseaseeGFR < 1 5 may mean kidney failure Rang es recommended by the National Kidney Foundation, http://nkdep.ni h.gov eGFR Non-AA (test >60.00 N eGFR (sahil mated code = eGFR Non-AA) mL/min/1.73 m2 Glomer ular Filtration Rate ) is an estimated va lue, calculated from the patient's serum creatinine usin g the MDRD equation. It is NOT the patient 's actual GFR. The eGFR provides a more clinically usef ul measure of kidn ey disease than se rum creatinine alone.This calculation anderson es sex and race in to account, if the information is provided. If th e race is not provided, and t he patient is -Yulissa n, multiply by 1.2 12. If sex is not provided, and t he patient is fema le, multiply by 0.7 42. Results for pat ients <18 years of ag e have not been validated by e MDRD study and should be interpreted wit h caution. eGFR R esult Interpretation: eGFR > or = 60 is in the Normal RangeeGF R < 60 may mean kid roberto diseaseeGFR < 1 5 may mean kidney failure Rang es recommended by the National Kidney Foundation, http://nkdep.ni h.gov [id number] 02:40:12 Test Item Value Reference Range Interpretation Comments Previous History (test code = No Prev History Previous History) BBID (test code = BBID) [id number] Methodology (test code = Test-Tube(TT) Methodology) Anti-A (test code = Anti-A) 0 Anti-B (test code = Anti-B) 4+ Anti-D (test code = Anti-D) 4+ DCon (test code = DCon) NT A1 (test code = A1) 3+ B cells (test code = B cells) 0 ABORh (test code = ABORh) B POS Urinalysis [id number] 02:34:35 Test Item Value Reference Range Interpretation Comments UA WBC (test code = UA WBC) TNTC 0-5 A UA RBC (test code = UA RBC) 6-10 0-5 A UA Bacteria (test code = UA Bacteria) Many A UA Squam Epithelial (test code = UA TNTC A Squam Epithelial) UA Mucous (test code = UA Mucous) Many A Urinalysis with Microscopic if [id number] 02:31:09 Test Item Value Reference Range Interpretation Comments UA Color (test code = YELLO Yellow UA Color) UA Appear (test code = SCLD Clear A UA Appear) UA pH (test code = UA 5 N pH) UA Spec Grav (test 1.024 1.001-1.035 code = UA Spec Grav) UA Glucose (test code NEG Negative = UA Glucose) UA Ketones (test code NEG Negative = UA Ketones) UA Blood (test code = 25 cells/mcL Negative A UA Blood) UA Protein (test code NEG Negative = UA Protein) UA Bili (test code = NEG Negative UA Bili) UA Urobilinogen (test 0.2 mg/dL N code = UA Urobilinogen) UA Nitrite (test code NEG Negative = UA Nitrite) UA Leuk Est (test code 500 cells/mcL Negative A = UA Leuk Est) UA Micro Ind? (test Indicated Not Indicated A Result created by code = UA Micro Ind?) rule GL_SJM_UA_MICRO _IN D IG [id number] 02:30:44 Test Item Value Reference Range Interpretation Comments IG (test code = IG) 0.3 % 0.0-5.0 IG Abs (test code = IG Abs) 0 x10 N Complete Blood Count with [id number] 02:30:43 Test Item Value Reference Range Interpretation Comments WBC (test code = WBC) 7.2 x10 4.4-10.5 RBC (test code = RBC) 4.82 x10 3.75-5.20 Hgb (test code = Hgb) 12.5 g/dL 12.2-14.8 MCV (test code = MCV) 79.50 fL 80.00-100.00 L Hct (test code = Hct) 38.3 % 36.5-44.4 MCHC (test code = 32.60 g/dL 32.00-37.50 MCHC) RDW CV (test code = 13.4 % 11.5-14.5 RDW CV) MCH (test code = MCH) 25.9 pg 27.0-32.5 L Platelets (test code = 244.0 x10 140.0-440.0 Platelets) MPV (test code = MPV) 10.7 fL N Slide Review (test Auto Auto Result cr eated by code = Slide Review) GL_SJM_ SLIDE_REV_AUTO nRBC (test code = 0 N nRBC) NRBC Abs (test code = 0.00 x10 N NRBC Abs) IPF (test code = IPF) 0 % N Automated [id number] 02:30:43 Test Item Value Reference Range Interpretation Comments Neutro Auto (test code = Neutro 57.1 % 36.0-70.0 Auto) Lymph Auto (test code = Lymph Auto) 29.7 % 12.0-44.0 Jerauld Auto (test code = Jerauld Auto) 11.2 % 0.0-11.0 H Eos, Auto (test code = Eos, Auto) 1.1 % 0.0-7.0 Basophil Auto (test code = Basophil 0.6 % 0.0-2.0 Auto) Neutro Absolute (test code = Neutro 4.1 x10 1.6-7.4 Absolute) Lymph Absolute (test code = Lymph 2.15 x10 .50-4.60 Absolute) Jerauld Absolute (test code = Jerauld .81 x10 .00-1.20 Absolute) Eos Absolute (test code = Eos 0.08 x10 0.00-0.74 Absolute) Baso Absolute (test code = Baso 0.04 x10 0.00-0.21 Absolute) BLOOD BANK [id number] 08:45:00 Test Item Value Reference Range Interpretation Comments ABO/Rh (test code = ABO/Rh) B POS [facility]2019-08-16 08:45:00 Test Item Value Reference Range Interpretation Comments Glucose Lvl (test code = Glucose Lvl) 95 70-99 [facility]2019-08-16 08:45:00 Test Item Value Reference Range Interpretation Comments BUN (test code = BUN) 9 7-22 [facility]2019-08-16 08:45:00 Test Item Value Reference Range Interpretation Comments Creatinine Lvl (test code = Creatinine 0.86 0.50-1.40 Lvl) [facility]CBC [facility] HoldingsECU [id number] 08:45:00 Test Item Value Reference Range Interpretation Comments Sodium Lvl (test code = Sodium Lvl) 138 135-145 [facility]2019-08-16 08:45:00 Test Item Value Reference Range Interpretation Comments Potassium Lvl (test code = Potassium 3.7 3.5-5.1 Lvl) [facility]2019-08-16 08:45:00 Test Item Value Reference Range Interpretation Comments Chloride Lvl (test code = Chloride Lvl) 106 95-109 [facility]2019-08-16 08:45:00 Test Item Value Reference Range Interpretation Comments CO2 (test code = CO2) 25 24-32 [facility]2019-08-16 08:45:00 Test Item Value Reference Range Interpretation Comments Calcium Lvl (test code = Calcium Lvl) 9.2 8.5-10.5 [facility]2019-08-16 08:45:00 Test Item Value Reference Range Interpretation Comments Total Protein (test code = Total 7.0 6.4-8.4 Protein) [facility]2019-08-16 08:45:00 Test Item Value Reference Range Interpretation Comments Albumin Lvl (test code = Albumin Lvl) 3.3 3.5-5.0 [facility]2019-08-16 08:45:00 Test Item Value Reference Range Interpretation Comments ALT (test code = ALT) 30 See_Comment [Auto mated message] The system which ge nerated this result transmit lavarez reference range : <=65. The reference range was not used to interpr et this result as majo l/abnormal. [facility]2019-08-16 08:45:00 Test Item Value Reference Range Interpretation Comments AST (test code = AST) 21 See_Comment [Auto mated message] The system which ge nerated this result transmit alvarez reference range : <=37. The reference range was not used to interpr et this result as majo l/abnormal. [facility]2019-08-16 08:45:00 Test Item Value Reference Range Interpretation Comments Alk Phos (test code = Alk Phos) 87 43-86 [facility]2019-08-16 08:45:00 Test Item Value Reference Range Interpretation Comments Bili Total (test code = Bili Total) 0.2 0.2-1.3 [facility]2019-08-16 08:45:00 Test Item Value Reference Range Interpretation Comments eGFR (test code = eGFR) 115 [facility]2019-08-16 08:45:00 Test Item Value Reference Range Interpretation Comments AGAP (test code = AGAP) 10.7 10.0-20.0 [place] [id number] 08:45:00 Test Item Value Reference Range Interpretation Comments B/C Ratio (test code = B/C Ratio) 10 1 6-25 [facility] [id number] 08:45:00 Test Item Value Reference Range Interpretation Comments Globulin (test code = Globulin) 3.7 2.7-4.2 [facility] [id number] 08:45:00 Test Item Value Reference Range Interpretation Comments A/G Ratio (test code = A/G Ratio) 0.9 1 0.7-1.6 [facility]pXYRSCZQNWZHPD0448-32-46 08:45:00 Test Item Value Reference Range Interpretation Comments hCG Tot (test code = hCG Tot) [address] [facility]YhqkzysBIVFWHOMXJ4810-51-87 08:45:00 Test Item Value Reference Range Interpretation Comments WBC (test code = WBC) 5.7 3.7-10.4 [facility] SouthPqzuwkxZQCUMYCITY3499-72-19 08:45:00 Test Item Value Reference Range Interpretation Comments RBC (test code = RBC) 4.82 4.20-5.40 [facility] SouthRxpxokaLEOBKAEJWO5414-95-44 08:45:00 Test Item Value Reference Range Interpretation Comments Hgb (test code = Hgb) 12.6 12.0-16.0 [facility] SouthEpmlqcbQCBRUNLJBI1613-73-62 08:45:00 Test Item Value Reference Range Interpretation Comments Hct (test code = Hct) 38.0 36.0-48.0 [facility] SouthJwikaxnWHXQCPGSWL9143-87-17 08:45:00 Test Item Value Reference Range Interpretation Comments MCV (test code = MCV) 78.9 80.0-98.0 [facility] SouthMiqvejtXGCCLPNOUZ9900-57-05 08:45:00 Test Item Value Reference Range Interpretation Comments MCH (test code = MCH) 26.2 pg 27.0-31.0 [facility] SouthXjzresoWUPNXEBBRY5087-33-01 08:45:00 Test Item Value Reference Range Interpretation Comments MCHC (test code = MCHC) 33.2 32.0-36.0 [facility] SouthIuphfpzRQRMUUNJKV7506-00-38 08:45:00 Test Item Value Reference Range Interpretation Comments RDW (test code = RDW) 14.0 11.5-14.5 [facility] SouthCibasyqAPNPXUSEPH1618-58-58 08:45:00 Test Item Value Reference Range Interpretation Comments Platelet (test code = Platelet) 217 133-450 [facility] SouthXjhmdrqVMLTRVQFZK3705-95-57 08:45:00 Test Item Value Reference Range Interpretation Comments MPV (test code = MPV) 8.5 7.4-10.4 [facility] SouthVuptdsvVFWBJFHULI9957-69-70 08:45:00 Test Item Value Reference Range Interpretation Comments Segs (test code = Segs) 53.0 45.0-75.0 [facility] SouthGmfjqufZWFRLSVCQB9428-62-84 08:45:00 Test Item Value Reference Range Interpretation Comments Lymphocytes (test code = Lymphocytes) 35.8 20.0-40.0 [facility] SouthXuichnoOUAVTKDQVQ8570-05-48 08:45:00 Test Item Value Reference Range Interpretation Comments Monocytes (test code = Monocytes) 9.5 2.0-12.0 [facility] SouthVnbmieuUJUNHZBAWI2914-38-58 08:45:00 Test Item Value Reference Range Interpretation Comments Eosinophils (test code = 1.3 See_Comment [A utomated message] The Eosinophils) system which ge nerated this result tra nsmitted reference range : <=4.0. The reference r jorge was not used to int erpret this result as normal/abnormal . [facility] SouthBrixcmeHKQITOSHLC3126-37-42 08:45:00 Test Item Value Reference Range Interpretation Comments Basophils (test code = 0.4 See_Comment [Aut omated message] The Basophils) system which ge nerated this result tra nsmitted reference range : <=1.0. The reference r jorge was not used to int erpret this result as normal/abnormal . [facility] SouthJgorykiOADMTGCCDA1667-53-61 08:45:00 Test Item Value Reference Range Interpretation Comments Neutrophils # (test code = Neutrophils 3.0 1.5-8.1 #) [facility] SouthWnjpoevEDCDJPAXBW1911-02-22 08:45:00 Test Item Value Reference Range Interpretation Comments Lymphocytes # (test code = Lymphocytes 2.1 1.0-5.5 #) [facility] SouthFvlefhfSYLYRAFSKQ1296-79-73 08:45:00 Test Item Value Reference Range Interpretation Comments Monocytes # (test code 0.5 See_Comment [Aut omated message] The = Monocytes #) system which generated this result tra nsmitted reference range : <=0.8. The reference r jorge was not used to int erpret this result as normal/abnormal . [facility] SouthNifwdklFLPVGHCDRS1361-62-03 08:45:00 Test Item Value Reference Range Interpretation Comments Eosinophils # (test code 0.1 See_Comment [A utomated message] The = Eosinophils #) system whic h generated this result tra nsmitted reference range : <=0.5. The reference r jorge was not used to int erpret this result as normal/abnormal . [facility] SouthPjyijwxAMIKBFCQJE3419-97-77 08:45:00 Test Item Value Reference Range Interpretation Comments Microcyte (test code = 1+ *ABN*(05/06/19 Microcyte) 3:45 AM) [facility] AND [id number] 07:51:00 Test Item Value Reference Range Interpretation Comments UA Color (test code = Yellow *NA*(05/06/19 UA Color) 2:51 AM) [facility] AND [id number] 07:51:00 Test Item Value Reference Range Interpretation Comments UA Turbidity (test code Slight Cloudy = UA Turbidity) (05/06/19 2:51 AM) [facility] AND [id number] 07:51:00 Test Item Value Reference Range Interpretation Comments UA Spec Grav (test code = UA Spec 1.020 1 Grav) [facility] AND [id number] 07:51:00 Test Item Value Reference Range Interpretation Comments UA pH (test code = UA pH) 6.0 1 5.0-8.0 [facility] AND [id number] 07:51:00 Test Item Value Reference Range Interpretation Comments UA Protein (test code Negative (05/06/19 2:51 = UA Protein) AM) [facility] AND [id number] 07:51:00 Test Item Value Reference Range Interpretation Comments UA Glucose (test code Negative (05/06/19 2:51 = UA Glucose) AM) [facility] AND [id number] 07:51:00 Test Item Value Reference Range Interpretation Comments UA Ketones (test code Negative *NA*(05/06/19 = UA Ketones) 2:51 AM) [facility] AND [id number] 07:51:00 Test Item Value Reference Range Interpretation Comments UA Bili (test code = Negative *NA*(05/06/19 UA Bili) 2:51 AM) [facility] [id number] 07:51:00 Test Item Value Reference Range Interpretation Comments UA Blood (test code = Moderate *ABN*(05/06/19 UA Blood) 2:51 AM) [facility] [id number] 07:51:00 Test Item Value Reference Range Interpretation Comments UA Urobilinogen (test code = UA 0.2 0.1-1.0 Urobilinogen) [facility] [id number] 07:51:00 Test Item Value Reference Range Interpretation Comments UA Nitrite (test code Negative (05/06/19 2:51 = UA Nitrite) AM) [facility] [id number] 07:51:00 Test Item Value Reference Range Interpretation Comments UA Leuk Est (test code Small *ABN*(05/06/19 = UA Leuk Est) 2:51 AM) [facility] [id number] 07:51:00 Test Item Value Reference Range Interpretation Comments UA Sq Epi (test code = UA Sq Moderate /LPF Epi) [facility] [id number] 07:51:00 Test Item Value Reference Range Interpretation Comments UA WBC (test code 11-20 /HPF See_Comment [Automate d message] The = UA WBC) system which ge nerated this result tra nsmitted reference range : <=5. The reference range was not used to interpr et this result as normal/abnormal . [facility] [id number] 07:51:00 Test Item Value Reference Range Interpretation Comments UA RBC (test code = 6-10 /HPF See_Comment [Automa alvarez message] The UA RBC) system which ge nerated this result tra nsmitted reference range : <=2. The reference range was not used to interpr et this result as normal/abnormal . [facility] [id number] 07:51:00 Test Item Value Reference Range Interpretation Comments UA Bacteria (test code = UA Few /HPF Bacteria) [facility] [id number] 07:51:00 Test Item Value Reference Range Interpretation Comments UA Mucus (test code = UA Mucus) Few /[facility]F [facility] [id number] 04:18:00 Test Item Value Reference Range Interpretation Comments A/G Ratio (test code = A/G Ratio) 0.9 1 0.7-1.6 [facility]2019-04-13 04:18:00 Test Item Value Reference Range Interpretation Comments B/C Ratio (test code = B/C Ratio) 8 1 6-25 [place] [id number] 04:18:00 Test Item Value Reference Range Interpretation Comments AGAP (test code = AGAP) 11.4 10.0-20.0 [facility]2019-04-13 04:18:00 Test Item Value Reference Range Interpretation Comments Globulin (test code = Globulin) 3.8 2.7-4.2 [facility]2019-04-13 04:18:00 Test Item Value Reference Range Interpretation Comments Total Protein (test code = Total 7.3 6.4-8.4 Protein) [facility]2019-04-13 04:18:00 Test Item Value Reference Range Interpretation Comments Albumin Lvl (test code = Albumin Lvl) 3.5 3.5-5.0 [facility]2019-04-13 04:18:00 Test Item Value Reference Range Interpretation Comments AST (test code = AST) 10 See_Comment [Auto mated message] The system which ge nerated this result transmit alvarez reference range : <=37. The reference range was not used to interpr et this result as majo l/abnormal. [facility]2019-04-13 04:18:00 Test Item Value Reference Range Interpretation Comments ALT (test code = ALT) 18 See_Comment [Auto mated message] The system which ge nerated this result transmit alvarez reference range : <=65. The reference range was not used to interpr et this result as majo l/abnormal. [facility]2019-04-13 04:18:00 Test Item Value Reference Range Interpretation Comments eGFR (test code = eGFR) 67 [facility]2019-04-13 04:18:00 Test Item Value Reference Range Interpretation Comments Alk Phos (test code = Alk Phos) 84 39-136 [facility]2019-04-13 04:18:00 Test Item Value Reference Range Interpretation Comments Bili Total (test code = Bili Total) 0.2 0.2-1.3 [place] [id number] 04:18:00 Test Item Value Reference Range Interpretation Comments Chloride Lvl (test code = Chloride Lvl) 110 95-109 [facility]2019-04-13 04:18:00 Test Item Value Reference Range Interpretation Comments Sodium Lvl (test code = Sodium Lvl) 143 135-145 [facility]2019-04-13 04:18:00 Test Item Value Reference Range Interpretation Comments Potassium Lvl (test code = Potassium 3.4 3.5-5.1 Lvl) [facility]2019-04-13 04:18:00 Test Item Value Reference Range Interpretation Comments Creatinine Lvl (test code = Creatinine 0.99 0.50-1.40 Lvl) [facility]2019-04-13 04:18:00 Test Item Value Reference Range Interpretation Comments CO2 (test code = CO2) 25 24-32 [facility]2019-04-13 04:18:00 Test Item Value Reference Range Interpretation Comments Calcium Lvl (test code = Calcium Lvl) 8.8 8.5-10.5 [facility]2019-04-13 04:18:00 Test Item Value Reference Range Interpretation Comments BUN (test code = BUN) 8 7-22 [facility]2019-04-13 04:18:00 Test Item Value Reference Range Interpretation Comments Glucose Lvl (test code = Glucose Lvl) 84 70-99 [facility] SouthIofvppgBGWEHDXRCO7162-48-62 04:18:00 Test Item Value Reference Range Interpretation Comments MCH (test code = MCH) 25.7 pg 27.0-31.0 [facility] SouthObrgrmmTBFFDTVZOP6034-02-95 04:18:00 Test Item Value Reference Range Interpretation Comments MCHC (test code = MCHC) 33.5 32.0-36.0 [facility] SouthFwcdbgvZUMSPJBOHF1307-91-63 04:18:00 Test Item Value Reference Range Interpretation Comments RDW (test code = RDW) 14.1 11.5-14.5 [facility] SouthOhincjaKQNUBTCACG5914-50-41 04:18:00 Test Item Value Reference Range Interpretation Comments Platelet (test code = Platelet) 246 133-450 [facility] [id number] 04:18:00 Test Item Value Reference Range Interpretation Comments MCV (test code = MCV) 76.8 80.0-98.0 [facility] SouthSelzyluBUMFJLVTQK8873-58-64 04:18:00 Test Item Value Reference Range Interpretation Comments MPV (test code = MPV) 8.3 7.4-10.4 [facility] SouthFdtegdoEASWGQBJIU3521-67-78 04:18:00 Test Item Value Reference Range Interpretation Comments RBC (test code = RBC) 5.08 4.20-5.40 [facility] SouthUxyktnvWUZCUQOUVK1653-29-88 04:18:00 Test Item Value Reference Range Interpretation Comments Hgb (test code = Hgb) 13.1 12.0-16.0 [facility] SouthWmvarkkWKYFROABFD3365-22-48 04:18:00 Test Item Value Reference Range Interpretation Comments Hct (test code = Hct) 39.1 36.0-48.0 [facility] SouthQoqeammMPPYWMTQBC9313-98-82 04:18:00 Test Item Value Reference Range Interpretation Comments WBC (test code = WBC) 5.4 3.7-10.4 [facility] SouthHhivxpjZCPJRWCMDD9488-04-21 04:18:00 Test Item Value Reference Range Interpretation Comments Microcyte (test code = 1+ *ABN*(12/31/18 Microcyte) 11:18 PM) [facility] SouthJkgytubZITMBPJMYG1548-91-79 04:18:00 Test Item Value Reference Range Interpretation Comments Monocytes # (test code 0.5 See_Comment [Aut omated message] The = Monocytes #) system which generated this result tra nsmitted reference range : <=0.8. The reference r jorge was not used to int erpret this result as normal/abnormal . [facility] SouthXanhtxfJAVFUVFLSN2775-75-39 04:18:00 Test Item Value Reference Range Interpretation Comments Eosinophils # (test code 0.1 See_Comment [A utomated message] The = Eosinophils #) system whic h generated this result tra nsmitted reference range : <=0.5. The reference r jorge was not used to int erpret this result as normal/abnormal . [facility] SouthFdyydonDOUPUGERNF7911-92-78 04:18:00 Test Item Value Reference Range Interpretation Comments Segs (test code = Segs) 43.4 45.0-75.0 [facility] SouthWumpsdxHSQYHQMCKH8101-88-01 04:18:00 Test Item Value Reference Range Interpretation Comments Monocytes (test code = Monocytes) 8.8 2.0-12.0 [facility] SouthWtzqyedCKCNOPLTDE6433-80-27 04:18:00 Test Item Value Reference Range Interpretation Comments Lymphocytes (test code = Lymphocytes) 45.3 20.0-40.0 [facility] SouthJytgcorRMRQTTWCOO7985-57-75 04:18:00 Test Item Value Reference Range Interpretation Comments Lymphocytes # (test code = Lymphocytes 2.4 1.0-5.5 #) [facility] SouthYllsqdiZVAMPUVFMG5231-67-00 04:18:00 Test Item Value Reference Range Interpretation Comments Neutrophils # (test code = Neutrophils 2.3 1.5-8.1 #) [facility] SouthTxtawblZJGRLUYCPC4482-83-57 04:18:00 Test Item Value Reference Range Interpretation Comments Basophils (test code = 0.7 See_Comment [Aut omated message] The Basophils) system which ge nerated this result tra nsmitted reference range : <=1.0. The reference r jorge was not used to int erpret this result as normal/abnormal . [facility] SouthJrspwraHZCYTMLYHU0545-37-97 04:18:00 Test Item Value Reference Range Interpretation Comments Eosinophils (test code = 1.8 See_Comment [A utomated message] The Eosinophils) system which ge nerated this result tra nsmitted reference range : <=4.0. The reference r jorge was not used to int erpret this result as normal/abnormal . [facility] AND [id number] 02:32:00 Test Item Value Reference Range Interpretation Comments UA Urobilinogen (test code = UA 0.2 0.1-1.0 Urobilinogen) [facility] AND [id number] 02:32:00 Test Item Value Reference Range Interpretation Comments UA Glucose (test code Negative (12/31/18 9:32 = UA Glucose) PM) [facility] AND [id number] 02:32:00 Test Item Value Reference Range Interpretation Comments UA Bili (test code = Negative *NA*(12/31/18 UA Bili) 9:32 PM) [facility] AND [id number] 02:32:00 Test Item Value Reference Range Interpretation Comments UA Blood (test code = Negative (12/31/18 9:32 UA Blood) PM) [facility] AND [id number] 02:32:00 Test Item Value Reference Range Interpretation Comments UA Ketones (test code Negative *NA*(12/31/18 = UA Ketones) 9:32 PM) [facility] AND [id number] 02:32:00 Test Item Value Reference Range Interpretation Comments UA Mucus (test code = UA Mucus) Many /LPF [facility] AND [id number] 02:32:00 Test Item Value Reference Range Interpretation Comments UA Bacteria (test code = UA Occasional /HPF Bacteria) [facility] AND [id number] 02:32:00 Test Item Value Reference Range Interpretation Comments UA Color (test code = Yellow *NA*(12/31/18 UA Color) 9:32 PM) [facility] AND [id number] 02:32:00 Test Item Value Reference Range Interpretation Comments UA Turbidity (test code Slight Cloudy = UA Turbidity) (12/31/18 9:32 PM) [facility] AND [id number] 02:32:00 Test Item Value Reference Range Interpretation Comments UA pH (test code = UA pH) 6.0 1 5.0-8.0 [facility] AND [id number] 02:32:00 Test Item Value Reference Range Interpretation Comments UA Spec Grav (test code = UA Spec 1.010 1 Grav) [facility] AND [id number] 02:32:00 Test Item Value Reference Range Interpretation Comments UA Protein (test code Negative (12/31/18 9:32 = UA Protein) PM) [facility] AND [id number] 02:32:00 Test Item Value Reference Range Interpretation Comments UA Sq Epi (test code = UA Sq Epi) Few /LPF [facility] AND [id number] 02:32:00 Test Item Value Reference Range Interpretation Comments UA WBC (test code = 4 See_Comment [Automa alvarez message] The UA WBC) system which ge nerated this result transmit alvarez reference range : <=5. The reference range was not used to interpr et this result as majo l/abnormal. [facility] AND [id number] 02:32:00 Test Item Value Reference Range Interpretation Comments UA RBC (test code = 2 See_Comment [Automa alvarez message] The UA RBC) system which ge nerated this result transmit alvarez reference range : <=2. The reference range was not used to interpr et this result as majo l/abnormal. [facility] AND [id number] 02:32:00 Test Item Value Reference Range Interpretation Comments UA Nitrite (test code Negative (12/31/18 9:32 = UA Nitrite) PM) [facility] AND [id number] 02:32:00 Test Item Value Reference Range Interpretation Comments UA Leuk Est (test code Trace *ABN*(12/31/18 = UA Leuk Est) 9:32 PM) [facility] [id number] 02:32:00 Test Item Value Reference Range Interpretation Comments U Preg (test code = U Negative (12/31/18 9:32 Preg) PM) [facility] HospitalKmkpqbyPPRALGDXYP3281-53-49 03:07:00 Test Item Value Reference Range Interpretation Comments Hct (test code = Hct) 32.6 36.0-48.0 [facility] SouthIboirgbWUYRXMEQNY7154-70-55 03:07:00 Test Item Value Reference Range Interpretation Comments Hgb (test code = Hgb) 10.8 12.0-16.0 [facility] SouthZmwiqofMQCCPAVSUM1549-20-12 22:28:00 Test Item Value Reference Range Interpretation Comments RBC (test code = RBC) 4.31 4.20-5.40 [facility] HospitalImfimqoUBWTQONFGL5525-59-58 22:28:00 Test Item Value Reference Range Interpretation Comments Hgb (test code = Hgb) 11.2 12.0-16.0 [facility] SouthUtbklcxKBRJJHBFTZ2877-48-57 22:28:00 Test Item Value Reference Range Interpretation Comments Platelet (test code = Platelet) 174 133-450 [facility] HospitalYpstuqzYCCAKAYSFS2441-05-25 22:28:00 Test Item Value Reference Range Interpretation Comments MPV (test code = MPV) 11.2 7.4-10.4 [facility] HospitalMwecvdeRJDYMWJNTO0400-86-98 22:28:00 Test Item Value Reference Range Interpretation Comments MCH (test code = MCH) 26.0 pg 27.0-31.0 [facility] HospitalWwfuwkdMBYVGYFEBS4245-49-55 22:28:00 Test Item Value Reference Range Interpretation Comments MCHC (test code = MCHC) 33.6 32.0-36.0 [facility] SouthIhorujtRJQJJNOCRE7200-97-53 22:28:00 Test Item Value Reference Range Interpretation Comments RDW (test code = RDW) 14.5 11.5-14.5 [facility] SouthDzoypecRKVDXYFXFT1449-15-47 22:28:00 Test Item Value Reference Range Interpretation Comments Microcyte (test code = 1+ *ABN*(07/09/17 Microcyte) 5:28 PM) [facility] SouthFskxcscVJJNXTYBGV5442-30-37 22:28:00 Test Item Value Reference Range Interpretation Comments Segs-Bands # (test code = Segs-Bands #) 3.9 1.5-8.1 [facility] SouthSxbsyjjBHBPVCRPDJ2684-06-28 22:28:00 Test Item Value Reference Range Interpretation Comments Monocytes # (test code 0.7 See_Comment [Aut omated message] The = Monocytes #) system which generated this result tra nsmitted reference range : <=0.8. The reference r jorge was not used to int erpret this result as normal/abnormal . [facility] SouthBjcckseJQWNCADAUM6779-40-16 22:28:00 Test Item Value Reference Range Interpretation Comments Eosinophils (test code = 0.6 See_Comment [A utomated message] The Eosinophils) system which ge nerated this result tra nsmitted reference range : <=4.0. The reference r jorge was not used to int erpret this result as normal/abnormal . [facility] SouthPerkzvxBDISOPYZWR7815-64-32 22:28:00 Test Item Value Reference Range Interpretation Comments Monocytes (test code = Monocytes) 11.3 2.0-12.0 [facility] SouthOnozzskXIFPHKZBPY4687-27-60 22:28:00 Test Item Value Reference Range Interpretation Comments Lymphocytes (test code = Lymphocytes) 23.8 20.0-40.0 [facility] SouthWimvwldWBOBZBRULL1981-13-11 22:28:00 Test Item Value Reference Range Interpretation Comments Lymphocytes # (test code = Lymphocytes 1.4 1.0-5.5 #) [facility] SouthBtilospUQGQZZERDW3812-46-85 22:28:00 Test Item Value Reference Range Interpretation Comments Basophils (test code = 0.4 See_Comment [Aut omated message] The Basophils) system which ge nerated this result tra nsmitted reference range : <=1.0. The reference r jorge was not used to int erpret this result as normal/abnormal . [facility] SouthZvyluibWPMSWPVVYG3835-00-97 22:28:00 Test Item Value Reference Range Interpretation Comments Segs (test code = Segs) 63.9 45.0-75.0 [facility]haayEZNLMFFNIS5978-51-57 22:28:00 Test Item Value Reference Range Interpretation Comments Hep Bs Ag (test code Negative *NA*(07/09/17 = Hep Bs Ag) 5:28 PM) [facility] [id number] 22:28:00 Test Item Value Reference Range Interpretation Comments HIV. (test code = Negative *NA*(07/09/17 HIV.) 5:28 PM) [id number] 22:28:00 Test Item Value Reference Range Interpretation Comments Treponemal Scr (test Non Reactive code = Treponemal Scr) *NA*(07/09/17 5:28 PM) [facility] AND [id number] 22:28:00 Test Item Value Reference Range Interpretation Comments UA Urobilinogen (test code = UA <=1.0 mg/dL 0.1-1.0 Urobilinogen) [facility] AND [id number] 22:28:00 Test Item Value Reference Range Interpretation Comments UA Blood (test code = Negative (07/09/17 5:28 UA Blood) PM) [facility] AND [id number] 22:28:00 Test Item Value Reference Range Interpretation Comments UA pH (test code = UA pH) 7.0 5.0-8.0 [facility] AND [id number] 22:28:00 Test Item Value Reference Range Interpretation Comments UA Ketones (test code = UA Negative mg/dL Ketones) [facility] AND [id number] 22:28:00 Test Item Value Reference Range Interpretation Comments UA Bili (test code = Negative *NA*(07/09/17 UA Bili) 5:28 PM) [facility] AND [id number] 22:28:00 Test Item Value Reference Range Interpretation Comments UA Protein (test code = UA Negative mg/dL Protein) [facility] AND [id number] 22:28:00 Test Item Value Reference Range Interpretation Comments UA Glucose (test code = UA Negative mg/dL Glucose) [facility] AND [id number] 22:28:00 Test Item Value Reference Range Interpretation Comments UA Color (test code = Light Yellow UA Color) *NA*(07/09/17 5:28 PM) [facility] [id number] 22:28:00 Test Item Value Reference Range Interpretation Comments UA Spec Grav (test code = UA Spec Grav) 1.004 [facility] AND [id number] 22:28:00 Test Item Value Reference Range Interpretation Comments UA Turbidity (test code = Clear (07/09/17 5:28 UA Turbidity) PM) [facility] AND [id number] 22:28:00 Test Item Value Reference Range Interpretation Comments UA Bacteria (test code = UA Occasional /HPF Bacteria) [facility] AND [id number] 22:28:00 Test Item Value Reference Range Interpretation Comments UA WBC (test code = 13 See_Comment [Automa alvarez message] The UA WBC) system which ge nerated this result transmit alvarez reference range : <=5. The reference range was not used to interpr et this result as majo l/abnormal. [facility] AND [id number] 22:28:00 Test Item Value Reference Range Interpretation Comments UA RBC (test code = 1 See_Comment [Automa alvarez message] The UA RBC) system which ge nerated this result transmit alvarez reference range : <=2. The reference range was not used to interpr et this result as majo l/abnormal. [facility] AND [id number] 22:28:00 Test Item Value Reference Range Interpretation Comments UA Leuk Est (test code Large *ABN*(07/09/17 = UA Leuk Est) 5:28 PM) [facility] AND [id number] 22:28:00 Test Item Value Reference Range Interpretation Comments UA Sq Epi (test code = UA Sq Occasional /LPF Epi) [facility] AND [id number] 22:28:00 Test Item Value Reference Range Interpretation Comments UA Nitrite (test code Negative (07/09/17 5:28 = UA Nitrite) PM) [facility] [id number] 22:28:00 Test Item Value Reference Range Interpretation Comments Antibody Scrn (test Negative (07/09/17 code = Antibody Scrn) 5:28 PM) [facility] [id number] 22:28:00 Test Item Value Reference Range Interpretation Comments ABO/Rh (test code = ABO/Rh) B POS [facility] [id number] 22:28:00 Test Item Value Reference Range Interpretation Comments UDS Note (test code = See Note *NA*(07/09/17 UDS Note) 5:28 PM) [facility] [id number] 22:28:00 Test Item Value Reference Range Interpretation Comments U Cocaine Scr (test Negative *NA*(07/09/17 code = U Cocaine Scr) 5:28 PM) [facility] [id number] 22:28:00 Test Item Value Reference Range Interpretation Comments U Benzodia Scr (test Negative *NA*(07/09/17 code = U Benzodia Scr) 5:28 PM) [facility] [id number] 22:28:00 Test Item Value Reference Range Interpretation Comments U Coni Scr (test code Negative *NA*(07/09/17 = U Coni Scr) 5:28 PM) [facility] [id number] 22:28:00 Test Item Value Reference Range Interpretation Comments U Opiate Scr (test Negative *NA*(07/09/17 code = U Opiate Scr) 5:28 PM) [facility] [id number] 22:28:00 Test Item Value Reference Range Interpretation Comments U Phencyc Scr (test Negative *NA*(07/09/17 code = U Phencyc Scr) 5:28 PM) [facility] [id number] 22:28:00 Test Item Value Reference Range Interpretation Comments U Cannab Scr (test Negative *NA*(07/09/17 code = U Cannab Scr) 5:28 PM) [facility] [id number] 22:28:00 Test Item Value Reference Range Interpretation Comments U Amph Scr (test code Negative *NA*(07/09/17 = U Amph Scr) 5:28 PM) [facility] [id number] 22:28:00 Test Item Value Reference Range Interpretation Comments Hct (test code = Hct) 33.4 36.0-48.0 [facility] [id number] 22:28:00 Test Item Value Reference Range Interpretation Comments MCV (test code = MCV) 77.5 80.0-98.0 [id number] 22:28:00 Test Item Value Reference Range Interpretation Comments WBC (test code = WBC) 6.0 3.7-10.4 [facility] [id number] 11:39:00 Test Item Value Reference Range Interpretation Comments Influ B (test code = Negative (01/14/17 6:39 Influ B) AM) [facility] [id number] 11:39:00 Test Item Value Reference Range Interpretation Comments Influ A (test code = Negative (01/14/17 6:39 Influ A) AM) [facility] [id number] 02:59:37 Test Item Value Reference Range Interpretation Comments UA Color (test code = UA Color) Nat [facility] [id number] 02:59:37 Test Item Value Reference Range Interpretation Comments UA Renal Epi (test code = UA Renal Epi) 11 [facility] [id number] 02:59:37 Test Item Value Reference Range Interpretation Comments UA Mucus (test code = UA Mucus) Many /LPF [facility] [id number] 02:59:37 Test Item Value Reference Range Interpretation Comments UA WBC (test code = 10 See_Comment [Automa alvarez message] The UA WBC) system which ge nerated this result transmit alvarez reference range : <=5. The reference range was not used to interpr et this result as majo l/abnormal. [facility] [id number] 02:59:37 Test Item Value Reference Range Interpretation Comments UA Bacteria (test code = UA Occasional /HPF Bacteria) [facility] [id number] 02:59:37 Test Item Value Reference Range Interpretation Comments UA RBC (test code = 6 See_Comment [Automa alvarez message] The UA RBC) system which ge nerated this result transmit alvarez reference range : <=2. The reference range was not used to interpr et this result as majo l/abnormal. [facility] [id number] 02:59:37 Test Item Value Reference Range Interpretation Comments UA Sq Epi (test code = UA Sq Moderate /LPF Epi) [facility] [id number] 02:59:37 Test Item Value Reference Range Interpretation Comments UA Leuk Est (test code Large *ABN*(12/22/16 9:59 = UA Leuk Est) PM) [facility] AND [id number] 02:59:37 Test Item Value Reference Range Interpretation Comments UA Ketones (test code = UA Ketones) 20 mg/dL [facility] AND [id number] 02:59:37 Test Item Value Reference Range Interpretation Comments UA Glucose (test code = UA Negative mg/dL Glucose) [facility] AND [id number] 02:59:37 Test Item Value Reference Range Interpretation Comments UA Blood (test code = Negative (12/22/16 9:59 UA Blood) PM) [facility] AND [id number] 02:59:37 Test Item Value Reference Range Interpretation Comments UA Urobilinogen (test code = UA 4.0 0.1-1.0 Urobilinogen) [facility] AND [id number] 02:59:37 Test Item Value Reference Range Interpretation Comments UA Nitrite (test code Negative (12/22/16 9:59 = UA Nitrite) PM) [facility] AND [id number] 02:59:37 Test Item Value Reference Range Interpretation Comments UA Bili (test code = Negative *NA*(12/22/16 UA Bili) 9:59 PM) [facility] AND [id number] 02:59:37 Test Item Value Reference Range Interpretation Comments UA Turbidity (test code = Clear (12/22/16 9:59 UA Turbidity) PM) [facility] AND [id number] 02:59:37 Test Item Value Reference Range Interpretation Comments UA Spec Grav (test code = UA Spec Grav) 1.025 [facility] AND [id number] 02:59:37 Test Item Value Reference Range Interpretation Comments UA pH (test code = UA pH) 6.0 5.0-8.0 [facility] AND [id number] 02:59:37 Test Item Value Reference Range Interpretation Comments UA Protein (test code = UA Protein) 30 mg/dL [facility] [id number] 02:59:37 Test Item Value Reference Range Interpretation Comments U Preg (test code = U Positive *ABN*(12/22/16 Preg) 9:59 PM) [place] [id number] 23:55:00 Test Item Value Reference Range Interpretation Comments Grp A Strep Scr (test Negative (12/22/16 6:55 code = Grp A Strep PM) Scr) [facility] - [id number] 23:55:00 Test Item Value Reference Range Interpretation Comments Influ B (test code = Negative (12/22/16 6:55 Influ B) PM) [facility] [id number] 23:55:00 Test Item Value Reference Range Interpretation Comments Influ A (test code = Negative (12/22/16 6:55 Influ A) PM) [place] [id number] 04:34:00 Test Item Value Reference Range Interpretation Comments Grp A Strep Scr (test Negative (12/18/16 11:34 code = Grp A Strep PM) Scr) [facility] [id number] 04:34:00 Test Item Value Reference Range Interpretation Comments Influ B (test code = Negative (12/18/16 11:34 Influ B) PM) [facility] [id number] 04:34:00 Test Item Value Reference Range Interpretation Comments Influ A (test code = Negative (12/18/16 11:34 Influ A) PM) [facility] AND [id number] 03:58:00 Test Item Value Reference Range Interpretation Comments UA Ketones (test code Negative *NA*(03/06/15 = UA Ketones) 10:58 PM) [facility] AND [id number] 03:58:00 Test Item Value Reference Range Interpretation Comments UA Glucose (test code Negative (03/06/15 10:58 = UA Glucose) PM) [facility] AND [id number] 03:58:00 Test Item Value Reference Range Interpretation Comments UA Blood (test code = Negative (03/06/15 10:58 UA Blood) PM) [facility] AND [id number] 03:58:00 Test Item Value Reference Range Interpretation Comments UA Nitrite (test code Negative (03/06/15 10:58 = UA Nitrite) PM) [facility] AND [id number] 03:58:00 Test Item Value Reference Range Interpretation Comments UA Urobilinogen (test code = UA 0.2 0.1-1.0 Urobilinogen) [facility] AND [id number] 03:58:00 Test Item Value Reference Range Interpretation Comments UA Leuk Est (test code Small *ABN*(03/06/15 = UA Leuk Est) 10:58 PM) [facility] AND [id number] 03:58:00 Test Item Value Reference Range Interpretation Comments UA Turbidity (test code Slight Cloudy = UA Turbidity) (03/06/15 10:58 PM) [facility] AND [id number] 03:58:00 Test Item Value Reference Range Interpretation Comments UA Spec Grav (test code = UA Spec 1.022 1 Grav) [facility] AND [id number] 03:58:00 Test Item Value Reference Range Interpretation Comments UA Color (test code = Yellow *NA*(03/06/15 UA Color) 10:58 PM) [facility] AND [id number] 03:58:00 Test Item Value Reference Range Interpretation Comments UA pH (test code = UA pH) 7.0 1 5.0-8.0 [facility] AND [id number] 03:58:00 Test Item Value Reference Range Interpretation Comments UA Protein (test code = UA Protein) 30 mg/dL [facility] AND [id number] 03:58:00 Test Item Value Reference Range Interpretation Comments UA Bili (test code = Negative *NA*(03/06/15 UA Bili) 10:58 PM) [facility] AND [id number] 03:58:00 Test Item Value Reference Range Interpretation Comments UA RBC (test code = 3-5 /HPF See_Comment [Automa alvarez message] The UA RBC) system which ge nerated this result tra nsmitted reference range : <=2. The reference range was not used to interpr et this result as majo l/abnormal. [facility] AND [id number] 03:58:00 Test Item Value Reference Range Interpretation Comments UA WBC (test code = UA WBC) 21-50 /HPF [facility] AND [id number] 03:58:00 Test Item Value Reference Range Interpretation Comments UA Mucus (test code = UA Mucus) Few /LPF [facility] AND [id number] 03:58:00 Test Item Value Reference Range Interpretation Comments UA Bacteria (test code = UA Few /HPF Bacteria) [facility] [id number] 03:58:00 Test Item Value Reference Range Interpretation Comments Micro? (test code = Performed (03/06/15 10:58 Micro?) PM) [facility] [id number] 03:58:00 Test Item Value Reference Range Interpretation Comments UA Sq Epi (test code = UA Sq Epi) Few /LPF [facility] [id number] 03:58:00 Test Item Value Reference Range Interpretation Comments U Preg (test code = U Negative (03/06/15 10:58 Preg) PM) [facility] [place] Notes Date/Time Note Provider Source 2023-05-13 14:43:00-00:00 [facility] EMERGENCY PROVIDER REPORT REPORT#:[id number] REPORT STATUS: Signed DATE:05/13/23 TIME: 1442 PATIENT: ZORAN STORM UNIT #: [id number] ROOM/BED: AGE: 23 SEX: F PCP PHYS: [facility] SERVICE AUTHOR: Julian Chino MD * ALL edits or amendments must be made on the [employer]/computer document * Julian Chino 05/13/23 1443: HPI-General Illness General Initial Greet Date/Time 05/13/23 1437 Presentation Chief Complaint Abdominal pain Free Text HPI Notes Free Text HPI Notes 24 years old patient no past medical his tory presents complaining of 3 days of nausea intermittent vomiting , decreased appetite and suprapubic pain, no urinary symptoms, no fever chills or any other complaint s. Review of Systems ROS Statements All systems rev neg except as marked. Free Text ROS Notes Free Text ROS Notes CONSTITUTIONAL: Normal; negative for fev er, weight change, fatigue, or aching. HEENT: Eyes normal; negative for, irritation, or visual field defects. Ears normal; Negative for pain . Nose normal; Negative for runny nose, sinus problems , or nosebleeds. Mouth normal; Negative for dent al problems,. Throat normal; Negative for hoarseness, difficulty swallowing, or sore throat. CARDIOVASCULAR: Normal; Negative for chest pain or, high blood pressure, orthopnea, PULMONARY: Normal; Negative for cough, sputum, shortness of breath or wheezing, SKIN: Normal; Negative for rashes. MUSCULOSKELETAL: Normal; Negative for back pain, joint pain. NEUROLOGIC: Normal; Negative for blackouts, head aches, seizures or dizziness. PSYCHIATRIC: Normal; Negative for anxiety, depre ssion, or phobias. ENDOCRINE: Normal; Negative for diabetes, thyroid.HEMATOLOGIC/LYMPHATIC: Normal; Negative for anemia, swollen glands, or blood di sorders. IMMUNOLOGIC: Negative; Negative for steroids, ch emotherapy, or cancer. VASCULAR: Normal; Negative for varicose veins, b lood clots, or leg ulcers. Past Medical History - Adult Stated Complaint NOT PREG, NAUSEA/VOMITING FOR 3 DAYS Allergies Coded Allergies: promethazine (From PHENERGAN) (Severe, hallucina tions 08/31/22) Physical Exam Vital Signs Vital Signs First Documented: Result Date Time Pulse Ox 99 05/13 1432 B/P 104/64 05/13 1432 B/P Mean 77 05/13 1432 O2 Delivery Room air 05/13 1432 Temp 36.9 05/13 1432 Pulse 76 05/13 1432 Resp 17 05/13 143 Last Documented: Result Date Time Pulse Ox 99 05/13 1432 B/P 104/64 05/13 1432 B/P Mean 77 05/13 143 O2 Delivery Room air 05/13 1432 Temp 36.9 05/13 143 Pulse 76 05/13 1432 Resp 17 05/13 143 Review of Vital Signs Reviewed, Vital signs norm al Basic Physical Exam Basic PE GEN: Well appearing/NAD, EYES: PERRL, conj clear, NECK: Supple, RESP: No resp distress, ABD: Soft/non-tender, EXT: No gross abnormality, SKIN: No rashes, warm/dry, NEURO: alert oriented, NEURO: gross movement NL Interpretation Diagnostics Lab Results Interpretation Results Laboratory Tests 05/13/231447: [Embedded Image Not Available] Laboratory Tests: 05/13 1448 Chemistry Sodium (135 - 145 mEq/L) 137 Potassium (3.5 - 5.0 mEq/L) 3.1 L Chloride (100 - 115 mEq/L) 103 Carbon Dioxide (22 - 31 mEq/L) 24 Anion Gap (10 - 20) 12.80 BUN (7 - 18 mg/dL) 7 Creatinine (0.5 - 1.0 mg/dL) 0.7 Glomerular Filtr Rate (>60 ml/min) 125 Glucose (65 - 110 mg/dL) 91 Calcium (8.4 - 10.2 mg/dL) 8.7 Total Bilirubin (0.2 - 1.0 mg/dL) 0.2 AST (15 - 37 units/L) 13 L ALT (12 - 78 units/L) 22 Total Alk Phosphatase (46 - 116 units/L) 61 Total Protein (6.3 - 8.2 gm/dL) 6.7 Albumin (3.4 - 4.8 gm/dL) 3.2 L Hematology WBC (6.5 - 12.3 K/mm3) 4.6 L RBC (3.51 - 4.69 M/mm3) 4.49 Hgb (10.1 - 13.8 g/dL) 11.5 Hct (32.5 - 41.8 %) 34.4 MCV (84.6 - 96.6 fL) 76.6 L MCH (27.3 - 33.9 pg) 25.6 L MCHC (32.0 - 34.2 gm/dL) 33.4 RDW (12.2 - 16.3 %) 14.2 Plt Count (134 - 363 K/mm3) 243 MPV (9.2 - 12.7 fL) 11.3 Neut % (Auto) (57.9 - 77.3 %) 54.8 L Lymph % (Auto) (14.5 - 29.7 %) 33.8 H Jerauld % (Auto) (3.6 - 10.2 %) 9.7 Eos % (Auto) (0.0 - 3.0 %) 0.9 Baso % (Auto) (0.1 - 0.9 %) 0.6 Neut # (Auto) (K/mm3) 2.5 Lymph # (Auto) (K/mm3) 1.6 Jerauld # (Auto) (K/mm3) 0.5 Eos # (Auto) (K/mm3) 0.04 Baso # (Auto) (K/mm3) 0.0 Miscellaneous Maternal Serum HCG 4781 Toxicology Urine Opiates Screen (NEGATIVE) NEGATIVE Ur Barbiturates, Qual (NEGATIVE) NEGATIVE Ur Phencyclidine Scrn (NEGATIVE) NEGATIVE Ur Amphetamines Screen (NEGATIVE) NEGATIVE U Benzodiazepines Scrn (NEGATIVE) NEGATIVE Urine Cocaine Screen (NEGATIVE) NEGATIVE Urine Cannabinoids (NEGATIVE) POSITIVE *A Urines Urine Color (YELLOW) YELLOW Urine Appearance (CLEAR) CLOUDY A Urine pH (5 - 9) 7.0 Ur Specific Hustle (1.001 - 1.035) 1.027 Urine Protein (NEG) NEGATIVE Urine Glucose (UA) (NEG) NEGATIVE Urine Ketones (NEG) TRACE H Urine Blood (NEG) NEG Urine Nitrite (NEG) NEG Urine Bilirubin (NEG) NEGATIVE Urine Urobilinogen (NEG mg/dL) NEGATIVE Ur Leukocyte Esterase (NEG) 3+ H Urine RBC (NONE SEEN #/hpf) 0-2 Urine WBC (NONE SEEN #/hpf) 11-15 H Ur Epithelial Cells (RARE - FEW #/HPF) MODERATE H Urine Mucus (NONE SEEN) 2+ Urine HCG, Qual POSITIVE Microbiology: Date/Time Procedure - Status Source Growth 05/13 153 Urine Culture - RECD URINE Recent Impressions: ULTRASOUND - US PREG UT TRANSVAGINAL 05/13 1754 Report Impression - Status: SIGNED Entered: 05/13/20231916 IMPRESSION: Early intrauterine gestational sac is seen corre sponding to 5 weeks 2 days gestation. pole is not yet identifi ed. Recommend attention on follow-up imaging. Impression By: Rod Storm MD ULTRASOUND - DUP AB/PEL/SC/LTD 05/13 1754 Report Impression - Status: SIGNED Entered: 05/13/20231916 IMPRESSION: Early intrauterine gestational sac is seen corre sponding to 5 weeks 2 days gestation. pole is not yet identifi ed. Recommend attention on follow-up imaging. Impression By: Rod Storm MD ULTRASOUND - US PREG EVAL 1ST TRIMTR 05/13 1754 Report Impression - Status: SIGNED Entered: 05/13/20231916 IMPRESSION: Early intrauterine gestational sac is seen corre sponding to 5 weeks 2 days gestation. pole is not yet identifi ed. Recommend attention on follow-up imaging. Impression By: Rod Storm MD Re-Evaluation MDM ED Course Medication(s) Ordered Medication(s) Ordered: Anti-Infective Agents Sig/Godfrey Start time Last Medication Dose Route Stop Time Status Admin Ceftriaxone Sodium 1,000 MG X1ED STA 05/13 1729 DC 05/13 Sodium Chloride 100 ML IV 05/13 1758 1823 Electrolytic, Caloric, And Yun Sig/Godfrey Start time Last Medication Dose Route Stop Time Status Admin Potassium Chloride 40 MEQ X1ED STA 05/13 1729 D C 05/13 PO 05/13 1730 1824 Patient Discharge Departure Vital Signs/Condition Vital Signs First Documented: Result Date Time Pulse Ox 99 05/13 1432 B/P 104/64 05/13 1432 B/P Mean 77 05/13 1432 O2 Delivery Room air 05/13 1432 Temp 36.9 05/13 1432 Pulse 76 05/13 1432 Resp 17 05/13 1432 Last Documented: Result Date Time Pulse Ox 99 05/13 1432 B/P 104/64 05/13 1432 B/P Mean 77 05/13 1432 O2 Delivery Room air 05/13 1432 Temp 36.9 05/13 1432 Pulse 76 05/13 1432 Resp 17 05/13 1432 All vital signs available at the time of this en try have been reviewed. Condition Stable, Improved Clinical Impression Time of Impression 1757 Pt/Provider Handoff Care Transferred to Dr Hernandez Care Transferred at 1757 Discussed Complaint(s) Yes Jared Hernandez 05/13/231937: Past Medical History - Adult Home Medications Discontinued Scripts ACETAMINOPHEN (TYLENOL) 500 MG PO Q4H PRN PRN PA IN ACETAMINOPHEN (TYLENOL) 500 MG PO Q4H PRN PRN P AIN #24 TABS Prov: 08/31/22 DC: 05/13/23 1449 Patient stopped taking Interpretation Diagnostics Lab Results Interpretation Considerations Independ review imaging, Reviewed prior records Lab Imaging Statement Laboratory radiographic studies reviewed and con sidered in the medical decision-making. Re-Evaluation MDM Re-Evaluation/Progress #1 Time of Re-Eval 1937 Re-Eval Status Improved Eval Following Treatment Pt. feels better, Condi tion improved Patient Discharge Departure Clinical Impression Clinical Impression Primary Impression: Pelvic pain affecting pregna ncy Secondary Impressions: UTI (urinary tract infect ion) Disposition Decision Discharge )( Discharged to Home Yes )( Time 1938 )( Date 05/13/23 Discharge/Care Plan Counseled Regarding Diagnosi s, Lab results, Imaging studies, Prescriptions, Need for follow-up, When to return to ED (Auto) Prescriptions Current Visit Scripts cefUROXime axetiL (CEFTIN) 500 MG PO Q12H cefUROXime axetiL (CEFTIN) 500 MG PO Q12H #14 T ABS Prescriptions Reviewed Risks, Benefits, Alternat giorgio treatment Patient Instructions Cannabis Use in Pre gnancy, Comfort Tips During , ED Abdominal Pain, Early , Urinary Trac t Infections in Women Referrals Provider Referral: Lola Francisco MD Address: [address] [place] [address] [address] [place] [address] Departure Forms ABNORMAL LABS ABNORMAL RADIOLOGY READING FREE OR LOW COST CLINICS Discharge Note I have spoken with the patie nt and/or caregivers. I have explained the patient's condition, diagnoses and alexandria atment plan based on the information available to me at this time. I have answered the patient's and/ or caregiver's questions and addressed any concerns. The patient and/or careg amy have as good an understanding of the patient 's diagnosis, condition and treatment plan as can be expected at this point. The vital signs have bee n stable. The patient's condition is stable and appr opriate for discharge from the emergency department. The patient will pursue further outpatient evalu ation with the primary care physician or other designated or consulting phys ician as outlined in the discharge instructions. The patient and/or caregivers are agreeable to this plan of care and follow-up instructions have been exp lained in detail. The patient and/or caregivers have received these instructio ns in written format and have expressed an understanding of the discharge inst ructions. The patient and/or caregivers are aware that any significant change in condition or worsening of symptoms should prompt an immediate return to [facility] or the closest emergency department or a call to 911. Electronically Signed by Julian Chino MD 05/13/23 at 8780 Electronically Signed by Jared Hernandez DO on at 0036 RPT #:[id number] END OF REPORT 2022-08-31 17:15:00-00:00 [facility] [place] ([facility]) EMERGENCY PROVIDER REPORT REPORT#:[id number] REPORT STATUS: Signed DATE:08/31/22 TIME: 1715 PATIENT: ZORAN STORM UNIT #: [id number] ROOM/BED: AGE: 22 SEX: F PCP PHYS: No Primary or Family Ph ysician SERVICE AUTHOR: Yoselyn Whitehead MD * ALL edits or amendments must be made on the [employer]/computer document * Yoselyn Whitehead 08/31/22 1715: HPI-General Illness General Initial Greet Date/Time 08/31/22 8582 Presentation Chief Complaint Abdominal pain Hx Obtained From Patient Free Text HPI Notes Free Text HPI Notes 22 yoF who comes in today with abdominal discomf ort and headache. States she was in her baseline of health until yest erday. States that she all of a sudden developed the symptom.had 1 episode of loose sto ol 2 days ago and has not had any subsequent. Denies any vomiting. States that she does not have any blurry vision, neck pain, rashes, bites, weakness. Stat es she just wanted to be checked out. Uses marijuana Review of Systems Review of Systems Constitutional Denies: Fever, Malaise. Eyes Denies: Diplopia, Photophobia. Ears/Nose/Throat Denies: Nasal congestion, Sore throat. Respiratory Denies: Cough, non-productive, Pleuritic pain, S hortness of breath, Wheezing. Cardiovascular Denies: Edema, Syncope. GI Reports: Abdominal pain, Diarrhea. Denies: Nause a, Vomiting. Female Denies: Dysuria, Urination decreased, Vaginal bl eeding - abnl, Vaginal discharge. Hematologic Denies: Bruising, Petechiae. Skin Denies: Rash, Swelling. Allergy/Immun Denies: Rhinorrhea, Sneezing. Neurologic Denies: Headache, Lightheaded. Past Medical History - Adult Stated Complaint ABD PAIN, HEADACHE X 2 DAYS Allergies Coded Allergies: promethazine (From PHENERGAN) (Severe, hallucina tions 08/31/22) Past Medical History: Denies: Asthma, Atrial fibrillation. Past Surgical History: Denies: Hysterectomy, Pacemaker. Alcohol Use Alcohol use Drug Use Marijuana Smoking status for patients 13 years old or olde r: Current some day smoker Physical Exam Vital Signs Review of Vital Signs Reviewed Physical Exam General/Const General/Const Awake, Alert, No acute di stress, Well appearing, Well developed , Well hydrated, Well nourished, Cooperative, No t toxic appearing MS Head Head Atraumatic, Normocephalic Eyes Eyes Atraumatic, PERRL, EOMI, No nystagmus, No periorbital redness, No periorbital swelling, No photophobia, No scleral icterus Ears/Nose/Throat Ears/Nose/Throat Atraumatic, Airway patent, Muc ous membranes moist, Pharynx NL, No peritonsillar abscess, No pooling of secr etions, No trismus, Tympanic membs NL MS Neck Neck Atraumatic, Supple, No meningismus , Full range of motion, No adenopathy, No swelling, Non-tender, No midline vertebral te nd Resp/Chest Respiratory/Chest Atraumatic, Breath sounds NL, Breath sounds = bilat, No respiratory distress, No rales, No rhonchi, No w heezing, No retractions Cardiovascular Cardiovascular Heart rate NL, Regular rhythm, H eart sounds NL, No gallop, No murmurs, No rubs, Cap refill not delayed, Periph eral circulation NL Abdomen/GI Abdomen/GI Atraumatic, Soft, Non-tender, McBurn ey's non-tender, No guarding, No rebound, No distention MS Back Back Atraumatic, Inspection NL, Full range of m otion, Painless range of motion, Non-tender MS Upper Extrem Upper Extremity/MS Atraumatic, Inspection NL, F ull range of motion, No swelling, Non-tender MS Lower Extrem Lower Ext/Pelvis/MS Atraumatic, Inspection NL, Full range of motion, No swelling, Non-tender, No erythema, No deformity Skin Skin Atraumatic, Color NL, No rash, Warm, Dry Neurologic Neurologic Oriented X3, Speech NL, No m otor deficits, No sensory deficits, CN II - XII intact Re-Evaluation MDM Free Text MDM Notes Free Text MDM Notes 22-year-old female who comes in with abdominal discomfort, generalized headache that is a 4 out of 10, and generalized aches. Sh e is well-appearing and hemodynamically stable. Pend ing labs and reassessment. signed out to Dr. Hernandez. Patient Discharge Departure Discharge/Care Plan Referrals Provider Referral: Nakul Nicole MD Address: [address] [place] [address] Jared Hernandez 08/31/22 2777: Physical Exam Vital Signs Vital Signs First Documented: Result Date Time Pulse Ox 99 08/31 1555 B/P 97/61 08/31 1555 B/P Mean 73 08/31 155 O2 Delivery Room air 08/31 155 Temp 98.2 08/31 155 Pulse 82 08/31 1555 Resp 18 08/31 155 Last Documented: Result Date Time Pulse Ox 99 08/31 1555 B/P 97/61 08/31 1555 B/P Mean 73 08/31 1555 O2 Delivery Room air 08/31 155 Temp 98.2 08/31 155 Pulse 82 08/31 1555 Resp 18 08/31 155 Interpretation Diagnostics Lab Results Interpretation Results Laboratory Tests 08/31/22 1603: [Embedded Image Not Available] Laboratory Tests: 08/31 08/31 1603 1601 Chemistry Sodium (135 - 145 mEq/L) 139 Potassium (3.5 - 5.0 mEq/L) 3.5 Chloride (100 - 115 mEq/L) 107 Carbon Dioxide (22 - 31 mEq/L) 24 Anion Gap (10 - 20) 12.00 BUN (7 - 18 mg/dL) 6 L Creatinine (0.5 - 1.0 mg/dL) 0.6 Glomerular Filtr Rate (>60 ml/min) 131 Glucose (65 - 110 mg/dL) 84 Calcium (8.4 - 10.2 mg/dL) 7.8 L Total Bilirubin (0.2 - 1.0 mg/dL) 0.2 Direct Bilirubin (<0.2 mg/dL) 0.1 AST (15 - 37 units/L) 27 ALT (12 - 78 units/L) 58 Total Alk Phosphatase (46 - 116 units/L) 68 Total Protein (6.3 - 8.2 gm/dL) 5.9 L Albumin (3.4 - 4.8 gm/dL) 3.0 L Lipase (73 - 393 units/L) 100 Hematology WBC (6.5 - 12.3 K/mm3) 5.2 L RBC (3.51 - 4.69 M/mm3) 4.80 H Hgb (10.1 - 13.8 g/dL) 12.2 Hct (32.5 - 41.8 %) 36.8 MCV (84.6 - 96.6 fL) 76.7 L MCH (27.3 - 33.9 pg) 25.4 L MCHC (32.0 - 34.2 gm/dL) 33.2 RDW (12.2 - 16.3 %) 13.5 Plt Count (134 - 363 K/mm3) 245 MPV (9.2 - 12.7 fL) 10.8 Neut % (Auto) (57.9 - 77.3 %) 58.6 Lymph % (Auto) (14.5 - 29.7 %) 31.7 H Jerauld % (Auto) (3.6 - 10.2 %) 7.4 Eos % (Auto) (0.0 - 3.0 %) 1.3 Baso % (Auto) (0.1 - 0.9 %) 0.8 Neut # (Auto) (K/mm3) 3.1 Lymph # (Auto) (K/mm3) 1.7 Jerauld # (Auto) (K/mm3) 0.4 Eos # (Auto) (K/mm3) 0.07 Baso # (Auto) (K/mm3) 0.0 Serology SARS-CoV-2 Ag (Rapid) (NEGATIVE) NEGATIVE Urines Urine Color (YELLOW) YELLOW Urine Appearance (CLEAR) CLEAR Urine pH (5 - 9) 6.0 Ur Specific Hustle (1.001 - 1.035) 1.013 Urine Protein (NEG) NEGATIVE Urine Glucose (UA) (NEG) NEGATIVE Urine Ketones (NEG) NEGATIVE Urine Blood (NEG) NEG Urine Nitrite (NEG) NEG Urine Bilirubin (NEG) NEGATIVE Urine Urobilinogen (NEG mg/dL) NEGATIVE Ur Leukocyte Esterase (NEG) TRACE H Urine RBC (NONE SEEN #/hpf) 0-2 Urine WBC (NONE SEEN #/hpf) 3-5 H Ur Epithelial Cells (RARE - FEW #/HPF) RARE Urine Bacteria (RARE - FEW /HPF) RARE Urine HCG, Qual NEGATIVE Microbiology: Date/Time Procedure - Status Source Growth 08/31 1603 Influenza Virus Type B Antigen - COM P NASOPHARG 08/31 1603 Influenza Virus Type A Antigen - COM P NASOPHARG Re-Evaluation MDM Re-Evaluation/Progress #1 Text/Dict Note dr whitehead say pt has no abd pain/tenderness, venice nance says no imaging needed. i re--eval, abd exam: nt nd soft, i darlene precat ion and willdc pt, nontoxic appeearing wants to gohome Time of Re-Eval 184 Re-Eval Status Improved Eval Following Treatment Pt. feels better, Condi tion improved ED Course Medication(s) Ordered Medication(s) Ordered: Central Nervous System Agents Sig/Godfrey Start time Last Medication Dose Route Stop Time Status Admin Acetaminophen 1,000 MG X1ED STA 08/31 174 DC 1 11/01 PO 08/31 174 1817 Electrolytic, Caloric, And Yun Sig/Godfrey Start time Last Medication Dose Route Stop Time Status Admin Lactated Ringer's 1,000 ML .Q1H 08/31 1715 DC 1 11/01 IV 08/31 1814 1726 Patient Discharge Departure Vital Signs/Condition Vital Signs First Documented: Result Date Time Pulse Ox 99 08/31 1555 B/P 97/61 08/31 1555 B/P Mean 73 08/31 1555 O2 Delivery Room air 08/31 1555 Temp 98.2 08/31 1555 Pulse 82 08/31 1555 Resp 18 08/31 1555 Last Documented: Result Date Time Pulse Ox 99 08/31 1555 B/P 97/61 08/31 1555 B/P Mean 73 08/31 1555 O2 Delivery Room air 08/31 1555 Temp 98.2 08/31 1555 Pulse 82 08/31 1555 Resp 18 08/31 1555 All vital signs available at the time of this en try have been reviewed. Condition Stable, Improved Clinical Impression Clinical Impression Primary Impression: Headache Secondary Impressions: Fatigue Time of Impression 184 Disposition Decision Discharge )( Discharged to Home Yes )( Time 184 )( Date 08/31/22 Discharge/Care Plan Counseled Regarding Diagnosi s, Lab results, Imaging studies, Prescriptions, Need for follow-up, When to return to ED (Auto) Prescriptions Current Visit Scripts ACETAMINOPHEN (TYLENOL) 500 MG PO Q4H PRN PRN PA IN ACETAMINOPHEN (TYLENOL) 500 MG PO Q4H PRN PRN P AIN #24 TABS Prescriptions Reviewed Risks, Benefits, Alternat giorgio treatment Patient Instructions Abdominal Pain, ED Headache Unspecified, Self-Care for Headaches Departure Forms ABNORMAL LABS FREE OR LOW COST CLINICS Discharge Note I have spoken with the patie nt and/or caregivers. I have explained the patient's condition, diagnoses and alexandria atment plan based on the information available to me at this time. I have answered the patient's and/ or caregiver's questions and addressed any concerns. The patient and/or careg amy have as good an understanding of the patient 's diagnosis, condition and treatment plan as can be expected at this point. The vital signs have bee n stable. The patient's condition is stable and appr opriate for discharge from the emergency department. The patient will pursue further outpatient evalu ation with the primary care physician or other designated or consulting phys ician as outlined in the discharge instructions. The patient and/or caregivers are agreeable to this plan of care and follow-up instructions have been exp lained in detail. The patient and/or caregivers have received these instructio ns in written format and have expressed an understanding of the discharge inst ructions. The patient and/or caregivers are aware that any significant change in condition or worsening of symptoms should prompt an immediate return to [facility] or the closest emergency department or a call to 911. Electronically Signed by Yoselyn Whitehead MD on 08/12 at 1959 Electronically Signed by Jared Hernandez DO on at 2121 RPT #:[id number] END OF REPORT 2022-08-14 13:12:00-00:00 [facility] ([facility]) EMERGENCY PROVIDER REPORT REPORT#:[id number] REPORT STATUS: Signed DATE:08/14/22 TIME: 1311 PATIENT: ZORAN STORM UNIT #: [id number] ROOM: BED: AGE: 22 SEX: F PCP PHYS: No Primary or Family Ph ysician SERVICE AUTHOR: Matheus Felix * ALL edits or amendments must be made on the [employer]/computer document * Matheus Felix 08/14/22 1312: HPI-Abd Pain F Under 40 Free Text HPI Notes Free Text HPI Notes 22-year-old female who denies of PMH and allergi c to Phenergan here with complaints of nonmigrating nonradiating progress giorgio moderate lower abdominal pain for the last 2 days ass ociated with NB diarrhea. Denies dysuria, hematuria, unusual vaginal discharge, concerns for STDs, me cecille, nausea vomiting, chest pain, or shortness of breath. LMP 07/18/2022. En dorsing U freq. General Confirmed Patient Yes Patient Type New patient Initial Greet Date/Time 08/14/22 1138 Presentation Chief Complaint Abdominal pain Hx Obtained From Patient Sudden in Onset? No Onset Occurred Days ago (2) Associated with Reports: Diarrhea. Denies: B ack pain, Chest pain, Dysuria, Fever, Urinary tract symptoms, Vaginal bleeding, Vaginal discharge, V omiting. Risk-Abd Pain F Under 40 )( Ectopic Risk factors reviewed Coronary Artery Disease Risk factors reviewed Thoracic Aortic Dissection Risk factors reviewed Review of Systems Basic Review of Systems Basic ROS SKIN: No rash Focused Review of Systems Constitutional Denies: Fever. Respiratory Denies: Cough, non-productive, Cough, productive , Shortness of breath. Cardiovascular Denies: Chest pain, Syncope. GI Reports: Abdominal pain, Diarrhea. Denies: Nause a, Vomiting. Female Reports: Urinary frequency. Denies: Dysuria, Fla nk pain, Hematuria, , Vaginal bleeding - abnl, Vaginal discharge. Musculoskeletal Denies: Back pain. Past Medical History - Adult Stated Complaint ABDOMINAL PAIN Allergies Coded Allergies: promethazine (From PHENERGAN) (UNKNOWN 08/14/22) Review of Nursing Notes Triage notes reviewed Smoking status for patients 13 years old or olde r: Unknown,if ever smoked Physical Exam Vital Signs Vital Signs First Documented: Result Date Time Pulse Ox 98 08/14 1134 B/P 114/78 08/14 1134 B/P Mean 89.7 08/14 1134 Temp 98.2 08/14 1134 Pulse 74 08/14 1134 Resp 16 08/14 1134 O2 Delivery Room air 08/14 1348 Last Documented: Result Date Time Pulse Ox 99 08/14 1348 B/P 115/77 08/14 1348 B/P Mean 89.2 08/14 1348 O2 Delivery Room air 08/14 1348 Temp 98.1 08/14 1348 Pulse 77 08/14 1348 Resp 14 08/14 1348 Review of Vital Signs Reviewed Free Text PE Notes Free Text PE Notes Triage Nursing notes and Vital Signs Reviewed. General: Awake, NAD, sitting calm, no distress Head: Atraumatic and normocephalic Eyes: PERRLA, EOMI, no nystagmus, no periorbital swelling, no periorbital redness Throat: Moist mucous membranes Neck: Full ROM, supple CV: Regular rhythm, warm and well perfused, Respiratory: no respiratory distress, lungs CTA GI: Soft, nondistended. No rebound or guarding. +Mild suprapubic tenderness. No Rovsing's, obturator, no psoas sign. : Deferred, no CVAT MSK: Full ROM, Extremities: Neurovascularly intact, no deformit ies, no swelling, Neuro: Aaox4, speech normal, cranial nerves chucho sly intact, moving all extremities, appropriate interaction, gait majo l Skin: warm, dry, no rashes, No erythema. Psych: Affect normal, mood normal, normal though t content Interpretation Diagnostics Lab Results Interpretation Results Laboratory Tests 08/14/22 1151: [Embedded Image Not Available] Laboratory Tests: 08/14 08/14 1151 1151 Chemistry Sodium (135 - 145 mmol/L) 137 Potassium (3.6 - 5.0 mmol/L) 3.7 Chloride (101 - 111 mmol/L) 103 Carbon Dioxide (21 - 31 mmol/L) 25 BUN (6 - 20 mg/dl) 8 Creatinine (0.44 - 1.03 mg/dL) 0.75 Glomerular Filtr Rate (>60) >=60 max estimate Glucose (70 - 100 mg/dl) 82 Calcium (8.5 - 10.5 mg/dL) 9.0 Total Bilirubin (0.2 - 1.3 mg/dL) 0.60 Direct Bilirubin (0.00 - 0.20 mg/dL) 0.1 AST (10 - 42 U/L) 22 ALT (10 - 60 U/L) 24 Total Alk Phosphatase (42 - 121 U/L) 61 Total Protein (6.7 - 8.2 g/dL) 6.7 Albumin (3.2 - 5.5 g/dL) 3.5 Lipase (22 - 51 IU/L) 27 Serum HCG, Qual (NEGATIVE) NEGATIVE Hematology WBC (3.2 - 11.5 x10 3/uL) 2.0 *L RBC (3.70 - 5.10 x10(6)/m) 4.91 Hgb (12.0 - 15.0 g/dL) 12.4 Hct (35.7 - 44.8 %) 38.1 MCV (80 - 100 fL) 78 L MCH (26.2 - 33.8 pg) 25.3 L MCHC (30.0 - 34.0 g/dL) 32.5 RDW (11.3 - 14.5 %) 13.8 Plt Count (130 - 408 x10 3/uL) 227 MPV (8.6 - 12.6 fL) 10.0 Neut % (Auto) (40.0 - 70.0 %) 29.1 L Lymph % (Auto) (20 - 40 %) 51.8 H Jerauld % (Auto) (1 - 10 %) 18.1 H Eos % (Auto) (0.0 - 5.0 %) 1.0 Baso % (Auto) (0.0 - 1.0 %) 0.0 Neut # (Auto) (1.6 - 7.2 x10 3/uL) 0.6 L Lymph # (Auto) (1.1 - 2.7 x10 3/uL) 1.03 L Jerauld # (Auto) (0.3 - 0.8 x10 3/uL) 0.4 Eos # (Auto) (0.0 - 0.5 x10 3/uL) 0.0 Baso # (Auto) (0.0 - 0.1 x10 3/uL) 0.0 Total Counted (#CELLS) 100 Immature Gran % (0.0 - 2.0 %) 0.0 Seg Neutrophils % (43 - 65 %) 24 L Band Neutrophils % (0 - 1 %) 1 Lymphocytes % (Manual) (20.5 - 45.5 %) 57 H Atypical Lymphs % (0 - 1 %) 1 Monocytes % (Manual) (5.5 - 11.7 %) 15 H Eosinophils % (Manual) (0.9 - 2.9 %) 1 Basophils % (Manual) (0.2 - 1.0 %) 1 Nucleated RBC % (0.0 - 0.9 %) 0.0 Abs Neuts (Manual) (1.6 - 7.2 10 3/uL) 0.48 L Abs Band Neuts (Man) (0.00 - 0.70 10 3/uL) 0.02 Abs Lymphs (Manual) (1.1 - 4.8 10 3/uL) 1.1 Abs Atypical Lymphs Man (0.00 - 0.00 10 3/uL) 0 .02 H Abs Monocytes (Manual) (0.3 - 0.8 10 3/uL) 0.30 Absolute Eos (Manual) (0.00 - 0.50 10 3/uL) 0.0 2 Abs Basophils (Manual) (0.00 - 0.1 10 3/uL) 0.0 2 Abs Metamyelocytes (Man) (0.00 - 0.00 10 3/uL) 0.00 Abs Myelocytes (Man) (0.00 - 0.00 10 3/uL) 0.00 Abs Promyelocytes (Man) (0.00 - 0.00 10 3/uL) 0 .00 Abs Blast Cells (Man) (0.00 - 0.00 10 3/uL) 0.0 0 Other Cells # (0.00 - 0.00 10 3/uL) 0.00 Platelet Estimate (ADEQUATE) ADEQUATE Plt Morphology Comment (NORMAL) Normal Morphology Comment (NORMAL) Normal Urines Urine Color (YELLOW) YELLOW Urine Appearance (CLEAR) Cloudy Urine pH (5.0 - 9.0) 5.0 Ur Specific Hustle (1.001 - 1.030) 1.028 Urine Protein (NEGATIVE) 1+ H Urine Glucose (UA) (NEGATIVE) NEGATIVE Urine Ketones (NEGATIVE) Trace H Urine Blood (NEGATIVE) NEGATIVE Urine Nitrite (NEGATIVE) NEGATIVE Urine Bilirubin (NEGATIVE) NEGATIVE Urine Urobilinogen (<=1.0) 4.0 H Ur Leukocyte Esterase (NEGATIVE) 2+ H Urine RBC (0 - 5 /HPF) 0-5 Urine WBC (0 - 5 /HPF) 11-20 H Ur Epithelial Cells (NONE - FEW /LPF) MANY Urine Bacteria (NONE SEEN /HPF) 1+ H Urine Mucus (NONE SEEN /LPF) 4+ Urine Ascorbic Acid POSITIVE A Microbiology: Date/Time Procedure - Status Source Growth 08/14 1222 Urine Culture - COMP URINE Recent Impressions: CAT SCAN - CT ABD PELVIS W/CONT 08/14 1330 Report Impression - Status: SIGNED Entered: 08/14/2022 1347 IMPRESSION: 1. No acute abnormality is identified. Impression By: [email or web address] - Madi Yung MD Lab Imaging Statement Laboratory radiographic studies reviewed and con sidered in the medical decision-making. Point of Care Testing Pulse Oximetry Pulse Ox % 98 On: Room air Interpretation Interpreted by me, Pulse oximetr y normal Re-Evaluation MDM Free Text MDM Notes Free Text MDM Notes Patient evaluated for lower cramping abdominal p ain x2 days w/ associated NB diarrhea. Also endorsing urinary frequency. She appears well and nontoxic. Abdomen soft and nontender on reevaluation. Verb alizing readiness to go home. HCG neg. WBC 2 > Notified pt of importance to f/u w/ PCP. UA w/ trace leuks + frequency> treat for UTI CT WNL. Will DC patient with antibiotics for developing UTI, encourage p.o. hydration for diarrhea along w/ imodium as needed. Patient agrees with plan of care verbalizing content. Return to EC precautions given. Safe discharge. Patient with steady gait/ ambulation at discharge. )( Re-Evaluation/Progress #1 )( Re-Eval Status Improved Re-Eval Abdomen Soft, Non-tender, No guarding, N o rebound, BS normoactive, McBurney's non-tender, No distention Abd Pain MDM Note F < 40 The patient is resting comfortably and feels bet ter, is alert and in no distress. The repeat examination is unremarkable and benign; in particular, there is no discomfort at McBurney's point. The history, exam, diagnostic testing, and current condition do not suggest ac [place] appendicitis, bowel obstruction, tubovarian abscess, ectopic pregnan cy, ovarian torsion, acute cholecystitis, bowel perforation, major gastroin testinal bleeding, severe diverticulitis, sepsis, or other significant pat hology to warrant further testing, continued ED treatment, admission, or s urgical evaluation at this point. The vital signs have been stable. The pat ient does not have uncontrollable pain, intractable vomiting, or ot her significant symptoms. The patient's condition is stable and appropriate fo r discharge. The patient will pursue further outpatient evaluation with the [facility] care physician or other designated or consulting physician as in dicated in the discharge instructions. ED Course Medication(s) Ordered Medication(s) Ordered: Diagnostic Agents Sig/Godfrey Start time Last Medication Dose Route Stop Time Status Admin Iopamidol 0 .STK-MED ONE 08/14 1247 DC 08/14 IV 1339 Patient Discharge Departure Vital Signs/Condition Vital Signs First Documented: Result Date Time Pulse Ox 98 08/14 1134 B/P 114/78 08/14 1134 B/P Mean 89.7 08/14 1134 Temp 98.2 08/14 1134 Pulse 74 08/14 1134 Resp 16 08/14 1134 O2 Delivery Room air 08/14 1348 Last Documented: Result Date Time Pulse Ox 99 08/14 1348 B/P 115/77 08/148 B/P Mean 89.2 08/148 O2 Delivery Room air 08/14 1348 Temp 98.1 08/14 1348 Pulse 77 08/14 1348 Resp 14 08/14 1348 All vital signs available at the time of this en try have been reviewed. Condition Stable, Improved Clinical Impression Clinical Impression Primary Impression: Diarrhea Secondary Impressions: UTI (urinary tract infect ion) Ruled Out Impressions: Appendicitis, Disposition Decision Discharge )( Discharged to Home Yes )( Time 1359 )( Date 08/14/22 Discharge/Care Plan Counseled Regarding Diagnosi s, Lab results, Imaging studies, Prescriptions, Need for follow-up, When to return to ED (Auto) Prescriptions Current Visit Scripts Cephalexin (Keflex) 500 MG PO Q6H Cephalexin (Keflex) 500 MG PO Q6H #28 CAPS Prescriptions Reviewed Risks, Benefits, Alternat giorgio treatment Patient Instructions ED Cystitis Female Adult, E D Diarrhea, Unknown Cause Additional Instructions Follow-up with your primary care doctor on first available appointment for reevaluation. Departure Forms [facility] PCP LIST Discharge Note I have spoken with the patie nt and/or caregivers. I have explained the patient's condition, diagnoses and alexandria atment plan based on the information available to me at this time. I have answered the patient's and/ or caregiver's questions and addressed any concerns. The patient and/or careg amy have as good an understanding of the patient 's diagnosis, condition and treatment plan as can be expected at this point. The vital signs have bee n stable. The patient's condition is stable and appr opriate for discharge from the emergency department. The patient will pursue further outpatient evalu ation with the primary care physician or other designated or consulting phys ician as outlined in the discharge instructions. The patient and/or caregivers are agreeable to this plan of care and follow-up instructions have been exp lained in detail. The patient and/or caregivers have received these instructio ns in written format and have expressed an understanding of the discharge inst ructions. The patient and/or caregivers are aware that any significant change in condition or worsening of symptoms should prompt an immediate return to [facility] or the closest emergency department or a call to 911. 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 I was available for consultation as needed at al l times during the patient's visit in the emergency department. I agree with the clinical impression , plan and disposition. at 2136 Electronically Signed by Rainer Pineda DO on at 1503 RPT #:[id number] END OF REPORT 2021-11-17 09:12:00-00:00 [facility] ([facility]) EMERGENCY PROVIDER REPORT REPORT#:[id number] REPORT STATUS: Signed DATE:11/17/21 TIME: 911 PATIENT: ZORAN STORM UNIT #: [id number] ROOM/BED: AGE: 21 SEX: F PCP PHYS: No Primary or Family Ph ysician SERVICE AUTHOR: Zohreh Workman MD * ALL edits or amendments must be made on the el [employer]/computer document * HPI- Female Free Text HPI Notes Free Text HPI Notes CC: VB x 2 weeks History: LMP: 09/26/21 ALFONZO: - [place]: 7w3d PMH: none Symptoms: VB (with passage of clots), 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 Kaylie Frost ([facility] [facility] General Initial Greet Date/Time 11/17/21911 Presentation Chief Complaint Vaginal bleeding )( Sudden in Onset? No Review of Systems ROS Statements All systems rev neg except as marked. Focused Review of Systems Constitutional Denies: Chills, Fever, Lethargy. GI Reports: Nausea. Denies: Abdominal pain, Diarrhe a, Vomiting. Female Reports: Pelvic pain, , Vaginal bleeding - abnl, Vaginal discharge. Musculoskeletal Denies: Back pain, Extremity pain. Endocrine Denies: Polyuria, Weight loss. Skin Denies: Diaphoresis, Rash. Neurologic Denies: Change LOC, Dizziness, Focal weakness, H eadache, Numbness, Slurred speech. Past Medical History - Adult Stated Complaint 7 WEEKS , BLEEDING Allergies Coded Allergies: acetaminophen (From VICODIN) ("ALLERGIC" 2) hydrocodone (From VICODIN) ("ALLERGIC" 11/17/21) Uncoded Allergies: SOMETHING THEY GAVE ME IV ??? (Intermediate, HERMELINDA LUCINATING 06/06/21) Home Medications Discontinued Scripts NITROFURANTOIN/NITROFURAN MAC (MACROBID) 100 MG PO BID NITROFURANTOIN/NITROFURAN MAC (MACROBID) 100 MG PO BID #14 CAPS Prov: 08/08/21 DC: 11/17/21 1122 Patient stopped taking PHENAZOPYRIDINE (PYRIDIUM) 100 MG PO Q8H PRN PRN DYSURIA PHENAZOPYRIDINE (PYRIDIUM) 100 MG PO Q8H PRN IA N DYSURIA #6 TABS Prov: 08/08/21 DC: 11/17/21 1122 Patient stopped taking IBUPROFEN (ADVIL) 400 MG PO Q4H PRN PRN PAIN/FEV ER IBUPROFEN (ADVIL) 400 MG PO Q4H PRN PRN PAIN/FE GRACE #30 TABS Prov: 08/08/21 DC: 11/17/21 1122 Patient stopped taking Reported Medications No Known Home Medications Physical Exam Vital Signs Vital Signs First Documented: Result Date Time Pulse Ox 99 11/17 913 B/P 119/76 11/17 913 B/P Mean 90 11/17 913 O2 Delivery Room air 11/17 913 Temp 98.0 11/17 913 Pulse 95 11/17 913 Resp 17 11/17 913 Last Documented: Result Date Time Pulse Ox 100 11/17 1124 B/P 108/64 02/27 1124 B/P Mean 78 11/17 1123 O2 Delivery Room air 11/17 1123 Temp 98.6 11/17 1123 Pulse 85 11/17 1123 Resp 17 11/17 1123 Review of Vital Signs Reviewed, Vital signs norm al Focused PE General/Const General/Const Awake, Alert, Well appearing Resp/Chest Respiratory/Chest Breath sounds NL, Breath soun ds = bilat, No respiratory distress, No rales, No rhonchi, No wheezing Cardiovascular Cardiovascular Heart rate NL, Regular rhythm, H eart sounds NL, Peripheral circulation NL Abdomen/GI Abdomen/GI Soft, Non-tender, No guarding, No re bound MS Back Back Inspection NL, Non-tender, No CVA tenderne ss Skin Skin Color NL, No rash, Warm, Dry, Turgor NL Genitourinary Female Genitourinary External genitalia NL, No bleeding, No discharge, No cervical motion tend, Os closed, No adnexal mass , No adnexal tenderness, No uterine enlargement, No uterine mass, No lesions or rash Interpretation Diagnostics Lab Results Interpretation Results Laboratory Tests 11/17/21912: [Embedded Image Not Available] Laboratory Tests: 11/17 912 Chemistry Sodium (135 - 145 mEq/L) 132 L Potassium (3.5 - 5.0 mEq/L) 2.6 *L Chloride (100 - 115 mEq/L) 96 L Carbon Dioxide (22 - 31 mEq/L) 23 Anion Gap (10 - 20) 16.20 BUN (7 - 18 mg/dL) 9 Creatinine (0.5 - 1.0 mg/dL) 0.7 Glomerular Filtr Rate (>60 ml/min) 119 Glucose (65 - 110 mg/dL) 87 Calcium (8.4 - 10.2 mg/dL) 9.4 Hematology WBC (6.5 - 12.3 K/mm3) 4.2 L RBC (3.51 - 4.69 M/mm3) 5.56 H Hgb (10.1 - 13.8 g/dL) 13.9 H Hct (32.5 - 41.8 %) 41.3 MCV (84.6 - 96.6 fL) 74.3 L MCH (27.3 - 33.9 pg) 25.0 L MCHC (32.0 - 34.2 gm/dL) 33.7 RDW (12.2 - 16.3 %) 13.2 Plt Count (134 - 363 K/mm3) 302 MPV (9.2 - 12.7 fL) 11.6 Neut % (Auto) (57.9 - 77.3 %) 50.2 L Lymph % (Auto) (14.5 - 29.7 %) 35.0 H Jerauld % (Auto) (3.6 - 10.2 %) 12.5 H Eos % (Auto) (0.0 - 3.0 %) 0.9 Baso % (Auto) (0.1 - 0.9 %) 0.9 Neut # (Auto) (K/mm3) 2.1 Lymph # (Auto) (K/mm3) 1.5 Jerauld # (Auto) (K/mm3) 0.5 Eos # (Auto) (K/mm3) 0.04 Baso # (Auto) (K/mm3) 0.0 Miscellaneous Maternal Serum HCG [id number] Urines Urine Color (YELLOW) YELLOW Urine Appearance (CLEAR) Slightly-Cloudy Urine pH (5 - 9) 6.0 Ur Specific Hustle (1.001 - 1.035) 1.025 Urine Protein (NEG) 2+ H Urine Glucose (UA) (NEG) NEGATIVE Urine Ketones (NEG) 2+ H Urine Blood (NEG) 3+ H Urine Nitrite (NEG) NEG Urine Bilirubin (NEG) NEGATIVE Urine Urobilinogen (NEG mg/dL) 2.0 Ur Leukocyte Esterase (NEG) 2+ H Urine RBC (NONE SEEN #/hpf) TOO NUMEROUS TO CN T H Urine WBC (NONE SEEN #/hpf) 31-40 H Ur Epithelial Cells (RARE - FEW #/HPF) MODERATE H Urine Mucus (NONE SEEN) 4+ Microbiology: Date/Time Procedure - Status Source Growth 11/17 1047 Urine Culture - RECD URINE 11/17 0925 Wet Prep - ORD CERVIX Recent Impressions: ULTRASOUND - DUP AB/PEL/SC/LTD 11/17 0947 Report Impression - Status: SIGNED Entered: 11/17/2021 1122 IMPRESSION: 1. Focal heterogeneity and complexity in the fun marlena endometrium, favored to represent spontaneous in pro john. 2. Indeterminate 1.3 cm hyperechoic focus adjace nt to the right ovary, may represent a mildly complicated cyst v ersus adjacent bowel. Ectopic considered less likely. Recommend follow-up with beta HCG levels and possible repe at pelvic sonogram in 7-10 days. Impression By: Rod Storm MD ULTRASOUND - US TRANSVAGINAL W/PELVIS 11/17 946 Report Impression - Status: SIGNED Entered: 11/17/20211128 IMPRESSION: 1. Focal heterogeneity and complexity in the fun marlena endometrium, favored to represent spontaneous in pro john. 2. Indeterminate 1.3 cm hyperechoic focus adjace nt to the right ovary, may represent a mildly complicated cyst v ersus adjacent bowel. Ectopic considered less likely. Recommend follow-up with beta HCG levels and possible repe at pelvic sonogram in 7-10 days. Impression By: Rod Storm MD ULTRASOUND - US PELVIS COMPLETE 11/17 946 Report Impression - Status: SIGNED Entered: 11/17/20211128 IMPRESSION: 1. Focal heterogeneity and complexity in the fun marlena endometrium, favored to represent spontaneous in pro john. 2. Indeterminate 1.3 cm hyperechoic focus adjace nt to the right ovary, may represent a mildly complicated cyst v ersus adjacent bowel. Ectopic considered less likely. Recommend follow-up with beta HCG levels and possible repe at pelvic sonogram in 7-10 days. Impression By: Rod Storm MD Lab Imaging Statement Laboratory radiographic studies reviewed and con sidered in the medical decision-making. Re-Evaluation MDM Free Text MDM Notes Free Text MDM Notes A/P: 21yo @ 7w3d AAF with PMH as above p/w VB 1. Labs 2. TVUS 3. UA 4. Meds 5. Re-assess ADDENDUM Time: 1215 Labs significant for hypoK (2.6; replete d). UA c/w UTI (31-40 WBCs, 2+ LE) and dehydration (2+ ketones). TVUS shows spo ntaneous in process in fundal endometrium. Pt re-assessed; symptoms improved. Results of work-up d/w Pt; voiced understanding. Ok for DC home with PCP fo llow-up ED Course Medication(s) Ordered Medication(s) Ordered: Electrolytic, Caloric, And Yun Sig/Godfrey Start time Last Medication Dose Route Stop Time Status Admin Potassium Chloride 60 MEQ X1ED STA 11/17 1040 D C 11/17 PO 11/17 1041 1110 Sodium Chloride 1,000 ML X1ED STA 11/17 0926 DC 11/17 IV 11/17 926 0949 Gastrointestinal Drugs Sig/Godfrey Start time Last Medication Dose Route Stop Time Status Admin Ondansetron HCl 4 MG ONCE ONE 11/17 929 DC IV 11/17 0931 1110 Patient Discharge Departure Vital Signs/Condition Vital Signs First Documented: Result Date Time Pulse Ox 99 11/17 09 B/P 119/76 11/17 913 B/P Mean 90 11/17 0914 O2 Delivery Room air 11/17 913 Temp 98.0 11/17 09 Pulse 95 11/17 09 Resp 11/17 Last Documented: Result Date Time Pulse Ox 100 11/17 1124 B/P 108/64 11/17 1124 B/P Mean 78 11/17 1124 O2 Delivery Room air 11/17 112 Temp 98.6 11/17 112 Pulse 85 11/17 1124 Resp 17 11/17 1124 All vital signs available at the time of this en try have been reviewed. Clinical Impression Clinical Impression Primary Impression: Incomplete miscarriage Secondary Impressions: Dehydration, Hypokalemia, Vaginal bleeding during Disposition Decision Discharge )( Discharged to Home Yes )( Time 1214 )( Date 11/17/21 Discharge/Care Plan Counseled Regarding Diagnosi s, Lab results, Imaging studies, Prescriptions, Need for follow-up, When to return to ED (Auto) Prescriptions Current Visit Scripts No Known Home Medications Patient Instructions ED Misc arriage, Incomplete, Understanding Miscarriage ..., Understanding Miscarriage: Emotions, Understandi ng Miscarriage: Recovery, Urinary Tract Infections in Women Additional Instructions It appears you are in the pr ocess of having a miscarriage. It is very important that you follow-up with your ObGyn for repeated hormone level (today's B-hCG value: 108,271). Referrals Referral: Kaylie Frost MD Address: [address] [place] [address]; [facility] [place] [address] Discharge Note I have spoken with the patie nt and/or caregivers. I have explained the patient's condition, diagnoses and alexandria atment plan based on the information available to me at this time. I have answered the patient's and/ or caregiver's questions and addressed any concerns. The patient and/or careg amy have as good an understanding of the patient 's diagnosis, condition and treatment plan as can be expected at this point. The vital signs have bee n stable. The patient's condition is stable and appr opriate for discharge from the emergency department. The patient will pursue further outpatient evalu ation with the primary care physician or other designated or consulting phys ician as outlined in the discharge instructions. The patient and/or caregivers are agreeable to this plan of care and follow-up instructions have been exp lained in detail. The patient and/or caregivers have received these instructio ns in written format and have expressed an understanding of the discharge inst ructions. The patient and/or caregivers are aware that any significant change in condition or worsening of symptoms should prompt an immediate return to [facility] or the closest emergency department or a call to 911. Quality Measures US in Preg w/AP/VB Trans-abd/vag US done, Preg l ocation documented RH- Risk Fet Bld Exposure No risk blood ex pos at 1421 RPT #:[id number] END OF REPORT 2021-08-08 21:35:00-00:00 [facility] [place] [facility]) EMERGENCY PROVIDER REPORT REPORT#:[id number] REPORT STATUS: Signed DATE:08/08/21 TIME: 2134 PATIENT: ZORAN STORM UNIT #: [id number] ROOM/BED: AGE: 21 SEX: F PCP PHYS: No Primary or Family P hysician SERVICE AUTHOR: Israel Harris MD * ALL edits or amendments must be made on the el [employer]/computer document * HPI-General Illness Free Text HPI Notes Free Text HPI Notes 21 yrs old female G5, P1 status post recent misc arriage complaining of pelvic discomfort, vaginal bleeding x1 day. Pat ient stated this is different from her normal cycle. Patient using about 2 pads per 5 h ours. No shortness of breath. General Confirmed Patient Yes Patient Type New patient Initial Greet Date/Time 08/08/21 1644 Presentation Chief Complaint Vaginal bleeding Review of Systems ROS Statements All systems rev neg except as marked. Complete sys rev neg except as marked. Review of Systems Female Reports: Vaginal bleeding - abnl. Past Medical History - Adult Stated Complaint VAGINAL BLEEDING,NT PREG Allergies Uncoded Allergies: SOMETHING THEY GAVE ME IV ??? (Bridgette, HERMELINDA LUCINATING 06/06/21) Calculated Suicide Risk (nurs) No risk Review of Nursing Notes Rev avail, and agree Smoking status: Smoking status for patients 13 years old or old er: Never Smoker Physical Exam Vital Signs Vital Signs First Documented: Result Date Time Pulse Ox 100 08/08 1727 B/P 111/78 08/08 1727 B/P Mean 89 08/08 1727 O2 Delivery Room air 08/08 1727 Temp 36.9 08/08 1727 Pulse 75 08/08 1727 Resp 18 08/08 1727 Last Documented: Result Date Time Pulse Ox 99 08/08 2210 B/P 121/60 08/08 2210 B/P Mean 80 08/08 2210 Temp 36.9 08/08 2210 Pulse 81 08/08 2210 Resp 16 08/08 2210 O2 Delivery Room air 08/08 1727 Review of Vital Signs Reviewed Physical Exam General/Const General/Const Awake, Alert, Well appearing MS Head Head Normocephalic Ears/Nose/Throat Ears/Nose/Throat Airway patent, Mucous membrane s moist, Pharynx NL Resp/Chest Respiratory/Chest Breath sounds NL, Breath soun ds = bilat, No respiratory distress, No rales, No rhonchi, No wheezing Cardiovascular Cardiovascular Heart rate NL, Regular r hythm, Heart sounds NL, Cap refill not delayed, Peripheral circulation NL Abdomen/GI Abdomen/GI Soft, Non-tender, No guarding, No re bound Lymphatic Lymphatic No gross adenopathy MS Upper Extrem Upper Extremity/MS Inspection NL, No swelling, Non-tender, No erythema, No deformity, Neurologic intact, Vascular intact, N o clubbing/cyanosis MS Lower Extrem Lower Ext/Pelvis/MS Inspection NL, No swelling, Non-tender, No erythema, No deformity, Neurologic intact, Vascular intact, N o edema Skin Skin Color NL, Warm, Dry, Turgor NL Neurologic Neurologic Oriented X3, Speech NL, No motor def icits, No sensory deficits Psychiatric Psychiatric Affect NL, Mood NL, Thought content NL Interpretation Diagnostics Lab Results Interpretation Results Laboratory Tests 08/08/210: [Embedded Image Not Available] Laboratory Tests: 08/08 1733 Chemistry Sodium (135 - 145 mEq/L) 141 Potassium (3.5 - 5.0 mEq/L) 3.6 Chloride (100 - 115 mEq/L) 105 Carbon Dioxide (22 - 31 mEq/L) 28 Anion Gap (10 - 20) 11.20 BUN (7 - 18 mg/dL) 8 Creatinine (0.5 - 1.0 mg/dL) 0.8 Glomerular Filtr Rate (>60 ml/min) 102 Glucose (65 - 110 mg/dL) 79 Calcium (8.4 - 10.2 mg/dL) 9.3 Total Bilirubin (0.2 - 1.0 mg/dL) 0.2 AST (15 - 37 units/L) 22 ALT (12 - 78 units/L) 38 Total Alk Phosphatase (46 - 116 units/L) 80 Total Protein (6.3 - 8.2 gm/dL) 7.4 Albumin (3.4 - 4.8 gm/dL) 3.6 Lipase (73 - 393 units/L) 129 Hematology WBC (6.5 - 12.3 K/mm3) 4.9 L RBC (3.51 - 4.69 M/mm3) 4.86 H Hgb (10.1 - 13.8 g/dL) 12.5 Hct (32.5 - 41.8 %) 39.0 MCV (84.6 - 96.6 fL) 80.2 L MCH (27.3 - 33.9 pg) 25.7 L MCHC (32.0 - 34.2 gm/dL) 32.1 RDW (12.2 - 16.3 %) 14.0 Plt Count (134 - 363 K/mm3) 275 MPV (9.2 - 12.7 fL) 11.1 Neut % (Auto) (57.9 - 77.3 %) 44.4 L Lymph % (Auto) (14.5 - 29.7 %) 43.0 H Jerauld % (Auto) (3.6 - 10.2 %) 9.6 Eos % (Auto) (0.0 - 3.0 %) 2.0 Baso % (Auto) (0.1 - 0.9 %) 0.8 Neut # (Auto) (K/mm3) 2.2 Lymph # (Auto) (K/mm3) 2.1 Jerauld # (Auto) (K/mm3) 0.5 Eos # (Auto) (K/mm3) 0.10 Baso # (Auto) (K/mm3) 0.0 Urines Urine Color (YELLOW) RED Urine Appearance (CLEAR) Slightly-Cloudy Urine pH (5 - 9) 7.0 Ur Specific Hustle (1.001 - 1.035) 1.019 Urine Protein (NEG) 2+ H Urine Glucose (UA) (NEG) NEGATIVE Urine Ketones (NEG) NEGATIVE Urine Blood (NEG) 3+ H Urine Nitrite (NEG) NEG Urine Bilirubin (NEG) NEGATIVE Urine Urobilinogen (NEG mg/dL) NEGATIVE Ur Leukocyte Esterase (NEG) 1+ H Urine RBC (NONE SEEN #/hpf) TOO NUMEROUS TO CNT H Urine WBC (NONE SEEN #/hpf) 11-15 H Ur Epithelial Cells (RARE - FEW #/HPF) MODERATE H Urine Bacteria (RARE - FEW /HPF) RARE Urine Mucus (NONE SEEN) RARE Urine HCG, Qual NEGATIVE Microbiology: Date/Time Procedure - Status Source Growth 08/08 1947 Urine Culture - COMP URINE Recent Impressions: ULTRASOUND - US TRANSVAGINAL W/PELVIS 08/08 1939 Report Impression - Status: SIGNED Entered: 08/08/20212141 IMPRESSION: 1. Echogenic endometrial thickening measuring 1. 1 cm, likely representing retained clots or retained placenta l products. 2. Simple ovarian cyst measuring 6.0 cm in size. Impression By: Rod Storm MD ULTRASOUND - DUP AB/PEL/SC/LTD 08/08 1939 Report Impression - Status: SIGNED Entered: 08/08/20212141 IMPRESSION: 1. Echogenic endometrial thickening measuring 1. 1 cm, likely representing retained clots or retained placenta l products. 2. Simple ovarian cyst measuring 6.0 cm in size. Impression By: Rod Storm MD ULTRASOUND - US PELVIS COMPLETE 08/08 1939 Report Impression - Status: SIGNED Entered: 08/08/20212141 IMPRESSION: 1. Echogenic endometrial thickening measuring 1. 1 cm, likely representing retained clots or retained placenta l products. 2. Simple ovarian cyst measuring 6.0 cm in size. Impression By: Rod Storm MD Patient Discharge Departure Vital Signs/Condition Vital Signs First Documented: Result Date Time Pulse Ox 100 08/08 1727 B/P 111/78 08/08 1727 B/P Mean 89 08/08 1727 O2 Delivery Room air 08/08 1727 Temp 36.9 08/08 1727 Pulse 75 08/08 1727 Resp 18 08/087 Last Documented: Result Date Time Pulse Ox 99 08/08 2210 B/P 121/60 08/08 2210 B/P Mean 80 08/08 2210 Temp 36.9 08/08 2210 Pulse 81 08/08 2210 Resp 16 08/08 2210 O2 Delivery Room air 08/08 172 All vital signs available at the time of this en try have been reviewed. Condition Stable, Improved Clinical Impression Clinical Impression Primary Impression: UTI (urinary tract infection ) Secondary Impressions: Vaginal bleeding Time of Impression 2145 Disposition Decision Discharge )( Discharged to Home Yes )( Time 2147 )( Date 08/08/21 Discharge/Care Plan Counseled Regarding Diagnosi s, Lab results, Imaging studies, Prescriptions, Need for follow-up, When to return to ED Rx Drug Database Reviewed Yes (Auto) Prescriptions Current Visit Scripts NITROFURANTOIN/NITROFURAN MAC (MACROBID) 100 MG PO BID NITROFURANTOIN/NITROFURAN MAC (MACROBID) 100 MG PO BID #14 CAPS Until finished. Take with food. PHENAZOPYRIDINE (PYRIDIUM) 100 MG PO Q8H PRN PRN DYSURIA PHENAZOPYRIDINE (PYRIDIUM) 100 MG PO Q8H PRN IA N DYSURIA #6 TABS TAKE AFTER MEALS. 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 I have explained the patient's condition, diagnoses and alexandria atment plan based on the information available to me at this time. I have answered the patient's and/ or caregiver's questions and addressed any concerns. The patient and/or careg amy have as good an understanding of the patient 's diagnosis, condition and treatment plan as can be expected at this point. The vital signs have bee n stable. The patient's condition is stable and appr opriate for discharge from the emergency department. The patient will pursue further outpatient evalu ation with the primary care physician or other designated or consulting phys ician as outlined in the discharge instructions. The patient and/or caregivers are agreeable to this plan of care and follow-up instructions have been exp lained in detail. The patient and/or caregivers have received these instructio ns in written format and have expressed an understanding of the discharge inst ructions. The patient and/or caregivers are aware that any significant change in condition or worsening of symptoms should prompt an immediate return to [facility] or the closest emergency department or a call to 911. Quality Measures BP F/U for HTN F/u with PCP/other doc Preg Test for Women w/Abd Pain Female age 14-50 Smoking Cessation Screened, non user Tobacco Screening/Cessation 18 years or older, D enies tobacco use at 1719 RPT #:[id number] END OF REPORT 2021-06-29 02:35:00-00:00 [facility] [place] ([facility]) EMERGENCY PROVIDER REPORT REPORT#:[id number] REPORT STATUS: Signed DATE:06/29/21 TIME: 0235 PATIENT: ZORAN STORM UNIT #: [id number] ROOM/BED: AGE: 21 SEX: F PCP PHYS: DOES_NOT KNOW SERVICE AUTHOR: Jared Hernandez DO * ALL edits or amendments must be made on the el [employer]/computer document * HPI-General Illness Free Text HPI Notes Free Text HPI Notes onset 1 day ago not sudden onset not rapidly wor sening, nothing makes better nothing makes worse, severity: 9 out of 10 at its worst currently 5 out of 10, nonradiating dull CONSTANT General Initial Greet Date/Time 06/29/21 0141 Presentation Chief Complaint Pelvic pain, Vaginal bleeding Associated with Denies: Chest pain. Associated Other Pt denies other symptoms Review of Systems ROS Statements All systems rev neg except as marked. Complete sys rev neg except as marked. Review of Systems Constitutional Denies: Chills, Fatigue, Fever, Lethargy, Malais e, Recent wt loss, Weakness - generalized. Past Medical History - Adult Stated Complaint vag bleed, cramping, 7 wks Allergies Uncoded Allergies: SOMETHING THEY GAVE ME IV ??? (Intermediate, HERMELINDA LUCINATING 06/06/21) Home Medications Discontinued Scripts NITROFURANTOIN/NITROFURAN MAC (MACROBID) 100 MG PO BID NITROFURANTOIN/NITROFURAN MAC (MACROBID) 100 MG PO BID #14 CAPS Prov: 06/07/21 DC: 06/29/21 0144 Therapy completed ONDANSETRON ODT (ZOFRAN ODT) 4 MG PO Q6H PRN PRN NAUSEA/VOMITING ONDANSETRON ODT (ZOFRAN ODT) 4 MG PO Q6H PRN IA N NAUSEA/VOMITING #15 TABS Prov: 06/07/21 DC: 06/29/21 014 Therapy completed Calculated Suicide Risk (nurs) No risk Pt reports no significant: Past medical history, Past surgical history, Family history, Social history Smoking status: Smoking status for patients 13 years old or old er: Never Smoker Physical Exam Vital Signs Vital Signs First Documented: Result Date Time Pulse Ox 100 06/29 137 B/P 153/93 06/29 137 B/P Mean 113 06/29 137 O2 Delivery Room air 06/29 137 Temp 36.9 06/29 137 Pulse 107 06/29 137 Resp 18 06/29 137 Last Documented: Result Date Time Pulse Ox 99 06/29 347 B/P 140/80 06/29 347 B/P Mean 100 06/29 347 O2 Delivery Room air 06/29 347 Temp 36.9 06/29 347 Pulse 98 06/29 347 Resp 17 06/29 347 Review of Vital Signs Reviewed, Vital signs norm al Physical Exam General/Const General/Const Awake, Alert, No acute di stress, Well appearing, Well developed , Well hydrated, Well nourished, Cooperative, No t toxic appearing MS Head Head Normocephalic Eyes Eyes PERRL Ears/Nose/Throat Ears/Nose/Throat Airway patent, Mucous membrane s moist, Pharynx NL MS Neck Neck Supple, No meningismus, Full range of ludmila on, No swelling, Non-tender, No masses Resp/Chest Respiratory/Chest Breath sounds NL, Breath soun ds = bilat, No respiratory distress, No rales, No rhonchi, No wheezing Cardiovascular Cardiovascular Heart rate NL, Regular r hythm, Heart sounds NL, Cap refill not delayed, Peripheral circulation NL Abdomen/GI Abdomen/GI Soft, Non-tender, No guarding, No re bound MS Back Back Inspection NL, Painless range of motion, N on-tender, No CVA tenderness Lymphatic Lymphatic No gross adenopathy MS Upper Extrem Upper Extremity/MS Inspection NL, No swelling, Non-tender, No erythema, No deformity, Neurologic intact, Vascular intact, N o clubbing/cyanosis MS Wrist/Hand Wrist/Hand Inspection NL, No swelling, No erythema, Non-tender, No deformity, Neurologic intact, Vascular intact, No clubbing/ cyanosis MS Lower Extrem Lower Ext/Pelvis/MS Inspection NL, No swelling, Non-tender, No erythema, No deformity, Neurologic intact, Vascular intact, N o edema MS Ankle/Foot Ankle/Foot Inspection NL, No swelling, No erythema, Non-tender, No deformity, Neurologic intact, Vascular intact, No edema Skin Skin Color NL, Warm, Dry, Turgor NL Neurologic Neurologic Oriented X3, Speech NL, No motor def icits, No sensory deficits Psychiatric Psychiatric Affect NL, Mood NL, Thought content NL Interpretation Diagnostics Lab Results Interpretation Considerations Independ review imaging, Reviewed prior records Results Laboratory Tests 06/29/21154: [Embedded Image Not Available] Laboratory Tests: 06/29 155 Chemistry Sodium (135 - 145 mEq/L) 141 Potassium (3.5 - 5.0 mEq/L) 4.9 Chloride (100 - 115 mEq/L) 106 Carbon Dioxide (22 - 31 mEq/L) 21 L Anion Gap (10 - 20) 18.90 BUN (7 - 18 mg/dL) 10 Creatinine (0.5 - 1.0 mg/dL) 0.8 Glomerular Filtr Rate (>60 ml/min) 102 Glucose (65 - 110 mg/dL) 89 Calcium (8.4 - 10.2 mg/dL) 10.0 Hematology WBC (6.5 - 12.3 K/mm3) 7.9 RBC (3.51 - 4.69 M/mm3) 5.44 H Hgb (10.1 - 13.8 g/dL) 14.2 H Hct (32.5 - 41.8 %) 42.0 H MCV (84.6 - 96.6 fL) 77.2 L MCH (27.3 - 33.9 pg) 26.1 L MCHC (32.0 - 34.2 gm/dL) 33.8 RDW (12.2 - 16.3 %) 14.2 Plt Count (134 - 363 K/mm3) 295 MPV (9.2 - 12.7 fL) 10.4 Neut % (Auto) (57.9 - 77.3 %) 63.7 Lymph % (Auto) (14.5 - 29.7 %) 24.0 Jerauld % (Auto) (3.6 - 10.2 %) 10.1 Eos % (Auto) (0.0 - 3.0 %) 1.3 Baso % (Auto) (0.1 - 0.9 %) 0.6 Neut # (Auto) (K/mm3) 5.0 Lymph # (Auto) (K/mm3) 1.9 Jerauld # (Auto) (K/mm3) 0.8 Eos # (Auto) (K/mm3) 0.10 Baso # (Auto) (K/mm3) 0.1 Miscellaneous Maternal Serum HCG 95456 Urines Urine Color (YELLOW) YELLOW Urine Appearance (CLEAR) Slightly-Cloudy Urine pH (5 - 9) 6.0 Ur Specific Hustle (1.001 - 1.035) 1.013 Urine Protein (NEG) 1+ H Urine Glucose (UA) (NEG) NEGATIVE Urine Ketones (NEG) 2+ H Urine Blood (NEG) 3+ H Urine Nitrite (NEG) NEG Urine Bilirubin (NEG) NEGATIVE Urine Urobilinogen (NEG mg/dL) NEGATIVE Ur Leukocyte Esterase (NEG) 2+ H Urine RBC (NONE SEEN #/hpf) TOO NUMEROUS TO CNT H Urine WBC (NONE SEEN #/hpf) 21-30 H Ur Epithelial Cells (RARE - FEW #/HPF) FEW Urine Mucus (NONE SEEN) 4+ Microbiology: Date/Time Procedure - Status Source Growth 06/29 208 Urine Culture - RECD URINE Recent Impressions: ULTRASOUND - US PREG UT TRANSVAGINAL 06/29 718 Report Impression - Status: SIGNED Entered: 06/29/2021 1143 IMPRESSION: 1. Retroverted uterus. No intrauterine gestation al sac currently demonstrated. Differential considerations includ e very early intrauterine gestation and completed miscarriage . Ectopic is not excluded on a single ultrasound exam, correlate with serial quantitative beta HCG. 2. Likely hemorrhagic 18 mm left corpus luteum c yst. No free pelvic fluid. Impression By: Sherwin Grant MD ULTRASOUND - DUP AB/PEL/SC/LTD 06/29 155 Report Impression - Status: SIGNED Entered: 06/29/2021 0433 IMPRESSION: 1. Retroverted uterus. No intrauterine gestation al sac currently demonstrated. Differential considerations includ e very early intrauterine gestation and completed miscarriage . Ectopic is not excluded on a single ultrasound exam, correlate with serial quantitative beta HCG. 2. Likely hemorrhagic 18 mm left corpus luteum c yst. No free pelvic fluid. Impression By: Sherwin Grant MD ULTRASOUND - US PREG EVAL 1ST TRIMTR 06/29 155 Report Impression - Status: SIGNED Entered: 06/29/2021 0433 IMPRESSION: 1. Retroverted uterus. No intrauterine gestation al sac currently demonstrated. Differential considerations includ e very early intrauterine gestation and completed miscarriage . Ectopic is not excluded on a single ultrasound exam, correlate with serial quantitative beta HCG. 2. Likely hemorrhagic 18 mm left corpus luteum c yst. No free pelvic fluid. Impression By: Sherwin Grant MD Lab Imaging Statement Laboratory radiographic studies reviewed and con sidered in the medical decision-making. Re-Evaluation MDM Free Text MDM Notes Free Text MDM Notes Patient states that she knows about her UTI already on antibiotics at home, PT TOLD POSS MISSCARRIAGE, MUST F/U Re-Evaluation/Progress #1 Time of Re-Eval 0300 Re-Eval Status Improved Eval Following Treatment Pt. feels better, Condi tion improved ED Course Medication(s) Ordered Medication(s) Ordered: Anti-Infective Agents Sig/Godfrey Start time Last Medication Dose Route Stop Time Status Admin Cefuroxime Axetil 500 MG X1ED STA 06/29 0234 CA N PO 06/29 023 Electrolytic, Caloric, And Yun Sig/Godfrey Start time Last Medication Dose Route Stop Time Status Admin Sodium Chloride 1,000 ML BOLUS ASDIR ONE 06/29 0145 DC 06/29 IV 06/29 014 0154 Gastrointestinal Drugs Sig/Godfrey Start time Last Medication Dose Route Stop Time Status Admin Famotidine 20 MG X1ED STA 06/290 DC 06/29 IV 06/29 201 0220 Metoclopramide HCl 10 MG X1ED STA 06/290 DC 06/29 IV 06/29 201 0220 Patient Discharge Departure Vital Signs/Condition Vital Signs First Documented: Result Date Time Pulse Ox 100 06/29 137 B/P 153/93 06/29 137 B/P Mean 113 06/29 137 O2 Delivery Room air 06/29 137 Temp 36.9 06/29 137 Pulse 107 06/29 137 Resp 18 06/29 137 Last Documented: Result Date Time Pulse Ox 99 06/29 347 B/P 140/80 06/29 347 B/P Mean 100 06/29 347 O2 Delivery Room air 06/29 347 Temp 36.9 06/29 347 Pulse 98 06/29 347 Resp 17 06/29 347 All vital signs available at the time of this en try have been reviewed. Condition Stable, Improved Clinical Impression Clinical Impression Primary Impression: Threatened affectin g intrauterine Secondary Impressions: Dehydration, UTI (urinary tract infection), Vomiting Time of Impression 0300 Disposition Decision Discharge )( Discharged to Home Yes )( Time 034 )( Date 06/29/21 Discharge/Care Plan Counseled Regarding Diagnosi s, Lab results, Imaging studies, Prescriptions, Need for follow-up, When to return to ED (Auto) Prescriptions Current Visit Scripts METOCLOPRAMIDE (REGLAN) 10 MG PO QID PRN PRN AR SEA/VOMITING METOCLOPRAMIDE (REGLAN) 10 MG PO QID PRN PRN NA USEA/VOMITING #10 TABS Prescriptions Reviewed Risks, Benefits, Alternat giorgio treatment Patient Instructions ED Abdo kristel Pain, Early , ED Dehydration (Adult), ED Possible Miscarriage ... Additional Instructions Call your primary care doctor or referral doctor listed below as soon as possible for follow-up appointment, retu rn for any worsening of symptoms right away to the ER. Referrals [facility] Departure Forms ABNORMAL LABS ABNORMAL RADIOLOGY READING WORK[employer]CHO[employer] EXCUSE VARIABLE Discharge Note I have spoken with the patie nt and/or caregivers. I have explained the patient's condition, diagnoses and alexandria atment plan based on the information available to me at this time. I have answered the patient's and/ or caregiver's questions and addressed any concerns. The patient and/or careg amy have as good an understanding of the patient 's diagnosis, condition and treatment plan as can be expected at this point. The vital signs have bee n stable. The patient's condition is stable and appr opriate for discharge from the emergency department. The patient will pursue further outpatient evalu ation with the primary care physician or other designated or consulting phys ician as outlined in the discharge instructions. The patient and/or caregivers are agreeable to this plan of care and follow-up instructions have been exp lained in detail. The patient and/or caregivers have received these instructio ns in written format and have expressed an understanding of the discharge inst ructions. The patient and/or caregivers are aware that any significant change in condition or worsening of symptoms should prompt an immediate return to [facility] or the closest emergency department or a call to 911. Electronically Signed by Jared Hernandez DO on 06/11 at 0523 RPT #:[id number] END OF REPORT 2021-06-07 00:21:00-00:00 [facility] [place] ([facility]) EMERGENCY PROVIDER REPORT REPORT#:[id number] REPORT STATUS: Signed DATE:06/07/21 TIME: 002 PATIENT: ZORAN STORM UNIT #: [id number] ROOM/BED: AGE: 21 SEX: F PCP PHYS: No Primary or Family Ph ysician SERVICE AUTHOR: Merry Morales * ALL edits or amendments must be made on the [employer]/computer document * HPI-Abd Pain F Under 40 General Initial Greet Date/Time 06/06/21 0661 Presentation Chief Complaint Abdominal pain Hx Obtained From Patient Free Text HPI Notes Free Text HPI Notes 21-year-old female A1 at 5 to 6 weeks gest ational age by LMP 04/26/2021 presents with crampy lower abdominal sam n with onset yesterday. Patient denies vaginal bleeding. Associated with nausea and hea dache. Patient also denies fever, dysuria, diarrhea or constipation . Patient has not yet had any care for this but plans to see an OB/G YN at [facility]. Symptoms have no known exacerbating or a lleviating factors and patient has not tried taking any medications. Risk-Abd Pain F Under 40 )( Ectopic Risk factors reviewed, No r isk factors Review of Systems ROS Statements All systems rev neg except as marked. Focused Review of Systems Constitutional Denies: Fever. Respiratory Denies: Cough, non-productive, Cough, productive , Shortness of breath. Cardiovascular Denies: Chest pain. GI Reports: Abdominal pain, Nausea. Denies: Constip ation, Diarrhea, Vomiting. Female Reports: Pelvic pain, Pregna nt. Denies: Dysuria, Flank pain, Urinary frequency, Urinary urgency, Urination decreased, Urination increased, Vaginal bleeding - abnl, Vaginal discharge. Musculoskeletal Denies: Back pain, Extremity pain, Extremity swe lling. Past Medical History - Adult Stated Complaint "ABD PN, HDACHES" STRT YEST - P DK WKS Allergies Uncoded Allergies: SOMETHING THEY GAVE ME IV ??? (Intermediate, HERMELINDA LUCINATING 06/06/21) Home Medications Discontinued Scripts NITROFURANTOIN/NITROFURAN MAC (MACROBID) 100 MG PO BID NITROFURANTOIN/NITROFURAN MAC (MACROBID) 100 MG PO BID #14 CAPS Prov: 03/22/21 DC: 06/06/212342 Patient stopped taking CYCLOBENZAPRINE (FLEXERIL) 10 MG PO Q8H PRN PRN MUSCLE SPASMS/PAIN CYCLOBENZAPRINE (FLEXERIL) 10 MG PO Q8H PRN PRN MUSCLE SPASMS/PAIN #15 TABS Prov: 03/22/21 DC: 06/06/212342 Patient stopped taking KETOROLAC (TORADOL) 10 MG PO Q6H PRN PRN PAIN KETOROLAC (TORADOL) 10 MG PO Q6H PRN PRN PAIN # 20 TABS Prov: 03/22/21 DC: 06/06/212342 Patient stopped taking Reported Medications No Known Home Medications Physical Exam Vital Signs Vital Signs First Documented: Result Date Time Pulse Ox 98 06/06 2330 B/P 117/65 06/06 2330 B/P Mean 82 06/06 2330 Temp 99.5 06/06 2330 Pulse 83 06/06 2330 Resp 18 06/06 2330 Last Documented: Result Date Time Pulse Ox 98 06/06 2330 B/P 117/65 06/06 2330 B/P Mean 82 06/06 2330 Temp 99.5 06/06 2330 Pulse 83 06/06 2330 Resp 18 06/06 2330 Review of Vital Signs Reviewed Focused PE General/Const General/Const Awake, Alert, No acute di stress, Well appearing, Well developed , Well hydrated, Well nourished, Cooperative, No t toxic appearing MS Head Head Atraumatic, Normocephalic Resp/Chest Respiratory/Chest Atraumatic, Breath sounds NL, Breath sounds = bilat, No respiratory distress, No rales, No rhonchi, No w heezing Cardiovascular Cardiovascular Heart rate NL, Regular rhythm, H eart sounds NL, No gallop, No murmurs, No rubs Abdomen/GI Abdomen/GI Atraumatic, Soft, Non-tender, McBurn ey's non-tender, No guarding, No rebound, BS normoactive, No distention, No pa lpable mass MS Back Back Atraumatic, Inspection NL, No CVA tenderne ss Skin Skin Atraumatic, Color NL, No rash, War m, Dry, Intact, Turgor NL, No swelling Neurologic Neurologic Oriented X3, Speech NL, CN II - XII intact, Gait NL Interpretation Diagnostics Lab Results Interpretation Results Laboratory Tests: 06/06 2328 Urines Urine Color (YELLOW) NAT A Urine Appearance (CLEAR) CLOUDY A Urine pH (5 - 9) 6.0 Ur Specific Hustle (1.001 - 1.035) 1.024 Urine Protein (NEG) NEGATIVE Urine Glucose (UA) (NEG) NEGATIVE Urine Ketones (NEG) 2+ H Urine Blood (NEG) NEG Urine Nitrite (NEG) NEG Urine Bilirubin (NEG) NEGATIVE Urine Urobilinogen (NEG mg/dL) NEGATIVE Ur Leukocyte Esterase (NEG) 3+ H Urine RBC (NONE SEEN #/hpf) 3-5 H Urine WBC (NONE SEEN #/hpf) 21-30 H Ur Epithelial Cells (RARE - FEW #/HPF) MODERATE H Urine Mucus (NONE SEEN) 4+ Microbiology: Date/Time Procedure - Status Source Growth 06/07 0025 Urine Culture - RECD URINE Recent Impressions: ULTRASOUND - US PREG UT TRANSVAGINAL 06/06 2352 Report Impression - Status: SIGNED Entered: 06/07/2021 0044 IMPRESSION: Normal duplex of the ovaries. No evidence of ova beni torsion. PROCEDURE INFORMATION: Exam: US First Trimester, Transabdomin al and US , Transvaginal Exam date and time: 06/06/2021 11:42 PM Age: 21 years old Clinical indication: complicated by ab dominal or pelvic pain; Lower; First trimester (<14 weeks 0 days); Gestational age or lmp: 5.6; ; Additional info: Pelvic pain , early TECHNIQUE: Imaging protocol: Real-time transabdominal obste trical ultrasound of the maternal pelvis and a first trimester pre gnancy, less than 14 weeks 0 days, with image documentation. Trans vaginal imaging was used for better evaluation of the fetus, adnexa, and/or cervix. COMPARISON: US DUP AB/PEL/SC LTD 06/14/2020 6:22 PM FINDINGS: Gestation: Small no gestational sac within the f undal endometrial cavity measuring 3.6 mm or 5 weeks 1 day. Tiny y olk sac measuring 1 mm. No definite pole. MATERNAL: Uterus: Normal size uterus measuring 7.1 x 4.6 x 5.3 cm. Mildly heterogeneous myometrium without lesion. Thicken ed heterogeneous endometrium measuring up to 1.7 cm. Small cresce ntic endometrial fluid collection consistent with hemorrhage. Cervix: Unremarkable. Right adnexa: Normal size right ovary measuring 2.3 x 1.2 x 1.6 cm containing subcentimeter follicles suspicious fo sabine lesion. Normal low resistance arterial and venous blood flow is demonstrated. Left adnexa: Normal size left ovary measuring 3. 6 x 2.2 x 2.6 cm containing a mildly thick-walled cyst measuring 2.4 x 1.6 x 1.7 cm suspicious for a corpus luteum cyst. Blood flow is demonstrated. Intraperitoneal space: Small free pelvic fluid. IMPRESSION: 1. Mildly thickened heterogeneous endometrial st ripe with a small gestational sac in the fundal endometrial cavity corresponding to 5 weeks 1 day containing only a yolk sac. No pole is identified. Clinical correlation is required jolene ng with serial beta hCG levels and short interval follow-up pelvic u ltrasound in order to confirm intrauterine and exclude bl ighted ovum. 2. Small endometrial fluid collection consistent with hemorrhage. 3. Small free pelvic fluid. 4. Mildly thick-walled left ovarian cyst measuri ng 2.4 cm consistent with a corpus luteum cyst. Impression By: [email or web address] - Jonel Rodriguez MD ULTRASOUND - DUP AB/PEL/SC/LTD 06/06 8985 Report Impression - Status: SIGNED Entered: 06/07/2021 0044 IMPRESSION: Normal duplex of the ovaries. No evidence of ova beni torsion. PROCEDURE INFORMATION: Exam: US First Trimester, Transabdomin al and US , Transvaginal Exam date and time: 06/06/2021 11:42 PM Age: 21 years old Clinical indication: complicated by ab dominal or pelvic pain; Lower; First trimester (<14 weeks 0 days); Gestational age or lmp: 5.6; ; Additional info: Pelvic pain , early TECHNIQUE: Imaging protocol: Real-time transabdominal obste trical ultrasound of the maternal pelvis and a first trimester pre gnancy, less than 14 weeks 0 days, with image documentation. Trans vaginal imaging was used for better evaluation of the fetus, adnexa, and/or cervix. COMPARISON: DUP AB/PEL/SC LTD 06/14/2020 6:22 PM FINDINGS: Gestation: Small no gestational sac within the f undal endometrial cavity measuring 3.6 mm or 5 weeks 1 day. Tiny y olk sac measuring 1 mm. No definite pole. MATERNAL: Uterus: Normal size uterus measuring 7.1 x 4.6 x 5.3 cm. Mildly heterogeneous myometrium without lesion. Thicken ed heterogeneous endometrium measuring up to 1.7 cm. Small cresce ntic endometrial fluid collection consistent with hemorrhage. Cervix: Unremarkable. Right adnexa: Normal size right ovary measuring 2.3 x 1.2 x 1.6 cm containing subcentimeter follicles suspicious fo sabine lesion. Normal low resistance arterial and venous blood flow is demonstrated. Left adnexa: Normal size left ovary measuring 3. 6 x 2.2 x 2.6 cm containing a mildly thick-walled cyst measuring 2.4 x 1.6 x 1.7 cm suspicious for a corpus luteum cyst. Blood flow is demonstrated. Intraperitoneal space: Small free pelvic fluid. IMPRESSION: 1. Mildly thickened heterogeneous endometrial st ripe with a small gestational sac in the fundal endometrial cavity corresponding to 5 weeks 1 day containing only a yolk sac. No pole is identified. Clinical correlation is required jolene ng with serial beta hCG levels and short interval follow-up pelvic u ltrasound in order to confirm intrauterine and exclude bl ighted ovum. 2. Small endometrial fluid collection consistent with hemorrhage. 3. Small free pelvic fluid. 4. Mildly thick-walled left ovarian cyst measuri ng 2.4 cm consistent with a corpus luteum cyst. Impression By: [email or web address] - Jonel Rodriguez MD ULTRASOUND - US PREG EVAL 1ST TRIMTR 06/06 2982 Report Impression - Status: SIGNED Entered: 06/07/2021 0044 IMPRESSION: Normal duplex of the ovaries. No evidence of ova beni torsion. PROCEDURE INFORMATION: Exam: US First Trimester, Transabdomin al and US , Transvaginal Exam date and time: 06/06/2021 11:42 PM Age: 21 years old Clinical indication: complicated by ab dominal or pelvic pain; Lower; First trimester (<14 weeks 0 days); Gestational age or lmp: 5.6; ; Additional info: Pelvic pain , early TECHNIQUE: Imaging protocol: Real-time transabdominal obste trical ultrasound of the maternal pelvis and a first trimester pre gnancy, less than 14 weeks 0 days, with image documentation. Trans vaginal imaging was used for better evaluation of the fetus, adnexa, and/or cervix. COMPARISON: US DUP AB/PEL/SC LTD 06/14/2020 6:22 PM FINDINGS: Gestation: Small no gestational sac within the f undal endometrial cavity measuring 3.6 mm or 5 weeks 1 day. Tiny y olk sac measuring 1 mm. No definite pole. MATERNAL: Uterus: Normal size uterus measuring 7.1 x 4.6 x 5.3 cm. Mildly heterogeneous myometrium without lesion. Thicken ed heterogeneous endometrium measuring up to 1.7 cm. Small cresce ntic endometrial fluid collection consistent with hemorrhage. Cervix: Unremarkable. Right adnexa: Normal size right ovary measuring 2.3 x 1.2 x 1.6 cm containing subcentimeter follicles suspicious fo sabine lesion. Normal low resistance arterial and venous blood flow is demonstrated. Left adnexa: Normal size left ovary measuring 3. 6 x 2.2 x 2.6 cm containing a mildly thick-walled cyst measuring 2.4 x 1.6 x 1.7 cm suspicious for a corpus luteum cyst. Blood flow is demonstrated. Intraperitoneal space: Small free pelvic fluid. IMPRESSION: 1. Mildly thickened heterogeneous endometrial st ripe with a small gestational sac in the fundal endometrial cavity corresponding to 5 weeks 1 day containing only a yolk sac. No pole is identified. Clinical correlation is required jolene ng with serial beta hCG levels and short interval follow-up pelvic u ltrasound in order to confirm intrauterine and exclude bl ighted ovum. 2. Small endometrial fluid collection consistent with hemorrhage. 3. Small free pelvic fluid. 4. Mildly thick-walled left ovarian cyst measuri ng 2.4 cm consistent with a corpus luteum cyst. Impression By: [email or web address] - Jonel Rodriguez MD Re-Evaluation MDM ED Course Medication(s) Ordered Medication(s) Ordered: Anti-Infective Agents Sig/Godfrey Start time Last Medication Dose Route Stop Time Status Admin Nitrofurantoin 100 MG X1ED STA 06/07 0039 DC Macrocrystals PO 06/07 0040 0044 Antihistamine Drugs Sig/Godfrey Start time Last Medication Dose Route Stop Time Status Admin Diphenhydramine HCl 25 MG X1ED STA 06/06 2337 C AN IV 06/06 2338 Central Nervous System Agents Sig/Godfrey Start time Last Medication Dose Route Stop Time Status Admin Acetaminophen 1,000 MG X1ED STA 06/06 2350 DC 0 06/07 PO 06/06 2351 0030 Gastrointestinal Drugs Sig/Godfrey Start time Last Medication Dose Route Stop Time Status Admin Ondansetron Base 4 MG ONCE ONE 06/07 0030 DC SL 06/07 0031 0030 Metoclopramide HCl 10 MG X1ED STA 06/06 2336 CA N IV 06/06 2337 Patient Discharge Departure Vital Signs/Condition Vital Signs First Documented: Result Date Time Pulse Ox 98 06/06 2330 B/P 117/65 06/06 2330 B/P Mean 82 06/06 233 Temp 99.5 06/06 2330 Pulse 83 06/06 2330 Resp 06/06 Last Documented: Result Date Time Pulse Ox 98 06/06 2330 B/P 117/65 06/06 2330 B/P Mean 82 06/06 2330 Temp 99.5 06/06 2330 Pulse 83 06/06 2330 Resp 18 06/06 2330 All vital signs available at the time of this en try have been reviewed. Condition Stable Clinical Impression Clinical Impression Primary Impression: UTI (urinary tract infection ) Secondary Impressions: Abdominal pain during pre gnancy in first trimester Time of Impression 0047 Disposition Decision Discharge )( Discharged to Home Yes )( Time 004 )( Date 06/07/21 Discharge/Care Plan Counseled Regarding Diagnosi s, Lab results, Imaging studies, Prescriptions, Need for follow-up, When to return to ED (Auto) Prescriptions Current Visit Scripts NITROFURANTOIN/NITROFURAN MAC (MACROBID) 100 MG PO BID NITROFURANTOIN/NITROFURAN MAC (MACROBID) 100 MG PO BID #14 CAPS Until finished. Take with food. ONDANSETRON ODT (ZOFRAN ODT) 4 MG PO Q6H PRN PRN NAUSEA/VOMITING ONDANSETRON ODT (ZOFRAN ODT) 4 MG PO Q6H PRN IA N NAUSEA/VOMITING #15 TABS Patient Instructions ED Abdominal Pain, Early Pr egnancy, Urinary Tract Infections in Women Referrals [facility] [address]: 1 Week Discharge Note I have spoken with the patie nt and/or caregivers. I have explained the patient's condition, diagnoses and alexandria atment plan based on the information available to me at this time. I have answered the patient's and/ or caregiver's questions and addressed any concerns. The patient and/or careg amy have as good an understanding of the patient 's diagnosis, condition and treatment plan as can be expected at this point. The vital signs have bee n stable. The patient's condition is stable and appr opriate for discharge from the emergency department. The patient will pursue further outpatient evalu ation with the primary care physician or other designated or consulting phys ician as outlined in the discharge instructions. The patient and/or caregivers are agreeable to this plan of care and follow-up instructions have been exp lained in detail. The patient and/or caregivers have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 Tests: 06/14 1733 Hematology WBC (6.6 - 12.1 K/mm3) 7.4 RBC (3.45 - 5.01 M/mm3) 4.64 Hgb (10.7 - 13.9 g/dL) 11.9 Hct (32.1 - 42.1 %) 36.5 MCV (84.1 - 94.8 fL) 79 L MCH (27 - 35 pg) 25.6 L MCHC (32.2 - 34.1 gm/dL) 32.6 RDW (12.4 - 16.5 %) 14.6 Plt Count (133 - 385 K/mm3) 279 MPV (9.1 - 12.7 fl) 10.6 Neut % (Auto) (56.5 - 79.4 %) 66.9 Lymph % (Auto) (14.3 - 34.3 %) 23.5 Jerauld % (Auto) (5.1 - 10.4 %) 7.2 Eos % (Auto) (0.1 - 3.0 %) 1.9 Baso % (Auto) (0.1 - 1.0 %) 0.4 Neut # (Auto) (K/mm3) 4.9 Lymph # (Auto) (K/mm3) 1.7 Jerauld # (Auto) (K/mm3) 0.5 Eos # (Auto) (K/mm3) 0.14 Baso # (Auto) (K/mm3) 0.0 Patient Discharge Departure Vital Signs/Condition Vital Signs First Documented: Result Date Time Pulse Ox 97 06/14 1736 B/P 105/62 06/14 1736 B/P Mean 76 06/14 1736 O2 Delivery Room air 06/14 173 Temp 37.1 06/14 173 Pulse 87 06/14 173 Resp 18 06/14 173 Last Documented: Result Date Time Pulse Ox 97 06/14 1736 B/P 105/62 06/14 1736 B/P Mean 76 06/14 1736 O2 Delivery Room air 06/14 1736 Temp 37.1 06/14 173 Pulse 87 06/14 173 Resp 18 06/14 173 All vital signs available at the time of this en try have been reviewed. Condition Stable Clinical Impression Clinical Impression Primary Impression: Miscarriage Time of Impression 175 Discharge/Care Plan (Auto) Prescriptions Current Visit Scripts No Known Home Medications Referrals Estefani Faria MD (PCP) Pt/Provider Handoff Care Transferred to Dr Harris Care Transferred at 1755 Discussed Complaint(s) Yes at 1755 RPT #:[id number] END OF REPORT 2020-06-14 17:43:00-00:00 [facility] ([facility]) EMERGENCY PROVIDER REPORT REPORT#:[id number] REPORT STATUS: Signed DATE:06/14/20 TIME: 1742 PATIENT: ZORAN STORM UNIT #: [id number] ROOM/BED: AGE: 20 SEX: F PCP PHYS: Estefani Faria MD SERVICE AUTHOR: Larry Velarde MD * ALL edits or amendments must be made on the [employer]/computer document * Julian Murdock 06/14/20 1743: HPI-General Illness Presentation Chief Complaint Abdominal pain Context Additional Context 20 years old patient 7 weeks prese nts complaining of intense pelvic pain, patient reports last night possible passed a gestational sac , today had increasing pain reason why decided to come, patient reports mild vaginal bleeding, no fever, no chills, no other complaints. Review of Systems ROS Statements All systems rev neg except as marked. Free Text ROS Notes Free Text ROS Notes CONSTITUTIONAL: Normal; negative for fev er, weight change, fatigue, or aching. HEENT: Eyes normal; negative for, irritation, or visual field defects. Ears normal; Negative for pain . Nose normal; Negative for runny nose, sinus problems , or nosebleeds. Mouth normal; Negative for dent al problems,. Throat normal; Negative for hoarseness, difficulty swallowing, or sore throat. CARDIOVASCULAR: Normal; Negative for chest pain or, high blood pressure, orthopnea, PULMONARY: Normal; Negative for cough, sputum, shortness of breath or wheezing, . SKIN: Normal; Negative for rashes. MUSCULOSKELETAL: Normal; Negative for back pain, joint pain. NEUROLOGIC: Normal; Negative for blackouts, head aches, seizures or dizziness. PSYCHIATRIC: Normal; Negative for anxiety, depre ssion, or phobias. ENDOCRINE: Normal; Negative for diabetes, thyroid.HEMATOLOGIC/LYMPHATIC: Normal; Negative for anemia, swollen glands, or blood di sorders. IMMUNOLOGIC: Negative; Negative for steroids, ch emotherapy, or cancer. VASCULAR: Normal; Negative for varicose veins, b lood clots, or leg ulcers. Past Medical History - Adult Stated Complaint ABDOMINAL PAIN,VAGINAL PAIN Allergies Coded Allergies: No Known Allergies (02/05/16) Home Medications Reported Medications No Known Home Medications Review of Nursing Notes Rev avail, and agree Physical Exam Vital Signs Vital Signs First Documented: Result Date Time Pulse Ox 97 06/14 1736 B/P 105/62 06/14 1736 B/P Mean 76 06/14 1736 O2 Delivery Room air 06/14 1736 Temp 37.1 06/14 1736 Pulse 87 06/14 1736 Resp 18 06/14 1736 Last Documented: Result Date Time Pulse Ox 100 06/14 2116 B/P 102/61 06/14 2116 B/P Mean 74 06/14 2116 O2 Delivery Room air 06/14 2116 Temp 37.0 06/14 2116 Pulse 80 06/14 2116 Resp 17 06/14 2116 Review of Vital Signs Reviewed, Vital signs norm al Basic Physical Exam Basic PE GEN: Well appearing/NAD, HEAD: Atraumat ic/NC, ENT: Membranes moist, NECK: Supple, CV: Reg rate rhythm, EXT: No gross abnormality, SKIN: No rashes, warm/dry, NEURO: alert oriented, NEURO: gross m ovement NL Physical Exam Abdomen/GI Tenderness/Guarding/Rebound Tender suprapubic. Interpretation Diagnostics Lab Results Interpretation Results Laboratory Tests 06/14/20 1733: [Embedded Image Not Available] Laboratory Tests: 06/14 06/14 1733 1725 Chemistry Sodium (135 - 145 mEq/L) 137 Potassium (3.5 - 5.0 mEq/L) 3.7 Chloride (100 - 115 mEq/L) 105 Carbon Dioxide (22 - 31 mEq/L) 25 Anion Gap (10 - 20) 10.80 BUN (7 - 18 mg/dL) 7 Creatinine (0.5 - 1.0 mg/dL) 0.7 Glomerular Filtr Rate (>60 ml/min) 121 Glucose (65 - 110 mg/dL) 114 H Calcium (8.4 - 10.2 mg/dL) 8.6 Total Bilirubin (0.2 - 1.0 mg/dL) 0.2 AST (15 - 37 units/L) 10 L ALT (12 - 78 units/L) 16 Total Alk Phosphatase (46 - 116 units/L) 67 Total Protein (6.3 - 8.2 gm/dL) 6.7 Albumin (3.4 - 4.8 gm/dL) 3.0 L Hematology WBC (6.6 - 12.1 K/mm3) 7.4 RBC (3.45 - 5.01 M/mm3) 4.64 Hgb (10.7 - 13.9 g/dL) 11.9 Hct (32.1 - 42.1 %) 36.5 MCV (84.1 - 94.8 fL) 79 L MCH (27 - 35 pg) 25.6 L MCHC (32.2 - 34.1 gm/dL) 32.6 RDW (12.4 - 16.5 %) 14.6 Plt Count (133 - 385 K/mm3) 279 MPV (9.1 - 12.7 fl) 10.6 Neut % (Auto) (56.5 - 79.4 %) 66.9 Lymph % (Auto) (14.3 - 34.3 %) 23.5 Jerauld % (Auto) (5.1 - 10.4 %) 7.2 Eos % (Auto) (0.1 - 3.0 %) 1.9 Baso % (Auto) (0.1 - 1.0 %) 0.4 Neut # (Auto) (K/mm3) 4.9 Lymph # (Auto) (K/mm3) 1.7 Jerauld # (Auto) (K/mm3) 0.5 Eos # (Auto) (K/mm3) 0.14 Baso # (Auto) (K/mm3) 0.0 Miscellaneous Maternal Serum HCG 1283 Urines Urine Color (YELLOW) YELLOW Urine Appearance (CLEAR) Slightly-Cloudy Urine pH (5 - 9) 6.0 Ur Specific Hustle (1.001 - 1.035) 1.015 Urine Protein (NEG) 1+ H Urine Glucose (UA) (NEG) NEGATIVE Urine Ketones (NEG) NEGATIVE Urine Blood (NEG) 3+ H Urine Nitrite (NEG) NEG Urine Bilirubin (NEG) NEGATIVE Urine Urobilinogen (NEG mg/dL) NEGATIVE Ur Leukocyte Esterase (NEG) 3+ H Urine RBC (NONE SEEN #/hpf) TOO NUMEROUS TO CNT H Urine WBC (NONE SEEN #/hpf) 16-20 H Ur Epithelial Cells (RARE - FEW #/HPF) RARE Urine Bacteria (RARE - FEW /HPF) FEW Urine Mucus (NONE SEEN) 1+ Microbiology: Date/Time Procedure - Status Source Growth 06/14 1929 Urine Culture - RECD URINE Recent Impressions: ULTRASOUND - US TRANSVAGINAL W/PELVIS 06/14 1823 Report Impression - Status: SIGNED Entered: 06/14/20201917 IMPRESSION: 1. There is no intrauterine or extrauterine gest ational sac identified. The findings could be secondary to s pontaneous expulsion of products, hidden ectopic or v ashvin early . Close clinical correlation is recommended. Consi damion short-term follow-up ultrasound and beta hCG. 2. The endometrial stripe is 1.2 cm thick and th ere is complex fluid in the endometrial canal. Retained products of c onception cannot be excluded. 3. There is normal bilateral ovarian blood flow and no evidence of ovarian torsion. 4. There is a small volume of simple free fluid in the pelvic cul-de-sac. Impression By: [email or web address] - Jose Alexander, ULTRASOUND - DUP AB/PEL/SC/LTD 06/14 1823 Report Impression - Status: SIGNED Entered: 06/14/20201917 IMPRESSION: 1. There is no intrauterine or extrauterine gest ational sac identified. The findings could be secondary to s pontaneous expulsion of products, hidden ectopic or v ashvin early . Close clinical correlation is recommended. Consi damion short-term follow-up ultrasound and beta hCG. 2. The endometrial stripe is 1.2 cm thick and th ere is complex fluid in the endometrial canal. Retained products of c onception cannot be excluded. 3. There is normal bilateral ovarian blood flow and no evidence of ovarian torsion. 4. There is a small volume of simple free fluid in the pelvic cul-de-sac. Impression By: Марина Alexander DO ULTRASOUND - US PELVIS COMPLETE 06/14 1823 Report Impression - Status: SIGNED Entered: 06/14/20201917 IMPRESSION: 1. There is no intrauterine or extrauterine gest ational sac identified. The findings could be secondary to s pontaneous expulsion of products, hidden ectopic or v ashvin early . Close clinical correlation is recommended. Consi damion short-term follow-up ultrasound and beta hCG. 2. The endometrial stripe is 1.2 cm thick and th ere is complex fluid in the endometrial canal. Retained products of c onception cannot be excluded. 3. There is normal bilateral ovarian blood flow and no evidence of ovarian torsion. 4. There is a small volume of simple free fluid in the pelvic cul-de-sac. Impression By: Марина Alexander DO Patient Discharge Departure Vital Signs/Condition Vital Signs First Documented: Result Date Time Pulse Ox 97 06/14 173 B/P 105/62 06/14 1736 B/P Mean 76 06/14 173 O2 Delivery Room air 06/14 1736 Temp 37.1 06/14 1736 Pulse 87 06/14 173 Resp 18 06/14 173 Last Documented: Result Date Time Pulse Ox 100 06/14 2116 B/P 102/61 06/14 211 B/P Mean 74 06/14 2116 O2 Delivery Room air 06/14 2116 Temp 37.0 06/14 2116 Pulse 80 06/14 2116 Resp 17 06/14 2116 All vital signs available at the time of this en try have been reviewed. Condition Stable Clinical Impression Clinical Impression Primary Impression: Miscarriage Time of Impression 1754 Discharge/Care Plan (Auto) Prescriptions Current Visit Scripts No Known Home Medications Referrals Estefani Faria MD (PCP) Pt/Provider Handoff Care Transferred to Dr Harris Care Transferred at 1755 Discussed Complaint(s) Yes Israel Harris 06/14/205: HPI-General Illness General Initial Greet Date/Time 06/14/20 1723 Re-Evaluation MDM Free Text MDM Notes Free Text MDM Notes 20-year-old female G2, P1 status post miscarriag e complaining of pelvic pain vaginal bleeding x1 day. Miscarriage, vaginal bleeding, pelvic pain Normal CBC, CMP, UA, Pelvic exam: Closed cervix no bleeding. Ultrasound showed no intrauterine or e ctopic blood clots within the the lower uterine segment. No active bleeding Discussed patient with Dr. Alon slade to go deven e, follow-up in the office. Bleeding precautions given, patient knows to ret urn to the ER if fever chills vaginal bleeding using 5-6 pads per hour. ED Course Medication(s) Ordered Medication(s) Ordered: Cardiovascular Drugs Sig/Godfrey Start time Last Medication Dose Route Stop Time Status Admin Propranolol HCl 5 MG X1ED STA 06/14 2017 CAN PO 06/14 2018 Central Nervous System Agents Sig/Godfrey Start time Last Medication Dose Route Stop Time Status Admin Ketorolac 30 MG X1ED STA 06/14 1908 DC 06/14 Tromethamine IV 06/14 190 1916 Consultation Consultation Referral/Consult Name Asia Chi Copy Reader Called CASTING AND PASTING SUPERVISOR Requested Call Time 2242 Requested Call Date 06/14/20 Call Returned Call returned Call Returned Time 2242 Call Returned Date 06/14/20 Copy Reader Will see patient, Will see in office Free Text Consult Notes ok go go home, follow up in the office Patient Discharge Departure Vital Signs/Condition Condition Improved, Stable Clinical Impression Time of Impression 2234 Disposition Decision Admit Admit Physician Name Asia Chi Discharge/Care Plan Counseled Regarding Diagnosi s, Lab results, Imaging studies, Need for admission, Need for follow-up, When to return to ED Admit Note I have spoken with the patie nt and/or caregivers. I have explained the patient's condition, diagnoses and alexandria atment plan based on the information available to me at this time. I have answered the patient's and/ or caregiver's questions and addressed any concerns. The patient and/or careg amy have as good an understanding of the patient 's diagnosis, condition and treatment plan as can be expected at this point. The patient has been stabilized within the capability of the emergency department. The patient wi ll be transported for further care and management or will be moved to an observation or inpatient service. I have communicated with the staff or medical p dariuser taking over this patient's care. at 1755 RPT #:[id number] END OF REPORT 2020-06-14 17:43:00-00:00 [facility] [place] [facility]) EMERGENCY PROVIDER REPORT REPORT#:[id number] REPORT STATUS: Signed DATE:06/14/20 TIME: 1742 PATIENT: ZORAN STORM UNIT #: [id number] ROOM/BED: AGE: 20 SEX: F PCP PHYS: Estefani Faria MD SERVICE AUTHOR: Larry Velarde MD * ALL edits or amendments must be made on the [employer]/computer document * Julian Murdock 06/14/201742: HPI-General Illness Presentation Chief Complaint Abdominal pain Context Additional Context 20 years old patient 7 weeks prese nts complaining of intense pelvic pain, patient reports last night possible passed a gestational sac , today had increasing pain reason why decided to come, patient reports mild vaginal bleeding, no fever, no chills, no other complaints. Review of Systems ROS Statements All systems rev neg except as marked. Free Text ROS Notes Free Text ROS Notes CONSTITUTIONAL: Normal; negative for fev er, weight change, fatigue, or aching. HEENT: Eyes normal; negative for, irritation, or visual field defects. Ears normal; Negative for pain . Nose normal; Negative for runny nose, sinus problems , or nosebleeds. Mouth normal; Negative for dent al problems,. Throat normal; Negative for hoarseness, difficulty swallowing, or sore throat. CARDIOVASCULAR: Normal; Negative for chest pain or, high blood pressure, orthopnea, PULMONARY: Normal; Negative for cough, sputum, shortness of breath or wheezing, . SKIN: Normal; Negative for rashes. MUSCULOSKELETAL: Normal; Negative for back pain, joint pain. NEUROLOGIC: Normal; Negative for blackouts, head aches, seizures or dizziness. PSYCHIATRIC: Normal; Negative for anxiety, depre ssion, or phobias. ENDOCRINE: Normal; Negative for diabetes, thyroid.HEMATOLOGIC/LYMPHATIC: Normal; Negative for anemia, swollen glands, or blood di sorders. IMMUNOLOGIC: Negative; Negative for steroids, ch emotherapy, or cancer. VASCULAR: Normal; Negative for varicose veins, b lood clots, or leg ulcers. Past Medical History - Adult Stated Complaint ABDOMINAL PAIN,VAGINAL PAIN Allergies Coded Allergies: No Known Allergies (02/05/16) Home Medications Reported Medications No Known Home Medications Review of Nursing Notes Rev avail, and agree Physical Exam Vital Signs Vital Signs First Documented: Result Date Time Pulse Ox 97 06/14 1736 B/P 105/62 06/14 1736 B/P Mean 76 06/14 1736 O2 Delivery Room air 06/14 1736 Temp 37.1 06/14 1736 Pulse 87 06/14 1736 Resp 18 06/14 1736 Last Documented: Result Date Time Pulse Ox 100 06/14 2116 B/P 102/61 06/14 2116 B/P Mean 74 06/14 2116 O2 Delivery Room air 06/14 2116 Temp 37.0 06/14 2116 Pulse 80 06/14 2116 Resp 17 06/14 2116 Review of Vital Signs Reviewed, Vital signs norm al Basic Physical Exam Basic PE GEN: Well appearing/NAD, HEAD: Atraumat ic/NC, ENT: Membranes moist, NECK: Supple, CV: Reg rate rhythm, EXT: No gross abnormality, SKIN: No rashes, warm/dry, NEURO: alert oriented, NEURO: gross mo vement NL Physical Exam Abdomen/GI Tenderness/Guarding/Rebound Tender suprapubic. Interpretation Diagnostics Lab Results Interpretation Results Laboratory Tests 06/14/201732: [Embedded Image Not Available] Laboratory Tests: 06/14 1725 Chemistry Sodium (135 - 145 mEq/L) 137 Potassium (3.5 - 5.0 mEq/L) 3.7 Chloride (100 - 115 mEq/L) 105 Carbon Dioxide (22 - 31 mEq/L) 25 Anion Gap (10 - 20) 10.80 BUN (7 - 18 mg/dL) 7 Creatinine (0.5 - 1.0 mg/dL) 0.7 Glomerular Filtr Rate (>60 ml/min) 121 Glucose (65 - 110 mg/dL) 114 H Calcium (8.4 - 10.2 mg/dL) 8.6 Total Bilirubin (0.2 - 1.0 mg/dL) 0.2 AST (15 - 37 units/L) 10 L ALT (12 - 78 units/L) 16 Total Alk Phosphatase (46 - 116 units/L) 67 Total Protein (6.3 - 8.2 gm/dL) 6.7 Albumin (3.4 - 4.8 gm/dL) 3.0 L Hematology WBC (6.6 - 12.1 K/mm3) 7.4 RBC (3.45 - 5.01 M/mm3) 4.64 Hgb (10.7 - 13.9 g/dL) 11.9 Hct (32.1 - 42.1 %) 36.5 MCV (84.1 - 94.8 fL) 79 L MCH (27 - 35 pg) 25.6 L MCHC (32.2 - 34.1 gm/dL) 32.6 RDW (12.4 - 16.5 %) 14.6 Plt Count (133 - 385 K/mm3) 279 MPV (9.1 - 12.7 fl) 10.6 Neut % (Auto) (56.5 - 79.4 %) 66.9 Lymph % (Auto) (14.3 - 34.3 %) 23.5 Jerauld % (Auto) (5.1 - 10.4 %) 7.2 Eos % (Auto) (0.1 - 3.0 %) 1.9 Baso % (Auto) (0.1 - 1.0 %) 0.4 Neut # (Auto) (K/mm3) 4.9 Lymph # (Auto) (K/mm3) 1.7 Jerauld # (Auto) (K/mm3) 0.5 Eos # (Auto) (K/mm3) 0.14 Baso # (Auto) (K/mm3) 0.0 Miscellaneous Maternal Serum HCG 1283 Urines Urine Color (YELLOW) YELLOW Urine Appearance (CLEAR) Slightly-Cloudy Urine pH (5 - 9) 6.0 Ur Specific Hustle (1.001 - 1.035) 1.015 Urine Protein (NEG) 1+ H Urine Glucose (UA) (NEG) NEGATIVE Urine Ketones (NEG) NEGATIVE Urine Blood (NEG) 3+ H Urine Nitrite (NEG) NEG Urine Bilirubin (NEG) NEGATIVE Urine Urobilinogen (NEG mg/dL) NEGATIVE Ur Leukocyte Esterase (NEG) 3+ H Urine RBC (NONE SEEN #/hpf) TOO NUMEROUS TO CNT H Urine WBC (NONE SEEN #/hpf) 16-20 H Ur Epithelial Cells (RARE - FEW #/HPF) RARE Urine Bacteria (RARE - FEW /HPF) FEW Urine Mucus (NONE SEEN) 1+ Microbiology: Date/Time Procedure - Status Source Growth 06/14 1929 Urine Culture - RECD URINE Recent Impressions: ULTRASOUND - US TRANSVAGINAL W/PELVIS 06/14 1823 Report Impression - Status: SIGNED Entered: 06/14/20201917 IMPRESSION: 1. There is no intrauterine or extrauterine gest ational sac identified. The findings could be secondary to s pontaneous expulsion of products, hidden ectopic or v ashvin early . Close clinical correlation is recommended. Consi damion short-term follow-up ultrasound and beta hCG. 2. The endometrial stripe is 1.2 cm thick and th ere is complex fluid in the endometrial canal. Retained products of c onception cannot be excluded. 3. There is normal bilateral ovarian blood flow and no evidence of ovarian torsion. 4. There is a small volume of simple free fluid in the pelvic cul-de-sac. Impression By: Марина Alexander DO ULTRASOUND - DUP AB/PEL/SC/LTD 06/14 1823 Report Impression - Status: SIGNED Entered: 06/14/20201917 IMPRESSION: 1. There is no intrauterine or extrauterine gest ational sac identified. The findings could be secondary to s pontaneous expulsion of products, hidden ectopic or v ashvin early . Close clinical correlation is recommended. Consi damion short-term follow-up ultrasound and beta hCG. 2. The endometrial stripe is 1.2 cm thick and th ere is complex fluid in the endometrial canal. Retained products of c onception cannot be excluded. 3. There is normal bilateral ovarian blood flow and no evidence of ovarian torsion. 4. There is a small volume of simple free fluid in the pelvic cul-de-sac. Impression By: Марина Alexander DO ULTRASOUND - US PELVIS COMPLETE 06/14 1823 Report Impression - Status: SIGNED Entered: 06/14/20201917 IMPRESSION: 1. There is no intrauterine or extrauterine gest ational sac identified. The findings could be secondary to s pontaneous expulsion of products, hidden ectopic or v ashvin early . Close clinical correlation is recommended. Consi damion short-term follow-up ultrasound and beta hCG. 2. The endometrial stripe is 1.2 cm thick and th ere is complex fluid in the endometrial canal. Retained products of c onception cannot be excluded. 3. There is normal bilateral ovarian blood flow and no evidence of ovarian torsion. 4. There is a small volume of simple free fluid in the pelvic cul-de-sac. Impression By: [email or web address] - Jose Alexander, Patient Discharge Departure Vital Signs/Condition Vital Signs First Documented: Result Date Time Pulse Ox 97 06/14 1736 B/P 105/62 06/14 173 B/P Mean 76 06/14 1736 O2 Delivery Room air 06/14 1736 Temp 37.1 06/14 1736 Pulse 87 06/14 1736 Resp 18 06/14 1736 Last Documented: Result Date Time Pulse Ox 100 06/14 2116 B/P 102/61 06/14 2116 B/P Mean 74 06/14 2116 O2 Delivery Room air 06/14 2116 Temp 37.0 06/14 2116 Pulse 80 06/14 2116 Resp 17 06/14 2116 All vital signs available at the time of this en try have been reviewed. Condition Stable Clinical Impression Clinical Impression Primary Impression: Miscarriage Time of Impression 1754 Discharge/Care Plan (Auto) Prescriptions Current Visit Scripts No Known Home Medications Referrals Estefani Faria MD (PCP) Pt/Provider Handoff Care Transferred to Dr Harris Care Transferred at 1755 Discussed Complaint(s) Yes Israel Harris 06/14/20 2235: HPI-General Illness General Initial Greet Date/Time 06/14/20 1723 Re-Evaluation MDM Free Text MDM Notes Free Text MDM Notes 20-year-old female G2, P1 status post miscarriag e complaining of pelvic pain vaginal bleeding x1 day. Miscarriage, vaginal bleeding, pelvic pain Normal CBC, CMP, UA, Pelvic exam: Closed cervix no bleeding. Ultrasound showed no intrauterine or e ctopic blood clots within the the lower uterine segment. No active bleeding. Discussed patient with Dr. Alon slade to go deven e, follow-up in the office. Bleeding precautions given, patient knows to ret urn to the ER if fever chills vaginal bleeding using 5-6 pads per hour. ED Course Medication(s) Ordered Medication(s) Ordered: Cardiovascular Drugs Sig/Godfrey Start time Last Medication Dose Route Stop Time Status Admin Propranolol HCl 5 MG X1ED STA 06/14 2017 CAN PO 06/14 2018 Central Nervous System Agents Sig/Godfrey Start time Last Medication Dose Route Stop Time Status Admin Ketorolac 30 MG X1ED STA 06/14 1908 DC 06/14 Tromethamine IV 06/14 1909 191 Consultation Consultation Referral/Consult Name Asia Chi Copy Reader Called CASTING AND PASTING SUPERVISOR Requested Call Time 2242 Requested Call Date 06/14/20 Call Returned Call returned Call Returned Time 2242 Call Returned Date 06/14/20 Copy Reader Will see patient, Will see in office Free Text Consult Notes ok go go home, follow up in the office Patient Discharge Departure Vital Signs/Condition Condition Improved, Stable Clinical Impression Time of Impression 2234 Disposition Decision Admit Admit Physician Name Asia Chi Discharge/Care Plan Counseled Regarding Diagnosi s, Lab results, Imaging studies, Need for admission, Need for follow-up, When to return to ED Admit Note I have spoken with the patie nt and/or caregivers. I have explained the patient's condition, diagnoses and alexandria atment plan based on the information available to me at this time. I have answered the patient's and/ or caregiver's questions and addressed any concerns. The patient and/or careg amy have as good an understanding of the patient 's diagnosis, condition and treatment plan as can be expected at this point. The patient has been stabilized within the capability of the emergency department. The patient wi ll be transported for further care and management or will be moved to an observation or inpatient service. I have communicated with the staff or medical p ractitioner taking over this patient's care. at 1755 RPT #:[id number] END OF REPORT 2020-06-14 17:43:00-00:00 [facility] [place] ([facility]) EMERGENCY PROVIDER REPORT REPORT#:[id number] REPORT STATUS: Signed DATE:06/14/20 TIME: 1742 PATIENT: ZORAN STORM UNIT #: [id number] ROOM/BED: AGE: 20 SEX: F PCP PHYS: Estefani Faria MD SERVICE AUTHOR: Larry Velarde MD * ALL edits or amendments must be made on the [employer]computer document * Lulú-HaroldoJulian 06/14/20 1743: HPI-General Illness Presentation Chief Complaint Abdominal pain Context Additional Context 20 years old patient 7 weeks prese nts complaining of intense pelvic pain, patient reports last night possible passed a gestational sac , today had increasing pain reason why decided to come, patient reports mild vaginal bleeding, no fever, no chills, no other complaints. Review of Systems ROS Statements All systems rev neg except as marked. Free Text ROS Notes Free Text ROS Notes CONSTITUTIONAL: Normal; negative for fev er, weight change, fatigue, or aching. HEENT: Eyes normal; negative for, irritation, or visual field defects. Ears normal; Negative for pain . Nose normal; Negative for runny nose, sinus problems , or nosebleeds. Mouth normal; Negative for dent al problems,. Throat normal; Negative for hoarseness, difficulty swallowing, or sore throat. CARDIOVASCULAR: Normal; Negative for chest pain or, high blood pressure, orthopnea, PULMONARY: Normal; Negative for cough, sputum, shortness of breath or wheezing, . SKIN: Normal; Negative for rashes. MUSCULOSKELETAL: Normal; Negative for back pain, joint pain. NEUROLOGIC: Normal; Negative for blackouts, head aches, seizures or dizziness. PSYCHIATRIC: Normal; Negative for anxiety, depre ssion, or phobias. ENDOCRINE: Normal; Negative for diabetes, thyroid.HEMATOLOGIC/LYMPHATIC: Normal; Negative for anemia, swollen glands, or blood di sorders. IMMUNOLOGIC: Negative; Negative for steroids, ch emotherapy, or cancer. VASCULAR: Normal; Negative for varicose veins, b lood clots, or leg ulcers. Past Medical History - Adult Stated Complaint ABDOMINAL PAIN,VAGINAL PAIN Allergies Coded Allergies: No Known Allergies (02/05/16) Home Medications Reported Medications No Known Home Medications Review of Nursing Notes Rev avail, and agree Physical Exam Vital Signs Vital Signs First Documented: Result Date Time Pulse Ox 97 06/14 173 B/P 105/62 06/14 1736 B/P Mean 76 06/14 173 O2 Delivery Room air 06/14 1736 Temp 37.1 06/14 1736 Pulse 87 06/14 173 Resp 18 06/14 1736 Last Documented: Result Date Time Pulse Ox 100 06/14 2116 B/P 102/61 06/14 2116 B/P Mean 74 06/14 2116 O2 Delivery Room air 06/14 2116 Temp 37.0 06/14 2116 Pulse 80 06/14 2116 Resp 17 06/14 2116 Review of Vital Signs Reviewed, Vital signs norm al Basic Physical Exam Basic PE GEN: Well appearing/NAD, HEAD: Atraumat ic/NC, ENT: Membranes moist, NECK: Supple, CV: Reg rate rhythm, EXT: No gross abnormality, SKIN: No rashes, warm/dry, NEURO: alert oriented, NEURO: gross mo vement NL Physical Exam Abdomen/GI Tenderness/Guarding/Rebound Tender suprapubic. Interpretation Diagnostics Lab Results Interpretation Results Laboratory Tests 06/14/201732: [Embedded Image Not Available] Laboratory Tests: 06/14 1725 Chemistry Sodium (135 - 145 mEq/L) 137 Potassium (3.5 - 5.0 mEq/L) 3.7 Chloride (100 - 115 mEq/L) 105 Carbon Dioxide (22 - 31 mEq/L) 25 Anion Gap (10 - 20) 10.80 BUN (7 - 18 mg/dL) 7 Creatinine (0.5 - 1.0 mg/dL) 0.7 Glomerular Filtr Rate (>60 ml/min) 121 Glucose (65 - 110 mg/dL) 114 H Calcium (8.4 - 10.2 mg/dL) 8.6 Total Bilirubin (0.2 - 1.0 mg/dL) 0.2 AST (15 - 37 units/L) 10 L ALT (12 - 78 units/L) 16 Total Alk Phosphatase (46 - 116 units/L) 67 Total Protein (6.3 - 8.2 gm/dL) 6.7 Albumin (3.4 - 4.8 gm/dL) 3.0 L Hematology WBC (6.6 - 12.1 K/mm3) 7.4 RBC (3.45 - 5.01 M/mm3) 4.64 Hgb (10.7 - 13.9 g/dL) 11.9 Hct (32.1 - 42.1 %) 36.5 MCV (84.1 - 94.8 fL) 79 L MCH (27 - 35 pg) 25.6 L MCHC (32.2 - 34.1 gm/dL) 32.6 RDW (12.4 - 16.5 %) 14.6 Plt Count (133 - 385 K/mm3) 279 MPV (9.1 - 12.7 fl) 10.6 Neut % (Auto) (56.5 - 79.4 %) 66.9 Lymph % (Auto) (14.3 - 34.3 %) 23.5 Jerauld % (Auto) (5.1 - 10.4 %) 7.2 Eos % (Auto) (0.1 - 3.0 %) 1.9 Baso % (Auto) (0.1 - 1.0 %) 0.4 Neut # (Auto) (K/mm3) 4.9 Lymph # (Auto) (K/mm3) 1.7 Jerauld # (Auto) (K/mm3) 0.5 Eos # (Auto) (K/mm3) 0.14 Baso # (Auto) (K/mm3) 0.0 Miscellaneous Maternal Serum HCG 1283 Urines Urine Color (YELLOW) YELLOW Urine Appearance (CLEAR) Slightly-Cloudy Urine pH (5 - 9) 6.0 Ur Specific Hustle (1.001 - 1.035) 1.015 Urine Protein (NEG) 1+ H Urine Glucose (UA) (NEG) NEGATIVE Urine Ketones (NEG) NEGATIVE Urine Blood (NEG) 3+ H Urine Nitrite (NEG) NEG Urine Bilirubin (NEG) NEGATIVE Urine Urobilinogen (NEG mg/dL) NEGATIVE Ur Leukocyte Esterase (NEG) 3+ H Urine RBC (NONE SEEN #/hpf) TOO NUMEROUS TO CNT H Urine WBC (NONE SEEN #/hpf) 16-20 H Ur Epithelial Cells (RARE - FEW #/HPF) RARE Urine Bacteria (RARE - FEW /HPF) FEW Urine Mucus (NONE SEEN) 1+ Microbiology: Date/Time Procedure - Status Source Growth 06/14 1929 Urine Culture - RECD URINE Recent Impressions: ULTRASOUND - US TRANSVAGINAL W/PELVIS 06/14 182 Report Impression - Status: SIGNED Entered: 06/14/20201917 IMPRESSION: 1. There is no intrauterine or extrauterine gest ational sac identified. The findings could be secondary to s pontaneous expulsion of products, hidden ectopic or v ashvin early . Close clinical correlation is recommended. Consi damion short-term follow-up ultrasound and beta hCG. 2. The endometrial stripe is 1.2 cm thick and th ere is complex fluid in the endometrial canal. Retained products of c onception cannot be excluded. 3. There is normal bilateral ovarian blood flow and no evidence of ovarian torsion. 4. There is a small volume of simple free fluid in the pelvic cul-de-sac. Impression By: Марина Alexander DO ULTRASOUND - DUP AB/PEL/SC/LTD 06/14 1823 Report Impression - Status: SIGNED Entered: 06/14/20201917 IMPRESSION: 1. There is no intrauterine or extrauterine gest ational sac identified. The findings could be secondary to s pontaneous expulsion of products, hidden ectopic or v ashvin early . Close clinical correlation is recommended. Consi damion short-term follow-up ultrasound and beta hCG. 2. The endometrial stripe is 1.2 cm thick and th ere is complex fluid in the endometrial canal. Retained products of c onception cannot be excluded. 3. There is normal bilateral ovarian blood flow and no evidence of ovarian torsion. 4. There is a small volume of simple free fluid in the pelvic cul-de-sac. Impression By: Марина Alexander DO ULTRASOUND - US PELVIS COMPLETE 06/14 1823 Report Impression - Status: SIGNED Entered: 06/14/20201917 IMPRESSION: 1. There is no intrauterine or extrauterine gest ational sac identified. The findings could be secondary to s pontaneous expulsion of products, hidden ectopic or v ashvin early . Close clinical correlation is recommended. Consi damion short-term follow-up ultrasound and beta hCG. 2. The endometrial stripe is 1.2 cm thick and th ere is complex fluid in the endometrial canal. Retained products of c onception cannot be excluded. 3. There is normal bilateral ovarian blood flow and no evidence of ovarian torsion. 4. There is a small volume of simple free fluid in the pelvic cul-de-sac. Impression By: Марина Alexander DO Patient Discharge Departure Vital Signs/Condition Vital Signs First Documented: Result Date Time Pulse Ox 97 06/14 1736 B/P 105/62 06/14 1736 B/P Mean 76 06/14 173 O2 Delivery Room air 06/14 1736 Temp 37.1 06/14 1736 Pulse 87 06/14 1736 Resp 18 06/14 1736 Last Documented: Result Date Time Pulse Ox 100 06/14 2116 B/P 102/61 06/14 2116 B/P Mean 74 06/14 2116 O2 Delivery Room air 06/14 2116 Temp 37.0 06/14 2116 Pulse 80 06/14 2116 Resp 17 06/14 2116 All vital signs available at the time of this en try have been reviewed. Condition Stable Clinical Impression Clinical Impression Primary Impression: Miscarriage Time of Impression 1754 Discharge/Care Plan (Auto) Prescriptions Current Visit Scripts No Known Home Medications Referrals Estefani Faria MD (PCP) Pt/Provider Handoff Care Transferred to Dr Harris Care Transferred at 1755 Discussed Complaint(s) Yes Israel Harris 06/14/202234: HPI-General Illness General Initial Greet Date/Time 06/14/20 172 Re-Evaluation MDM Free Text MDM Notes Free Text MDM Notes 20-year-old female G2, P1 status post miscarriag e complaining of pelvic pain vaginal bleeding x1 day. Miscarriage, vaginal bleeding, pelvic pain Normal CBC, CMP, UA, Pelvic exam: Closed cervix no bleeding. Ultrasound showed no intrauterine or e ctopic blood clots within the the lower uterine segment. No active bleeding. Discussed patient with Dr. Alon slade to go deven e, follow-up in the office. Bleeding precautions given, patient knows to ret urn to the ER if fever chills vaginal bleeding using 5-6 pads per hour. ED Course Medication(s) Ordered Medication(s) Ordered: Cardiovascular Drugs Sig/Godfrey Start time Last Medication Dose Route Stop Time Status Admin Propranolol HCl 5 MG X1ED STA 06/14 2017 CAN PO 06/14 2018 Central Nervous System Agents Sig/Godfrey Start time Last Medication Dose Route Stop Time Status Admin Ketorolac 30 MG X1ED STA 06/14 1908 DC 06/14 Tromethamine IV 06/14 Consultation Consultation Referral/Consult Name Asia Chi Copy Reader Called CASTING AND PASTING SUPERVISOR Requested Call Time 2242 Requested Call Date 06/14/20 Call Returned Call returned Call Returned Time 2242 Call Returned Date 06/14/20 Copy Reader Will see patient, Will see in office Free Text Consult Notes ok go go home, follow up in the office Patient Discharge Departure Vital Signs/Condition Condition Improved, Stable Clinical Impression Time of Impression 2234 Disposition Decision Discharge )( Discharged to Home Yes )( Time 2300 )( Date 06/14/20 Discharge/Care Plan Counseled Regarding Diagnosi s, Lab results, Imaging studies, Need for admission, Need for follow-up, When to return to ED Admit Note I have spoken with the patie nt and/or caregivers. I have explained the patient's condition, diagnoses and alexandria atment plan based on the information available to me at this time. I have answered the patient's and/ or caregiver's questions and addressed any concerns. The patient and/or careg amy have as good an understanding of the patient 's diagnosis, condition and treatment plan as can be expected at this point. The patient has been stabilized within the capability of the emergency department. The patient wi ll be transported for further care and management or will be moved to an observation or inpatient service. I have communicated with the staff or medical p ractitioner taking over this patient's care. Quality Measures BP F/U for HTN F/u with PCP/other doc at 1755 RPT #:[id number] END OF REPORT 2020-06-14 17:43:00-00:00 [facility] [place] [facility]) EMERGENCY PROVIDER REPORT REPORT#:[id number] REPORT STATUS: Signed DATE:06/14/20 TIME: 1742 PATIENT: ZORAN STORM UNIT #: [id number] ROOM/BED: AGE: 20 SEX: F PCP PHYS: Estefani Faria MD SERVICE AUTHOR: Larry Velarde MD * ALL edits or amendments must be made on the el [employer]computer document * Julian Murdock 06/14/20 174: HPI-General Illness Presentation Chief Complaint Abdominal pain Context Additional Context 20 years old patient 7 weeks prese nts complaining of intense pelvic pain, patient reports last night possible passed a gestational sac , today had increasing pain reason why decided to come, patient reports mild vaginal bleeding, no fever, no chills, no other complaints. Review of Systems ROS Statements All systems rev neg except as marked. Free Text ROS Notes Free Text ROS Notes CONSTITUTIONAL: Normal; negative for fev er, weight change, fatigue, or aching. HEENT: Eyes normal; negative for, irritation, or visual field defects. Ears normal; Negative for pain . Nose normal; Negative for runny nose, sinus problems , or nosebleeds. Mouth normal; Negative for dent al problems,. Throat normal; Negative for hoarseness, difficulty swallowing, or sore throat. CARDIOVASCULAR: Normal; Negative for chest pain or, high blood pressure, orthopnea, PULMONARY: Normal; Negative for cough, sputum, shortness of breath or wheezing, . SKIN: Normal; Negative for rashes. MUSCULOSKELETAL: Normal; Negative for back pain, joint pain. NEUROLOGIC: Normal; Negative for blackouts, head aches, seizures or dizziness. PSYCHIATRIC: Normal; Negative for anxiety, depre ssion, or phobias. ENDOCRINE: Normal; Negative for diabetes, thyroid.HEMATOLOGIC/LYMPHATIC: Normal; Negative for anemia, swollen glands, or blood di sorders. IMMUNOLOGIC: Negative; Negative for steroids, ch emotherapy, or cancer. VASCULAR: Normal; Negative for varicose veins, b lood clots, or leg ulcers. Past Medical History - Adult Stated Complaint ABDOMINAL PAIN,VAGINAL PAIN Allergies Coded Allergies: No Known Allergies (02/05/16) Home Medications Reported Medications No Known Home Medications Review of Nursing Notes Rev avail, and agree Physical Exam Vital Signs Vital Signs First Documented: Result Date Time Pulse Ox 97 06/14 1736 B/P 105/62 06/14 1736 B/P Mean 76 06/14 173 O2 Delivery Room air 06/14 1736 Temp 37.1 06/14 1736 Pulse 87 06/14 173 Resp 18 06/14 1736 Last Documented: Result Date Time Pulse Ox 100 06/14 2309 B/P 111/56 06/14 2309 B/P Mean 74 06/14 2309 Temp 36.8 06/14 2309 Pulse 79 06/14 2309 Resp 06/14 O2 Delivery Room air 06/14 2116 Review of Vital Signs Reviewed, Vital signs norm al Basic Physical Exam Basic PE GEN: Well appearing/NAD, HEAD: Atraumat ic/NC, ENT: Membranes moist, NECK: Supple, CV: Reg rate rhythm, EXT: No gross abnormality, SKIN: No rashes, warm/dry, NEURO: alert oriented, NEURO: gross mo vement NL Physical Exam Abdomen/GI Tenderness/Guarding/Rebound Tender suprapubic. Interpretation Diagnostics Lab Results Interpretation Results Laboratory Tests 06/14/201732: [Embedded Image Not Available] Laboratory Tests: 06/14 1725 Chemistry Sodium (135 - 145 mEq/L) 137 Potassium (3.5 - 5.0 mEq/L) 3.7 Chloride (100 - 115 mEq/L) 105 Carbon Dioxide (22 - 31 mEq/L) 25 Anion Gap (10 - 20) 10.80 BUN (7 - 18 mg/dL) 7 Creatinine (0.5 - 1.0 mg/dL) 0.7 Glomerular Filtr Rate (>60 ml/min) 121 Glucose (65 - 110 mg/dL) 114 H Calcium (8.4 - 10.2 mg/dL) 8.6 Total Bilirubin (0.2 - 1.0 mg/dL) 0.2 AST (15 - 37 units/L) 10 L ALT (12 - 78 units/L) 16 Total Alk Phosphatase (46 - 116 units/L) 67 Total Protein (6.3 - 8.2 gm/dL) 6.7 Albumin (3.4 - 4.8 gm/dL) 3.0 L Hematology WBC (6.6 - 12.1 K/mm3) 7.4 RBC (3.45 - 5.01 M/mm3) 4.64 Hgb (10.7 - 13.9 g/dL) 11.9 Hct (32.1 - 42.1 %) 36.5 MCV (84.1 - 94.8 fL) 79 L MCH (27 - 35 pg) 25.6 L MCHC (32.2 - 34.1 gm/dL) 32.6 RDW (12.4 - 16.5 %) 14.6 Plt Count (133 - 385 K/mm3) 279 MPV (9.1 - 12.7 fl) 10.6 Neut % (Auto) (56.5 - 79.4 %) 66.9 Lymph % (Auto) (14.3 - 34.3 %) 23.5 Jerauld % (Auto) (5.1 - 10.4 %) 7.2 Eos % (Auto) (0.1 - 3.0 %) 1.9 Baso % (Auto) (0.1 - 1.0 %) 0.4 Neut # (Auto) (K/mm3) 4.9 Lymph # (Auto) (K/mm3) 1.7 Jerauld # (Auto) (K/mm3) 0.5 Eos # (Auto) (K/mm3) 0.14 Baso # (Auto) (K/mm3) 0.0 Miscellaneous Maternal Serum HCG 1283 Urines Urine Color (YELLOW) YELLOW Urine Appearance (CLEAR) Slightly-Cloudy Urine pH (5 - 9) 6.0 Ur Specific Hustle (1.001 - 1.035) 1.015 Urine Protein (NEG) 1+ H Urine Glucose (UA) (NEG) NEGATIVE Urine Ketones (NEG) NEGATIVE Urine Blood (NEG) 3+ H Urine Nitrite (NEG) NEG Urine Bilirubin (NEG) NEGATIVE Urine Urobilinogen (NEG mg/dL) NEGATIVE Ur Leukocyte Esterase (NEG) 3+ H Urine RBC (NONE SEEN #/hpf) TOO NUMEROUS TO CNT H Urine WBC (NONE SEEN #/hpf) 16-20 H Ur Epithelial Cells (RARE - FEW #/HPF) RARE Urine Bacteria (RARE - FEW /HPF) FEW Urine Mucus (NONE SEEN) 1+ Microbiology: Date/Time Procedure - Status Source Growth 06/14 1929 Urine Culture - COMP URINE Recent Impressions: ULTRASOUND - US TRANSVAGINAL W/PELVIS 06/14 1823 Report Impression - Status: SIGNED Entered: 06/14/20201917 IMPRESSION: 1. There is no intrauterine or extrauterine gest ational sac identified. The findings could be secondary to s pontaneous expulsion of products, hidden ectopic or v ashvin early . Close clinical correlation is recommended. Consi damion short-term follow-up ultrasound and beta hCG. 2. The endometrial stripe is 1.2 cm thick and th ere is complex fluid in the endometrial canal. Retained products of c onception cannot be excluded. 3. There is normal bilateral ovarian blood flow and no evidence of ovarian torsion. 4. There is a small volume of simple free fluid in the pelvic cul-de-sac. Impression By: [email or web address] - Jose Alexander, DO ULTRASOUND - DUP AB/PEL/SC/LTD 06/14 1823 Report Impression - Status: SIGNED Entered: 06/14/20201917 IMPRESSION: 1. There is no intrauterine or extrauterine gest ational sac identified. The findings could be secondary to s pontaneous expulsion of products, hidden ectopic or v ashvin early . Close clinical correlation is recommended. Consi damion short-term follow-up ultrasound and beta hCG. 2. The endometrial stripe is 1.2 cm thick and th ere is complex fluid in the endometrial canal. Retained products of c onception cannot be excluded. 3. There is normal bilateral ovarian blood flow and no evidence of ovarian torsion. 4. There is a small volume of simple free fluid in the pelvic cul-de-sac. Impression By: Марина Alexander DO ULTRASOUND - US PELVIS COMPLETE 06/14 1823 Report Impression - Status: SIGNED Entered: 06/14/20201917 IMPRESSION: 1. There is no intrauterine or extrauterine gest ational sac identified. The findings could be secondary to s pontaneous expulsion of products, hidden ectopic or v ashvin early . Close clinical correlation is recommended. Consi damion short-term follow-up ultrasound and beta hCG. 2. The endometrial stripe is 1.2 cm thick and th ere is complex fluid in the endometrial canal. Retained products of c onception cannot be excluded. 3. There is normal bilateral ovarian blood flow and no evidence of ovarian torsion. 4. There is a small volume of simple free fluid in the pelvic cul-de-sac. Impression By: Марина Alexander DO Patient Discharge Departure Vital Signs/Condition Vital Signs First Documented: Result Date Time Pulse Ox 97 06/14 1736 B/P 105/62 06/14 1736 B/P Mean 76 06/14 1736 O2 Delivery Room air 06/14 1736 Temp 37.1 06/14 1736 Pulse 87 06/14 1736 Resp 18 06/14 1736 Last Documented: Result Date Time Pulse Ox 100 06/14 2309 B/P 111/56 06/14 2309 B/P Mean 74 06/14 2309 Temp 36.8 06/14 2309 Pulse 79 06/14 2309 Resp 17 06/14 2309 O2 Delivery Room air 06/14 2116 All vital signs available at the time of this en try have been reviewed. Condition Stable Clinical Impression Clinical Impression Primary Impression: Miscarriage Time of Impression 175 Discharge/Care Plan (Auto) Prescriptions Current Visit Scripts No Known Home Medications Referrals Estefani Faria MD (PCP) Pt/Provider Handoff Care Transferred to Dr Harris Care Transferred at 1755 Discussed Complaint(s) Yes Israel Harris 06/14/202234: HPI-General Illness General Initial Greet Date/Time 06/14/20 1723 Re-Evaluation MDM Free Text MDM Notes Free Text MDM Notes 20-year-old female G2, P1 status post miscarriag e complaining of pelvic pain vaginal bleeding x1 day. Miscarriage, vaginal bleeding, pelvic pain Normal CBC, CMP, UA, Pelvic exam: Closed cervix no bleeding. Ultrasound showed no intrauterine or e ctopic blood clots within the the lower uterine segment. No active bleeding. Discussed patient with Dr. Alon slade to go deven e, follow-up in the office. Bleeding precautions given, patient knows to ret urn to the ER if fever chills vaginal bleeding using 5-6 pads per hour. ED Course Medication(s) Ordered Medication(s) Ordered: Cardiovascular Drugs Sig/Godfrey Start time Last Medication Dose Route Stop Time Status Admin Propranolol HCl 5 MG X1ED STA 06/14 2017 CAN PO 06/14 2018 Central Nervous System Agents Sig/Godfrey Start time Last Medication Dose Route Stop Time Status Admin Ketorolac 30 MG X1ED STA 06/14 1908 DC 06/14 Tromethamine IV 06/14 1909 191 Consultation Consultation Referral/Consult Name AlonAsia Copy Reader Called CASTING AND PASTING SUPERVISOR Requested Call Time 2242 Requested Call Date 06/14/20 Call Returned Call returned Call Returned Time 2242 Call Returned Date 06/14/20 Copy Reader Will see patient, Will see in office Free Text Consult Notes ok go go home, follow up in the office Patient Discharge Departure Vital Signs/Condition Condition Improved, Stable Clinical Impression Time of Impression 2234 Disposition Decision Discharge )( Discharged to Home Yes )( Time 2300 )( Date 06/14/20 Discharge/Care Plan Counseled Regarding Diagnosi s, Lab results, Imaging studies, Need for admission, Need for follow-up, When to return to ED Admit Note I have spoken with the patie nt and/or caregivers. I have explained the patient's condition, diagnoses and alexandria atment plan based on the information available to me at this time. I have answered the patient's and/ or caregiver's questions and addressed any concerns. The patient and/or careg amy have as good an understanding of the patient 's diagnosis, condition and treatment plan as can be expected at this point. The patient has been stabilized within the capability of the emergency department. The patient wi ll be transported for further care and management or will be moved to an observation or inpatient service. I have communicated with the staff or medical p dariuser taking over this patient's care. Quality Measures BP F/U for HTN F/u with PCP/other doc at 1755 at 1759 RPT #:[id number] END OF REPORT 2020-06-12 15:30:00-00:00 [facility] [place] ([facility]) EMERGENCY PROVIDER REPORT REPORT#:[id number] REPORT STATUS: Signed DATE:06/12/20 TIME: 1530 PATIENT: KARINA STORM UNIT #: [id number] ROOM/BED: AGE: 20 SEX: F PCP PHYS: Estefani Faria MD SERVICE AUTHOR: Ryan Ortiz MD * ALL edits or amendments must be made on the el [employer]computer document * HPI-Preg Under 20 Weeks General Confirmed Patient Yes Initial Greet Date/Time 06/12/20 1438 Presentation Chief Complaint Abdominal cramping, , Va ginal bleeding Free Text HPI Notes Free Text HPI Notes 20-year-old female G2, P1 at approximately 7 wee ks who presents for vaginal bleeding for 3 days soaking 2-3 pads daily and p elvic cramping. Patient was seen in an outside ER on 05/26/2020 and was confir med to have an IUP. Patient does not have any care. Review of Systems ROS Statements All systems rev neg except as marked. Free Text ROS Notes Free Text ROS Notes CONSTITUTIONAL: NO FEVER, CHILLS, CHANGES IN BEH AVIOR HEENT: NO EYE REDNESS/TEARING, EAR PAIN/PULLING, CONGESTION or THROAT PAIN CARDIOVASCULAR: NO CYANOSIS, SWELLING OR SOB PULMONARY: NO COUGH, SOB OR WHEEZING GI: NO TENDERNESS, NAUSEA OR VOMITING, DIARRHEA or CONTIPATION GENITOURINARY: NO DYSURIA, DISCHARGE, BLOOD IN U RINE; + VAGINAL BLEEDING SKIN: NO REDNESS, RASHES OR LESIONS MUSCULOSKELETAL: NO BACK PAIN, JOINT PAIN, MUSCL E PAIN NEUROLOGIC: NO LOC, SEIZURES, NUMBNESS OR TINGLI NG Past Medical History - Adult Stated Complaint ABDOMINAL PAIN,BLOOD CLOTS Allergies Coded Allergies: No Known Allergies (06/12/20) Home Medications Reported Medications No Known Home Medications Smoking status for patients 13 years old or olde r: Unknown,if ever smoked Physical Exam Vital Signs Vital Signs First Documented: Result Date Time Pulse Ox 97 06/12 1447 B/P 114/59 06/12 1447 B/P Mean 77 06/12 1447 O2 Delivery Room air 06/12 144 Temp 37.0 06/12 144 Pulse 92 06/12 1447 Resp 18 06/12 144 Last Documented: Result Date Time Pulse Ox 97 06/12 1447 B/P 114/59 06/12 1447 B/P Mean 77 06/12 1447 O2 Delivery Room air 06/12 1447 Temp 37.0 06/12 144 Pulse 92 06/12 1447 Resp 18 06/12 1447 Review of Vital Signs Reviewed Basic Physical Exam Basic PE HEAD: Atraumatic/NC, EYES: PERR L, conj clear, RESP: No resp distress, CV: Reg rate rhythm, EXT: No gross abnormality, SKIN: No rashes, warm/dry, NEURO: alert oriented, NEURO: gross movement NL, PSYCH: NL thought content Focused PE General/Const General/Const Awake, Alert, No acute distress, Cooperative Resp/Chest Respiratory/Chest Atraumatic, Breath sounds NL, No respiratory distress, No wheezing Cardiovascular Cardiovascular Heart rate NL, Regular rhythm, H eart sounds NL, Peripheral circulation NL Abdomen/GI Abdomen/GI Atraumatic, Soft, Non-tender, BS nor moactive, No distention MS Back Back Atraumatic, Inspection NL, Non-tender Genitourinary General Staff Cytotechnologist present Female Genitourinary Atraumatic Vaginal Bleeding/Discharge Bleeding mild. Negative: Discharge bloody. Neurologic Neurologic Oriented X3, Speech NL, CN II - XII intact, Memory NL Interpretation Diagnostics Lab Results Interpretation Results Laboratory Tests 06/12/20 1510: [Embedded Image Not Available] Laboratory Tests: 06/12 06/12 1510 1340 Chemistry Sodium (135 - 145 mEq/L) 139 Potassium (3.5 - 5.0 mEq/L) 3.5 Chloride (100 - 115 mEq/L) 105 Carbon Dioxide (22 - 31 mEq/L) 24 Anion Gap (10 - 20) 13.20 BUN (7 - 18 mg/dL) 8 Creatinine (0.5 - 1.0 mg/dL) 0.7 Glomerular Filtr Rate (>60 ml/min) 121 Glucose (65 - 110 mg/dL) 118 H Calcium (8.4 - 10.2 mg/dL) 8.6 Hematology WBC (6.6 - 12.1 K/mm3) 5.2 L RBC (3.45 - 5.01 M/mm3) 4.49 Hgb (10.7 - 13.9 g/dL) 11.7 Hct (32.1 - 42.1 %) 35.8 MCV (84.1 - 94.8 fL) 80 L MCH (27 - 35 pg) 26.1 L MCHC (32.2 - 34.1 gm/dL) 32.7 RDW (12.4 - 16.5 %) 14.6 Plt Count (133 - 385 K/mm3) 245 MPV (9.1 - 12.7 fl) 10.7 Neut % (Auto) (56.5 - 79.4 %) 57.1 Lymph % (Auto) (14.3 - 34.3 %) 30.8 Jerauld % (Auto) (5.1 - 10.4 %) 9.0 Eos % (Auto) (0.1 - 3.0 %) 2.3 Baso % (Auto) (0.1 - 1.0 %) 0.6 Neut # (Auto) (K/mm3) 3.0 Lymph # (Auto) (K/mm3) 1.6 Jerauld # (Auto) (K/mm3) 0.5 Eos # (Auto) (K/mm3) 0.12 Baso # (Auto) (K/mm3) 0.0 Miscellaneous Maternal Serum HCG 3232 Urines Urine Color (YELLOW) YELLOW Urine Appearance (CLEAR) Slightly-Cloudy Urine pH (5 - 9) 6.0 Ur Specific Hustle (1.001 - 1.035) 1.015 Urine Protein (NEG) 1+ H Urine Glucose (UA) (NEG) NEGATIVE Urine Ketones (NEG) NEGATIVE Urine Blood (NEG) 3+ H Urine Nitrite (NEG) NEG Urine Bilirubin (NEG) NEGATIVE Urine Urobilinogen (NEG mg/dL) NEGATIVE Ur Leukocyte Esterase (NEG) 1+ H Urine RBC (NONE SEEN #/hpf) TOO NUMEROUS TO CNT H Urine WBC (NONE SEEN #/hpf) 11-15 H Ur Epithelial Cells (RARE - FEW #/HPF) MODERATE H Urine Bacteria (RARE - FEW /HPF) FEW Urine Mucus (NONE SEEN) 2+ Urine HCG, Qual POSITIVE Microbiology: Date/Time Procedure - Status Source Growth 06/12 1513 Urine Culture - COMP URINE Recent Impressions: ULTRASOUND - US TRANSVAGINAL W/PELVIS 06/12 1610 Report Impression - Status: SIGNED Entered: 06/12/20201704 IMPRESSION: 1. Thickened, mildly heterogeneous endometrial s tripe without visible intra or extra uterine gestation at this moment. Recommend continued follow-up of the beta hCG levels. 2. No adnexal masses. 3. Normal size ovaries with normal low resistanc e blood flow and left ovarian corpus luteum. 4. Low-volume free pelvic fluid, reactive or phy siologic. SL: ER-H Impression By: Tres perkins MD ULTRASOUND - DUP AB/PEL/SC/LTD 06/12 1610 Report Impression - Status: SIGNED Entered: 06/12/20201704 IMPRESSION: 1. Thickened, mildly heterogeneous endometrial s tripe without visible intra or extra uterine gestation at this moment. Recommend continued follow-up of the beta hCG levels. 2. No adnexal masses. 3. Normal size ovaries with normal low resistanc e blood flow and left ovarian corpus luteum. 4. Low-volume free pelvic fluid, reactive or phy siologic. SL: ER-H Impression By: Tres perkins MD ULTRASOUND - US PELVIS COMPLETE 06/12 1610 Report Impression - Status: SIGNED Entered: 06/12/20201704 IMPRESSION: 1. Thickened, mildly heterogeneous endometrial s tripe without visible intra or extra uterine gestation at this moment. Recommend continued follow-up of the beta hCG levels. 2. No adnexal masses. 3. Normal size ovaries with normal low resistanc e blood flow and left ovarian corpus luteum. 4. Low-volume free pelvic fluid, reactive or phy siologic. SL: ER-H Impression By: [email or web address] - Nasir perkins MD Re-Evaluation MDM Free Text MDM Notes Free Text MDM Notes Likely this is a completed miscarriage given his tory of US showing pole inside the vagina. Recommend trending her HCG le vels every 48 - 72 hours. 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 Strict return precautions for worsening symptoms . Bleed precautions for worsening symptoms Patient Discharge Departure Vital Signs/Condition Vital Signs First Documented: Result Date Time Pulse Ox 97 06/12 1447 B/P 114/59 06/12 1447 B/P Mean 77 06/12 1447 O2 Delivery Room air 06/12 1447 Temp 37.0 06/12 1447 Pulse 92 06/12 1447 Resp 18 06/12 1447 Last Documented: Result Date Time Pulse Ox 97 06/12 1447 B/P 114/59 06/12 1447 B/P Mean 77 06/12 1447 O2 Delivery Room air 06/12 1447 Temp 37.0 06/12 1447 Pulse 92 06/12 1447 Resp 18 06/12 1447 All vital signs available at the time of this en try have been reviewed. Condition Stable Clinical Impression Clinical Impression Primary Impression: Vaginal bleeding during preg reji Disposition Decision Discharge )( Discharged to Home Yes )( Time 1730 )( Date 06/12/20 Discharge/Care Plan (Auto) Prescriptions Current Visit Scripts No Known Home Medications Referrals Estefani Faria MD (PCP) Electronically Signed by Ryan Ortiz MD on at 1422 RPT #:[id number] END OF REPORT
[2023-05-19] MEDS ORDERED: NA CHLORIDE 0.9% 1,000 ML ONE (08:50)
[2023-05-19] MEDS ORDERED: ONDANSETRON 4 MG/2 ML VIAL ONE (08:50)
[2023-05-19 09:02] LABS: Specific Gravity > 1.030 (1.005-1.030)
[2023-05-19 09:07] LABS: Specific Gravity > 1.030 (1.005-1.030); Urine Bacteria >50 /HPF (<20); Urine Bilirubin NEGATIVE (Negative); Urine Blood Negative (Negative); Urine Clarity Extremely Turbid (Clear); Urine Color Yellow (Yellow); Urine Glucose NEGATIVE (Negative); Urine Mucus 4+ /HPF (None Seen); Urine Protein 2+ (Negative); Urine Urobilinogen 1+ (Normal)
[2023-05-19 09:17] LABS: Albumin 3.4 g/dL (3.4-5.0); Bilirubin Total 0.5 mg/dL (0.2-1.0); Potassium 3.4 mEq/L (3.5-5.1); Protein, Total 7.5 g/dL (6.4-8.2)
[2023-05-19 09:20] LABS: Absolute Lymphocytes (CBC) 1.2 K/uL (0.7-4.9); Hematocrit 39.3 % (36.0-45.0); MCV 77.5 fL (80-100); MPV 8.7 fL (7.6-11.3); Platelets 242 thou/uL (152-406); RBC Red Blood Cell Count 5.08 M/uL (3.86-4.86)
--- NOTE | 2023-05-19 09:39 | RAD REPORT ---
EXAM DESCRIPTION: US - Transvaginal OB - 05/19/2023 9:22 am CLINICAL HISTORY: with abdominal pain COMPARISON: None. FINDINGS: The uterus measures 8 x 5 x 5 centimeters. The uterus is retroverted A gestational sac is present within the endometrium measuring 1.5 centimeters. A 2 millimeter echogenic structure equivocal for a pole. Cardiac activity not seen Ovaries are normal in size and echotexture.. The right and left adnexa unremarkable No significant free fluid IMPRESSION: Intrauterine with an estimated gestational age 6 weeks 1 day ALFONZO 01/11/2024 2 millimeter echogenic structure within the gestational sac is equivocal for a pole. Cardiac ac tivity not seen. This still may represent viable early intrauterine . A failed is another considera tion. It is recommended that the patient have serial beta HCG levels and a followup endovaginal sonog rosalinda in 1 week for re-evaluation
--- NOTE | 2023-05-19 10:33 | EDPHYS ---
Physician Documentation [facility] Name: Vivi Storm Age: 23 yrs Sex: Female : 2000 Arrival Date: 05/19/2023 Time: 08:07 Bed 20 Private MD: ED Physician Tre Castelan HPI: 05/19 10:33 This 23 yrs old Black Female presents to ER via Ambulatory with complaints of ms3 Nausea/Vomiting, Abdominal Pain. 10:33 23-year-old female with no past medical history presents for nausea and vomiting that ms3 has been ongoing for 2 days. Patient states she is unable to tolerate p.o. Patient states her discomfort is a 10/10 located in her lower abdomen. Patient denies vaginal bleeding. Patient states her last menstrual period was April 10, 2023. Patient states she is a -1-4-1. 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 - Social history:: Smoking status: Patient/guardian denies using tobacco. ROS: 10:33 Constitutional: Negative for fever, and chills. Cardiovascular: Negative for chest ms3 pain, and palpitations. Respiratory: Negative for shortness of breath, cough, wheezing, and pleuritic chest pain. 10:33 Abdomen/GI: Positive for abdominal pain, nausea and vomiting. 10:33 All other systems are negative. Exam: 10:33 Constitutional: This is a well developed, well nourished patient who is awake, alert, ms3 and in no acute distress. Head/Face: Normocephalic, atraumatic. Eyes: Pupils equal round and reactive to light, extra-ocular motions intact. Lids and lashes normal. Conjunctiva and sclera are non-icteric and not injected. Periorbital areas with no swelling, redness, or edema. Neck: Trachea midline, no cervical lymphadenopathy. Supple, full range of motion without nuchal rigidity, or vertebral point tenderness. No Meningismus. Chest/axilla: Normal chest wall appearance and motion. Nontender with no deformity. Cardiovascular: Regular rate and rhythm with a normal S1 and S2. No gallops, murmurs, or rubs. Normal PMI, no JVD. No pulse deficits. Respiratory: Lungs have equal breath sounds bilaterally, clear to auscultation and percussion. No rales, rhonchi or wheezes noted. No increased work of breathing, no retractions or nasal flaring. Abdomen/GI: Soft, non-tender, with normal bowel sounds. No distension or tympany. No guarding or rebound. No evidence of tenderness throughout. Skin: Warm, dry with normal turgor. Normal color with no rashes, no lesions, and no evidence of cellulitis. MS/ Extremity: Pulses equal, no cyanosis. Neurovascular intact. Full, normal range of motion. Neuro: Awake and alert, GCS 15, oriented to person, place, time, and situation. Cranial nerves II-XII grossly intact. Motor strength 5/5 in all extremities. Sensory grossly intact. Cerebellar exam normal. Normal gait. Vital Signs: 08:20 BP 112 / 65; Pulse 80; Resp 18 S; Temp 98.5(O); Pulse Ox 100% on R/A; Pain 7/10; kc6 09:46 BP 98 / 80; Pulse 76; Resp 18 S; Pulse Ox 100% on R/A; kc6 08:20 Pain Scale: Adult kc6 MDM: 08:36 Patient medically screened. ms3 10:33 Differential diagnosis: Nonspecific abd pain, Hyperemesis gravidarum versus ms3 miscarriage. Data reviewed: vital signs, nurses notes, and as a result, I will discharge patient. I considered the following discharge prescriptions or medication management in the emergency department Medications were administered in the Emergency Department. See MAR. Counseling: I had a detailed discussion with the patient and/or guardian regarding the historical points, exam findings, and any diagnostic results supporting the discharge/admit diagnosis, lab results, radiology results, the need for outpatient follow up, to return to the emergency department if symptoms worsen or persist or if there are any questions or concerns that arise at home. ED course: Independent interpretation: Ultrasound images reviewed by me reveal intrauterine . ED course: Discussed labs, ultrasound results with patient. Patient blood type B+. Patient to follow-up with [facility] obstetrics in 2 to 3 days. Patient understands and agrees with plan. All questions were answered. Return precautions discussed include worsening symptoms, or any other concerns. On reevaluation patient is alert and oriented x4, no apparent distress, nontoxic-appearing, ambulatory Emergency Department, speaking full sentences, tolerating p.o.. 05/19 08:37 Order name: CBC with Diff; Complete Time: 10:21 ms3 05/19 08:37 Order name: CMP; Complete Time: 10:21 ms3 05/19 08:37 Order name: Test, Urine; Complete Time: 10:21 ms3 05/19 08:37 Order name: Urinalysis w/ reflexes; Complete Time: 10:21 ms3 05/19 08:37 Order name: Type And Screen; Complete Time: 10:21 ms3 05/19 08:52 Order name: Transvaginal OB; Complete Time: 10:21 EDMS 05/19 08:37 Order name: IV Saline Lock; Complete Time: 08:53 ms3 05/19 08:37 Order name: Labs collected and sent; Complete Time: 08:53 ms3 Administered Medications: 08:53 Drug: NS 0.9% IV 1000 ml Route: IV; Rate: 1 bolus; Site: right antecubital; kc6 10:24 Follow up: Response: No adverse reaction; IV Status: Completed infusion; IV Intake: kc6 1000ml 08:53 Drug: Ondansetron IVP 4 mg Route: IVP; Site: right antecubital; kc6 10:23 Follow up: Response: No adverse reaction; Nausea is decreased kc6 Disposition Summary: 05/19/23 10:33 Discharge Ordered Location: Home ms3 Condition: Stable ms3 Diagnosis - UTI/ Urinary tract infection, site not specified ms3 - 6 week intrauterine geststation ms3 - Nausea with vomiting, unspecified ms3 Followup: ms3 - With: Private Physician - When: 2 - 3 days - Reason: Recheck today's complaints Discharge Instructions: - Discharge Summary Sheet ms3 - First Trimester of ms3 Forms: - Medication Reconciliation Form ms3 - Thank You Letter ms3 - Antibiotic Education ms3 - Prescription Opioid Use ms3 - Patient Portal Instructions ms3 - Leadership Thank You Letter ms3 - Work release form kc6 Prescriptions: - Diclegis 10-10 mg Oral tablet, delayed release (enteric coated) - take 1 tablet by ORAL route every day at bedtime; 30 tablet; Refills: 0, ms3 Product Selection Permitted - - take 1 tablet by ORAL route daily; 30 tablet; Refills: 0, Product Selection ms3 Permitted Signatures: Dispatcher [employer] EDMS Tre Castelan DO DO ms3 Lelo Hansen RN RN kc6 Corrections: (The following items were deleted from the chart) 08:52 08:37 1st Trimest Single 1st [id number] ordered. EDMS EDMS
--- NOTE | 2023-05-19 10:33 | ER ---
Nurse's Notes [facility] Name: Vivi Storm Age: 23 yrs Sex: Female : 2000 Arrival Date: 05/19/2023 Time: 08:07 Bed 20 Private MD: Diagnosis: UTI/ Urinary tract infection, site not specified;6 week intrauterine geststation;Nausea with vomiting, unspecified Presentation: 05/19 08:20 Chief complaint: Patient states: lower abd pain x2 days with n/v, denies diarrhea. pt kc6 reports finding out she is a week ago via a UDS at work. denies vaginal bleeding. LMP 04/10. Coronavirus screen: At this time, the client does not indicate any symptoms associated with coronavirus-19. Ebola Screen: No symptoms or risks identified at this time. Initial Sepsis Screen: Does the patient meet any 2 criteria? No. Patient's initial sepsis screen is negative. Does the patient have a suspected source of infection? No. Patient's initial sepsis screen is negative. Risk Assessment: Do you want to hurt yourself or someone else? Patient reports no desire to harm self or others. Onset of symptoms was May 19, 2023. 08:20 Method Of Arrival: Ambulatory [facility] 08:20 Acuity: LEATHA 3 kc6 Triage Assessment: 08:22 General: Appears in no apparent distress. comfortable, Behavior is calm, cooperative, kc6 appropriate for age. Pain: Complains of pain in suprapubic area, right lower quadrant and left lower quadrant Pain does not radiate. Pain currently is 7 out of 10 on a pain scale. Pain began 2-3 days ago. EENT: No signs and/or symptoms were reported regarding the EENT system. Neuro: Level of Consciousness is awake, alert, obeys commands, Oriented to person, place, time, situation, Appropriate for age. Cardiovascular: Capillary refill < 3 seconds. Respiratory: Airway is patent Trachea midline Respiratory effort is even, unlabored, Respiratory pattern is regular, symmetrical. GI: Abdomen is flat, non-distended, Bowel sounds present X 4 quads. Abd is soft X 4 quads Abdomen is tender to palpation in suprapubic area, right lower quadrant and left lower quadrant Reports lower abdominal pain, nausea, vomiting, Patient currently denies diarrhea. : No signs and/or symptoms were reported regarding the genitourinary system. Denies vaginal bleeding. Derm: No signs and/or symptoms reported regarding the dermatologic system. Skin is intact, is healthy with good turgor, Skin is pink, warm \T\ dry. Musculoskeletal: No signs and/or symptoms reported regarding the musculoskeletal system. Circulation, motion, and sensation intact. Capillary refill < 3 seconds, Range of motion: intact in all extremities. 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 - Social history:: Smoking status: Patient/guardian denies using tobacco. Screenin:24 [facility] ED Fall Risk Assessment (Adult) History of falling in the last 3 months, kc6 including since admission No falls in past 3 months (0 pts) Confusion or Disorientation No (0 pts) Intoxicated or Sedated No (0 pts) Impaired Gait No (0 pts) Mobility Assist Device Used No (0 pt) Altered Elimination No (0 pt) Score/Fall Risk Level 0 - 2 = Low Risk. Abuse screen: Denies threats or abuse. Denies injuries from another. Nutritional screening: No deficits noted. Tuberculosis screening: No symptoms or risk factors identified. Assessment: 08:24 Reassessment: please see triage assessment. kc6 09:46 Reassessment: Patient appears in no apparent distress at this time. No changes from kc6 previously documented assessment. Patient and/or family updated on plan of care and expected duration. Pain level reassessed. Patient is alert, oriented x 3, equal unlabored respirations, skin warm/dry/pink. Vital Signs: 08:20 BP 112 / 65; Pulse 80; Resp 18 S; Temp 98.5(O); Pulse Ox 100% on R/A; Pain 7/10; kc6 09:46 BP 98 / 80; Pulse 76; Resp 18 S; Pulse Ox 100% on R/A; kc6 08:20 Pain Scale: Adult kc6 ED Course: 08:10 Patient arrived in ED. mg5 08:15 Lelo Hansen, RN is Primary Nurse. kc6 08:18 Tre Castelan DO is Attending Physician. ms3 08:22 Triage completed. kc6 08:22 Arm band placed on. kc6 08:24 Patient has correct armband on for positive identification. Bed in low position. Call kc6 light in reach. Side rails up X 1. 08:53 Type And Screen Sent. kc6 08:53 CBC with Diff Sent. kc6 08:53 CMP Sent. kc6 08:54 Test, Urine Sent. kc6 08:54 Urinalysis w/ reflexes Sent. kc6 08:54 Inserted saline lock: 20 gauge in right antecubital area, using aseptic technique. kc6 Blood collected. 09:24 Transvaginal OB In Process Unspecified. EDMS 10:46 No provider procedures requiring assistance completed. IV discontinued, intact, kc6 bleeding controlled, No redness/swelling at site. Pressure dressing applied. Administered Medications: 08:53 Drug: NS 0.9% IV 1000 ml Route: IV; Rate: 1 bolus; Site: right antecubital; kc6 10:24 Follow up: Response: No adverse reaction; IV Status: Completed infusion; IV Intake: kc6 1000ml 08:53 Drug: Ondansetron IVP 4 mg Route: IVP; Site: right antecubital; kc6 10:23 Follow up: Response: No adverse reaction; Nausea is decreased kc6 Medication: 10:46 VIS not applicable for this client. kc6 Intake: 10:24 IV: 1000ml; Total: 1000ml. kc6 Outcome: 10:33 Discharge ordered by . ms3 10:46 Discharged to home ambulatory. kc6 10:46 Condition: improved 10:46 Discharge instructions given to patient, Instructed on discharge instructions, follow up and referral plans. medication usage, Demonstrated understanding of instructions, follow-up care, medications, Prescriptions given X 2. 10:47 Patient left the ED. kc6 Signatures: Dispatcher [employer] EDMS Tre Castelan DO DO ms3 Lelo Hansen RN RN kc6 Yelitza Carpenter mg5
[2023-05-19 10:56] VITALS: TEMP 98.5; O2SAT 100
[2023-05-19 11:02] VITALS: BP 98/80
== END 2023-05-19 10:47 | disposition home or self-care (01) ==
LOC: ER 08:07
DX: O23.41 Unspecified infection of urinary tract in pregnancy, first trimester (principal); N39.0 Urinary tract infection, site not specified; O21.9 Vomiting of pregnancy, unspecified; Z3A.01 Less than 8 weeks gestation of pregnancy; Z88.8 Allergy status to other drugs, medicaments and biological substances
CPT/HCPCS: 96361; 85025; 81001; 36415; 86900; 86850; 81025; 86901; 80053; 76817; 96374; 99284; J2405; J7030